=== PATIENT | male | born 1950 | race Caucasian/White ===

== ENCOUNTER 2021-03-25 09:51 | Outpatient (CLI) | payer OTHER, SELFPAY ==
[2021-03-25 12:28] LABS: Basophils # 0.1 10^3/uL (0.0-0.1); Eosinophils # 0.1 10^3/uL (0.0-0.8); Eosinophils % 2.9 %; Hematocrit 47.3 % (42.0-52.0); Hemoglobin 15.7 g/dL (11.7-16.6); Lymphocytes # 1.3 10^3/uL (0.8-4.8); Lymphocytes % 26.2 %; Mean Corpuscular HGB Conc 33.2 g/dL (30.0-36.0); Mean Corpuscular Hemoglobin 30.2 pg (28.0-34.0); Mean Platelet Volume 9.2 fL (7.4-10.4); Monocytes # 0.4 10^3/uL (0.2-0.9); Monocytes % 7.9 %; Neutrophils # 2.95 10^3/uL (1.8-7.7); Neutrophils % 61.8 %; Nucleated Red Blood Cells % 0 %; Platelet Count 196 10^3/cmm (130-400); White Blood Count 4.8 10^3/uL (4.0-10.0)
[2021-03-25 12:59] LABS: Prostate Specific Antigen 0.322 ng/mL (0-4); Testosterone Total 294.9 ng/dL (193-740)
[2021-03-25 13:11] LABS: Alanine Aminotransferase 20 U/L (0-41); Albumin Level 4.6 g/dL (3.5-5.2); Alkaline Phosphatase 81 IU/L (40-130); Anion Gap 14.8 (5-19); Aspartate Amino Transferase 22 U/L (0-40); Blood Urea Nitrogen 14 mg/dL (8-23); Calcium 8.8 mg/dL (8.5-10.5); Carbon Dioxide 27 mmol/L (22-29); Chloride 102 mmol/L (98-107); Globulin 2.5 g/dL (1.3-4.6); Glucose 101 mg/dL (65-115); Osmolality Calculated 289 mOsm/kg (285-295); Potassium 4.8 mmol/L (3.5-5.1); Sodium 139 mmol/L (136-145); Total Bilirubin 0.5 mg/dL (0.15-1.2); Total Protein 7.1 g/dL (6.6-8.7)
--- NOTE | 2021-03-25 13:50 | N.ONRAD NP_ITS ---
Radiation Oncology Consultation Patient Name: Reinier Dc Date of : 1950 Date of Service: 03/25/2021 Attending Physician: Roberto Wagner M.D. Reinier Dc was seen in consultation this afternoon at the request of the [facility] for consideration of radiotherapy for the management of a previously diagnosed prostate cancer with recent PSA elevation indicating biochemical failure. He initially was identified to have an elevated PSA level (5.5 ng/mL) in the fall 2018. A transrectal ultrasound-guided biopsy completed on July 04, 2019 diagnosed a prostatic adenocarcinoma with a Pevely's score of 4+4 = 8 involving 1 out of 2 cores than the left apex and Pevely score 4+3 equal 7 involving the right apex, right mid gland, right base, left mid gland, and left base, respectively. A robotic assisted laparoscopic prostatectomy with pelvic lymph node dissection was performed by Tonio Correia M.D. [facility] in [place], [place] on August 14, 2019. Pathology report (requested from the outside hospital and personally reviewed in [facility]) confirmed 25 g prostate with an acinar adenocarcinoma of grade group 4 (positive apical margin) and 3 harvested pelvic lymph nodes negative for malignancy (pT2N0). Routine surveillance identified a PSA of 0.18 ng/mL in December 2020. A Decipher Prostate RP identified a genomic high risk (44% prostate cancer mortality within 15 years). His most recent PSA was 0.32 ng/mL obtained prior to this evaluation. The patient was evaluated for salvage radiotherapy. I reviewed the recommendations as per National Comprehensive Cancer Network Guidelines in conjunction with androgen deprivation therapy for salvage radiotherapy. I also discussed the RTOG 9601 trial that determined 24 months of antiandrogen therapy to salvage radiotherapy resulted in an improvement in overall survival and the GETUG-AFU 16 that attested improvement in progression free survival to the patients randomized to radiotherapy in conjunction with short-term hormonal suppression. I would endorse a 6 1/2 week course of radiotherapy with concurrent gonadotropin releasing hormone agonist pharmacotherapy. Prior to beginning treatment, a CT scan will be acquired in the treatment position to delineate the clinical target volume. Toxicities of pelvic radiotherapy were also canvassed. The patient has verbalized understanding would like proceed as recommended. The patient's medical treatment plan was discussed with Ulises Ledesma M.D. Signed by: Dr. Roberto Wagner 03/25/2021 1:48:43 PM
--- NOTE | 2021-03-25 17:21 | ONC FU_ITS ---
Dr. Leedsma follow up note Patient: Reinier Dc Unit #: [id number]: 1950 Dicatated By: Aury Ledesma M.D.Date of Visit:Mar 25, 2021 Onc Med Follow-up/Prog Note History of Present Illness: Mr. Reinier Dc, is a 70-year-old gentleman with history of prostate cancer underwent RALP on August 14, 2019 for biopsy confirmed prostate cancer and final pathology report showed high risk, high-volume, Jamal score 7 and [address] scan of abdomen pelvis and bone scan was negative at the time of diagnosis his PSA was 6.8 and as per medical record, patient had a positive apical margin but after surgery his PSA become undetectable, patient tolerated procedure well with only complication being erectile dysfunction. And during follow-up his PSA started rising in the range of 0.01 and up to 0.20 in January 2021 at that time decipher prostate RP testing was done which confirmed patient's genomic risk being high As per patient he was seen by his urologist Dr. Howard in [facility] who recommended and referred him to us for salvage therapy. Patient denies any bony pains, denies any dysuria or hematuria, denies any weight loss, denies any back pain denies any abdominal pain denies any jaundice denies any fever chills denies any nausea or vomiting Medications: Cholecalciferol 1 Capsule (of 25 mcg ) Oral daily, Latanoprost Solution Ophthalmic at bedtime, Omeprazole (10 mg) Capsule Delayed Release Oral daily, Systane Balance Solution Ophthalmic b.i.d. Allergies: No Known Allergies. Review of Systems: Review of Systems is not available for this patient. Vital Signs: Performed on Mar 25, 2021 13:13 Height - 69.00 in Weight - 194.4 lbs Temperature - 96.7 F Pulse - 66 Respiration - 18 BP - 146/82 mm(hg) (HIGH) O2 Sat - 97 % Pain - 0 Fatigue - 0 Performed on Mar 25, 2021 13:13 BMI - 28.708 kg/m2 (HIGH) Performed on Mar 25, 2021 11:14 Height - 69 in Weight - 194.4 lbs (HIGH) BSA - 2.04 sq.m BMI - 28.71 Temperature - 96.7 F (LOW) Pulse - 66 /min Respiration - 18 /min BP - 146/82 mm(hg) (HIGH) O2 Sat - 97 % Pain - 0 Fatigue - 0 Performance Status: 0 - Fully active, able to carry on all predisease activities without restrictions. (ECOG) Physical Examination: ENMT - No mouth sores, no thrush, no jaundice, no cervical lymphadenopathy, Respiratory - Lungs are clear to auscultation, Cardiovascular - Regular rate and rhythm of heart, Abdomen - Soft, bowel sounds present, Extremities - No visible edema. Lab/Imaging: Most recent lab results are not available for this patient. Impression: Progressive PSA level after become undetectable following RALP on August 14, 2019, and PSA trend 0.0120.20 in January 2021 and decipher prostate RP done on January 05, 2021 confirmed genomic risk being high. History of prostate cancer diagnosed on July 05, 2019 with prostate biopsy which confirmed Brick score 7 and 8, for which he underwent RALP on August 14 2019 which confirmed high risk high-volume Brick 7 and 8 prostate cancer, apical margin was positive, his PSA was around 6.8 at the time of diagnosis but after RALP it become undetectable until recently showed progressive trend. CT scan of abdomen pelvis and bone scan done in July 2019 showed no evidence of Metastatic disease History of skin cancer, questionable sleep apnea Plan: discussed with patient regarding treatment options for recurrent prostate cancer as per progressive PSA trend and decipher prostate RP confirmed being high risk, at this point ,will consider him combined hormonal ADT with radiation therapy, consider Zoladex for 6-month. We will start first dose of Zoladex on the day of first day of radiation therapy thereafter he will receive Zoladex every 3-month for total of 3 doses. All the side effect possible benefits associated with ADT including but not limited to hot flashes, mood swings, gynecomastia, fluid retention, generalized weakness and fatigue were mentioned, further teaching was done by chemotherapy nurse, will obtain approval from his insurance prior to treatment and will call patient once we have approval for the treatment with Zoladex and also coordinate with radiation oncology. We will obtain baseline CBC, CMP and PSA and testosterone and then he will return to clinic in 1 month after Zoladex injection with PSA and testosterone. Signed By: Aury Ledesma M.D. <<Signature on File>>
== END 2021-03-25 09:52 | disposition home or self-care (01) ==
LOC: ONCMED 09:55
PROVIDERS: Absent Provider Radiology Radiation Oncology; Family Provider Family Medicine; Visit Provider Internal Medicine Hematology & Oncology
DX: C61 Malignant neoplasm of prostate (principal); Z85.828 Personal history of other malignant neoplasm of skin; Z85.46 Personal history of malignant neoplasm of prostate; R97.21 Rising PSA following treatment for malignant neoplasm of prostate
CPT/HCPCS: 36415; 80053; 84153; 84403; 85025; 99205

== ENCOUNTER 2021-04-21 05:50 | Outpatient (RCR) | payer OTHER, MEDICARE, SELFPAY ==
--- NOTE | 2021-03-30 | CT_ITS ---
Radiation Therapy Planning CT images; total exam DLP: 1035.88 mGy-cm MTDD
[2021-04-01] MEDS: lidocaine 1% INJ 20 mL INJECTION (14:35)
[2021-04-01] MEDS: goserelin acetate 10.8 mg Implant SUBCUT (15:00)
--- NOTE | 2021-04-05 11:34 | ONCRAD TMN_ITS ---
Radiation Oncology Treatment Management Note Patient Name: Reinier Dc Date of : 1950 Date of Service: 04/05/2021 Attending Physician: Roberto Wagner M.D. Reinier Dc is a 70 year old white male diagnosed with previously diagnosed a stage IIC (pT2N0) adenocarcinoma of the prostate, grade group 4 with a positive apical margin. A robotic assisted laparoscopic prostatectomy with pelvic lymph node dissection was performed by Tonio Correia M.D. [facility] in [place], [place] on August 14, 2019. Routine surveillance identified a PSA of 0.18 ng/mL in December 2020. A Decipher Prostate RP identified a genomic high risk (44% prostate cancer mortality within 15 years). His most recent PSA was 0.32 ng/mL obtained prior to this evaluation. The patient has received 6 Gy of a prescribed 66 Figueroa to the prostate fossa with an intensity modulated radiotherapy plan utilizing a step and shoot treatment technique. He was prescribed Zoladex (April 01, 2021). Upon review of systems, he denied any gastrointestinal complaints related to radiotherapy. On physical examination, the patient weighed 190 lbs. His temperature was 97.3 ???F with a blood pressure of 129/74 mmHg. The pulse was 69 bpm and his respiratory rate was 18. There was no erythema within the treatment angelo. Continue pelvic radiotherapy as prescribed. Signed by: Dr. Roberto Wagner 04/05/2021 11:32:05 AM
--- NOTE | 2021-04-12 11:06 | ONCRAD TMN_ITS ---
Radiation Oncology Treatment Management Note Patient Name: Reinier Dc Date of : 1950 Date of Service: 04/12/2021 Attending Physician: Roberto Wagnre M.D. Reinier Dc is a 70 year old white male diagnosed with previously diagnosed a stage IIC (pT2N0) adenocarcinoma of the prostate, grade group 4 with a positive apical margin. A robotic assisted laparoscopic prostatectomy with pelvic lymph node dissection was performed by Tonio Correia M.D. [facility] in [place], [place] on August 14, 2019. Routine surveillance identified a PSA of 0.18 ng/mL in December 2020. A Decipher Prostate RP identified a genomic high risk (44% prostate cancer mortality within 15 years). His most recent PSA was 0.32 ng/mL obtained prior to this evaluation. The patient has received 16 Gy of a prescribed 66 Figueroa to the prostate fossa with an intensity modulated radiotherapy plan utilizing a step and shoot treatment technique. He was prescribed Zoladex (April 01, 2021). Upon review of systems, he denied any gastrointestinal complaints related to radiotherapy. On physical examination, the patient weighed 193 lbs. His temperature was 97.4 ???F with a blood pressure of 130/78 mmHg. The pulse was 55 bpm and his respiratory rate was 20. There was no erythema within the treatment angelo. Continue pelvic radiotherapy as planned. Signed by: Dr. Roberto Wagner 04/12/2021 11:05:25 AM
--- NOTE | 2021-04-19 11:29 | ONCRAD TMN_ITS ---
Radiation Oncology Treatment Management Note Patient Name: Reinier Dc Date of : 1950 Date of Service: 04/19/2021 Attending Physician: Roberto Wagner M.D. Reinier Dc is a 70 year old white male diagnosed with previously diagnosed a stage IIC (pT2N0) adenocarcinoma of the prostate, grade group 4 with a positive apical margin. A robotic assisted laparoscopic prostatectomy with pelvic lymph node dissection was performed by Tonio Correia M.D. [facility] in [place], [place] on August 14, 2019. Routine surveillance identified a PSA of 0.18 ng/mL in December 2020. A Decipher Prostate RP identified a genomic high risk (44% prostate cancer mortality within 15 years). His most recent PSA was 0.32 ng/mL obtained prior to this evaluation. The patient has received 26 Gy of a prescribed 66 Figueroa to the prostate fossa with an intensity modulated radiotherapy plan utilizing a step and shoot treatment technique. He was prescribed Zoladex (April 01, 2021). Upon review of systems, he denied any gastrointestinal or genitourinary complaints related to radiotherapy. On physical examination, the patient weighed 188 lbs. His temperature was 97.1???F with a blood pressure of 126/84 mmHg. The pulse was 58 bpm and his respiratory rate was 18. There was no erythema within the treatment angelo. Continue pelvic radiotherapy as prescribed. Signed by: Dr. Roberto Wagner 04/19/2021 11:28:10 AM
== END 2021-04-21 23:59 | disposition home or self-care (01) ==
LOC: ONCMED 05:50
PROVIDERS: Absent Provider Radiology Radiation Oncology; Family Provider Family Medicine; Visit Provider Radiology Radiation Oncology
DX: Z51.0 Encounter for antineoplastic radiation therapy (principal); C61 Malignant neoplasm of prostate; Z79.818 Long term (current) use of other agents affecting estrogen receptors and estrogen levels; Z85.828 Personal history of other malignant neoplasm of skin; Z90.79 Acquired absence of other genital organ(s)
CPT/HCPCS: 77300; 77301; 77334; 77336; 77338; 77385; 96372; 96402; J9202

== ENCOUNTER 2021-05-19 06:22 | Outpatient (RCR) | payer OTHER, MEDICARE, SELFPAY ==
--- NOTE | 2021-04-27 12:39 | ONCRAD TMN_ITS ---
Radiation Oncology Treatment Management Note Patient Name: Reinier Dc Date of : 1950 Date of Service: 04/27/2021 Attending Physician: Roberto Wagner M.D. Reinier Dc is a 70 year old white male diagnosed with previously diagnosed a stage IIC (pT2N0) adenocarcinoma of the prostate, grade group 4 with a positive apical margin. A robotic assisted laparoscopic prostatectomy with pelvic lymph node dissection was performed by Tonio Correia M.D. [facility] in [place], [place] on August 14, 2019. Routine surveillance identified a PSA of 0.18 ng/mL in December 2020. A Decipher Prostate RP identified a genomic high risk (44% prostate cancer mortality within 15 years). His most recent PSA was 0.32 ng/mL obtained prior to this evaluation. The patient has received 36 Gy of a prescribed 66 Figueroa to the prostate fossa with an intensity modulated radiotherapy plan utilizing a step and shoot treatment technique. He was prescribed Zoladex (April 01, 2021). Upon review of systems, he denied any gastrointestinal or genitourinary complaints related to radiotherapy. On physical examination, the patient weighed 190 lbs. His temperature was 97 ???F with a blood pressure of 131/81 mmHg. The pulse was 52 bpm and his respiratory rate was 18. There was no erythema within the treatment angelo. Signed by: Dr. Roberto Wagner 04/27/2021 12:38:10 PM
--- NOTE | 2021-05-03 11:43 | ONCRAD TMN_ITS ---
Radiation Oncology Treatment Management Note Patient Name: Reinier Dc Date of : 1950 Date of Service: 05/03/2021 Attending Physician: Roberto Wagner M.D. Reinier Dc is a 70 year old white male diagnosed with previously diagnosed a stage IIC (pT2N0) adenocarcinoma of the prostate, grade group 4 with a positive apical margin. A robotic assisted laparoscopic prostatectomy with pelvic lymph node dissection was performed by Tonio Correia M.D. [facility] in [place], [place] on August 14, 2019. Routine surveillance identified a PSA of 0.18 ng/mL in December 2020. A Decipher Prostate RP identified a genomic high risk (44% prostate cancer mortality within 15 years). His most recent PSA was 0.32 ng/mL obtained prior to this evaluation. The patient has received 44 Gy of a prescribed 66 Figueroa to the prostate fossa with an intensity modulated radiotherapy plan utilizing a step and shoot treatment technique. He was prescribed Zoladex (April 01, 2021). Upon review of systems, he denied any gastrointestinal or genitourinary complaints related to radiotherapy. On physical examination, the patient weighed 189 lbs. His temperature was 96.8 ???F with a blood pressure of 137/79 mmHg. The pulse was 52 bpm and his respiratory rate was 18. There was no erythema within the treatment angelo. Continue salvage prostatic fossa radiotherapy as planned. Signed by: Dr. Roberto Wagner 05/03/2021 11:42:06 AM
--- NOTE | 2021-05-10 12:14 | ONCRAD TMN_ITS ---
Radiation Oncology Weekly Treatment Management Patient: Dao Alvarenga MR#: [id number] : 1950> Attending Physician: Dr. Dennis Baeza Date of Service: 05/10/2021 Referring Physician(s) : Dr. Lakshmi Decker Diagnosis: C61 - Malignant neoplasm of prostate, Diagnosed 03/25/2021 (Active) Radiotherapy to date: Course: Prostate 2020, Treatment Site: Prostate-Biochemical Failure, Ref. ID: [id number], Energy: 15X, Dose/Fx (cGy): 200, #Fx: / 33, Dose Correction (cGy): 0, Total Dose (cGy): 5,400, Start Date: 04/01/2021, End Date: 05/10/2021, Elapsed Days: 39 Reason for visit: The patient is being seen today as part of their regularly scheduled weekly on treatment visits to assess for acute toxicities from radiotherapy. Review of Systems: Complaints are minimal. His performance status is good. He has had a few loose bowel movements but has not required any medication. He has nocturia x2-3. He has no dysuria or pyuria. He has mild urgency but has no difficulty controlling his bladder. Vital Signs: Performed on 05/10/2021 11:35 AM BMI - 27.999 kg/m2 (high), Height - 69.00 in, Weight - 189.6 lbs, Temperature - 97.3 f, Pulse - 53, Respiration - 20, O2 Sat - 98 %, Pain - 0 and BP - 129/ 75 mm(hg). Physical Exam: Alert, oriented, and in no acute distress. Imaging: Radiation therapy imaging related to accurate target localization (i.e. KV, MV and CBCT) was reviewed. Appropriate changes, if any, were made to ensure treatment accuracy. Plan: Continue treatment according to plan. His only question was about follow-up. He will see Dr. Wagner approximately one month after finishing. He will have blood work and see his urologist in [place] about 4 weeks after completing treatment as well. Signed by: Dr. Dennis Baeza 05/10/2021 12:13:10 PM
--- NOTE | 2021-05-17 11:48 | ONCRAD TMN_ITS ---
Radiation Oncology Weekly Treatment Management Patient: Reinier Dc MR#: [id number] : 1950 Attending Physician: Dr. Dennis Baeza Date of Service: 05/17/2021 Referring Physician(s) : Dr. Lakshmi Decker Diagnosis: C61 - Malignant neoplasm of prostate, Diagnosed 03/25/2021 (Active) Radiotherapy to date: Course: Prostate 2020, Treatment Site: Prostate-Biochemical Failure, Ref. ID: [id number], Energy: 15X, Dose/Fx (cGy): 200, #Fx: 33, Dose Correction (cGy): 0, Total Dose (cGy): 6,200, Start Date: 04/01/2021, Elapsed Days: 46 Reason for visit: The patient is being seen today as part of their regularly scheduled weekly on treatment visits to assess for acute toxicities from radiotherapy. Review of Systems: Mr. Dc was seen 05/14/2021 with complaints of nocturia x5 or 6. This represented an abrupt change from the normal 2-3. He had no obstructive symptoms at all, but I thought a trial of Flomax was warranted. He has had 3 doses without any improvement thus far. When I prescribed the medication, I did discuss with him that in the absence of obstructive or irritative symptoms that the drug may be of little to no benefit. As last week, he still has no obstructive or irritative symptoms. His frequency of urination during the day is unchanged. Over the weekend he has gotten up 3-5 times per night. He feels well otherwise. His performance status is good. No bowel complaints. Vital Signs: Performed on 05/17/2021 11:18 AM BMI - 27.852 kg/m2 (high), Height - 69.00 in, Weight - 188.6 lbs, Temperature - 97.2 f, Pulse - 68, Respiration - 20, O2 Sat - 97 %, Pain - 0 and BP - 134/ 85 mm(hg). Physical Exam: Alert, oriented, no distress. He has no intergluteal fold, anterior pelvic, or inguinal skin reaction. Imaging: Radiation therapy imaging related to accurate target localization (i.e. KV, MV and CBCT) was reviewed. Appropriate changes, if any, were made to ensure treatment accuracy. Plan: Continue treatment as planned. He will finish treatment this week. I told him that he should take a few more doses of the Flomax to see if there might be any benefit. If there is not, he will stop it. I told him that most likely his nocturia will improve over the 2 weeks after completing radiation. He will be having a PSA at the [place] and seeing his urologist in [place] about a month after treatment. He will also be seeing Dr. Wagner. Signed by: Dr. Dennis Baeza 05/17/2021 11:46:43 AM
--- NOTE | 2021-05-19 15:56 | N.ONRD TS_ITS ---
Radiation Oncology Treatment Summary Patient: Reinier Dc MR#: [id number] : 1950 Age: 70 Sex: Male Dictated by: Dr. Dennis Baeza Date of Service: 05/19/2021 Referring Physician(s) : Dr. Lakshmi Decker Diagnosis: C61 - Malignant neoplasm of prostate, Diagnosed 03/25/2021 (Active) Radiotherapy to Date: Course: Prostate 2020, Treatment Site: Prostate-Biochemical Failure, Ref. ID: [id number], Energy: 15X, Dose/Fx (cGy): 200, #Fx: 33 / 33, Dose Correction (cGy): 0, Total Dose (cGy): 6,600, Start Date: 04/01/2021, End Date: 05/19/2021, Elapsed Days: 48 Clinical Summary: The patient tolerated RT well. Performance status remained stable throughout treatment. Mr. Dc maintained excellent bladder control. Late in treatment he developed mild urgency and nocturia x5-6. He had no symptoms of infection. Although he had had a prior prostatectomy, a brief trial of Flomax was tried without any benefit. Plan: End of treatment today. Follow up in one month. Signed by: Dr. Dennis Baeza>05/19/2021 3:55:03 PM <<Signature on File>>
== END 2021-05-22 23:59 | disposition home or self-care (01) ==
LOC: ONCMED 06:22
PROVIDERS: Absent Provider Radiology Radiation Oncology; PCP Family Medicine; Visit Provider Specialist
DX: Z51.0 Encounter for antineoplastic radiation therapy (principal); C61 Malignant neoplasm of prostate; Z79.899 Other long term (current) drug therapy
CPT/HCPCS: 77014; 77336; 77385

== ENCOUNTER 2021-06-18 05:56 | Outpatient (RCR) | payer OTHER, MEDICARE, SELFPAY ==
--- NOTE | 2021-06-18 10:50 | ONCRAD EPV_ITS ---
Radiation Oncology Follow-Up Note Patient Name: Reinier Dc Date of : 1950 Date of Service: 06/18/2021 Attending Physician: Roberto Wagner M.D. Reinier Dc returned to my office this morning for a routinely scheduled follow-up appointment. 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 A robotic assisted laparoscopic prostatectomy with pelvic lymph node dissection was performed by Tonio Correia M.D. [facility] in [place], [place] on August 14, 2019. Routine surveillance identified a PSA of 0.18 ng/mL in December 2020. A Decipher Prostate RP identified a genomic high risk (44% prostate cancer mortality within 15 years). His most recent PSA was 0.32 ng/mL. Radiotherapy was administered between the dates of April 01, 2021 through May 19, 2021. A prescribed dose of 66 Gy was delivered in 33 fractions encompassing 53 elapsed days. He was prescribed Zoladex concurrently with radiation therapy. On review of systems, he denied lower urinary tract symptoms. On physical examination, the patient weighed 191 pounds. The temperature is 97.3???F. His blood pressure was 139/81 mmHg. The pulse was 64 bpm and his respiratory rate was 18 breaths per minute. Genitourinary exam was deferred. In summary, Mr. Dc returned for a routine post-radiotherapy follow-up. A CBC, CMP, PSA, and total testosterone has been ordered. He will receive his second (last) dose of Zoladex in one week. He will continue follow-up with his urologist. Signed by: Dr. Roberto Wagner 06/18/2021 10:49:03 AM
== END 2021-06-22 23:59 | disposition home or self-care (01) ==
LOC: ONCMED 05:56
PROVIDERS: PCP Family Medicine; Visit Provider Radiology Radiation Oncology
DX: C61 Malignant neoplasm of prostate (principal); C77.5 Secondary and unspecified malignant neoplasm of intrapelvic lymph nodes; Z79.899 Other long term (current) drug therapy
CPT/HCPCS: 99024

== ENCOUNTER 2021-07-02 05:47 | Outpatient (RCR) | payer OTHER, MEDICARE, SELFPAY ==
[2021-07-01 11:59] LABS: Prostate Specific Antigen < 0.006 ng/mL (0-4); Testosterone Total < 2.5 ng/dL (193-740)
[2021-07-02] MEDS: lidocaine 1% INJ 20 mL INJECTION (09:54)
[2021-07-02] MEDS: goserelin acetate 10.8 mg Implant SUBCUT (10:05)
--- NOTE | 2021-07-02 12:50 | ONC FU_ITS ---
Dr. Ledesma follow up note Patient: Reinier Dc Unit #: [id number]: 1950 Dicatated By: Aury Ledesma M.D.Date of Visit:Jul 02, 2021 Onc Med Follow-up/Prog Note History of Present Illness: Mr. Reinier Dc, is a 70-year-old gentleman with history of prostate cancer underwent RALP on August 14, 2019 for biopsy confirmed prostate cancer and final pathology report showed high risk, high-volume, Jamal score 7 and [address] scan of abdomen pelvis and bone scan was negative at the time of diagnosis his PSA was 6.8 and as per medical record, patient had a positive apical margin but after surgery his PSA become undetectable, patient tolerated procedure well with only complication being erectile dysfunction. And during follow-up his PSA started rising in the range of 0.01 and up to 0.20 in January 2021 at that time decipher prostate RP testing was done which confirmed patient's genomic risk being high As per patient he was seen by his urologist Dr. Howard in [facility] who recommended and referred him to us for salvage therapy. Patient denies any bony pains, denies any dysuria or hematuria, denies any weight loss, denies any back pain denies any abdominal pain denies any jaundice denies any fever chills denies any nausea or vomiting Started on combined ADT/radiation on April 01, 2021 Plan was to give him 6-month of Zoladex and along with Casodex for 2 weeks Came for follow-up, denies any specific complaints, no fever chills, no nausea or vomiting, no diarrhea constipation, patient has tolerated combined ADT/radiation therapy with Zoladex/Casodex well patient has completed his recommended radiation therapy to the prostate and he is off Casodex after initial dosing. Tolerated dose of Zoladex well. Medications: Cholecalciferol 1 Capsule (of 25 mcg ) Oral daily, Latanoprost Solution Ophthalmic at bedtime, Omeprazole (10 mg) Capsule Delayed Release Oral daily, Systane Balance Solution Ophthalmic b.i.d. Allergies: No Known Allergies. Review of Systems: Review of Systems is not available for this patient. Vital Signs: Performed on Jul 02, 2021 11:09 Height - 69.00 in Weight - 190.4 lbs (LOW) BSA - 2.02 sq.m BMI - 28.12 Temperature - 97.3 F (LOW) Pulse - 60 /min Respiration - 18 /min BP - 144/79 mm(hg) (HIGH) O2 Sat - 98 % Pain - 3 Fatigue - 0 Performance Status: 0 - Fully active, able to carry on all predisease activities without restrictions. (ECOG) Physical Examination: ENMT - No mouth sores, no thrush, no jaundice, Respiratory - Lungs are clear to auscultation, Cardiovascular - Regular rate and rhythm of heart, Abdomen - Soft, bowel sounds present, Extremities - No visible edema. Lab/Imaging: Most recent lab results are not available for this patient. Impression: Progressive PSA level after become undetectable following RALP on August 14, 2019, and PSA trend 0.0120.20 in January 2021 and decipher prostate RP done on January 05, 2021 confirmed genomic risk being high. History of prostate cancer diagnosed on July 05, 2019 with prostate biopsy which confirmed Jamal score 7 and 8, for which he underwent RALP on August 14 2019 which confirmed high risk high-volume [place] 7 and 8 prostate cancer, apical margin was positive, his PSA was around 6.8 at the time of diagnosis but after RALP it become undetectable until recently showed progressive trend .Started on combined ADT/radiation therapy on April 01, 2021 CT scan of abdomen pelvis and bone scan done in July 2019 showed no evidence of Metastatic disease History of skin cancer, questionable sleep apnea Plan: Came for follow-up, denies any specific complaints, no fever chills, no nausea or vomiting, no diarrhea constipation, patient has tolerated combined ADT/radiation therapy with Zoladex/Casodex well patient has completed his recommended radiation therapy to the prostate and he is off Casodex after initial dosing. Tolerated dose of Zoladex today. With that he will conclude his therapy. And then we will see him back in 3 months with PSA Signed By: Aury Ledesma M.D. <<Signature on File>>
--- NOTE | 2021-07-02 12:54 | ONC FU_ITS ---
Dr. Ledesma follow up note Patient: Reinier Dc Unit #: [id number]: 1950 Dicatated By: Aury Ledesma M.D.Date of Visit:Jul 02, 2021 Onc Med Follow-up/Prog Note History of Present Illness: Mr. Reinier Dc, is a 70-year-old gentleman with history of prostate cancer underwent RALP on August 14, 2019 for biopsy confirmed prostate cancer and final pathology report showed high risk, high-volume, Jamal score 7 and [address] scan of abdomen pelvis and bone scan was negative at the time of diagnosis his PSA was 6.8 and as per medical record, patient had a positive apical margin but after surgery his PSA become undetectable, patient tolerated procedure well with only complication being erectile dysfunction. And during follow-up his PSA started rising in the range of 0.01 and up to 0.20 in January 2021 at that time decipher prostate RP testing was done which confirmed patient's genomic risk being high As per patient he was seen by his urologist Dr. Howard in [facility] who recommended and referred him to us for salvage therapy. Patient denies any bony pains, denies any dysuria or hematuria, denies any weight loss, denies any back pain denies any abdominal pain denies any jaundice denies any fever chills denies any nausea or vomiting Started on combined ADT/radiation on April 01, 2021 Plan was to give him 6-month of Zoladex and along with Casodex for 2 weeks Came for follow-up, denies any specific complaints, no fever chills, no nausea or vomiting, no diarrhea constipation, patient has tolerated combined ADT/radiation therapy with Zoladex/Casodex well patient has completed his recommended radiation therapy to the prostate and he is off Casodex after initial dosing. Tolerated dose of Zoladex well. Medications: Cholecalciferol 1 Capsule (of 25 mcg ) Oral daily, Latanoprost Solution Ophthalmic at bedtime, Omeprazole (10 mg) Capsule Delayed Release Oral daily, Systane Balance Solution Ophthalmic b.i.d. Allergies: No Known Allergies. Review of Systems: Review of Systems is not available for this patient. Vital Signs: Performed on Jul 02, 2021 11:09 Height - 69.00 in Weight - 190.4 lbs (LOW) BSA - 2.02 sq.m BMI - 28.12 Temperature - 97.3 F (LOW) Pulse - 60 /min Respiration - 18 /min BP - 144/79 mm(hg) (HIGH) O2 Sat - 98 % Pain - 3 Fatigue - 0 Performance Status: 0 - Fully active, able to carry on all predisease activities without restrictions. (ECOG) Physical Examination: ENMT - No mouth sores, no thrush, no jaundice, Respiratory - Lungs are clear to auscultation, Cardiovascular - Regular rate and rhythm of heart, Abdomen - Soft, bowel sounds present, Extremities - No visible edema. Lab/Imaging: Most recent lab results are not available for this patient. Impression: Progressive PSA level after become undetectable following RALP on August 14, 2019, and PSA trend 0.0120.20 in January 2021 and decipher prostate RP done on January 05, 2021 confirmed genomic risk being high. History of prostate cancer diagnosed on July 05, 2019 with prostate biopsy which confirmed Jamal score 7 and 8, for which he underwent RALP on August 14 2019 which confirmed high risk high-volume [place] 7 and 8 prostate cancer, apical margin was positive, his PSA was around 6.8 at the time of diagnosis but after RALP it become undetectable until recently showed progressive trend .Started on combined ADT/radiation therapy on April 01, 2021 CT scan of abdomen pelvis and bone scan done in July 2019 showed no evidence of Metastatic disease History of skin cancer, questionable sleep apnea Plan: Discussed with patient regarding his labs, testosterone less than 2.5, PSA less than 0.006 Clinically, there is no evidence of metastatic disease or disease progression, patient has tolerated combined ADT/radiation therapy well. We will proceed with his second and final dose of 3 monthly Zoladex today and then he will return to clinic in 3 months with PSA Signed By: Aury Ledesma M.D. <<Signature on File>>
== END 2021-07-22 23:59 | disposition home or self-care (01) ==
LOC: ONCMED 05:47
PROVIDERS: PCP Family Medicine; Visit Provider Internal Medicine Hematology & Oncology
DX: Z51.11 Encounter for antineoplastic chemotherapy (principal); C61 Malignant neoplasm of prostate; R97.20 Elevated prostate specific antigen [PSA]; G47.30 Sleep apnea, unspecified; Z85.828 Personal history of other malignant neoplasm of skin; Z79.899 Other long term (current) drug therapy
CPT/HCPCS: 36415; 84153; 84403; 96372; 96402; 99215; J9202

== ENCOUNTER 2021-09-15 16:34 | Inpatient (IN) | payer OTHER, MEDICARE, SELFPAY ==
[2021-09-15] VITALS (8 sets, daily range): BP systolic 131–140; BP diastolic 89–102; PULSE 67–73; RESP 12–26; TEMP 36.9; O2SAT 94–100; BMI 26.6
--- NOTE | 2021-09-15 16:38 | ECG_ITS ---
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 Measurements Intervals [place] Rate: 75 P: 74 OR: 180 QRS: -74 QRSD: 106 T: 16 QT: 401 QTc: 448 Interpretive Statements SINUS RHYTHM POSSIBLE RIGHT VENTRICULAR CONDUCTION DELAY [RSR (QR) IN V1/V2] LEFT ANTERIOR FASCICULAR BLOCK [QRS AXIS <= -45, QR IN I, RS IN II] ST ELEVATION, CONSIDER ANTERIOR INJURY [MARKED ST ELEVATION W/O NORMALLY INFLECTED T-WAVE IN V2-V5] ACUTE SC No previous ECG available for comparison Electronically Signed On 09-15-2021 17:38:05 ENERGY SPECIALIST by Keith Gill M.D. [email or web address]
--- NOTE | 2021-09-15 16:45 | XR_ITS ---
WS: [id number] PORTABLE CHEST HISTORY: chest pain COMPARISON: None available. Lungs are clear and well expanded. No pleural effusion or pneumothorax. Cardiac size: Normal. Mediastinum/Aorta: Normal mediastinum. No osseous abnormality seen. XR/XR chest 1V portable [id number] IMPRESSION: Unremarkable portable chest.
[2021-09-15] MEDS: heparin 5,000 unit/mL INJ 1 mL 4000 UNIT IVP (16:55)
[2021-09-15] MEDS: fentaNYL 50 mcg/mL INJ 2mL IVP ×2 (16:55→23:21)
[2021-09-15] MEDS: aspirin 325 mg Tablet PO (16:56)
[2021-09-15] MEDS: ondansetron 2 mg/ML SDV 2 mL 4 MG IVP (16:56)
[2021-09-15] MEDS: clopidogrel 300 mg Tablet PO (16:56)
[2021-09-15] MEDS: atorvastatin 40 mg Tablet 80 MG PO ×2 (16:57→20:17)
[2021-09-15] MEDS: sodium chloride 0.9% 1,000 ML 999 ML IV (16:58)
--- NOTE | 2021-09-15 17:00 | ED_ITS ---
HPI - Chest Pain General: Chief Complaint: Chest Pain Stated Complaint: Chest Pain Time Seen by Provider: 09/15/21 16:45 History of Present Illness: HPI narrative: Mr. Dc is a 71-year-old gentleman without significant past medical history who presents to the emergency department due to chest pain. Symptom onset was 20 to 30 minutes prior to arrival. He describes severe unrelenting pain that radiates underneath his arms. He has associated diaphoresis. He denies history of frequent episodes of chest pain however did begin having chest pain proximately 6 days ago. He presented to the [place] and had evaluation at that time without hospitalization. He had intermittent more typical chest pain episodes until the 1 today. Intensity of symptoms is severe. Course has persisted. No other significant associated, provoking, exacerbating, or relieving factors identified. Review of Systems General: Reports: 10 or more systems reviewed and unremarkable except in HPI and below Physical Exam Narrative: EXAM NARRATIVE: GENERAL/CONSTITUTIONAL -no apparent-appearing. Distress due to pain Eyes - PERRL, no conjunctival injection ENMT - Atraumatic external nose and ears. Moist mucous membranes NECK - supple. trachea midline CARDIOVASCULAR - regular rate and rhythm. Peripheral pulses 2+ and equal. No peripheral edema. RESPIRATORY -clear to auscultation bilaterally. Tachypnea present ABDOMEN/GI - Nontender/Nondistended. No tenderness to percussion or evidence of peritonitis MSK - Extremities without obvious deformity or tenderness to palpation SKIN -diaphoretic. NEURO - alert and appropriately oriented. Moves all extremities equally. Course ED course: - Patient was seen and evaluated by me at bedside immediately upon patient's placement. - Patient placed on cardiac monitors, IV access obtained - Initial evaluation notable for distress due to pain. Patient is diaphoretic and ill-appearing, blood pressure is adequate. Twelve-lead EKG interpreted at time of completion, STEMI present, STEMI activation ordered. - STEMI treatment per order set - Discussed case with cardiology, patient to be taken emergently to Test Engineering Technician - Labs pending at time of admission - Imaging notable for no pneumothorax or widened mediastinum - Upon serial reexamination after treatment the patient was improved with analgesia - Based on ED evaluation the patient is having a STEMI - Updated the patient and his at bedside including plan for emergent cardiac catheterization. - Patient taken emergently to Test Engineering Technician and left the emergency department in mildly improved condition from initial presentation Vital Signs: Vital signs: Vital Signs Temperature 98.0 F 09/18/21 12:00 Pulse Rate 80 09/18/21 12:21 Respiratory Rate 18 09/18/21 12:21 Blood Pressure 85/54 09/18/21 12:21 Pulse Oximetry 96 09/18/21 12:21 MDM - Chest Pain Medical Records: Attestation: I reviewed the patient's medical records. Lab Data: Attestation: I reviewed the patient's lab results. Labs: Lab Results 09/15/21 09/15/21 09/15/21 16:45 16:45 16:45 WBC 7.4 10^3/uL 10^3/ uL (4.0-10.0) RBC 4.89 10^6/uL 10^6 /uL (4.1-5.3) Hgb 15.1 g/dL g/dL (11.7-16.6) Hct 44.1 % % (42.0-52.0) MCV 90.2 fl fl (80-94) MCH 30.9 pg pg (28.0-34.0) MCHC 34.2 g/dL g/dL (30.0-36.0) RDW 11.9 % L % (12.1-15.1) Plt Count 194 10^3/cmm 10^3 /cmm (130-400) MPV 9.1 fL fL (7.4-10.4) Neut % (Auto) 50.7 % % Lymph % (Auto) 34.1 % % [place] % (Auto) 10.4 % % Eos % (Auto) 3.6 % % Baso % (Auto) 0.8 % % Neut # (Auto) 3.76 10^3/uL 10^3 /uL (1.8-7.7) Lymph # (Auto) 2.5 10^3/uL 10^3/ uL (0.8-4.8) [place] # (Auto) 0.8 10^3/uL 10^3/ uL (0.2-0.9) Eos # (Auto) 0.3 10^3/uL 10^3/ uL (0.0-0.8) Baso # (Auto) 0.1 10^3/uL 10^3/ uL (0.0-0.1) Nucleated RBC % (a uto) 0 % % Nucleated RBCs # 0.0 /100WBC /100W BC PT 12.90 SECONDS SEC ONDS (12.1-14.9) INR 0.94 (0.8-1.2) APTT 28.5 SECONDS SECO NDS (23.9-36.7) Sodium 139 mmol/L mmol/L (136-145) Potassium 3.3 mmol/L L mmol /L (3.5-5.1) Chloride 100 mmol/L mmol/L (98-107) Carbon Dioxide 22 mmol/L mmol/L (22-29) Anion Gap 20.3 H (5-19) BUN 21 mg/dL mg/dL (8-23) Creatinine 1.2 mg/dL mg/dL (0.7-1.2) GFR Calculation Not Reportable Glucose 97 mg/dL mg/dL (65-115) Calculated Osmolal ity 291 mOsm/kg mOsm/ kg (285-295) Calcium 9.3 mg/dL mg/dL (8.5-10.5) Total Bilirubin 0.2 mg/dL mg/dL (0.15-1.2) AST 20 U/L U/L (0-40) ALT 18 U/L U/L (0-41) Alkaline Phosphata se 83 IU/L IU/L (40-130) Troponin T Baselin e NT-Pro-B Natriuret Pep 677 pg/mL H pg/mL (0-125) Total Protein 6.8 g/dL g/dL (6.6-8.7) Albumin 4.4 g/dL g/dL (3.5-5.2) Globulin 2.4 g/dL g/dL (1.3-4.6) Lipase 51 U/L U/L (13-60) 09/15/21 16:45 WBC RBC Hgb Hct MCV MCH MCHC RDW Plt Count MPV Neut % (Auto) Lymph % (Auto) [place] % (Auto) Eos % (Auto) Baso % (Auto) Neut # (Auto) Lymph # (Auto) [place] # (Auto) Eos # (Auto) Baso # (Auto) Nucleated RBC % (a uto) Nucleated RBCs # PT INR APTT Sodium Potassium Chloride Carbon Dioxide Anion Gap BUN Creatinine GFR Calculation Glucose Calculated Osmolal ity Calcium Total Bilirubin AST ALT Alkaline Phosphata se Troponin T Baselin e 47 ng/L H ng/L (0-15) NT-Pro-B Natriuret Pep Total Protein Albumin Globulin Lipase EKG Data^: EKG 1: Attestation: I personally reviewed and interpreted this EKG as follows: EKG interpretation date: 09/15/21 EKG interpretation time: 16:43 Ischemic changes: acute STEMI Interpretation: Twelve-lead EKG shows a regular rhythm at a rate of 75. WA interval 180, QRS duration 106, QTc 448. Left axis deviation Interpretation: STEMI with suspected septal anterior involvement and T wave abnormalities concerning for reciprocal changes in the inferior leads Critical Care Time Critical Care Time: Critical Care Time: Yes Total Critical Care Time: 35 Attestation: This case had a high probability of a clinically significant, sudden, or life threatening deterioration of this patient's condition which required my full and direct attention, intervention and personal management. Discharge Plan Discharge Admit Provider: Denton Hardin Condition: Stable Discharge Orders: Discharge Order (Routine); Ordered 09/18/21 Ordered By: Denton Hardin Discharge Diet: Cardiac Discharge Activity: Increase activity as tolerated Coding Level of Care Code ED Production Estimator for Chg Olesya
--- NOTE | 2021-09-15 17:01 | XACV_ITS ---
Ht: 175 cm Wt: 86 kg BSA: 2.06 m2 Gender: Male : 1950 Any Known Allergies: No known allergies Exam Priority: Routine Procedure(s): Procedure Description: Diagnostic procedure Procedure Description: PCI procedure Procedure Description: Drug Eluting Coronary Stent Procedure Description: PTCA Procedure Description: Coronary Angiography Diagnostic Cath Status: Emergency Diagnostic Findings * Left Main has no disease. * Circumflex has no disease. * Right Coronary Artery has no disease. * Proximal Left Anterior Descending: total occlusion, FANNY: 0 flow. * Distal Left Anterior Descending: moderate 50% stenosis, FANNY: 3 flow. * Distal Left Anterior Descending: minimal 30% stenosis, FANNY: 3 flow. * 1st Diagonal: significant 80% stenosis, FANNY: 3 flow. * Coronary angiography shows right dominance. PCI Status: Emergency PCI Indication: Immediate PCI for STEMI Interventional Findings * Proximal Left Anterior Descendin% stenosis treated with a AB TREK 2.50X12 RX BALLOON, KAREEM Power YOHAN 3.5X15 LAMONTE, and MDIan MAI EUPHORA RX 3.80U40ME BALLOON. 0% residual stenosis, FANNY: 3 flow. Conclusions 1. There is total occlusion coronary artery disease with one vessel disease. 2. Proximal Left Anterior Descending was treated with a Balloon, Drug Eluting Stent, and Balloon. Recommendations * Return to inpatient for close monitoring and routine cath care. * Risk factor modification for secondary prevention. * Statin and aspirin 81mg lifelong, if tolerated. * Cardiac rehab. * Continue DAPT for at least one year. We will assess at the end of one year to determine continuation or not. Interventional RX Recommendation: PCI w/o planned CABG Diagnostic RX Recommendation: PCI w/o planned CABG Pressures Phase:Rest AO : 132 / 94 ( 113 ) @ 3:30:00 PM 133 / 95 ( 114 ) @ 3:30:00 PM 118 / 82 ( 101 ) @ 3:35:00 PM 108 / 76 ( 93 ) @ 3:56:00 PM Clinical Evaluation EBL: 5mL-10mL Procedural Details Procedure Consent Obtained. Pre-Procedure Time Out. Identified patient by full name and date of as verbalized by the patient/guarantor. Does the consent match the physician's order: N/A Emergent. Accurate & Complete Informed Consent: N/A Emergent. Inpatient/Outpatient History & Physical on Chart: N/A Emergent. If H&P is completed, is and addenduem needed: N/A Emergent; If yes, is the addendum complete: N/A Emergent. Visualize and Verify Site with Patient/Guarantor: N/A. Relevant Radiology Images available: N/A Emergent. The risks, benefits, and alternatives of sedation and/or procedure were discussed by physician. The patient agrees to continue. Procedure started. [facility] Clinical Fraility Score: 3: Managing Well. Patient Partner Indications: ACS <= 24 hours. Chest Pain Symptom Assessment: Typical Angina Symptoms. Correct patient, site and procedure confirmed by cath team. Current diagnosis: STEMI. PERRLA. Strong, equal hand packer denture bilaterally. Lungs clear x 5 lobes. IV Site on Arrival: 18 gauge in the right anticubital. IV Fluids: 0.9% NaCl at KVO. 100 mL infused prior to dental laboratory assistant. Oxygen started at 2liters/min via nasal canula. right groin was prepped with chloroprep then draped in the usual sterile fashion. right radial was prepped with chloroprep then draped in the usual sterile fashion. Physician notified. Baseline sample Acquired. HR: 73 BPM. Physician arrived. Current Diagnosis : STEMI. Physician scrubbed in. Immediate Pre-Procedure Time Out. Correct Patient: Yes; Correct Procedure: Yes; Correct Site: Yes; Correct Patient Position: Yes; Correct Supplies: Yes; Dried Flammable Prep: Yes; Blood Products Available: N/A;. Lidocaine 1% infiltrated to the right radial. PCI Indication : Immediate PCI for STEMI. Arterial access obtained. 6 belarusian XB 3.5 guide catheter was inserted over the wire. AP Pads placed on patient. Runthrough guidewire was advanced through the guide catheter to lesion in the prox LAD. Inflation number : 1 A AB TREK 2.50X12 RX BALLOON was prepped and advanced across the Prox LAD , then inflated to 15 ANDREY for 0:09 seconds. Results checked. Balloon out. Inflation Number : 2 A KAREEM Power YOHAN 3.5X15 LAMONTE -Lot Number# _[id number] EXP: 02/16/2024 was prepped and advanced across the Prox LAD. The stent was deployed at 8 ANDREY for 0:24 seconds. Stent balloon out over wire. Results checked. 3.5x8 NC Euphora balloon inserted and advanced through the guide catheter. Runthrough guidewire was advanced through the guide catheter to lesion in the prox LAD. Inflation number : 3 A MDT NC EUPHORA RX [id number] BALLOON was prepped and advanced across the Prox LAD , then inflated to 12 ANDREY for 0:16 seconds. Inflation number: 4 The MDT NC EUPHORA RX [id number] BALLOON was reinflated across the Prox LAD, to 7 ANDREY for 0:21 seconds. Balloon out. Wires out. Physician review of cine films. Catheter out. A 5 belarusian JR4 catheter in over wire. Multiple views taken of right coronary artery. Catheter removed over the exchange wire. ACT drawn. Results 221 seconds. Therapeutic limits - pre-heparin administration 90-150 seconds and monitoring heparin during a vascular procedure >250 seconds. A TR Band was successful obtaining hemostatsis at the Right Radial artery insertion site. Post Procedure: Pulses reassessed and unchanged. Contrast type used: Visipaque 320 mgI/mL, 500 mL bottle. Complications: None. Estimated blood loss: 5mL-10mL. Procedure completed. Total IV fluids: 100 mL. Medication's Wasted: Lidocaine 1% = 10 mL. Medication's Wasted: Heparin = 4000 units. Patient transferred by wheelchair to ICU. Vital chart was stopped. Access Site Site: Right Radial artery Sheath Size: 6 Fr Hemostasis Method: TR Band Hemostasis Success: Successful Procedure Medications Start: 5:20 PM Stop: 5:20 PM Medication: Versed Amount: 1 mg Route: I.V. Start: 5:20 PM Stop: 5:20 PM Medication: Fentanyl Amount: 50 mcg Route: I.V. Start: 5:23 PM Stop: 5:23 PM Medication: Versed Amount: 1 mg Route: I.V. Start: 5:23 PM Stop: 5:23 PM Medication: Fentanyl Amount: 50 mcg Route: I.V. Start: 5:25 PM Stop: 5:25 PM Medication: Versed Amount: 1 mg Route: I.V. Start: 5:28 PM Stop: 5:28 PM Medication: Aggrastat 12.5 mg/250 mL Amount: 43 ml Route: I.V. bolus Start: 5:28 PM Stop: 5:28 PM Medication: Aggrastat 12.5 mg/250 mL Amount: 15.5 ml/hr Route: I.V. bolus Start: 5:30 PM Stop: 5:30 PM Medication: Heparin Amount: 4000 units Route: I.V. Start: 5:33 PM Stop: 5:33 PM Medication: Versed Amount: 1 mg Route: I.V. Start: 6:03 PM Stop: 6:03 PM Medication: Heparin Amount: 3000 units Route: I.V. I, the attending physician, have reviewed and verified all procedure medications. Yes, all medications given per verbal order History/Risk Factors Hypertension: No Dyslipidemia: No Peripheral Arterial Disease (PAD): No Myocardial Infarction ([place]): No Obesity: No Renal Disease: No Prior Interventions PCI: No CABG: No Valve Surgery: No Report Signatures Finalized by Denton Hardin MD on 09/28/2021 07:39 PM
[2021-09-15 17:07] LABS: Basophils # 0.1 10^3/uL (0.0-0.1); Basophils % 0.8 %; Eosinophils # 0.3 10^3/uL (0.0-0.8); Eosinophils % 3.6 %; Hematocrit 44.1 % (42.0-52.0); Hemoglobin 15.1 g/dL (11.7-16.6); Lymphocytes # 2.5 10^3/uL (0.8-4.8); Lymphocytes % 34.1 %; Mean Corpuscular HGB Conc 34.2 g/dL (30.0-36.0); Mean Corpuscular Hemoglobin 30.9 pg (28.0-34.0); Mean Corpuscular Volume 90.2 fl (80-94); Mean Platelet Volume 9.1 fL (7.4-10.4); Monocytes # 0.8 10^3/uL (0.2-0.9); Monocytes % 10.4 %; Neutrophils # 3.76 10^3/uL (1.8-7.7); Neutrophils % 50.7 %; Nucleated Red Blood Cells % 0 %; Platelet Count 194 10^3/cmm (130-400); Red Blood Count 4.89 10^6/uL (4.1-5.3); Red Cell Distribution Width 11.9 % (12.1-15.1); White Blood Count 7.4 10^3/uL (4.0-10.0)
--- NOTE | 2021-09-15 17:17 | PM.HP ---
Providers/Chief Complaint Primary Care Provider: Tadeo Hadley DO Chief Complaint: Chest Pain History of Present Illness Reinier Dc is a 71 year old male past medical history significant for not any major medical problem including diabetes hypertension hyperlipidemia was complaining of chest pressure and worsening of shortness of breath for the last for 5 days, on Monday he started hurting very badly but did not come to the ER it got better, a little for the last 2 hours he started having severe chest pain radiating to left arm therefore he decided to come to the ER. Upon arrival to the ER twelve-lead EKG was suggestive of ST elevation in the anterolateral leads. I immediately assessed the patient he continues to have chest pain appear to be slightly diaphoretic therefore we will proceed with left heart cath/PCI if indicated. Medications/Allergies Home Medications Medication Instructions Recorded Confirmed Last Taken Type No Known Home Medications 09/15/21 09/15/21 Unknown History Allergies Allergy/AdvReac Type Severity Reaction Status Date / Time No Known Allergies Allergy Verified 09/15/21 16:47 Vitals/I&O/Wt Last Vital Signs Temp 98.4 F 09/15/21 16:49 Pulse 68 09/15/21 16:59 Resp 18 09/15/21 16:55 BP 140/102 09/15/21 16:59 Pulse Ox 100 09/15/21 16:59 Weight last 48 hrs Weight 180 lb Physical Exam Narrative: EXAM NARRATIVE: GENERAL: Patient is alert, awake and oriented x3. Moderate distress NECK: No jugular vein distension. HEENT: No cyanosis. No icterus. No pallor. HEART: Regular S1 and S2. No murmur, rub or gallop. LUNGS: Clear to auscultate bilaterally. ABDOMEN: Soft, nontender and nondistended. Positive bowel sounds. No guarding, rebound or tenderness. CENTRAL NERVOUS SYSTEM: Grossly nonfocal. EXTREMITIES: Lower extremities without edema bilaterally. Data : 09/16/21 02:40 09/16/21 02:40 A&P Assessment and plan (1) ST elevation (STEMI) myocardial infarction: Status: Acute Qualifiers: Involved coronary artery: LAD coronary artery Qualified Code(s): I21.02 - ST elevation (STEMI) myocardial infarction involving left anterior descending coronary artery Additional A&P Information Patient has been explained all risk benefit and already for the procedure he understand risk for stroke contrast-induced nephropathy major minor bleed urgent emergent vascular/bypass surgery pseudoaneurysm infection hematoma. We would like to proceed with emergent left heart cath/PCI if indicated. He has been already loaded with Plavix we will give additional 300 mg since it was only 300 mg at to start with. Further plan will advise as per progress of the patient. Attestations Medical Necessity Statement*: I am expecting his stay to cross more than 2 midnights. Coding Level of Care Code New Pt Acute Floor Finisher Helper for Roxie Dacosta Patient Type New History Detailed Exam Detailed Medical Decision Making Moderate Complexity Diagnoses ST elevation (STEMI) myocardial infarction I21.02 Involved coronary artery: LAD coronary artery
[2021-09-15 17:30] LABS: INR 0.94 (0.8-1.2)
[2021-09-15 17:31] LABS: Partial Thromboplastin Time 28.5 SECONDS (23.9-36.7)
[2021-09-15 17:36] LABS: Troponin(5th) Baseline 47 ng/L (0-15)
[2021-09-15 17:38] LABS: Alanine Aminotransferase 18 U/L (0-41); Albumin Level 4.4 g/dL (3.5-5.2); Alkaline Phosphatase 83 IU/L (40-130); Anion Gap 20.3 (5-19); Aspartate Amino Transferase 20 U/L (0-40); Blood Urea Nitrogen 21 mg/dL (8-23); Calcium 9.3 mg/dL (8.5-10.5); Carbon Dioxide 22 mmol/L (22-29); Chloride 100 mmol/L (98-107); Globulin 2.4 g/dL (1.3-4.6); Glucose 97 mg/dL (65-115); Lipase 51 U/L (13-60); NT Pro B Type Natriuretic Pept 677 pg/mL (0-125); Osmolality Calculated 291 mOsm/kg (285-295); Potassium 3.3 mmol/L (3.5-5.1); Sodium 139 mmol/L (136-145); Total Bilirubin 0.2 mg/dL (0.15-1.2); Total Protein 6.8 g/dL (6.6-8.7)
--- NOTE | 2021-09-15 18:35 | PC.NURSE ---
Pt received from Aircraft Log Clerk via . Transferred to bed without difficulty. Pt denies pain or SOB. Right radial site unremarkable. at bedside.
--- NOTE | 2021-09-15 18:46 | ECG_ITS ---
[facility] Test Date: 2021-09-20 Pat Name: Reinier Dc Department: Room: 103 Gender: Male Morning News Producer: : 1950 Requested By: Samy Winn Order Number: [id number] Beka MD: Bree Costa M.D. Measurements Intervals [place] Rate: 72 P: 50 [place]: 188 QRS: 27 QRSD: 116 T: 104 QT: 384 QTc: 423 Interpretive Statements SINUS RHYTHM MODERATE INTRAVENTRICULAR CONDUCTION DELAY [110+ ms QRS DURATION] ST DEVIATION AND MODERATE T-WAVE ABNORMALITY, CONSIDER LATERAL ISCHEMIA [-0.1+ mV T-WAVE IN I/aVL/V5/V6] Compared to ECG 09/16/2021 06:23:48 Intraventricular conduction delay now present T-wave abnormality still present Possible ischemia still present Electronically Signed On 09-22-2021 10:03:41 STATION CLEANING PORTER by Bree Costa M.D. [id number]
[2021-09-15] MEDS: acetaminophen 325 mg Tablet 650 MG PO (19:46)
[2021-09-15 20:12] LABS: Glucose Point of Care 132 mg/dL (70-110)
--- NOTE | 2021-09-15 20:37 | PC.NURSE ---
notified front desk assistant staff she left phone in patients room, phone handed to senior information security analyst with patient's permission
[2021-09-15] MEDS: HYDROcodone-acetaminophen 5-325 mg Tablet 1 TAB PO (21:09)
--- NOTE | 2021-09-15 21:14 | PC.NURSE ---
C/O bilateral side pain since shift change, no rhythm changes noted, not diaphoretic or sob
[2021-09-15 21:29] LABS: Troponin 5 2HR 7228 ng/L (0-15); Troponin 5 2HR Delta 7181 ABS# (0-10)
[2021-09-15] MEDS: temazepam 15 mg Capsule PO (22:46)
--- NOTE | 2021-09-15 22:46 | ECG_ITS ---
[facility] Test Date: 2021-09-15 Pat Name: Reinier Dc Department: Room: ICU02 Gender: Male Criminology Professor: : 1950 Requested By: Samy Winn Order Number: [id number] Beka MD: Keith Gill M.D. Measurements Intervals [place] Rate: 64 P: 61 [place]: 185 QRS: -83 QRSD: 102 T: 89 QT: 436 QTc: 451 Interpretive Statements SINUS RHYTHM INDETERMINATE AXIS PATTERN CONSISTENT WITH PULMONARY DISEASE SEPTAL MYOCARDIAL INFARCTION , PROBABLY RECENT [40+ ms Q WAVE IN V1/V2] ACUTE IA Compared to ECG 09/15/2021 16:43:52 Indeterminate axis now present Left anterior fascicular block no longer present ST (T wave) deviation no longer present Myocardial infarct finding still present Electronically Signed On 09-16-2021 4:25:20 MECHANIC SENIOR by Keith Gill M.D. [id number]
--- NOTE | 2021-09-15 22:58 | PC.NURSE ---
Dr. Minor notified of persistent side/chest pain and patient being asymptomatic and no rhythm changes. approved administering IVP Fentanyl that was ordered for sheath removal if
[2021-09-15 23:05] LABS: Troponin 5 6HR 9954 ng/L (0-15); Troponin 5 6HR Delta 9907 ng/L (0-12)
[2021-09-16] VITALS (39 sets, daily range): BP systolic 96–135; BP diastolic 58–93; PULSE 56–95; RESP 12–23; TEMP 36.3–36.5; O2SAT 90–99
[2021-09-16] MEDS: nitroglycerin 0.4 mg sublingual Tablet SUBLINGUAL ×2 (00:45→00:51)
[2021-09-16] MEDS: ondansetron 2 mg/ML SDV 2 mL 4 MG IVP (01:12)
[2021-09-16] MEDS: fentaNYL 50 mcg/mL INJ 2mL IVP (01:56)
--- NOTE | 2021-09-16 02:08 | XRR_ITS ---
PROCEDURE INFORMATION: Exam: XR Chest Exam date and time: 09/16/2021 2:08 AM Age: 71 years old Clinical indication: Chest pressure; Patient HX: C/O persistent chest pain. TECHNIQUE: Imaging protocol: XR of the chest. Views: 1 view. COMPARISON: CR XR chest 1V portable [id number] 09/15/2021 4:50 PM FINDINGS: Lungs: Unremarkable. No consolidation. Pleural spaces: Unremarkable. No pleural effusion. No pneumothorax. Heart/Mediastinum: Unremarkable. No cardiomegaly. Bones/joints: Unremarkable. XR/XR chest 1V portable [id number] IMPRESSION: No acute findings. Radiation Dose CTDIVOL = (mGy): DLP = (mGy-cm)
--- NOTE | 2021-09-16 02:33 | PC.NURSE ---
pain persisting after SL nitro and 2nd dose of fentanyl. pain improved breifly with nitro. Dr. Minor gave t.o. for nitro drip
[2021-09-16] MEDS: nitroglycerin drip 50 MG/250 ML PREMIX IV (02:51)
--- NOTE | 2021-09-16 03:43 | PC.NURSE ---
Dr. Minor notified of emisis and patient concern of ulcer, t.o. for protonix 40 mg and 25 mg phenergan IM x1
[2021-09-16] MEDS: promethazine 25 mg/mL SDV 1 mL IM (03:57)
[2021-09-16] MEDS: pantoprazole 40 mg SDV IVP (03:57)
[2021-09-16 04:08] LABS: Basophils % 0.4 %; Eosinophils % 0.1 %; Hematocrit 43.7 % (42.0-52.0); Lymphocytes # 0.6 10^3/uL (0.8-4.8); Lymphocytes % 7.9 %; Mean Corpuscular Hemoglobin 30.3 pg (28.0-34.0); Mean Corpuscular Volume 94.6 fl (80-94); Mean Platelet Volume 9.5 fL (7.4-10.4); Monocytes # 0.5 10^3/uL (0.2-0.9); Monocytes % 6.4 %; Neutrophils # 6.55 10^3/uL (1.8-7.7); Neutrophils % 84.9 %; Nucleated Red Blood Cells % 0 %; Platelet Count 100 10^3/cmm (130-400); Red Blood Count 4.62 10^6/uL (4.1-5.3); Red Cell Distribution Width 11.9 % (12.1-15.1); White Blood Count 7.7 10^3/uL (4.0-10.0)
[2021-09-16 04:49] LABS: Blood Urea Nitrogen 21 mg/dL (8-23); Calcium 9.1 mg/dL (8.5-10.5); Carbon Dioxide 18 mmol/L (22-29); Chloride 103 mmol/L (98-107); Glucose 120 mg/dL (65-115); Osmolality Calculated 282 mOsm/kg (285-295); Sodium 134 mmol/L (136-145)
[2021-09-16 04:54] LABS: Anion Gap 17.3 (5-19); Potassium 4.3 mmol/L (3.5-5.1)
[2021-09-16 05:00] LABS: Troponin T (5th) Once 8968 ng/L (0-15)
[2021-09-16] MEDS: HYDROcodone-acetaminophen 5-325 mg Tablet 1 TAB PO (06:09)
--- NOTE | 2021-09-16 06:41 | PC.NURSE ---
C/O pain 08/01, Dr. Mnior notifed, t.o. for EKG given, Dr. Minor notifed once completed EKG was in chart
[2021-09-16] MEDS: acetaminophen 325 mg Tablet 650 MG PO (08:34)
[2021-09-16] MEDS: clopidogrel 75 mg Tablet PO (08:34)
[2021-09-16] MEDS: aspirin 81 mg EC Tablet PO (08:34)
--- NOTE | 2021-09-16 08:42 | USCV_ITS ---
Dao Reinier Age: 71 Gender: M : 1950 Exam Date: 09/16/2021 06:45 Ordering Phys: Denton Hardin MD ([email or web address]) Technologist: Exam Location: [facility] [place] Indication: DC BP: 121 / 81 HR: 73 Rhythm: Sinus Technical Quality: Adequate MEASUREMENTS (Male / Female) Normal Values 2D ECHO LV Diastolic Diameter PLAX 4.2 cm 4.2 - 5.9 / 3.9 - 5.3 cm LV Systolic Diameter PLAX 3.2 cm IVS Diastolic Thickness 1.0 cm 0.6 - 1.0 / 0.6 - 0.9 cm IVS Systolic Thickness 1.3 cm LVPW Diastolic Thickness 1.0 cm 0.6 - 1.0 / 0.6 - 0.9 cm LVPW Systolic Thickness 1.0 cm LVOT Diameter 2.0 cm LV Ejection Fraction 2D Teich 45.8 % LV Ejection Fraction MOD 2C 41.2 % LV Ejection Fraction 2C AL 40.5 % LA Diameter 2.7 cm LA Width 4.1 cm LA Height 5.2 cm RA Width 4.0 cm RA Height 4.4 cm Aorta at Sinotubular Diameter 2.6 cm DOPPLER AV Peak Velocity 121.0 cm/s LVOT Peak Velocity 96.0 cm/s AV Area Cont Eq vti 2.5 cm squared AV Area Cont Eq pk 2.6 cm squared MV Area PHT 5.0 cm squared Mitral E to A Ratio 1.1 MV E' Velocity 35.0 cm/s Mitral E to MV E' Ratio 6.8 Mitral E to LV E' Lateral Ratio 5.6 Mitral E to LV E' Septal Ratio 8.7 TR Peak Velocity 138.0 cm/s TR Peak Gradient 7.6 mmHg Right Atrial Pressure 3.0 mmHg Pulmonary Artery Systolic Pressu 10.6 mmHg FINDINGS Left Ventricle Normal left ventricular cavity size. Moderately decreased left ventricular systolic function. Left ventricular ejection fraction is estimated at 40 %. Proximal to mid anterior and septal wall hypokinesis, mid to distal anterior septal and apical wall akinesis.Grade II/IV diastolic dysfunction, moderately elevated filling pressures. Right Ventricle The right ventricle is normal in size and function. Right Atrium The right atrium is normal in size. Left Atrium The left atrium is normal in size. Mitral Valve Mildly thickened mitral valve. No mitral valve stenosis. Trace mitral valve regurgitation. Aortic Valve Mild aortic valve calcification. No aortic valve stenosis. Trace aortic valve regurgitation. Tricuspid Valve Structurally normal tricuspid valve without significant stenosis or regurgitation. Pulmonary artery systolic pressure is normal. Pulmonic Valve Structurally normal pulmonic valve without significant stenosis. There is no pulmonic regurgitation. Pericardium Normal pericardium without effusion. Aorta Normal ascending aorta dimension. CONCLUSIONS 1-Normal left ventricular cavity size. Moderately decreased left ventricular systolic function. Left ventricular ejection fraction is estimated at 40 %. Proximal to mid anterior and septal wall hypokinesis, mid to distal anterior septal and apical wall akinesis.Grade II/IV diastolic dysfunction, moderately elevated filling pressures. 2-Mildly thickened mitral valve. No mitral valve stenosis. Trace mitral valve regurgitation. 3-Mild aortic valve calcification. No aortic valve stenosis. Trace aortic valve regurgitation. 4-There is no pericardial effusion. 5-Pulmonary artery systolic pressure is within normal limits. 6-There are no prior echocardiogram studies to compare. Denton Hardin MD (Electronically Signed) Final Date: 16 September 2021 16:18 S
[2021-09-16 09:25] LABS: Chol HDL Ratio 2.81 mg/dL (1.0-5.00); Cholesterol 149 mg/dL (0-200); HDL Cholesterol 53 mg/dL (60-100); LDL Cholesterol Calculated 81 mg/dL (50-129); Triglycerides 73 mg/dL (0-150); VLDL Cholestrol Calculation 15 mg/dL (0-30)
--- NOTE | 2021-09-16 09:51 | ECG_ITS ---
[facility] Test Date: 2021-09-16 Pat Name: Reinier Dc Department: Room: ICU02 Gender: Male Drawbridge Operator: : 1950 Requested By: Denton Hardin Order Number: [id number] Reading MD: DENTON HARDIN Measurements Intervals [place] Rate: 73 P: 43 [place]: 173 QRS: -30 QRSD: 97 T: 102 QT: 468 QTc: 517 Interpretive Statements SINUS RHYTHM BORDERLINE LEFT AXIS DEVIATION [QRS AXIS < -20] ST DEVIATION AND MODERATE T-WAVE ABNORMALITY, CONSIDER ANTEROLATERAL ISCHEMIA [-0.1+ mV T-WAVE IN V3-V6] Compared to ECG 09/15/2021 23:21:15 T-wave abnormality now present Possible ischemia now present Indeterminate axis no longer present Myocardial infarct finding no longer present Electronically Signed On 09-17-2021 14:31:03 BILLIARD TABLE MECHANIC by DENTON HARDIN [id number]
--- NOTE | 2021-09-16 11:14 | PC.NURSE ---
Dr. Hardin notified of chest pain 08/01 this AM. EKG done.
[2021-09-16] MEDS: ketorolac 30 mg/mL INJ 15 MG IVP ×2 (12:09→20:04)
[2021-09-16 13:24] LABS: Troponin T (5th) Once 7898 ng/L (0-15)
--- NOTE | 2021-09-16 15:30 | PM.PN ---
Subjective Subjective: Interval history: Patient complained of chest soreness/pain which she rates 10 out of 10 but he remains comfortable no grimace on the face. Multiple EKGs post PCI were consistent with resolution of ST elevation, troponin peaked at 9000 and dropped down to 7000. Vitals/I&O/Wt Last Vital Signs Temp 98.4 F 09/15/21 16:49 Pulse 58 L 09/16/21 14:00 Resp 18 09/16/21 01:56 BP 131/89 09/15/21 19:45 Pulse Ox 99 09/16/21 01:56 09/16/21 09/16/21 09/16/21 06:59 14:59 22:59 Intake Total 3.6 / 3.6 496.25 / 496.25 Balance 3.6 / -621.4 496.25 / 496.25 Weight last 48 hrs Weight 180 lb Physical Exam Narrative: EXAM NARRATIVE: GENERAL: Patient is alert, awake and oriented x3. Patient lying in the bed comfortably NECK: No jugular vein distension. HEENT: No cyanosis. No icterus. No pallor. HEART: Regular S1 and S2. No murmur, rub or gallop. LUNGS: Clear to auscultate bilaterally. ABDOMEN: Soft, nontender and nondistended. Positive bowel sounds. No guarding, rebound or tenderness. CENTRAL NERVOUS SYSTEM: Grossly nonfocal. EXTREMITIES: Lower extremities without edema bilaterally. Data : 09/16/21 02:40 09/16/21 02:40 A&P Assessment and plan (1) ST elevation (STEMI) myocardial infarction: Status post ST elevation RI he was noted to have proximal complete occlusion of the LAD treated with balloon angioplasty followed by drug-eluting stent postdilated with noncompliant balloon. Excellent angiographic result was achieved. Continue aspirin Plavix statin, add beta-maikel and OWEN inhibitor. Will ask for echocardiogram to assess LV function. No arrhythmia noted overnight. ST elevation has resolved. Most likely chest pain could be pericarditis may will use Toradol. Further plan will advise as per progress of the patient. Please note that I was not informed regarding the chest pain overnight, he was started on IV nitro drip after discussing with the hospitalist on-call. I came to know about chest pain this morning after when morning I see need nurse text me. I came to the ICU and during rounds I saw the patient my assessment and plan is as aforementioned Status: Acute Qualifiers: Involved coronary artery: LAD coronary artery Qualified Code(s): I21.02 - ST elevation (STEMI) myocardial infarction involving left anterior descending coronary artery Attestations Medical Necessity Statement*: Patient require continuation hospitalization for above defined care. Coding Level of Care Code Established Pt Acute Database Marketing Analyst for Roxie Dacosta Patient Type Established History Detailed Exam Detailed Medical Decision Making Moderate Complexity Diagnoses ST elevation (STEMI) myocardial infarction I21.02 Involved coronary artery: LAD coronary artery
--- NOTE | 2021-09-16 18:30 | PC.NURSE ---
PRN medications given . Patient was resting with eyes closed most of shift. After dinner patient ambulated around unit. No chest pain present.
[2021-09-16] MEDS: atorvastatin 40 mg Tablet 80 MG PO (20:05)
[2021-09-17] VITALS (17 sets, daily range): BP systolic 97–118; BP diastolic 59–76; PULSE 64–92; RESP 12–22; TEMP 37.2; O2SAT 89–99
[2021-09-17] MEDS: HYDROcodone-acetaminophen 5-325 mg Tablet 1 TAB PO (01:46)
--- NOTE | 2021-09-17 03:05 | PC.NURSE ---
Contacts: Pts daughter Jelani Dc called for update. She was not on the list for contacts. Patient notified and has okay'd for the daughter to receive information.
--- NOTE | 2021-09-17 06:07 | PC.NURSE ---
Shift Note Frequent safety and comfort rounds continue. Pt slept throughout the night. Orders and nursing care completed as indicated. Patient monitored for response to intervention and treatment. Pt reported pain in upper abdomen. Medication given, see MAR. Education provided includes pain management. Patient verbalized understanding.
[2021-09-17] MEDS: aspirin 81 mg EC Tablet PO (07:48)
[2021-09-17] MEDS: pantoprazole DR 40 mg Tablet PO (07:48)
[2021-09-17] MEDS: clopidogrel 75 mg Tablet PO (07:48)
[2021-09-17] MEDS: metoprolol tartrate 25 mg Tablet 12.5 MG PO ×2 (12:37→20:09)
--- NOTE | 2021-09-17 13:12 | P.PN_ITS ---
Subjective Subjective: Interval history: Denies any chest pain anymore has some epigastric fullness Medications: Reviewed: Yes Vitals/I&O/Wt Last Vital Signs Temp 99.0 F 09/17/21 06:00 Pulse 76 09/17/21 09:27 Resp 13 09/17/21 06:00 BP 101/59 09/17/21 06:00 Pulse Ox 99 09/17/21 09:27 09/16/21 09/17/21 09/17/21 22:59 06:59 14:59 Intake Total 505 / 1001.25 50 / 1051.25 240 / 240 Output Total 600 / 600 Balance 505 / 1001.25 50 / 1051.25 -360 / -360 Weight last 48 hrs Weight 180 lb Physical Exam Narrative: EXAM NARRATIVE: GENERAL: Patient is alert, awake and oriented x3. Patient denies any complaint. NECK: No jugular vein distension. HEENT: No cyanosis. No icterus. No pallor. HEART: Regular S1 and S2. No murmur, rub or gallop. LUNGS: Clear to auscultate bilaterally. ABDOMEN: Soft, nontender and nondistended. Positive bowel sounds. No guarding, rebound or tenderness. CENTRAL NERVOUS SYSTEM: Grossly nonfocal. EXTREMITIES: Lower extremities without edema bilaterally. Data : 09/16/21 02:40 09/16/21 02:40 A&P Assessment and plan (1) ST elevation (STEMI) myocardial infarction: Status post PCI to proximal LAD no overnight event chest pain with most likely was due to pericarditis has improved. I will add beta-maikel and OWEN inhibitor. We will continue aspirin statin and Plavix. We will shift patient to CSU. Status: Acute Qualifiers: Involved coronary artery: LAD coronary artery Qualified Code(s): I21.02 - ST elevation (STEMI) myocardial infarction involving left anterior descending coronary artery (2) Systolic heart failure: New onset of heart failure appear to be well compensated and diuretics as an outpatient will add OWEN inhibitor today. Echocardiogram showed ejection fraction around 40% with anterior wall motion abnormality which is expected. Will recommend cardiac rehab as an outpatient Status: Acute Additional A&P Information Patient has been explained all risk benefit and already for the procedure he understand risk for stroke contrast-induced nephropathy major minor bleed urgent emergent vascular/bypass surgery pseudoaneurysm infection hematoma. We would like to proceed with emergent left heart cath/PCI if indicated. He has been already loaded with Plavix we will give additional 300 mg since it was only 300 mg at to start with. Further plan will advise as per progress of the patient. 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
--- NOTE | 2021-09-17 17:59 | PC.NURSE ---
Shift Note Frequent safety and comfort rounds continue. Orders and nursing care completed as indicated. Dr. Hardin rounded this afternoon and spoke of possibly discharging patient later this evening. Verbal orders to place order of Lopressor and lisinopril today, see mar. at bedside most of day noted to be very active in care for her . Patient walked around nurses station with the assistance of this nurse and tolerated very well. Patient monitored for response to intervention and treatments. Education provided includes new medications, chest pain stoplight, heart healthy diet, and cardiac rehab. Patient and verbalized understanding. Will continue to monitor.
[2021-09-17] MEDS: atorvastatin 40 mg Tablet 80 MG PO (20:08)
[2021-09-17] MEDS: lisinopril 2.5 mg Tablet PO (20:09)
--- NOTE | 2021-09-17 20:43 | PC.NURSE ---
Pt transferred from ICU to CSU at 2004 via Wheelchair. Report given to Zuleika VIEIRA at bedside. Pt tolerated well. Family notified.
[2021-09-18] VITALS (8 sets, daily range): BP systolic 85–92; BP diastolic 50–62; PULSE 62–83; RESP 13–20; TEMP 36.7; O2SAT 90–96
--- NOTE | 2021-09-18 00:25 | PC.NURSE ---
Received patient tonight from ICU. Patient denies pain. Requests new urinal and water. Patient possibly home tomorrow. Bed low, vss. Call murray in reach. Will continue to monitor.
--- NOTE | 2021-09-18 06:10 | PC.NURSE ---
Frequent safety and comfort rounds continue. Orders and/or nursing care completed as indicated. Patient monitored for response to intervention and treatment(s). Education provided includes importance of notifying us of any pain. Patient and/or specialty sales representative verbalizes understanding. Will continue to monitor.
--- NOTE | 2021-09-18 06:31 | PC.NURSE ---
Patient denies having any pain during the night. Vital signs stable. Will continue to monitor.
--- NOTE | 2021-09-18 06:36 | PC.NURSE ---
Patient BP 87/55 as he was laying on the blood pressure cuff. Fixed and repeat was 92/62. Patient baseline bp runs slightly under 100 systolic. No complaints at this time. Patient states he slept well and denies any pain.
[2021-09-18] MEDS: aspirin 81 mg EC Tablet PO (08:07)
[2021-09-18] MEDS: clopidogrel 75 mg Tablet PO (08:07)
[2021-09-18] MEDS: pantoprazole DR 40 mg Tablet PO (08:07)
--- NOTE | 2021-09-18 10:12 | PC.NURSE ---
spoke with Dr stevenson about concerns of patient having low blood pressure instructions to hold metoprolol and lisinopril this am
--- NOTE | 2021-09-18 11:29 | PM.DCS ---
Discharge Providers Date of Admission: 09/15/21 18:47 Date of Discharge: September 18, 2021 Attending Provider at Admission: Denton Hardin MD Attending Provider at Discharge: Denton Hardin MD Primary Care Provider: Tadeo Hadley DO Diagnoses at Discharge Discharge Diagnosis (1) ST elevation (STEMI) myocardial infarction: Status: Acute Qualifiers: Involved coronary artery: LAD coronary artery Qualified Code(s): I21.02 - ST elevation (STEMI) myocardial infarction involving left anterior descending coronary artery (2) Systolic heart failure: Status: Acute Reason for Visit Reason for Visit: Chest Pain Hospital Course Hospital Course 71-year-old male past medical history not significant for any major medical problem presented with ST elevation RI on the anterior wall. He was immediately taken to the Tour Production Supervisor he was noted to have proximal 100% occluded LAD, he was treated with drug-eluting stent. Over next 24-hours patient continues to complain of atypical chest pain possible due to pericarditis he was given Toradol after that pain got better in the last 48 hours he denies any more chest pain he is walking around. Left ventricular ejection fraction as per echocardiogram was noted to be moderately depressed 45% for which we tried low-dose OWEN inhibitor which dropped his blood pressure therefore at this point we have kept it on hold. She has been started on beta-maikel. We will continue statin aspirin and Plavix. Patient has been given full instruction for post PCI post myocardial infarction care. His blood pressure is on the lower side advised to keep log of blood pressure pulse and bring it back to cardiology clinic in 7 days. Advised in case of any problem he should call us. Physical Exam Narrative: EXAM NARRATIVE: GENERAL: Patient is alert, awake and oriented x3. Patient denies any complaint. NECK: No jugular vein distension. HEENT: No cyanosis. No icterus. No pallor. HEART: Regular S1 and S2. No murmur, rub or gallop. LUNGS: Clear to auscultate bilaterally. ABDOMEN: Soft, nontender and nondistended. Positive bowel sounds. No guarding, rebound or tenderness. CENTRAL NERVOUS SYSTEM: Grossly nonfocal. EXTREMITIES: Lower extremities without edema bilaterally. Discharge Data Data Completed and Pending: Completed Studies During Hospitalization Category Date Time Status XR chest 1V aishwarya ble 11262 Stat Exams 09/15/21 16:45 Completed XR chest 1V aishwarya ble 13913 Stat Exams 09/16/21 02:08 Completed CV. echo complete * 55062 Routine Ultrasound 09/16/21 08:42 Completed Pending at discharge Category Date Time Status PIPE STRAIGHTENER request for service Stat Exams 09/15/21 17:01 Taken Vitals: Last Vital Signs Temp 98.0 F 09/18/21 01:27 Pulse 83 09/18/21 08:00 Resp 14 09/18/21 08:00 BP 86/56 09/18/21 08:00 Pulse Ox 94 09/18/21 08:00 Discharge Plan Discharge Patient Disposition: Home Condition: Stable Prescriptions: New atorvastatin 40 mg Tablet 80 mg PO BEDTIME Qty: 60 RF: 3 clopidogrel 75 mg Tablet 75 mg PO DAILY Qty: 90 RF: 4 aspirin 81 mg Tablet,Delayed Release (Dr/Ec) 81 mg PO DAILY Qty: 90 RF: 4 metoprolol succinate 25 mg tablet extended release 24 hr 12.5 mg PO DAILY Qty: 30 RF: 6 pantoprazole 40 mg tablet,delayed release (DR/EC) 40 mg PO DAILY 90 Days RF: 0 Discharge Orders: Discharge Order (Routine); Ordered 09/18/21 Ordered By: Denton Hardin Referrals: Denton Hardin MD [Physician] - 1 month ([facility] will contact you to schedule an follow-up appointment in 1 month. If you haven't heard from them by Monday. Please call ) Jeana Perez FNP [Nurse Practitioner] - 1 week ([facility] will contact you to schedule an follow-up appointment in 1 week. If you haven't heard from them by Monday afternoon. Please call ) Discharge Diet: Cardiac Discharge Activity: Increase activity as tolerated Patient Instructions: Metoprolol (By mouth), Atorvastatin (By mouth), Clopidogrel (By mouth) (Plavix), Coronary Angioplasty (DC), Opioid Safety, Post Angiogram Home Care Instructions Activity Restrictions/Additional Instructions: Please continue clopidogrel and aspirin for at least 1 year after that we will decide to continue it or not. Take metoprolol in the night once a day. Keep log of blood pressure pulse daily weight and bring it to Ms. Jeana Perez in 7 days cardiology nurse practitioner. Follow-up with Dr. Hardin in 6 weeks. If you have any problem call Dr. Hardin's office. Discharge Attestations Time Spent in Discharge Care*: less than 30 min Specific Discharge Activities: educating patient and educating and/or supporting family/caregiver Quality Metrics Clinical Quality Measures During this hospital stay, did patient experience: AMI Clinical Trial Participant: No Contraindication to aspirin (AMI): Aspirin given Contraindication to statin: Statin prescribed Contraindication to PCI: PCI performed Coding Level of Care Code Acute g [facility] note Diagnoses ST elevation (STEMI) myocardial infarction I21.02 Involved coronary artery: LAD coronary artery Systolic heart failure I50.20
--- NOTE | 2021-09-18 12:30 | PC.NURSE ---
Discharge Note Patient discharged to Home via [private vehicle accompanied by Spouse. Discharge instructions reviewed with patient and/or petroleum products sales representative. Mobile pharmacy medications and/or prescriptions provided. Belongings/home medications returned.
== END 2021-09-18 13:05 | disposition home or self-care (01) | DRG 246 ==
LOC: ER 17:00 → CCL 17:03 → ICU 18:47 → CSU 09-17 21:34
PROVIDERS: Admitting Provider Internal Medicine Cardiovascular Disease; Emergency Provider Emergency Medicine; PCP Family Medicine; Visit Provider Internal Medicine Cardiovascular Disease
PROC: 027034Z Dilation of Coronary Artery, One Artery with Drug-eluting Intraluminal Device, Percutaneous Approach (ICD-10-PCS; principal; 2021-09-15 17:00)
PROC: 027034Z Dilation of Coronary Artery, One Artery with Drug-eluting Intraluminal Device, Percutaneous Approach (ICD-10-PCS; 2021-09-15 17:00)
DX: I21.02 ST elevation (STEMI) myocardial infarction involving left anterior descending coronary artery (principal); I50.21 Acute systolic (congestive) heart failure
CPT/HCPCS: 36415; 36416; 71045; 80048; 80053; 80061; 82962; 83690; 83880; 84484; 85025; 85347; 85610; 85730; 93005; 93306; 93452; 93454; 96372; 96374; 96375; 99285; C1725; C1769; C1874; C1887; C1894; C9113; C9600; J0171; J0461; J1644; J1885; J2250; J2405; J2550; J3010; J3246; J3490; J7030; Q9967

== ENCOUNTER → 2021-09-24 10:30 | Outpatient (BNVA) | payer OTHER, SELFPAY | PROVIDERS: PCP Family Medicine; Visit Provider Nurse Practitioner Family | DX: I25.10 Atherosclerotic heart disease of native coronary artery without angina pectoris (principal) | CPT/HCPCS: 80048 ==

== ENCOUNTER 2021-10-07 13:58 | Outpatient (CLI) | payer OTHER, SELFPAY ==
[2021-10-07 15:04] LABS: Prostate Specific Antigen < 0.014 ng/mL (0-4)
== END 2021-10-07 13:59 | disposition home or self-care (01) ==
LOC: ONCMED 14:01
PROVIDERS: Internal Medicine Hematology & Oncology; PCP Family Medicine; Visit Provider Family Medicine
DX: R97.20 Elevated prostate specific antigen [PSA] (principal)
CPT/HCPCS: 36415; 84153

== ENCOUNTER 2021-10-08 06:34 | Outpatient (CLI) | payer OTHER, SELFPAY ==
--- NOTE | 2021-10-08 09:39 | ONC FU_ITS ---
Dr. Ledesma follow up note Patient: Reinier Dc Unit #: [id number]: 1950 Dicatated By: Aury Ledesma M.D.Date of Visit:Oct 08, 2021 Onc Med Follow-up/Prog Note History of Present Illness: Mr. Reinier Dc, is a 71-year-old gentleman with history of prostate cancer underwent RALP on August 14, 2019 for biopsy confirmed prostate cancer and final pathology report showed high risk, high-volume, Jamal score 7 and [address] CT scan of abdomen pelvis and bone scan was negative at the time of diagnosis his PSA was 6.8 and as per medical record, patient had a positive apical margin but after surgery his PSA become undetectable, patient tolerated procedure well with only complication being erectile dysfunction. And during follow-up his PSA started rising in the range of 0.01 and up to 0.20 in January 2021 at that time decipher prostate RP testing was done which confirmed patient's genomic risk being high As per patient he was seen by his urologist Dr. Howard in [facility] who recommended and referred him to us for salvage therapy. Patient denies any bony pains, denies any dysuria or hematuria, denies any weight loss, denies any back pain denies any abdominal pain denies any jaundice denies any fever chills denies any nausea or vomiting Started on combined ADT/radiation on April 01, 2021 Plan was to give him 6-month of Zoladex and along with Casodex for 2 weeks Came for follow-up, denies any specific complaints, as per patient since his last visit he was diagnosed with coronary artery disease underwent stent placement by Dr. Hardin. Otherwise no dysuria no hematuria no new bony pains, no hot flashes, patient has completed combined ADT/radiation therapy, x2 Zoladex on July 02, 2021. Now being observed Medications: Cholecalciferol 1 Capsule (of 25 mcg ) Oral daily, Latanoprost Solution Ophthalmic at bedtime, Omeprazole (10 mg) Capsule Delayed Release Oral daily, Systane Balance Solution Ophthalmic b.i.d. Allergies: No Known Allergies. Review of Systems: Review of Systems is not available for this patient. Vital Signs: Vitals are not available for this patient. Performance Status: 0 - Fully active, able to carry on all predisease activities without restrictions. (ECOG) Physical Examination: ENMT - No mouth sores, no thrush, no jaundice, Respiratory - Lungs are clear to auscultation, Cardiovascular - Regular rate and rhythm of heart, Abdomen - Soft, bowel sounds present, Extremities - No visible edema. Lab/Imaging: Most recent lab results are not available for this patient. Impression: Progressive PSA level after become undetectable following RALP on August 14, 2019, and PSA trend 0.0120.20 in January 2021 and decipher prostate RP done on January 05, 2021 confirmed genomic risk being high. History of prostate cancer diagnosed on July 05, 2019 with prostate biopsy which confirmed Cisne score 7 and 8, for which he underwent RALP on August 14 2019 which confirmed high risk high-volume Jamal 7 and 8 prostate cancer, apical margin was positive, his PSA was around 6.8 at the time of diagnosis but after RALP it become undetectable until recently showed progressive trend .Started on combined ADT/radiation therapy on April 01, 2021, Completed ADT with 2 weeks of Casodex and 6 months of Zoladex concurrent with radiation therapy on July 02, 2021 CT scan of abdomen pelvis and bone scan done in July 2019 showed no evidence of Metastatic disease History of skin cancer, questionable sleep apnea Coronary artery disease status post stent placement in August 2021 Plan: Discussed with patient regarding his labs his PSA is less than 0.014 Clinically, patient doing well with no new signs symptom suggestive of recurrence of disease his follow-up PSA subzero eg less than 0.014 and no physical symptoms suggestive of recurrence of disease, at this point, we will continue to monitor and he will return to clinic in 6 months with PSA. Signed By: Aury Ledesma M.D. <<Signature on File>>
== END 2021-10-08 06:35 | disposition home or self-care (01) ==
LOC: ONCMED 06:35
PROVIDERS: PCP Family Medicine; Visit Provider Internal Medicine Hematology & Oncology
DX: Z08 Encounter for follow-up examination after completed treatment for malignant neoplasm (principal); Z85.46 Personal history of malignant neoplasm of prostate; Z85.828 Personal history of other malignant neoplasm of skin; G47.30 Sleep apnea, unspecified; I25.10 Atherosclerotic heart disease of native coronary artery without angina pectoris; Z95.5 Presence of coronary angioplasty implant and graft
CPT/HCPCS: 99214

== ENCOUNTER → 2022-01-27 13:39 | Outpatient (BNVA) | payer OTHER, SELFPAY | PROVIDERS: PCP Family Medicine; Visit Provider Internal Medicine | DX: Z09 Encounter for follow-up examination after completed treatment for conditions other than malignant neoplasm (principal); I25.10 Atherosclerotic heart disease of native coronary artery without angina pectoris; I50.22 Chronic systolic (congestive) heart failure; Z79.01 Long term (current) use of anticoagulants; Z79.82 Long term (current) use of aspirin | CPT/HCPCS: 99214 ==

== ENCOUNTER 2022-02-15 11:41 | Observation (INO) | payer OTHER, SELFPAY ==
[2022-02-15] VITALS (13 sets, daily range): BP systolic 103–145; BP diastolic 56–78; PULSE 45–66; RESP 14–18; TEMP 36.4–36.8; O2SAT 94–99; BMI 28.3; BMI 29.0
--- NOTE | 2022-02-15 11:58 | XR_ITS ---
WS: [id number] Portable AP upright chest, 02/15/2022 Clinical Data: chest pain Comparison: Portable chest, 09/16/2021. Findings: No nodules, masses or effusions are seen. The heart is normal. The pulmonary vascularity is not increased. No pneumonia or pneumothorax is seen. Monitor leads are on the chest wall. XR/XR chest 1V portable [id number] Impression: Negative chest.
--- NOTE | 2022-02-15 11:59 | ECG_ITS ---
[facility] Test Date: 2022-02-15 Pat Name: Reinier Dc Department: Room: Gender: Male Security Nurse: : 1950 Requested By: Samy Winn Order Number: [id number] Beka MD: Bree Costa M.D. Measurements Intervals [place] Rate: 54 P: 61 [place]: 205 QRS: -61 QRSD: 101 T: 84 QT: 456 QTc: 433 Interpretive Statements SINUS BRADYCARDIA LEFT ANTERIOR FASCICULAR BLOCK SEPTAL MYOCARDIAL INFARCTION , OF INDETERMINATE AGE Compared to ECG 09/20/2021 22:39:28 Left anterior fascicular block now present Myocardial infarct finding now present Sinus rhythm no longer present Intraventricular conduction delay no longer present T-wave abnormality no longer present Possible ischemia no longer present Electronically Signed On 02-15-2022 18:11:27 CDT by Bree Costa M.D. [id number]
--- NOTE | 2022-02-15 12:00 | W.ED.CHESTPA ---
HPI - Chest Pain General: Chief Complaint: Chest Pain Stated Complaint: thinks he may of had a heart attack Time Seen by Provider: 02/15/22 12:00 History of Present Illness: Mr. Dc is a 71-year-old gentleman with significant past medical history of [place] with systolic heart failure who presents to the emergency department due to generalized symptoms and concern regarding chest pain. He had a STEMI in August which was treated with PCI with stent deployment. Since that time he has not had frequent episodes of chest discomfort. Yesterday he felt normal and earlier today, while at rest, he developed discomfort in his chest associated with diaphoresis and ashen appearance. Since that time he has had mild radiation to the low sides of his chest which has been somewhat variable. Discomfort has largely resolved. He additionally noted mild associated nausea. He has not had recent infectious symptoms. Intensity of symptoms when present was moderate to severe. Feels similar to STEMI. No other specific changes in health, exacerbating, or alleviating factors identified. Pertinent past history: coronary artery disease, prior [place] and other Onset (ago): hour(s) Timing of current episode: constant Onset: during rest Severity: moderate Relieving factors: nothing Exacerbating factors: nothing Review of Systems General: Reports: 10 or more systems reviewed and unremarkable except in HPI and below PFSH ED PFSH: Medical History Atherosclerosis of coronary artery Bradycardia Chest pain Heart failure with reduced ejection fraction Family History Mother CAD (coronary artery disease) Cancer Brother CAD (coronary artery disease) Father Cancer Sister Cancer Social History Smoking and tobacco status: never smoked Physical Exam Const: COMMON NORMALS: alert GENERAL APPEARANCE: cooperative and well developed HENMT: COMMON NORMALS: normocephalic and atraumatic HEAD & SCALP: normocephalic and atraumatic Eye: COMMON NORMALS: conjunctivae normal CONJUNCTIVA: Yes conjunctivae normal SCLERA: sclerae normal Neck/C-Spine: COMMON NORMALS: supple GENERAL: Yes trachea midline Resp: COMMON NORMALS: clear to auscultation bilaterally EFFORT & INSPECTION: Yes able to speak in complete sentences AUSCULTATION: clear to auscultation bilaterally Cardio: COMMON NORMALS: regular rhythm RATE: bradycardic RHYTHM: regular rhythm GI: COMMON NORMALS: Soft to palpation PALPATION: Yes Soft to palpation and No Tenderness to palpation present (GI) PERCUSSION: normal to percussion Extremity: GENERAL: Yes normal exam except as noted and No edema Neuro: COMMON NORMALS: moves all extremities SENSORIUM/ORIENTATION: Yes alert and No Orientation impaired Psych: COMMON NORMALS: mental status grossly normal and Normal thought process present THOUGHT PROCESS: Normal thought process present Course ED course: - Patient was seen and evaluated by me at bedside - Patient placed on cardiac monitors, IV access obtained - Initial evaluation notable for exam as above, bradycardia - Labs and xrays personally interpreted by me. EKG with no STEMI, sinus rhythm with first-degree AV block and nonspecific ST segment abnormalities. -Aspirin and small fluid bolus was given - Labs notable for no significant hematologic abnormality or metabolic abnormality to explain symptoms. BNP mildly elevated. Delta troponin negative. - Imaging notable for no lobar consolidation or pneumothorax. - Upon serial reexamination after treatment the patient was similar. He remained bradycardic with unclear etiology as the patient does not have significant beta-blockade. Given cardiac history I did discuss the case with cardiology recommended observation overnight given persistence of pain - Based on patient history, evaluation, and testing as interpreted the most likely cause of the patient's condition is chest pain and bradycardia of uncertain etiology - The results of ED evaluation were discussed with the patient including plan for admission due to requirement for level of care not available if discharged to prevent significant worsening/deterioration. - Admitting service was contacted and Dr Manning With the hospitalist service agreed to admit the patient to observation - Patient was admitted without further deterioration or significant events. Note: Click bubbles or prepopulated angelo in note writing are used for assistance with data collection and billing and are inherently more limited than narrative and other text portions of this note. Please use narrative for additional clinical history and defer to narrative/free test for any case of contradictory information. If information appears in only free text or click bubble it should be considered present or absent as reported. Please contact note field underwriter for clarifications of clinical information or contradictory information. MDM is a brief summary, contradictory or erroneous seeming information should be clarified and full note should be reviewed. Vital Signs: Vital signs: Vital Signs Temperature 97.4 F L 02/16/22 10:59 Pulse Rate 71 02/16/22 10:59 Respiratory Rate 13 02/16/22 10:59 Blood Pressure 115/71 02/16/22 10:59 Pulse Oximetry 97 02/16/22 10:59 MDM - Chest Pain Medical Decision Making 71-year-old gentleman with cardiac history presenting with chest pain similar to prior STEMI and found to have bradycardia of unclear etiology. No evidence of acute [place] on ED evaluation. Admitted to observation for further evaluation after discussion with cardiology. Medical Records I reviewed the patient's medical records. Lab Data I reviewed the patient's lab results. : 02/16/22 03:59 02/16/22 03:59 Radiology Impressions Chest X-Ray 02/15/22 11:58 Impression: Negative chest. Laboratory Results WBC 4.8 10^3/uL (4.0-10.0) 02/15/22 12:15 RBC 4.62 10^6/uL (4.1-5.3) 02/15/22 12:15 Hgb 14.1 g/dL (11.7-16.6) 02/15/22 12:15 Hct 42.1 % (42.0-52.0) 02/15/22 12:15 MCV 91.1 fl (80-94) 02/15/22 12:15 MCH 30.5 pg (28.0-34.0) 02/15/22 12:15 MCHC 33.5 g/dL (30.0-36.0) 02/15/22 12:15 RDW 12.2 % (12.1-15.1) 02/15/22 12:15 Plt Count 142 10^3/cmm (130-400) 02/15/22 12:15 MPV 9.0 fL (7.4-10.4) 02/15/22 12:15 Neut % (Auto) 66.1 % 02/15/22 12:15 Lymph % (Auto) 20.3 % 02/15/22 12:15 [place] % (Auto) 9.6 % 02/15/22 12:15 Eos % (Auto) 3.4 % 02/15/22 12:15 Baso % (Auto) 0.4 % 02/15/22 12:15 Neut # (Auto) 3.15 10^3/uL (1.8-7.7) 02/15/22 12:15 Lymph # (Auto) 1.0 10^3/uL (0.8-4.8) 02/15/22 12:15 [place] # (Auto) 0.5 10^3/uL (0.2-0.9) 02/15/22 12:15 Eos # (Auto) 0.2 10^3/uL (0.0-0.8) 02/15/22 12:15 Baso # (Auto) 0.0 10^3/uL (0.0-0.1) 02/15/22 12:15 Nucleated RBC % (auto) 0 % 02/15/22 12:15 Nucleated RBCs # 0.0 /100WBC 02/15/22 12:15 Sodium 138 mmol/L (136-145) 02/15/22 12:15 Potassium 4.5 mmol/L (3.5-5.1) 02/15/22 12:15 Chloride 103 mmol/L (98-107) 02/15/22 12:15 Carbon Dioxide 26 mmol/L (22-29) 02/15/22 12:15 Anion Gap 13.5 (5-19) 02/15/22 12:15 BUN 22 mg/dL (8-23) 02/15/22 12:15 Creatinine 1.0 mg/dL (0.7-1.2) 02/15/22 12:15 GFR Calculation Not Reportable 02/15/22 12:15 Glucose 94 mg/dL (65-115) 02/15/22 12:15 Calculated Osmolality 289 mOsm/kg (285-295) 02/15/22 12:15 Calcium 8.5 mg/dL (8.5-10.5) 02/15/22 12:15 Total Bilirubin 0.4 mg/dL (0.15-1.2) 02/15/22 12:15 AST 30 U/L (0-40) 02/15/22 12:15 ALT 38 U/L (0-41) 02/15/22 12:15 Alkaline Phosphatase 74 IU/L (40-130) 02/15/22 12:15 Troponin T Baseline 18 ng/L (0-15) H 02/15/22 12:15 Troponin T 120 Minute 15.17 ng/L (0-15) H 02/15/22 14:15 Delta Troponin T -2.83 ABS# (0-10) L 02/15/22 14:15 NT-Pro-B Natriuret Pep 1010 pg/mL (0-125) H 02/15/22 12:15 Total Protein 6.2 g/dL (6.6-8.7) L 02/15/22 12:15 Albumin 4.2 g/dL (3.5-5.2) 02/15/22 12:15 Globulin 2.0 g/dL (1.3-4.6) 02/15/22 12:15 Lipase 53 U/L (13-60) 02/15/22 12:15 Discharge Plan Discharge Patient Disposition: Placed in Observation Admit Provider: Domo Manning Clinical Impression: Chest pain, Bradycardia Discharge Diet: Cardiac Discharge Activity: Resume usual activity Coding Level of Care Code ED Emt/Dispatcher for Roxie Fwd Exam Comprehensive
[2022-02-15] MEDS: aspirin 81 mg Chew Tablet 324 MG PO (12:14)
[2022-02-15 12:35] LABS: Basophils % 0.4 %; Eosinophils # 0.2 10^3/uL (0.0-0.8); Eosinophils % 3.4 %; Hematocrit 42.1 % (42.0-52.0); Hemoglobin 14.1 g/dL (11.7-16.6); Lymphocytes % 20.3 %; Mean Corpuscular HGB Conc 33.5 g/dL (30.0-36.0); Mean Corpuscular Hemoglobin 30.5 pg (28.0-34.0); Mean Corpuscular Volume 91.1 fl (80-94); Monocytes # 0.5 10^3/uL (0.2-0.9); Monocytes % 9.6 %; Neutrophils # 3.15 10^3/uL (1.8-7.7); Neutrophils % 66.1 %; Nucleated Red Blood Cells % 0 %; Platelet Count 142 10^3/cmm (130-400); Red Blood Count 4.62 10^6/uL (4.1-5.3); Red Cell Distribution Width 12.2 % (12.1-15.1); White Blood Count 4.8 10^3/uL (4.0-10.0)
[2022-02-15 13:17] LABS: Troponin(5th) Baseline 18 ng/L (0-15)
[2022-02-15 13:26] LABS: Alanine Aminotransferase 38 U/L (0-41); Albumin Level 4.2 g/dL (3.5-5.2); Alkaline Phosphatase 74 IU/L (40-130); Anion Gap 13.5 (5-19); Aspartate Amino Transferase 30 U/L (0-40); Blood Urea Nitrogen 22 mg/dL (8-23); Calcium 8.5 mg/dL (8.5-10.5); Carbon Dioxide 26 mmol/L (22-29); Chloride 103 mmol/L (98-107); Glucose 94 mg/dL (65-115); Lipase 53 U/L (13-60); NT Pro B Type Natriuretic Pept 1010 pg/mL (0-125); Osmolality Calculated 289 mOsm/kg (285-295); Potassium 4.5 mmol/L (3.5-5.1); Sodium 138 mmol/L (136-145); Total Bilirubin 0.4 mg/dL (0.15-1.2); Total Protein 6.2 g/dL (6.6-8.7)
--- NOTE | 2022-02-15 13:59 | ECG_ITS ---
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 Measurements Intervals [place] Rate: 54 P: 91 DC: 180 QRS: -52 QRSD: 101 T: 74 QT: 446 QTc: 426 Interpretive Statements SINUS BRADYCARDIA WITH MARKED SINUS ARRHYTHMIA LEFT ANTERIOR FASCICULAR BLOCK [QRS AXIS <= -45, QR IN I, RS IN II] SEPTAL MYOCARDIAL INFARCTION , OF INDETERMINATE AGE [40+ ms Q WAVE IN V1/V2] Compared to ECG 02/15/2022 12:06:11 No significant changes Electronically Signed On 02-15-2022 23:22:24 CDT by Bree Costa M.D. [id number]
[2022-02-15] MEDS: sodium chloride 0.9% 500 ML 999 ML IV (14:36)
[2022-02-15 14:51] LABS: Troponin 5 2HR 15.17 ng/L (0-15)
[2022-02-15 14:54] LABS: Troponin 5 2HR Delta -2.83 ABS# (0-10)
--- NOTE | 2022-02-15 16:19 | ECG_ITS ---
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 Measurements Intervals [place] Rate: 59 P: 16 IN: 180 QRS: -57 QRSD: 109 T: 76 QT: 442 QTc: 439 Interpretive Statements SINUS BRADYCARDIA PATTERN CONSISTENT WITH PULMONARY DISEASE LEFT ANTERIOR FASCICULAR BLOCK [QRS AXIS <= -45, QR IN I, RS IN II] SEPTAL MYOCARDIAL INFARCTION , OF INDETERMINATE AGE [40+ ms Q WAVE IN V1/V2] Compared to ECG 02/15/2022 15:16:25 Sinus arrhythmia no longer present Myocardial infarct finding still present Electronically Signed On 02-16-2022 17:02:51 CDT by Jewel Myers M.D. [id number]
--- NOTE | 2022-02-15 16:26 | P.HP_ITS ---
Providers/Chief Complaint Primary Care Provider: Tadeo Hadley DO Chief Complaint: thinks he may of had a heart attack History of Present Illness Reinier Dc is a 71 year old male with past medical history of coronary artery disease status post PCI to LAD (09/12) HFrEF, (EF around 45% ) was brought in with chief complaint of acute onset of profuse sweating, as well as right and left sided mild rib cage pain started this morning, lasted transiently. On arrival in the ER he was worked up for above-mentioned complaint: Pertinent imaging studies: X-ray chest: No acute findings EKG: Sinus bradycardia, LAFB Pertinent labs: Troponin trend:18,15, proBNP:1010 Review of Systems General: Reports: 10 or more systems reviewed and unremarkable except in HPI and below Const: Denies: fever(s), chills, body aches or change in appetite Card: Denies: palpitations, edema, swelling of feet/ankles, dyspnea on exertion, orthopnea or leg pain with exertion Resp: Denies: dyspnea, productive cough, wheezing or pain on inspiration GI: Denies: abdominal pain, nausea, vomiting, diarrhea or constipation : Denies: flank pain or difficulty urinating Musc: Denies: back pain, extremity pain or extremity swelling Neuro: Denies: headache(s), difficulty walking or confusion Medications/Allergies Home Medications Medication Instructions Recorded Confirmed Last Taken Type aspirin 81 mg tablet,delayed 81 mg PO DAILY #90 tab 09/18/21 02/15/22 02/15/22 Rx release clopidogrel 75 mg tablet 75 mg PO DAILY #90 tab 09/18/21 02/15/22 02/15/22 Rx atorvastatin 40 mg tablet 80 mg PO BEDTIME #180 tab 10/25/21 02/15/22 02/15/22 Rx latanoprost 0.005 % eye drops 1 drp OPHTHALMIC (EYE) DAILY 10/25/21 02/15/22 02/15/22 History metoprolol succinate 25 mg 12.5 mg PO DAILY #45 tab 10/25/21 02/15/22 02/15/22 Rx tablet,extended release 24 hr pantoprazole 40 mg tablet,delayed 40 mg PO DAILY #90 tab 12/14/21 02/15/22 02/15/22 Rx release nitroglycerin 0.4 mg sublingual 0.4 mg SUBLINGUAL Q5M PRN #25 tab 04/07/22 04/26/22 Unknown Rx tablet acetaminophen 325 mg tablet 325 mg PO QID PRN 02/15/22 02/15/22 Unknown History bicalutamide 50 mg tablet 50 mg PO DAILY 02/15/22 02/15/22 Unknown History multivitamin with iron-mineral 1 tab PO DAILY 02/15/22 02/15/22 02/15/22 History Allergies Allergy/AdvReac Type Severity Reaction Status Date / Time No Known Allergies Allergy Verified 02/15/22 13:42 PFSH Acute PFSH: Medical History Atherosclerosis of coronary artery Family History Mother CAD (coronary artery disease) Cancer Brother CAD (coronary artery disease) Father Cancer Sister Cancer Social History Smoking and tobacco status: never smoked Vitals/I&O/Wt Last Vital Signs Temp 98.2 F 02/15/22 12:22 Pulse 55 L 02/15/22 15:54 Resp 16 02/15/22 15:11 BP 116/63 02/15/22 15:54 Pulse Ox 99 02/15/22 15:11 Weight last 48 hrs Weight 87.09 kg Physical Exam Const: COMMON NORMALS: patient oriented x3 HENMT: COMMON NORMALS: normocephalic and atraumatic HEAD & SCALP: normocephalic and atraumatic Chest: CHEST: Yes Symmetrical chest wall rise Resp: COMMON NORMALS: clear to auscultation bilaterally EFFORT & INSPECTION: Yes symmetric chest movement AUSCULTATION: clear to auscultation bilaterally Cardio: COMMON NORMALS: regular rate, regular rhythm, S1 normal heart sound present, S2 normal heart sound present, No gallops present (Cardio), No murmurs present (Cardio), No rub (Cardio) and Peripheral pulses 2+ throughout RATE: regular rate RHYTHM: regular rhythm HEART SOUNDS: S1 normal heart sound present and S2 normal heart sound present PERIPHERAL PULSES: Peripheral pulses 2+ throughout GI: COMMON NORMALS: Normal to inspection, nondistended, normoactive bowel sounds present, Soft to palpation, non-tender, No hepatosplenomegaly present and no masses AUSCULTATION: Yes normoactive bowel sounds PALPATION: Yes Soft to palpation and Yes No hepatosplenomegaly present RECTAL EXAM: Yes deferred Extremity: COMMON NORMALS: no clubbing, cyanosis or edema and no pedal edema Neuro: COMMON NORMALS: patient oriented x3 Data : 02/15/22 12:15 02/15/22 12:15 A&P Assessment and plan (1) Chest pain: Status: Acute (2) Bradycardia: Status: Acute (3) Atherosclerosis of coronary artery: Status: Acute Qualifiers: Associated angina: without angina Coronary Disease-Associated Artery/Lesion type: [place] artery [place] vs. transplanted heart: citizen [place] heart Qualified Code(s): I25.10 - Atherosclerotic heart disease of [place] coronary a rtery without angina pectoris (4) Heart failure with reduced ejection fraction: Status: Acute Plan 71 year old male with past medical history of coronary artery disease status post PCI to LAD (09/12) HFrEF, (EF around 45% ) was brought in with chief complaint of acute onset of profuse sweating, as well as right and left sided mild rib cage pain started this morning, lasted transiently. Assessment: #Chest pain: Given his prior history of coronary artery disease s/p PCI. We will admit the patient for further work-up. Continue telemetry monitoring, follow 2D echo. Follow repeat EKG in the a.m. Continue aspirin , Plavix ,statin, sublingual nitro as needed. #Sinus bradycardia: EKG showing sinus bradycardia with left anterior fascicular block. Continue telemetry monitoring Hold metoprolol #HFrEF : Currently compensated Follow repeat 2D echo Patient has not tolerated OWEN inhibitor in the past due to hypotension. #DVT prophylaxis: On Lovenox #CODE STATUS: Full code Attestations Medical Necessity Statement*: Patient needs to be in hospital for management and work-up of chest pain and bradycardia Time Spent in Patient Care: Greater than 35 minutes (>than 50% of time spent in counselling and/or direct pt care on unit) . 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 transplanted heart: citizen [place] heart Heart failure with reduced ejection fraction I50.20
--- NOTE | 2022-02-15 18:04 | USCV_ITS ---
Dao Reinier Age: 71 Gender: M : 1950 Exam Date: 02/15/2022 18:55 Ordering Phys: Domo Manning MD Technologist: CKRoc Exam Location: [facility] – [place] Indication: chest pain BP: 108 / 59 HR: 53 Rhythm: Sinus Technical Quality: Adequate MEASUREMENTS (Male / Female) Normal Values 2D ECHO LV Diastolic Diameter PLAX 5.1 cm 4.2 - 5.9 / 3.9 - 5.3 cm LV Systolic Diameter PLAX 3.2 cm IVS Diastolic Thickness 1.0 cm 0.6 - 1.0 / 0.6 - 0.9 cm IVS Systolic Thickness 1.5 cm LVPW Diastolic Thickness 1.4 cm 0.6 - 1.0 / 0.6 - 0.9 cm LVPW Systolic Thickness 2.9 cm LVOT Diameter 2.3 cm LV Ejection Fraction 2D Teich 65.7 % LV Ejection Fraction MOD 2C 39.2 % LV Ejection Fraction 2C AL 39.1 % LA Diameter 3.6 cm LA Width 3.9 cm LA Height 4.7 cm RA Width 1.7 cm RA Height 2.4 cm Aorta at Sinotubular Diameter 1.8 cm M-MODE Aortic Annulus Diameter 1.9 cm LA Ao Ratio MM 2.4 MV E Point Septal Separation 0.5 cm DOPPLER AV Peak Velocity 114.3 cm/s LVOT Peak Velocity 75.0 cm/s AV Area Cont Eq vti 2.7 cm squared AV Area Cont Eq pk 2.6 cm squared MV Peak Velocity 62.0 cm/s MV Area PHT 2.0 cm squared Mitral E to A Ratio 0.9 MV E' Velocity 30.5 cm/s Mitral E to MV E' Ratio 5.2 Mitral E to LV E' Lateral Ratio 3.7 Mitral E to LV E' Septal Ratio 8.6 TR Peak Velocity 89.5 cm/s TR Peak Gradient 3.2 mmHg TR Mean Velocity 64.6 cm/s TR Mean Gradient 1.8 mmHg TR Velocity Time Integral 19.8 cm Right Atrial Pressure 10.0 mmHg Pulmonary Artery Systolic Pressu 13.2 mmHg RV Acceleration Time 0.2 s RV Ejection Time 0.3 s RV AcT/ET 0.5 FINDINGS Left Ventricle The ventricle is normal in size. There is thinning of the apex, mid anterior wall. Akinesis of the. There is dyskinesis of the apex. This suggests coronary disease with prior LAD distribution myocardial infarction. Ejection fraction is approximately 35%. Grade 1 diastolic dysfunction. Right Ventricle Normal right ventricular size and systolic function. Right Atrium The right atrium is normal in size. Left Atrium Mildly increased left atrial size. Mitral Valve Structurally normal mitral valve without significant stenosis or prolapse. There is no mitral regurgitation. Aortic Valve Structurally normal aortic valve without significant sclerosis or stenosis. There is no aortic regurgitation. Tricuspid Valve Structurally normal tricuspid valve. Trace tricuspid valve regurgitation. Pulmonic Valve Pulmonic valve not well visualized. Pericardium Normal pericardium without effusion. Aorta Normal ascending aorta dimension. CONCLUSIONS The ventricle is normal in size. There is thinning of the apex, mid anterior wall. Akinesis of the. There is dyskinesis of the apex. This suggests coronary disease with prior LAD distribution myocardial infarction. Ejection fraction is approximately 35%. Grade 1 diastolic dysfunction. Mildly increased left atrial size. Dr. Jewel Myers MD (Electronically Signed) Final Date: 16 February 2022 07:21 S
[2022-02-15] MEDS: enoxaparin 40 mg/0.4 mL Syringe SUBCUT (18:13)
[2022-02-15 18:23] LABS: Troponin 5 6HR 15.82 ng/L (0-15)
[2022-02-15 18:28] LABS: Troponin 5 6HR Delta -2.18 ng/L (0-12)
--- NOTE | 2022-02-15 20:33 | PC.NURSE ---
i reported low pulse 59 to nurse
[2022-02-15] MEDS: atorvastatin 40 mg Tablet 80 MG PO (20:58)
[2022-02-16 04:00] VITALS: BP 112/67; PULSE 64; RESP 17; TEMP 36.9; O2SAT 93
[2022-02-16 04:32] LABS: Eosinophils # 0.2 10^3/uL (0.0-0.8); Eosinophils % 4.7 %; Hematocrit 38.8 % (42.0-52.0); Hemoglobin 13.1 g/dL (11.7-16.6); Lymphocytes # 1.1 10^3/uL (0.8-4.8); Lymphocytes % 27.3 %; Mean Corpuscular HGB Conc 33.8 g/dL (30.0-36.0); Mean Corpuscular Hemoglobin 30.4 pg (28.0-34.0); Mean Platelet Volume 9.1 fL (7.4-10.4); Monocytes # 0.4 10^3/uL (0.2-0.9); Monocytes % 11.2 %; Neutrophils # 2.14 10^3/uL (1.8-7.7); Neutrophils % 55.5 %; Nucleated Red Blood Cells % 0 %; Platelet Count 142 10^3/cmm (130-400); Red Blood Count 4.31 10^6/uL (4.1-5.3); Red Cell Distribution Width 12.1 % (12.1-15.1); White Blood Count 3.9 10^3/uL (4.0-10.0)
[2022-02-16 04:52] LABS: Anion Gap 12.3 (5-19); Blood Urea Nitrogen 19 mg/dL (8-23); Calcium 8.4 mg/dL (8.5-10.5); Carbon Dioxide 25 mmol/L (22-29); Chloride 108 mmol/L (98-107); Glucose 109 mg/dL (65-115); Osmolality Calculated 295 mOsm/kg (285-295); Potassium 4.3 mmol/L (3.5-5.1); Sodium 141 mmol/L (136-145)
[2022-02-16 06:00] VITALS: PULSE 59
--- NOTE | 2022-02-16 07:00 | ECG_ITS ---
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 Measurements Intervals [place] Rate: P: HI: QRS: QRSD: T: QT: QTc: Interpretive Statements Sinus rhythm Poor R wave progression, possible septal myocardial infarction Left anterior fascicular block ATYPICAL ECG WARNING: DATA QUALITY MAY AFFECT INTERPRETATION Compared to ECG 02/16/2022 01:19:00 Sinus bradycardia no longer present Electronically Signed On 02-16-2022 17:03:51 CDT by Jewel Myers M.D. [id number]
[2022-02-16 07:36] VITALS: BP 115/71; PULSE 71; RESP 13; TEMP 36.3; O2SAT 97
[2022-02-16] MEDS: pantoprazole DR 40 mg Tablet PO (08:36)
[2022-02-16] MEDS: aspirin 81 mg EC Tablet PO (08:36)
--- NOTE | 2022-02-16 09:46 | PM.DCS ---
Discharge Providers Date of Admission: 02/15/22 16:24 Date of Discharge: February 16, 2022 Attending Provider at Admission: Domo Manning MD Attending Provider at Discharge: Domo Manning MD Primary Care Provider: Tadeo Hadley DO Diagnoses at Discharge Discharge Diagnosis (1) Chest pain: Status: Acute (2) Bradycardia: Status: Acute (3) Atherosclerosis of coronary artery: Status: Acute Qualifiers: Associated angina: without angina Coronary Disease-Associated Artery/Lesion type: [place] artery [place] vs. transplanted heart: [place] heart Qualified Code(s): I25.10 - Atherosclerotic heart disease of [place] coronary artery without angina pectoris (4) Heart failure with reduced ejection fraction: Status: Acute Reason for Visit Reason for Visit: thinks he may of had a heart attack Hospital Course Hospital Course Reinier Dc is a 71 year old male with past medical history of coronary artery disease status post PCI to LAD (09/12) HFrEF, (EF around 45% ) was brought in with chief complaint of acute onset of profuse sweating, as well as right and left sided mild rib cage pain started this morning, lasted transiently. He was admitted for the management and evaluation of chest pain as well as sinus bradycardia. Troponin trends were 18,15,15, EKG failed to show any acute ST-T wave changes, 2D echo done during the hospital stay: The ventricle is normal in size.? There is thinning of the apex, mid anterior wall.? Akinesis of the.? There is dyskinesis of the ?apex.? This suggests coronary disease with prior LAD distribution myocardial infarction.? Ejection fraction is approximately 35%.? Grade 1 diastolic dysfunction. Mildly increased left atrial size.Echo done in 09/12: Had shown an EF of 40%, patient currently is euvolemic, saturating well on room air, has no bilateral lower extremity edema,Patient had no similar episode during the hospital stay, he has been continued on aspirin Plavix statin, sublingual nitro as needed. Telemetry monitoring, during the hospital stay showed his heart rate being mostly in mid 60s to 80s, for now we will Hold the home low-dose metoprolol for a week patient has been asked to monitor his blood pressure and heart rate At home, he has been advised to follow-up with Jeana Perez in 1 week, with the heart rate and blood pressure log. Depending upon the trend metoprolol can be resumed, they may even consider him as outpatient for event monitor. 'Overall patient has responded well to above medical management and is being discharged in stable condition to home. Physical Exam Const: COMMON NORMALS: patient oriented x3 HENMT: COMMON NORMALS: normocephalic and atraumatic HEAD & SCALP: normocephalic and atraumatic Chest: CHEST: Yes Symmetrical chest wall rise Resp: COMMON NORMALS: clear to auscultation bilaterally EFFORT & INSPECTION: Yes symmetric chest movement AUSCULTATION: clear to auscultation bilaterally Cardio: COMMON NORMALS: regular rate, regular rhythm, S1 normal heart sound present, S2 normal heart sound present, No gallops present (Cardio), No murmurs present (Cardio), No rub (Cardio) and Peripheral pulses 2+ throughout RATE: regular rate RHYTHM: regular rhythm HEART SOUNDS: S1 normal heart sound present and S2 normal heart sound present PERIPHERAL PULSES: Peripheral pulses 2+ throughout GI: COMMON NORMALS: Normal to inspection, nondistended, normoactive bowel sounds present, Soft to palpation, non-tender, No hepatosplenomegaly present and no masses AUSCULTATION: Yes normoactive bowel sounds PALPATION: Yes Soft to palpation and Yes No hepatosplenomegaly present RECTAL EXAM: Yes deferred Extremity: COMMON NORMALS: no clubbing, cyanosis or edema and no pedal edema Neuro: COMMON NORMALS: patient oriented x3 Discharge Data Studies Completed and Pending Completed Studies During Hospitalization Category Date Time Status XR chest 1V portable [id number] Stat Exams 02/15/22 11:58 Completed CV. echo complete* [id number] Routine Ultrasound 02/15/22 18:04 Completed Pending at discharge Category Date Time Status Basic Metabolic Panel AM LABS Lab 02/17/22 04:00 Ordered Basic Metabolic Panel AM LABS Lab 02/18/22 04:00 Ordered Complete Blood Count w/Auto AM LABS Lab 02/17/22 04:00 Ordered Complete Blood Count w/Auto AM LABS Lab 02/18/22 04:00 Ordered Radiology Impressions Chest X-Ray 02/15/22 11:58 Impression: Negative chest. Laboratory Results WBC 3.9 10^3/uL (4.0-10.0) L 02/16/22 03:59 RBC 4.31 10^6/uL (4.1-5.3) 02/16/22 03:59 Hgb 13.1 g/dL (11.7-16.6) 02/16/22 03:59 Hct 38.8 % (42.0-52.0) L 02/16/22 03:59 MCV 90.0 fl (80-94) 02/16/22 03:59 MCH 30.4 pg (28.0-34.0) 02/16/22 03:59 MCHC 33.8 g/dL (30.0-36.0) 02/16/22 03:59 RDW 12.1 % (12.1-15.1) 02/16/22 03:59 Plt Count 142 10^3/cmm (130-400) 02/16/22 03:59 MPV 9.1 fL (7.4-10.4) 02/16/22 03:59 Neut % (Auto) 55.5 % 02/16/22 03:59 Lymph % (Auto) 27.3 % 02/16/22 03:59 Hickman % (Auto) 11.2 % 02/16/22 03:59 Eos % (Auto) 4.7 % 02/16/22 03:59 Baso % (Auto) 1.0 % 02/16/22 03:59 Neut # (Auto) 2.14 10^3/uL (1.8-7.7) 02/16/22 03:59 Lymph # (Auto) 1.1 10^3/uL (0.8-4.8) 02/16/22 03:59 Hickman # (Auto) 0.4 10^3/uL (0.2-0.9) 02/16/22 03:59 Eos # (Auto) 0.2 10^3/uL (0.0-0.8) 02/16/22 03:59 Baso # (Auto) 0.0 10^3/uL (0.0-0.1) 02/16/22 03:59 Nucleated RBC % (auto) 0 % 02/16/22 03:59 Nucleated RBCs # 0.0 /100WBC 02/16/22 03:59 Sodium 141 mmol/L (136-145) 02/16/22 03:59 Potassium 4.3 mmol/L (3.5-5.1) 02/16/22 03:59 Chloride 108 mmol/L (98-107) H 02/16/22 03:59 Carbon Dioxide 25 mmol/L (22-29) 02/16/22 03:59 Anion Gap 12.3 (5-19) 02/16/22 03:59 BUN 19 mg/dL (8-23) 02/16/22 03:59 Creatinine 1.0 mg/dL (0.7-1.2) 02/16/22 03:59 GFR Calculation Not Reportable 02/16/22 03:59 Glucose 109 mg/dL (65-115) 02/16/22 03:59 Calculated Osmolality 295 mOsm/kg (285-295) 02/16/22 03:59 Calcium 8.4 mg/dL (8.5-10.5) L 02/16/22 03:59 Total Bilirubin 0.4 mg/dL (0.15-1.2) 02/15/22 12:15 AST 30 U/L (0-40) 02/15/22 12:15 ALT 38 U/L (0-41) 02/15/22 12:15 Alkaline Phosphatase 74 IU/L (40-130) 02/15/22 12:15 Troponin T Baseline 18 ng/L (0-15) H 02/15/22 12:15 Troponin T 120 Minute 15.17 ng/L (0-15) H 02/15/22 14:15 Delta Troponin T -2.83 ABS# (0-10) L 02/15/22 14:15 Troponin T Hi Sens 6Hr 15.82 ng/L (0-15) H 02/15/22 18:02 Troponin T Hi Sens 6Hr Delta -2.18 ng/L (0-12) L 02/15/22 18:02 NT-Pro-B Natriuret Pep 1010 pg/mL (0-125) H 02/15/22 12:15 Total Protein 6.2 g/dL (6.6-8.7) L 02/15/22 12:15 Albumin 4.2 g/dL (3.5-5.2) 02/15/22 12:15 Globulin 2.0 g/dL (1.3-4.6) 02/15/22 12:15 Lipase 53 U/L (13-60) 02/15/22 12:15 Vitals Last Vital Signs Temp 97.4 F L 02/16/22 07:36 Pulse 71 02/16/22 07:36 Resp 13 02/16/22 07:36 BP 115/71 02/16/22 07:36 Pulse Ox 97 02/16/22 07:36 Discharge Plan Discharge Patient Disposition: Home Condition: Stable Prescriptions: Continued latanoprost 0.005 % drops 1 drp ophthalmic (eye) DAILY 0RF atorvastatin 40 mg tablet 80 mg PO BEDTIME Qty: 180 3RF nitroglycerin 0.4 mg tablet, sublingual 0.4 mg sublingual Q5M PRN (Reason: chest pain) Qty: 25 1RF Rx Instructions: do not exceed 3 doses per episode pantoprazole 40 mg tablet,delayed release (DR/EC) 40 mg PO DAILY Qty: 90 3RF clopidogrel 75 mg Tablet 75 mg PO DAILY Qty: 90 4RF aspirin 81 mg Tablet,Delayed Release (Dr/Ec) 81 mg PO DAILY Qty: 90 4RF bicalutamide 50 mg Tablet 50 mg PO DAILY 0RF acetaminophen 325 mg Tablet 325 mg PO QID PRN (Reason: Pain) 0RF multivitamin with iron-mineral Tablet 1 tab PO DAILY 0RF Held metoprolol succinate 25 mg tablet extended release 24 hr 12.5 mg PO DAILY Qty: 45 3RF Hold Instructions: Resume on 02/16/22. Discharge Orders: Discharge Order (Routine); Ordered 02/16/22 Ordered By: Domo Manning Referrals: Keith Gill M.D [Physician] - 04/07/22 3:30 pm Jeana Perez FNP [Nurse Practitioner] - 02/23/22 1:15 pm Tadeo Hadley DO [Primary Care Provider] - 03/04/22 10:30 am Discharge Diet: Cardiac Discharge Activity: Resume usual activity Patient Instructions: Chest Pain (GEN), Bradycardia (GEN), Opioid Safety Discharge Attestations Time Spent in Discharge Care*: less than 30 min Quality Metrics Clinical Quality Measures [ No reported AMI, CVA or VTE this stay] Coding Level of Care Code Acute Chg FW DC note Exam Detailed Diagnoses Chest pain R07.9 Bradycardia R00.1 Atherosclerosis of coronary artery I25.10 Associated angina: without angina Coronary Disease-Associated Artery/Lesion type: [place] artery [place] vs. transplanted heart: [place] heart Heart failure with reduced ejection fraction I50.20
[2022-02-16] MEDS: latanoprost 0.005% Op Soln 2.5 mL Btl 1 DROP EYE-BOTH (10:31)
--- NOTE | 2022-02-16 10:31 | PC.CHAP ---
Pastoral Care Encounter/Spiritual Assessment Type of Contact [] Declined director operations visit [] Patient/Family/Request visit [] Outpatient visit [] Follow-up visit [] Physician referral [] Code/Alert [x] Routine visit [] Staff referral [] Actively dying [] Patient sleeping [] Family support [] [] Out of room [] Palliative care [] [] Receiving care in room [] Pre-surgical visit [] Trauma [] Long length of stay [] ICU visit [] Other: Relational/Emotional Strength [x] Patient feels connected with others/family/visitors/staff [] Distress [] Loneliness/isolation [] Abandonment Spirituality of Patient [x] Person of Lizzie [x [] There are Spiritual issues to be addressed Inspector Watch Train Interventions [x] Prayer [x] Active listening [x] Non-anxious presence [x] Spiritual/emotional support [] Crisis/trauma care [x] Spiritual counseling [] Bereavement support [] Provided bereavement packet [] Provided Bible/devotional materials [] Provided toy/stuffed animal, coloring book to patient or family member [] Provided Communion [] Anointing/Poulan [] Salvation [x] Completed spiritual assessment [] Other: Impact on Illness or Injury [] Angry [] Fearful [] Anxious [] Often cries [] Exhaustion [] Unable to work [] Unable to attend scientology [] Unable to walk/stand [] Unable to read [] Unable to drive [] Unable to eat/drink [] Unable to sleep [] Unable to be with family [] Patient intubated [] Other: Summary Time spent with patient 10 min
[2022-02-16] MEDS: acetaminophen 325 mg Tablet 650 MG PO (10:42)
[2022-02-16 10:59] VITALS: BP 115/71; PULSE 71; RESP 13; TEMP 36.3; O2SAT 97
== END 2022-02-16 11:00 | disposition home or self-care (01) ==
LOC: ER 17:24 → MEDSURG 18:41
PROVIDERS: Admitting Provider Internal Medicine; Emergency Provider Emergency Medicine; PCP Family Medicine; Visit Provider Internal Medicine
DX: R07.9 Chest pain, unspecified (principal); R00.1 Bradycardia, unspecified; I25.10 Atherosclerotic heart disease of native coronary artery without angina pectoris; I50.20 Unspecified systolic (congestive) heart failure; Z79.82 Long term (current) use of aspirin; I25.2 Old myocardial infarction; Z82.49 Family history of ischemic heart disease and other diseases of the circulatory system
CPT/HCPCS: 36415; 71045; 80048; 80053; 83690; 83880; 84484; 85025; 93005; 93306; 96372; G0378; J1650; J7040

== ENCOUNTER → 2022-02-23 13:32 | Outpatient (BNVA) | payer OTHER, SELFPAY | PROVIDERS: PCP Family Medicine; Visit Provider Nurse Practitioner Family | DX: I50.22 Chronic systolic (congestive) heart failure (principal) | CPT/HCPCS: 99213 ==

== ENCOUNTER 2022-04-28 06:00 | Outpatient (CLI) | payer OTHER, SELFPAY ==
[2022-04-27 14:43] LABS: Prostate Specific Antigen < 0.014 ng/mL (0-4)
== END 2022-04-28 06:01 | disposition home or self-care (01) ==
LOC: LAB 05-11 16:30
PROVIDERS: PCP Family Medicine; Visit Provider Internal Medicine Hematology & Oncology
DX: C61 Malignant neoplasm of prostate (principal)
CPT/HCPCS: 36415; 84153

== ENCOUNTER 2022-04-28 14:05 | Oncology outpatient (recurring) (ONCR) | payer OTHER, SELFPAY | END 2022-05-22 23:59 | disposition home or self-care (01) | PROVIDERS: PCP Family Medicine; Visit Provider Internal Medicine Hematology & Oncology | DX: C61 Malignant neoplasm of prostate (principal) | CPT/HCPCS: G0463 ==

== ENCOUNTER 2022-05-10 20:00 | Outpatient (CLI) | payer OTHER, SELFPAY | END 2022-05-10 20:01 | disposition home or self-care (01) | LOC: SLEEP 05-11 06:22 | PROVIDERS: PCP Family Medicine; Visit Provider Family Medicine | DX: G47.30 Sleep apnea, unspecified (principal) | CPT/HCPCS: 95810 ==

== ENCOUNTER → 2022-06-07 15:40 | Outpatient (BNVA) | payer OTHER, SELFPAY | PROVIDERS: PCP Family Medicine; Visit Provider Internal Medicine | DX: I25.10 Atherosclerotic heart disease of native coronary artery without angina pectoris (principal); I50.22 Chronic systolic (congestive) heart failure | CPT/HCPCS: 99214 ==

== ENCOUNTER 2022-11-09 09:10 | Oncology outpatient (recurring) (ONCR) | payer OTHER, SELFPAY ==
[2022-11-09 10:03] LABS: Prostate Specific Antigen < 0.014 ng/mL (0-4)
== END 2022-11-22 23:59 | disposition home or self-care (01) ==
LOC: ONCMED 09:11
PROVIDERS: PCP Family Medicine; Visit Provider Internal Medicine Hematology & Oncology
DX: Z08 Encounter for follow-up examination after completed treatment for malignant neoplasm (principal); Z85.46 Personal history of malignant neoplasm of prostate; Z90.89 Acquired absence of other organs; Z92.21 Personal history of antineoplastic chemotherapy
CPT/HCPCS: 84153; 99213; 99214

== ENCOUNTER → 2022-12-13 15:45 | Outpatient (BNVA) | payer OTHER, SELFPAY | PROVIDERS: PCP Family Medicine; Visit Provider Internal Medicine | DX: I25.10 Atherosclerotic heart disease of native coronary artery without angina pectoris (principal); I50.22 Chronic systolic (congestive) heart failure | CPT/HCPCS: 99213 ==

== ENCOUNTER 2023-06-08 12:37 | Outpatient (CLI) | payer OTHER, SELFPAY ==
--- NOTE | 2023-06-08 13:10 | MM_ITS ---
WS: [id number] BILATERAL 3D TOMOSYNTHESIS DIGITAL DIAGNOSTIC MAMMOGRAPHY WITH CAD CLINICAL INFORMATION: RT BR MASS HISTORY: Palpable lump right breast COMPARISON: None. TECHNIQUE: Bilateral CC, MLO, and ML views. FINDINGS: Scattered fibroglandular densities bilaterally. Slightly asymmetric parenchymal tissue deep to the ri ght nipple in the area of concern. Similar-appearing subareolar parenchymal tissue left breast less p rominent. Ultrasound described below. ULTRASOUND BREAST RIGHT TECHNIQUE: Ultrasound right breast focused area of concern. CLINICAL INFORMATION: RT BR MASS COMPARISON: None. FINDINGS: Ultrasound right breast in the area of concern subareolar. Dense shadowing hypoechoic tissue compatib le with gynecomastia. No suspicious cystic or solid lesions. No lesions were targeted for biopsy. Fin dings are benign. IMPRESSION: MM/[place] [id number] BI-RADS: 2-Benign FOLLOW UP: See Report
== END 2023-06-08 12:38 | disposition home or self-care (01) ==
PROVIDERS: PCP Family Medicine; Visit Provider Family Medicine
DX: N63.10 Unspecified lump in the right breast, unspecified quadrant (principal)
CPT/HCPCS: 76642; 77062; G0279

== ENCOUNTER → 2023-06-14 12:40 | Outpatient (BNVA) | payer OTHER, SELFPAY | PROVIDERS: PCP Family Medicine; Visit Provider Internal Medicine | DX: I25.10 Atherosclerotic heart disease of native coronary artery without angina pectoris (principal); I50.22 Chronic systolic (congestive) heart failure | CPT/HCPCS: 99214 ==

== ENCOUNTER 2023-11-04 12:31 | Emergency (ER) | payer OTHER, SELFPAY ==
[2023-11-04] VITALS (9 sets, daily range): BP systolic 108–147; BP diastolic 71–79; PULSE 57–63; RESP 13–23; O2SAT 92–95
--- NOTE | 2023-11-04 12:35 | ECG_ITS ---
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 Measurements Intervals [place] Rate: 61 P: 67 [place]: 197 QRS: -49 QRSD: 95 T: 113 QT: 400 QTc: 404 Interpretive Statements SINUS RHYTHM WITH SINUS ARRHYTHMIA PATTERN CONSISTENT WITH PULMONARY DISEASE LEFT ANTERIOR FASCICULAR BLOCK [QRS AXIS <= -45, QR IN I, RS IN II] SEPTAL MYOCARDIAL INFARCTION , OF INDETERMINATE AGE [40+ ms Q WAVE IN V1/V2] MODERATE T-WAVE ABNORMALITY, CONSIDER ANTEROLATERAL ISCHEMIA [-0.1+ mV T-WAVE IN V3-V6] Compared to ECG 02/16/2022 05:16:34 T-wave abnormality now present Possible ischemia now present Myocardial infarct finding still present Electronically Signed On 11-06-2023 7:57:05 JUNIOR STAFF ACCOUNTANT by Keith Gill M.D. [id number]
--- NOTE | 2023-11-04 12:38 | XRR_ITS ---
PROCEDURE INFORMATION: Exam: XR Chest Exam date and time: 11/04/2023 1:02 PM Age: 73 years old Clinical indication: Pain; Chest pressure; Additional info: Cp TECHNIQUE: Imaging protocol: Radiologic exam of the chest. Views: 1 view. COMPARISON: CR XR chest 1V portable [id number] 02/15/2022 12:23 PM FINDINGS: Lungs: No consolidation. Pleural spaces: No pleural effusion. No pneumothorax. Heart/Mediastinum: No cardiomegaly. Bones/joints: No acute findings. XR/XR chest 1V portable [id number] IMPRESSION: No acute findings.
[2023-11-04 12:48] LABS: Basophils # 0.1 10^3/uL (0.0-0.1); Eosinophils # 0.3 10^3/uL (0.0-0.8); Eosinophils % 4.8 %; Hematocrit 42.7 % (37-53); Lymphocytes # 1.3 10^3/uL (0.8-4.8); Lymphocytes % 25.8 %; Mean Corpuscular HGB Conc 33.7 g/dL (30-55); Mean Corpuscular Hemoglobin 30.3 pg (27-33); Mean Corpuscular Volume 89.7 fl (82-101); Mean Platelet Volume 8.6 fL (7.4-10.4); Monocytes # 0.5 10^3/uL (0.2-0.9); Neutrophils # 3.02 10^3/uL (1.8-7.7); Neutrophils % 58.2 %; Nucleated Red Blood Cells % 0 %; Platelet Count 168 10^3/cmm (157-399); Red Blood Count 4.76 10^6/uL (3.85-5.65); Red Cell Distribution Width 12.2 % (12.1-15.1); White Blood Count 5.19 10^3/uL (3.29-11.43)
--- NOTE | 2023-11-04 12:52 | ED_ITS ---
HPI - Chest Pain 2 General: Chief Complaint: Chest Pain Stated Complaint: SOB Time Seen by Provider: 11/04/23 12:38 History of Present Illness: 73-year-old male presents emergency depa rtment via EMS personnel after being seen at the urgent care clinic and advised to come to the emergency department. Patient states he has epigastric/lower midsternal chest pain that he describes as a burning pain that radiates under both arms and is a 3 out of 10 at present. He states nothing seems to make the pain worse he states he did receive a single sublingual nitroglycerin and the pain did improve. Patient states that this pain started at approximately 8 PM last night. He denies shortness of breath dizziness lightheaded feeling nausea or diaphoresis. He states he did have a coronary artery stent placed previously and currently takes anticoagulation-Plavix. Review of Systems 2 General: Reports: 10 or more systems reviewed and unremarkable except in HPI and below Card: Reports: chest pain; Denies: irregular heart rhythm PFSH ED 2 PFSH: Medical History History of ST elevation myocardial infarction (STEMI) s/p PTCA w/ stent of LAD Coronary artery disease Left anterior fascicular block (LAFB) History of prostate cancer s/p RALP + ADT/radiation; Zoladex x 6 mon; Casodex x 2 week History of skin cancer basal cell carcinoma Heart failure with reduced ejection fraction EF 35% on last echo Surgical History History of cataract extraction with lens replacement History of percutaneous transluminal coronary angioplasty LAD History of robot-assisted laparoscopic radical prostatectomy History of cholecystectomy History of appendectomy Family History Mother CAD (coronary artery disease) Cancer groin Stroke Brother CAD (coronary artery disease) Stroke Sister Cancer skin Social History Smoking and tobacco/nicotine status: never used tobacco/nicotine Alcohol intake: former Year of sobriety/quit date alcohol: 1999 Household members: spouse Marital status: Number of children: 2 service: Yes branch: [employer] Assignments: Inside [facility] (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 Vital signs as documented. No acute distress at present. Alert and oriented-to person, place, time and situation. Head, eyes, ears, nose, mouth, throat: Normocephalic, atraumatic. Pupils-equal, round, reactive to light. No scleral icterus. Normal-appearing external ears. Normal appearing nasal turbinates, no drainage. No obvious oral lesions, posterior oropharynx without erythema or exudates. Neck: Supple, trachea is midline, no lymphadenopathy, no jugular venous distension, thyromegaly, or carotid bruits. Carotid upstrokes are brisk bilaterally. Lungs: clear to auscultation to all lung angelo. Symmetrical rise and fall of chest, no obvious signs of increased work of breathing at present. Cardiac: Regular rate and rhythm, positive S1, S2. No murmurs, rubs or gallops that I can appreciate Abdomen: Soft, non-tender to palpation, normal active bowel sounds to all quadrants. No palpable masses, no organomegaly and abdominal bruits. Extremities: 2+ pulses in the upper extremities that are equal bilaterally, 2+ pulses in the lower extremities that are equal bilaterally. Non-edematous. Moves all extremities well, sensation to all extremities are noted. Skin: Warm, dry, intact. Course 2 Vital Signs: Vital signs: Vital Signs Pulse Rate 63 11/04/23 16:38 Respiratory Rate 18 11/04/23 16:38 Blood Pressure 109/71 11/04/23 16:38 Pulse Oximetry 92 11/04/23 16:38 Oxygen Delivery Me thod Room Air 11/04/23 15:30 MDM - Chest Pain Medical Decision Making 73-year-old male presents to the emergency department complaints of epigastric/chest pain does have coronary artery disease history and stent placement he is currently taking his Plavix he does have a history of GERD we will obtain serial cardiac enzymes as well as serial EKGs, CBC, CMP, PT/INR, chest x-ray, we will provide a GI cocktail and reevaluate. Medical Records I reviewed the patient's medical records. Lab Data I reviewed the patient's lab results. 11/04/23 12:40 11/04/23 12:40 Radiology Impressions Chest X-Ray 11/04/23 12:38 IMPRESSION: No acute findings. Laboratory Results WBC 5.19 10^3/uL (3.29-11.43) 11/04/23 12:40 RBC 4.76 10^6/uL (3.85-5.65) 11/04/23 12:40 Hgb 14.40 g/dL (11.27-16.99) 11/04/23 12:40 Hct 42.7 % (37-53) 11/04/23 12:40 MCV 89.7 fl (82-101) 11/04/23 12:40 MCH 30.3 pg (27-33) 11/04/23 12:40 MCHC 33.7 g/dL (30-55) 11/04/23 12:40 RDW 12.2 % (12.1-15.1) 11/04/23 12:40 Plt Count 168 10^3/cmm (157-399) 11/04/23 12:40 MPV 8.6 fL (7.4-10.4) 11/04/23 12:40 Neut % (Auto) 58.2 % 11/04/23 12:40 Lymph % (Auto) 25.8 % 11/04/23 12:40 [place] % (Auto) 10.0 % 11/04/23 12:40 Eos % (Auto) 4.8 % 11/04/23 12:40 Baso % (Auto) 1.0 % 11/04/23 12:40 Neut # (Auto) 3.02 10^3/uL (1.8-7.7) 11/04/23 12:40 Lymph # (Auto) 1.3 10^3/uL (0.8-4.8) 11/04/23 12:40 [place] # (Auto) 0.5 10^3/uL (0.2-0.9) 11/04/23 12:40 Eos # (Auto) 0.3 10^3/uL (0.0-0.8) 11/04/23 12:40 Baso # (Auto) 0.1 10^3/uL (0.0-0.1) 11/04/23 12:40 Nucleated RBC % (auto) 0 % 11/04/23 12:40 Nucleated RBCs # 0.0 /100WBC 11/04/23 12:40 PT 13.40 SECONDS (12.1-14.9) 11/04/23 12:40 INR 0.99 (0.8-1.2) 11/04/23 12:40 APTT 29.9 SECONDS (23.9-36.7) 11/04/23 12:40 Sodium 139 mmol/L (136-145) 11/04/23 12:40 Potassium 4.5 mmol/L (3.5-5.1) 11/04/23 12:40 Chloride 105 mmol/L (98-107) 11/04/23 12:40 Carbon Dioxide 25 mmol/L (22-29) 11/04/23 12:40 Anion Gap 13.5 (5-19) 11/04/23 12:40 BUN 17 mg/dL (8-23) 11/04/23 12:40 Creatinine 1.1 mg/dL (0.7-1.2) 11/04/23 12:40 GFR Calculation Not Reportable 11/04/23 12:40 Glucose 98 mg/dL (65-115) 11/04/23 12:40 Calculated Osmolality 290 mOsm/kg (285-295) 11/04/23 12:40 Calcium 8.8 mg/dL (8.5-10.5) 11/04/23 12:40 Total Bilirubin 0.4 mg/dL (0.15-1.2) 11/04/23 12:40 AST 23 U/L (0-40) 11/04/23 12:40 ALT 23 U/L (0-41) 11/04/23 12:40 Alkaline Phosphatase 79 U/L (40-130) 11/04/23 12:40 Troponin T Baseline 12 ng/L (0-15) 11/04/23 12:40 Troponin T 120 Minute 10.65 ng/L (0-15) 11/04/23 14:35 Delta Troponin T -1.35 ABS# (0-10) L 11/04/23 14:35 NT-Pro-B Natriuret Pep 612 pg/mL (0-125) H 11/04/23 12:40 Total Protein 6.0 g/dL (6.6-8.7) L 11/04/23 12:40 Albumin 3.8 g/dL (3.5-5.2) 11/04/23 12:40 Globulin 2.2 g/dL (1.3-4.6) 11/04/23 12:40 Urine Color Yellow (Yellow) 11/04/23 13:20 Urine Appearance Clear (CLEAR) 11/04/23 13:20 Urine pH 5 (5-7) 11/04/23 13:20 Ur Specific [place] 1.025 (1.005-1.030) 11/04/23 13:20 Urine Protein Neg (Negative) 11/04/23 13:20 Urine Glucose (UA) Norm (Normal) 11/04/23 13:20 Urine Ketones Negative (Negative) 11/04/23 13:20 Urine Blood 2+ (Negative) H 11/04/23 13:20 Urine Nitrate Negative (Negative) 11/04/23 13:20 Urine Bilirubin Neg (Negative) 11/04/23 13:20 Urine Urobilinogen 4 mg/dL (Negative) H 11/04/23 13:20 Ur Leukocyte Esterase Negative (Negative) 11/04/23 13:20 Urine RBC 0-4 /hpf (0-2) H 11/04/23 13:20 Urine WBC None /hpf (0-5) 11/04/23 13:20 Ur Squamous Epith Cells None /hpf (0-5) 11/04/23 13:20 Amorphous Sediment Not Reportable 11/04/23 13:20 Urine Bacteria Trace /hpf (NONE) 11/04/23 13:20 Urine Mucus 1+ /hpf 11/04/23 13:20 All radiology interpretation(s) finalized by discharge EKG Data EKG 1: Interpretation: Twelve-lead EKG obtained at 1235 and reviewed at 1235 demonstrates sinus rhythm with sinus arrhythmia. Patient does have a left anterior fascicular block, ventricular rate of 61 bpm, CO interval 197, QRS duration 95, QT 400, QTc [address] elevation at present. Patient does have inverted T waves in V3, V2, V4, V5, and there is [address] depression in leads V4, V5, and V6. I reviewed a previous twelve-lead EKG from 02/16/2022 and the EKG has a similar appearance with inverted T waves in V2, V3, V4, with the same slight ST depression in leads V4, V5, V6. Discharge Plan Discharge Patient Disposition: Home Clinical Impression: Atypical chest pain, Chest pain due to GERD Condition: Stable Prescriptions: New Carafate 1 gram tablet 1 g PO TID 28 Days Qty: 84 0RF No Action nitroglycerin 0.4 mg tablet, sublingual 0.4 mg sublingual Q5M PRN (Reason: chest pain) Qty: 25 1RF Rx Instructions: do not exceed 3 doses per episode latanoprost 0.005 % drops 1 drp ophthalmic (eye) DAILY clopidogrel 75 mg tablet 75 mg PO DAILY Qty: 90 2RF lisinopril 2.5 mg tablet 2.5 mg PO DAILY Qty: 90 3RF atorvastatin 40 mg tablet 80 mg PO BEDTIME Qty: 180 3RF pantoprazole 40 mg tablet,delayed release (DR/EC) 40 mg PO BID Qty: 180 2RF aspirin 81 mg Tablet,Delayed Release (Dr/Ec) 81 mg PO DAILY Qty: 90 4RF acetaminophen 325 mg Tablet 325 mg PO QID PRN (Reason: Pain) Discharge Orders: Discharge ED (Routine); Ordered 11/04/23 Ordered By: Edison Serna Referrals: Lakshmi Decker MD [Primary Care Provider] - Discharge Diet: Advance as tolerated Discharge Activity: Resume usual activity Patient Instructions: Opioid Safety, Pain Management Activity Restrictions/Additional Instructions: Activity Restrictions/Additional Instructions: Thank you for choosing [facility] for your healthcare needs today. Please realize that you were seen in the Emergency Department and that we are providing you with an emergency medical screening exam and this may not be a complete and all inclusive of all the testing and or medical work-up that you may need to determine your ailment or severity of your illness. It is very important that you follow-up as instructed with your Primary care provider or Specialist for additional evaluation and to discuss your medical treatment plan. You may return to the Emergency Department should you have concerns or if your condition changes or worsens in any way. Coding Level of Care Code ED Renal Dialysis Technician for Roxie Dacosta
[2023-11-04 12:57] LABS: INR 0.99 (0.8-1.2)
[2023-11-04 12:59] LABS: Partial Thromboplastin Time 29.9 SECONDS (23.9-36.7)
[2023-11-04 13:22] LABS: Alanine Aminotransferase 23 U/L (0-41); Albumin Level 3.8 g/dL (3.5-5.2); Alkaline Phosphatase 79 U/L (40-130); Anion Gap 13.5 (5-19); Aspartate Amino Transferase 23 U/L (0-40); Blood Urea Nitrogen 17 mg/dL (8-23); Calcium 8.8 mg/dL (8.5-10.5); Carbon Dioxide 25 mmol/L (22-29); Chloride 105 mmol/L (98-107); Creatinine Clr Calc Pharmacy 67.1013; Globulin 2.2 g/dL (1.3-4.6); Glucose 98 mg/dL (65-115); NT Pro B Type Natriuretic Pept 612 pg/mL (0-125); Osmolality Calculated 290 mOsm/kg (285-295); Potassium 4.5 mmol/L (3.5-5.1); Sodium 139 mmol/L (136-145); Total Bilirubin 0.4 mg/dL (0.15-1.2)
[2023-11-04] MEDS: lidocaine 2% viscous 15 ML, aluminum-mag hydrox-simethicon 30 ML, sucralfate oral liq 1 GM PO (13:29)
[2023-11-04] MEDS: nitroglycerin 1 gm/inch oint Pkt 1 INCH TOPICAL (13:30)
[2023-11-04 13:38] LABS: Troponin(5th) Baseline 12 ng/L (0-15)
[2023-11-04 13:46] LABS: Add Urine Microscopic? YES; Bilirubin Urine Neg (Negative); Blood Urine 2+ (Negative); Glucose Urine UA Norm (Normal); Ketones Urine Negative (Negative); Leukocyte Esterase Urine Negative (Negative); Nitrate Urine Negative (Negative); Protein Urine Neg (Negative); Specific Gravity, Urine 1.025 (1.005-1.030); Urine Appearance Clear (CLEAR); Urine Color Yellow (Yellow); Urobilinogen Urine 4 mg/dL (Negative); pH Urine 5 (5-7)
[2023-11-04 13:59] LABS: Bacteria Urine TRACE /hpf; Mucus Urine 1+ /hpf; RBC Urine 0-4 /hpf (0-2)
--- NOTE | 2023-11-04 14:34 | ECG_ITS ---
[facility] Test Date: 2023-11-04 Pat Name: Reinier Dc Department: Room: Gender: Male Escalation Engineer: : 1950 Requested By: Edison Serna Order Number: [id number] Beka MD: Keith Gill M.D. Measurements Intervals [place] Rate: 62 P: 0 GA: 0 QRS: -55 QRSD: 102 T: 110 QT: 434 QTc: 442 Interpretive Statements SINUS RHYTHM PATTERN CONSISTENT WITH PULMONARY DISEASE LEFT ANTERIOR FASCICULAR BLOCK [QRS AXIS <= -45, QR IN I, RS IN II] SEPTAL MYOCARDIAL INFARCTION , OF INDETERMINATE AGE [40+ ms Q WAVE IN V1/V2] Compared to ECG 11/04/2023 12:35:38 T-wave abnormality no longer present Possible ischemia no longer present Myocardial infarct finding still present Electronically Signed On 11-06-2023 8:05:13 CONTACT CENTER PROFESSIONAL by Keith Gill M.D. [id number]
[2023-11-04] MEDS: ketorolac 30 mg/mL INJ IVP (15:25)
[2023-11-04 15:28] LABS: Troponin 5 2HR 10.65 ng/L (0-15)
[2023-11-04 15:29] LABS: Troponin 5 2HR Delta -1.35 ABS# (0-10)
== END 2023-11-04 16:39 | disposition home or self-care (01) ==
PROVIDERS: Emergency Provider Internal Medicine; PCP Family Medicine
DX: R07.89 Other chest pain (principal); K21.9 Gastro-esophageal reflux disease without esophagitis; Z79.02 Long term (current) use of antithrombotics/antiplatelets; Z79.82 Long term (current) use of aspirin; I25.10 Atherosclerotic heart disease of native coronary artery without angina pectoris; Z85.46 Personal history of malignant neoplasm of prostate; I25.2 Old myocardial infarction; I50.9 Heart failure, unspecified
CPT/HCPCS: 36415; 71045; 80053; 81001; 83880; 84484; 85025; 85610; 85730; 93005; 96374; 99285; J1885

== ENCOUNTER → 2023-12-13 15:01 | Outpatient (BNVA) | payer OTHER, SELFPAY | PROVIDERS: PCP Family Medicine; Visit Provider Internal Medicine | DX: I25.10 Atherosclerotic heart disease of native coronary artery without angina pectoris (principal); I50.22 Chronic systolic (congestive) heart failure | CPT/HCPCS: 99214 ==

== ENCOUNTER 2024-02-04 13:42 | Emergency (ER) | payer OTHER, SELFPAY ==
[2024-02-04] VITALS (15 sets, daily range): BP systolic 109–132; BP diastolic 66–78; PULSE 58–66; RESP 16–20; TEMP 36.6; O2SAT 96–99; BMI 31.0
--- NOTE | 2024-02-04 14:16 | ECG_ITS ---
[facility] Test Date: 2024-02-04 Pat Name: Reinier Dc Department: Room: Gender: Male Power Originator: : 1950 Requested By: Koki Jesus Order Number: [id number] Beka MD: Zohreh Rob M.D. Measurements Intervals [place] Rate: 66 P: 80 NM: 214 QRS: -58 QRSD: 106 T: 71 QT: 434 QTc: 456 Interpretive Statements SINUS RHYTHM WITH FIRST DEGREE AV BLOCK LEFT ANTERIOR FASCICULAR BLOCK [QRS AXIS <= -45, QR IN I, RS IN II] SEPTAL MYOCARDIAL INFARCTION , PROBABLY OLD [40+ ms Q WAVE IN V1/V2] Compared to ECG 11/04/2023 14:34:05 First degree AV block now present Myocardial infarct finding still present Electronically Signed On 02-04-2024 20:51:51 CDT by Zohreh Rob M.D. [id number]
--- NOTE | 2024-02-04 14:17 | ED_ITS ---
HPI - Chest Pain 2 General: Chief Complaint: Chest Pain Stated Complaint: right side chest pain Time Seen by Provider: 02/04/24 14:12 History of Present Illness: 73-year-old man with history of coronary artery disease status post stenting on Plavix, GERD, hypertension who presents the emergency room with chest pain. He says he has been having intermittent episodes that last about 2 minutes of sharp right chest pain near his right shoulder. He says this was how his heart attack presented previously. He says he had right-sided chest pain that then radiated across his epigastric area and was very similar and sharp. No cough. No shortness of breath. No lower extremity swelling. No altered mental status. No focal motor deficits. No fever. Review of Systems 2 Narrative: Constitutional symptoms: Negative except as documented in HPI. Skin symptoms: Negative except as documented in HPI. Eye symptoms: Negative except as documented in HPI. ENMT symptoms: Negative except as documented in HPI. Respiratory symptoms: Negative except as documented in HPI. Cardiovascular symptoms: Negative except as documented in HPI. Gastrointestinal symptoms: Negative except as documented in HPI. Genitourinary symptoms: Negative except as documented in HPI. Musculoskeletal symptoms: Negative except as documented in HPI. Neurologic symptoms: Negative except as documented in HPI. Psychiatric symptoms: Negative except as documented in HPI. Endocrine symptoms: Negative except as documented in HPI. PFSH ED 2 PFSH: Medical History History of ST elevation myocardial infarction (STEMI) s/p PTCA w/ stent of LAD Coronary artery disease Left anterior fascicular block (LAFB) History of prostate cancer s/p RALP + ADT/radiation; Zoladex x 6 mon; Casodex x 2 week History of skin cancer basal cell carcinoma Heart failure with reduced ejection fraction EF 35% on last echo Surgical History History of cataract extraction with lens replacement History of percutaneous transluminal coronary angioplasty LAD History of robot-assisted laparoscopic radical prostatectomy History of cholecystectomy History of appendectomy Family History Mother CAD (coronary artery disease) Cancer groin Stroke Brother CAD (coronary artery disease) Stroke Sister Cancer skin Social History Smoking and tobacco/nicotine status: never used tobacco/nicotine Alcohol intake: former Year of sobriety/quit date alcohol: 1999 Household members: spouse Marital status: Number of children: 2 service: Yes branch: [employer] Assignments: Inside [facility] ([facility]) Known or Potential Exposure: Other exposure details: asbestos Current occupational status: retired 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 Skin: Warm, dry. Head: Normocephalic, atraumatic. Neck: Supple, trachea midline. Eye: Extraocular movements are intact. Ears, nose, mouth and throat: mucosa moist. Cardiovascular: Regular, Normal peripheral perfusion. Respiratory: Lungs are clear to auscultation, respirations are non-labored, breath sounds are equal, Symmetrical chest wall expansion. Gastrointestinal: Soft, Nontender, Non distended, Normal bowel sounds. Musculoskeletal: Normal ROM, no deformity. Neurological: Alert and oriented, No focal neurological deficit observed. Psychiatric: Cooperative, appropriate mood & affect. Course 2 Vital Signs: Vital signs: Vital Signs Temperature 97.8 F 02/04/24 13:47 Pulse Rate 60 02/04/24 16:45 Respiratory Rate 17 02/04/24 16:45 Blood Pressure 113/73 02/04/24 16:45 Pulse Oximetry 98 02/04/24 16:45 Oxygen Delivery Me thod Room Air 02/04/24 16:45 MDM - Chest Pain Medical Decision Making Differential diagnosis for patient with chest pain includes but is not limited to and based on the above HPI, review of systems and physical exam: Pneumonia. unstable angina. angina. Acute coronary syndrome / HI. Pulmonary embolism. Costochondritis / musculoskeletal. Pleurisy. Pericarditis. Esophageal spasm. Pancreatis. Cholecystitis. Workup: Lab work, chest X-ray and EKG ordered to evaluate, rule in and rule out above pathologies. Lab Review: Laboratory results were reviewed and interpreted by myself the emergency room physician. Cardiac markers are negative serially. No leukocytosis. No anemia. No renal failure. EKG: Time 1347 rate 66 normal sinus rhythm, No ST-T changes, no ectopy, first degree AV Block, EP Interpretation. This was reviewed and interpreted by myself the ER physician at 1355. Repeat EK oh rate 61 normal sinus rhythm, No ST-T changes, no ectopy, first degree AV Block, EP Interpretation. This was reviewed and interpreted by myself the ER physician at 1630. No significant changes. No ischemic changes. Chest x-ray: No acute process. No infiltrate. No pneumothorax. No cardiomegaly. This was reviewed and interpreted by myself the ER physician. I reviewed the patient's medical record. Reexamination: Patient remained stable. No increased work of breathing. No altered mental status. Lab Data 02/04/24 14:51 02/04/24 14:51 Laboratory Results WBC 4.14 10^3/uL (3.29-11.43) 02/04/24 14:51 RBC 4.77 10^6/uL (3.85-5.65) 02/04/24 14:51 Hgb 14.40 g/dL (11.27-16.99) 02/04/24 14:51 Hct 43.5 % (37-53) 02/04/24 14:51 MCV 91.2 fl (82-101) 02/04/24 14:51 MCH 30.2 pg (27-33) 02/04/24 14:51 MCHC 33.1 g/dL (30-55) 02/04/24 14:51 RDW 12.4 % (12.1-15.1) 02/04/24 14:51 Plt Count 161 10^3/cmm (157-399) 02/04/24 14:51 MPV 8.7 fL (7.4-10.4) 02/04/24 14:51 Neut % (Auto) 56.6 % 02/04/24 14:51 Lymph % (Auto) 24.6 % 02/04/24 14:51 [place] % (Auto) 13.0 % 02/04/24 14:51 Eos % (Auto) 4.8 % 02/04/24 14:51 Baso % (Auto) 1.0 % 02/04/24 14:51 Neut # (Auto) 2.34 10^3/uL (1.8-7.7) 02/04/24 14:51 Lymph # (Auto) 1.0 10^3/uL (0.8-4.8) 02/04/24 14:51 [place] # (Auto) 0.5 10^3/uL (0.2-0.9) 02/04/24 14:51 Eos # (Auto) 0.2 10^3/uL (0.0-0.8) 02/04/24 14:51 Baso # (Auto) 0.0 10^3/uL (0.0-0.1) 02/04/24 14:51 Nucleated RBC % (auto) 0 % 02/04/24 14:51 Nucleated RBCs # 0.0 /100WBC 02/04/24 14:51 Sodium 141 mmol/L (136-145) 02/04/24 14:51 Potassium 5.0 mmol/L (3.5-5.1) 02/04/24 14:51 Chloride 106 mmol/L (98-107) 02/04/24 14:51 Carbon Dioxide 27 mmol/L (22-29) 02/04/24 14:51 Anion Gap 13.0 (5-19) 02/04/24 14:51 BUN 18 mg/dL (8-23) 02/04/24 14:51 Creatinine 1.1 mg/dL (0.7-1.2) 02/04/24 14:51 GFR Calculation Not Reportable 02/04/24 14:51 Glucose 88 mg/dL (65-115) 02/04/24 14:51 Calculated Osmolality 293 mOsm/kg (285-295) 02/04/24 14:51 Calcium 8.8 mg/dL (8.5-10.5) 02/04/24 14:51 Troponin T Baseline 12 ng/L (0-15) 02/04/24 14:51 Troponin T 120 Minute 11.62 ng/L (0-15) 02/04/24 16:31 Delta Troponin T -0.38 ABS# (0-10) L 02/04/24 16:31 All radiology interpretation(s) finalized by discharge Discharge Plan Discharge Patient Disposition: Home Clinical Impression: Chest pain Condition: Stable Prescriptions: No Action nitroglycerin 0.4 mg tablet, sublingual 0.4 mg sublingual Q5M PRN (Reason: chest pain) Qty: 25 1RF Rx Instructions: do not exceed 3 doses per episode latanoprost 0.005 % drops 1 drp ophthalmic (eye) DAILY famotidine 20 mg tablet 20 mg PO BID pantoprazole 40 mg tablet,delayed release (DR/EC) 40 mg PO BID Qty: 180 2RF clopidogrel 75 mg tablet 75 mg PO DAILY Qty: 90 3RF lisinopril 2.5 mg tablet 2.5 mg PO DAILY Qty: 14 0RF atorvastatin 40 mg tablet 80 mg PO BEDTIME Qty: 180 3RF aspirin 81 mg Tablet,Delayed Release (Dr/Ec) 81 mg PO DAILY Qty: 90 4RF acetaminophen 325 mg Tablet 325 mg PO QID PRN (Reason: Pain) Discharge Orders: Discharge ED (Routine); Ordered 02/04/24 Ordered By: Koki Villanueva Referrals: Lakshmi Decker MD [Primary Care Provider] - (You have been screened and evaluated and felt safe for discharge. Health conditions do change or evolve sometimes and as such it is important that you follow up with your Primary Doctor to be re checked, 3-5 days is a general good time frame for follow up. You are always welcome to return to the ED for re assessment if your symptoms are worsening or you have new concerns) Discharge Diet: Usual diet Discharge Activity: Resume usual activity Patient Instructions: Noncardiac Chest Pain (ED) Coding Level of Care Code ED Histology Assistant for Roxie Dacosta
[2024-02-04 15:00] LABS: Eosinophils # 0.2 10^3/uL (0.0-0.8); Eosinophils % 4.8 %; Hematocrit 43.5 % (37-53); Lymphocytes % 24.6 %; Mean Corpuscular HGB Conc 33.1 g/dL (30-55); Mean Corpuscular Hemoglobin 30.2 pg (27-33); Mean Corpuscular Volume 91.2 fl (82-101); Mean Platelet Volume 8.7 fL (7.4-10.4); Monocytes # 0.5 10^3/uL (0.2-0.9); Neutrophils # 2.34 10^3/uL (1.8-7.7); Neutrophils % 56.6 %; Nucleated Red Blood Cells % 0 %; Platelet Count 161 10^3/cmm (157-399); Red Blood Count 4.77 10^6/uL (3.85-5.65); Red Cell Distribution Width 12.4 % (12.1-15.1); White Blood Count 4.14 10^3/uL (3.29-11.43)
[2024-02-04 15:19] LABS: Troponin(5th) Baseline 12 ng/L (0-15)
[2024-02-04 15:21] LABS: Blood Urea Nitrogen 18 mg/dL (8-23); Calcium 8.8 mg/dL (8.5-10.5); Carbon Dioxide 27 mmol/L (22-29); Chloride 106 mmol/L (98-107); Creatinine Clr Calc Pharmacy 67.1013; Glucose 88 mg/dL (65-115); Osmolality Calculated 293 mOsm/kg (285-295); Sodium 141 mmol/L (136-145)
--- NOTE | 2024-02-04 16:18 | ECG_ITS ---
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 Measurements Intervals [place] Rate: 61 P: 71 MT: 204 QRS: -56 QRSD: 105 T: 75 QT: 440 QTc: 445 Interpretive Statements SINUS RHYTHM WITH SINUS ARRHYTHMIA LEFT ANTERIOR FASCICULAR BLOCK [QRS AXIS <= -45, QR IN I, RS IN II] SEPTAL MYOCARDIAL INFARCTION , PROBABLY OLD [40+ ms Q WAVE IN V1/V2] Compared to ECG 02/04/2024 13:47:49 First degree AV block no longer present Myocardial infarct finding still present Electronically Signed On 02-04-2024 21:01:14 CDT by Zohreh Rob M.D. [id number]
[2024-02-04 16:55] LABS: Troponin 5 2HR 11.62 ng/L (0-15)
[2024-02-04 16:57] LABS: Troponin 5 2HR Delta -0.38 ABS# (0-10)
--- NOTE | 2024-02-04 17:18 | XRR_ITS ---
PROCEDURE INFORMATION: Exam: XR Chest Exam date and time: 02/04/2024 5:35 PM Age: 73 years old Clinical indication: Pain; Chest pressure; Additional info: Chest pain TECHNIQUE: Imaging protocol: Radiologic exam of the chest. Views: 1 view. COMPARISON: CR XR chest 1V portable [id number] 11/04/2023 1:02 PM FINDINGS: Lungs: No focal consolidation. Pleural spaces: No evidence of pneumothorax. No evidence of pleural effusion. Heart/Mediastinum: Cardiomediastinal silhouette is within normal limits. Bones/joints: No evidence of acute osseous abnormality. XR/XR chest 1V [id number] IMPRESSION: 1. No acute cardiopulmonary abnormality.
== END 2024-02-04 18:00 | disposition home or self-care (01) ==
PROVIDERS: Emergency Provider Emergency Medicine; PCP Family Medicine
DX: R07.9 Chest pain, unspecified (principal); Z79.02 Long term (current) use of antithrombotics/antiplatelets; Z79.82 Long term (current) use of aspirin; I25.10 Atherosclerotic heart disease of native coronary artery without angina pectoris; Z85.46 Personal history of malignant neoplasm of prostate; Z85.828 Personal history of other malignant neoplasm of skin; I25.2 Old myocardial infarction; I50.20 Unspecified systolic (congestive) heart failure
CPT/HCPCS: 36415; 71045; 80048; 84484; 85025; 93005; 99285

== ENCOUNTER → 2024-06-19 15:05 | Outpatient (BNVA) | payer OTHER, MEDICARE, SELFPAY | PROVIDERS: PCP Family Medicine; Visit Provider Internal Medicine | DX: I25.10 Atherosclerotic heart disease of native coronary artery without angina pectoris (principal); I50.22 Chronic systolic (congestive) heart failure | CPT/HCPCS: 99214 ==

== ENCOUNTER 2024-06-24 14:57 | Emergency (ER) | payer OTHER, MEDICARE, SELFPAY ==
[2024-06-24 15:14] VITALS: BP 93/53; PULSE 84; RESP 16; TEMP 36.7; O2SAT 96
--- NOTE | 2024-06-24 15:20 | W.ED.MALEGU ---
HPI - Male Genitourinary General: Chief complaint: Urogenital-Male Stated complaint: Pelvic pain/blood in urine Time Seen by Provider: 06/24/24 15:08 Source: patient Mode of arrival: ambulatory Limitations: no limitations History of Present Illness: Patient is a nice 73-year-old male with a history of prostate cancer now undergoing annual surveillance by his urologist in [place] here for complaints of hematuria and right lower abdominal/pelvic pain. Patient states he began noticing hematuria a few days ago. He reached out to his urologist (Dr. [facility]) who scheduled him appointment to be seen tomorrow. Still able to urinate/no clots. He states earlier today after pulling weeds outside, he was in the house when he began developing pain to his right lower abdomen. He was not sure if this could be related to the hematuria thus prompting his medical evaluation. He denies history of kidney or ureter stones. Thinks maybe it is possibly a hernia. MD Complaint: other (Hematuria, right lower abdominal/pelvic pain) Severity: moderate Relieving factors: none Exacerbating factors: none Associated symptoms: Reports hematuria; Deny nausea or vomiting Related Data Home Medications Medication Instructions Recorded Confirmed acetaminophen 325 mg tablet 325 mg PO QID PRN Pain 02/15/22 06/19/24 latanoprost 0.005 % eye drops 1 drp ophthalmic (eye) DAILY 02/20/23 06/19/24 Previous Rx's Medication Instructions Recorded aspirin 81 mg tablet,delayed 81 mg PO DAILY #90 tabs 09/18/21 release nitroglycerin 0.4 mg sublingual 0.4 mg sublingual Q5M PRN chest 01/27/22 tablet pain #25 tabs pantoprazole 40 mg tablet,delayed 40 mg PO BID #180 tabs 04/03/23 release clopidogrel 75 mg tablet 75 mg PO DAILY #90 tabs 12/05/23 lisinopril 2.5 mg tablet 2.5 mg PO DAILY #14 tabs 12/11/23 atorvastatin 40 mg tablet 80 mg (2 x 40 mg) PO BEDTIME #180 01/02/24 tabs fluticasone propionate 50 2 spray intranasal DAILY #16 grams 06/16/24 mcg/actuation nasal spray,suspension (Flonase Allergy Relief) Allergies Allergy/AdvReac Type Severity Reaction Status Date / Time No Known Allergies Allergy Verified 06/24/24 15:18 Review of Systems Const: Denies: fever(s), chills, body aches, fatigue or malaise Card: Denies: chest pain Resp: Denies: dyspnea GI: Reports: abdominal pain; Denies: nausea, vomiting or diarrhea : Reports: hematuria; Denies: flank pain, urinary frequency, urinary urgency, urinary hesitancy or urinary dribbling Musc: Denies: neck pain, back pain, extremity pain, extremity swelling, joint pain or joint swelling Skin/Breast: Denies: rash Neuro: Denies: headache(s), numbness in extremities, weakness in extremities, sensory changes or dizziness PFSH ED PFSH: Medical History History of ST elevation myocardial infarction (STEMI) s/p PTCA w/ stent of LAD Coronary artery disease Left anterior fascicular block (LAFB) History of prostate cancer s/p RALP + ADT/radiation; Zoladex x 6 mon; Casodex x 2 week History of skin cancer basal cell carcinoma Heart failure with reduced ejection fraction EF 35% on last echo Surgical History History of cataract extraction with lens replacement History of percutaneous transluminal coronary angioplasty LAD History of robot-assisted laparoscopic radical prostatectomy History of cholecystectomy History of appendectomy Family History Mother CAD (coronary artery disease) Cancer groin Stroke Brother CAD (coronary artery disease) Stroke Sister Cancer skin Social History Smoking and tobacco/nicotine status: unknown if used tobacco/nicotine Alcohol intake: former Year of sobriety/quit date alcohol: 1999 Household members: spouse Marital status: Number of children: 2 service: Yes branch: [employer] Assignments: Inside [facility] (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 Lizzie/Rastafari: Zoroastrian Physical Exam Const: COMMON NORMALS: no acute distress, average body habitus, patient oriented x3, no limitations, healthy appearing, alert and well nourished GENERAL APPEARANCE: cooperative ORIENTATION/CONSCIOUSNESS: Yes awake, Yes oriented to person, Yes oriented to place and Yes oriented to time Resp: COMMON NORMALS: normal respiratory effort and clear to auscultation bilaterally AUSCULTATION: clear to auscultation bilaterally Cardio: COMMON NORMALS: regular rate and regular rhythm RATE: regular rate RHYTHM: regular rhythm GI: COMMON NORMALS: Normal to inspection, nondistended, normoactive bowel sounds present, Soft to palpation, No hepatosplenomegaly present and no masses INSPECTION: Yes normal to inspection AUSCULTATION: Yes normoactive bowel sounds PALPATION: Yes Soft to palpation, Yes Tenderness to palpation present (GI) (RLQ), No Guarding due to palpation present (GI), No Rigid due to palpation and Yes No hepatosplenomegaly present : COMMON NORMALS: Yes no CVA tenderness BLADDER/KIDNEY EXAM: Yes no CVA tenderness PENIS: normal penis MEATUS: meatus normal SCROTUM: Yes testes descended bilaterally, No Scrotal tenderness present and No scrotal swelling TESTES: Yes testicular lie normal Back/Pelvis: COMMON NORMALS: no CVA tenderness and thoracic and lumbar spine normal to inspection Extremity: GENERAL: Yes normal exam except as noted Neuro: COMMON NORMALS: patient oriented x3, moves all extremities, no focal motor deficits and no sensory deficits noted SENSORIUM/ORIENTATION: Yes alert, Yes oriented to person, Yes oriented to place and Yes oriented to time Skin: COMMON NORMALS: no rashes or lesions noted GENERAL SKIN EXAM: no rashes or lesions noted Course Vital Signs: Vital signs: Vital Signs Temperature 98.0 F 06/24/24 15:14 Pulse Rate 65 06/24/24 16:30 Respiratory Rate 16 06/24/24 16:30 Blood Pressure 106/66 06/24/24 16:30 Pulse Oximetry 98 06/24/24 16:30 Oxygen Delivery Me thod Room Air 06/24/24 16:30 [facility] - Male Medical Decision Making Patient is a nice 73-year-old male here for complaints of hematuria and right-sided abdominal pain. Hematuria started a few days ago and has actually cleared since onset. He is still able to urinate. No clot passage. He has a follow-up appointment with his urologist scheduled for tomorrow. Vital signs are stable. His blood pressure often runs a little soft. Blood work overall is unremarkable. He does have some elevations to his BUN/Cr when compared to baseline. He was given IV fluids. CT scan showing no postobstructive uropathy. Concern for possible cystitis. UA not obviously suspicious for infection. He is cleared for DC from an emergency standpoint to follow up with urology tomorrow. Lab Data 06/24/24 15:30 06/24/24 15:30 Radiology Impressions Abdomen/Pelvis CT 06/24/24 15:24 IMPRESSION: 1. Bladder is underdistended and not well evaluated. There is isoattenuating material within the bladder concerning for blood products. Mild pericystic fat stranding concerning for cystitis in the appropriate clinical setting. Clinical correlation with urinalysis is recommended. 2. Diverticulosis without evidence of diverticulitis. COMMENTS: Consistent with the [employer]'s Incidental Findings Committee white paper (J Am Celeste Radiol 2018): Any incidental renal lesion less than 1 cm or classified as too small to characterize, or any incidental cystic renal lesion characterized as simple-appearing, is likely benign. No follow-up imaging is recommended for these lesions per consensus recommendations based on imaging criteria. Laboratory Results WBC 7.57 10^3/uL (3.29-11.43) 06/24/24 15:30 RBC 4.84 10^6/uL (3.85-5.65) 06/24/24 15:30 Hgb 15.00 g/dL (11.27-16.99) 06/24/24 15:30 Hct 44.2 % (37-53) 06/24/24 15:30 MCV 91.3 fl (82-101) 06/24/24 15:30 MCH 31.0 pg (27-33) 06/24/24 15:30 MCHC 33.9 g/dL (30-55) 06/24/24 15:30 RDW 12.0 % (12.1-15.1) L 06/24/24 15:30 Plt Count 216 10^3/cmm (157-399) 06/24/24 15:30 MPV 8.8 fL (7.4-10.4) 06/24/24 15:30 Neut % (Auto) 76.4 % 06/24/24 15:30 Lymph % (Auto) 12.8 % 06/24/24 15:30 [place] % (Auto) 7.3 % 06/24/24 15:30 Eos % (Auto) 2.6 % 06/24/24 15:30 Baso % (Auto) 0.5 % 06/24/24 15:30 Neut # (Auto) 5.78 10^3/uL (1.8-7.7) 06/24/24 15:30 Lymph # (Auto) 1.0 10^3/uL (0.8-4.8) 06/24/24 15:30 [place] # (Auto) 0.6 10^3/uL (0.2-0.9) 06/24/24 15:30 Eos # (Auto) 0.2 10^3/uL (0.0-0.8) 06/24/24 15:30 Baso # (Auto) 0.0 10^3/uL (0.0-0.1) 06/24/24 15:30 Nucleated RBC % (auto) 0 % 06/24/24 15:30 Nucleated RBCs # 0.0 /100WBC 06/24/24 15:30 Sodium 139 mmol/L (136-145) 06/24/24 15:30 Potassium 4.0 mmol/L (3.5-5.1) 06/24/24 15:30 Chloride 104 mmol/L (98-107) 06/24/24 15:30 Carbon Dioxide 23 mmol/L (22-29) 06/24/24 15:30 Anion Gap 16.0 (5-19) 06/24/24 15:30 BUN 24 mg/dL (8-23) H 06/24/24 15:30 Creatinine 1.7 mg/dL (0.7-1.2) H 06/24/24 15:30 GFR Calculation Not Reportable 06/24/24 15:30 Glucose 90 mg/dL (65-115) 06/24/24 15:30 Calculated Osmolality 292 mOsm/kg (285-295) 06/24/24 15:30 Calcium 8.6 mg/dL (8.5-10.5) 06/24/24 15:30 Total Bilirubin 0.6 mg/dL (0.15-1.2) 06/24/24 15:30 AST 40 U/L (0-40) 06/24/24 15:30 ALT 49 U/L (0-41) H 06/24/24 15:30 Alkaline Phosphatase 78 U/L (40-130) 06/24/24 15:30 Total Protein 6.7 g/dL (6.6-8.7) 06/24/24 15:30 Albumin 4.0 g/dL (3.5-5.2) 06/24/24 15:30 Globulin 2.7 g/dL (1.3-4.6) 06/24/24 15:30 Urine Color Dark yellow (Yellow) A 06/24/24 16:32 Urine Appearance Cloudy (CLEAR) A 06/24/24 16:32 Urine pH 5.0 (5-7) 06/24/24 16:32 Ur Specific [place] 1.033 (1.005-1.030) H 06/24/24 16:32 Urine Protein 2+ (Negative) A 06/24/24 16:32 Urine Glucose (UA) Negative (Normal) 06/24/24 16:32 Urine Ketones 1+ (Negative) H 06/24/24 16:32 Urine Blood 2+ (Negative) A 06/24/24 16:32 Urine Nitrate Negative (Negative) 06/24/24 16:32 Urine Bilirubin 1+ (Negative) H 06/24/24 16:32 Urine Urobilinogen 1.0 mg/dL (Negative) 06/24/24 16:32 Ur Leukocyte Esterase Trace (Negative) A 06/24/24 16:32 Urine RBC 0-4 /hpf (0-2) H 06/24/24 16:32 Urine WBC 0-4 /hpf (0-5) H 06/24/24 16:32 Ur Squamous Epith Cells None /hpf (0-5) 06/24/24 16:32 Calcium Oxalate Crystal 10-15 /hpf H 06/24/24 16:32 Amorphous Sediment Not Reportable 06/24/24 16:32 Urine Bacteria Trace /hpf (NONE) 06/24/24 16:32 Hyaline Casts 25-40 /lpf H 06/24/24 16:32 Coarse Granular Casts Rare /lpf 06/24/24 16:32 Urine Mucus 3+ /hpf 06/24/24 16:32 All radiology interpretation(s) finalized by discharge Discharge Plan Discharge Patient Disposition: Home Clinical Impression: Abdominal pain, acute, right lower quadrant Hematuria Qualifiers: Hematuria type: unspecified type Qualified Code(s): R31.9 - Hematuria, unspecified Condition: Stable Prescriptions: No Action nitroglycerin 0.4 mg tablet, sublingual 0.4 mg sublingual Q5M PRN (Reason: chest pain) Qty: 25 1RF Rx Instructions: do not exceed 3 doses per episode latanoprost 0.005 % drops 1 drp ophthalmic (eye) DAILY fluticasone propionate [Flonase Allergy Relief] 50 mcg/actuation spray,suspension 2 spray intranasal DAILY Qty: 16 0RF Rx Instructions: administer into each nostril pantoprazole 40 mg tablet,delayed release (DR/EC) 40 mg PO BID Qty: 180 2RF clopidogrel 75 mg tablet 75 mg PO DAILY Qty: 90 3RF lisinopril 2.5 mg tablet 2.5 mg PO DAILY Qty: 14 0RF atorvastatin 40 mg tablet 80 mg PO BEDTIME Qty: 180 3RF aspirin 81 mg Tablet,Delayed Release (Dr/Ec) 81 mg PO DAILY Qty: 90 4RF acetaminophen 325 mg Tablet 325 mg PO QID PRN (Reason: Pain) Discharge Orders: Discharge ED (Routine); Ordered 06/24/24 Ordered By: Cyn Bah Referrals: Lakshmi Decker MD [Primary Care Provider] - Patient Instructions: Abdominal Pain (ED) Activity Restrictions/Additional Instructions: As we discussed, please follow-up with your urologist tomorrow as scheduled for further evaluation of your hematuria. You have been given a copy of your CT disc and CT report as well as your lab/urine analysis results. As we discussed your BUN/Cr (kidney functions) are elevated when compared to your baseline. You were given IV fluids for this. I would like primary care to recheck these within a week or so. Coding Level of Care Code ED Senior Mobile Web Developer for Roxie Dacosta
--- NOTE | 2024-06-24 15:24 | CTR_ITS ---
PROCEDURE INFORMATION: Exam: CT Abdomen And Pelvis Without Contrast Exam date and time: 06/24/2024 3:40 PM Age: 73 years old Clinical indication: Abdominal pain; Localized; Right; Prior surgery; Surgery date: 6+ months; Surgery type: Appy, gb; Additional info: R lower abdominal/pelvic pain; Hematuria, HX prostate cancer TECHNIQUE: Imaging protocol: Computed tomography of the abdomen and pelvis without contrast. Radiation optimization: All CT scans at this facility use at least one of these dose optimization techniques: automated exposure control; mA and/or kV adjustment per patient size (includes targeted exams where dose is matched to clinical indication); or iterative reconstruction. COMPARISON: CR XR chest 1V [id number] 02/04/2024 5:35 PM RADIATION DOSE METRICS: Total DLP (mGy-cm): 1077.26 FINDINGS: Liver: Normal. No mass. Gallbladder and biliary ducts: Status post cholecystectomy. Pancreas: Normal. No ductal dilation. Spleen: Calcified granulomas in the spleen. Adrenal glands: Normal. No mass. Kidneys and ureters: Mild bilateral perinephric fat stranding. Small bilateral simple renal cysts, no follow-up needed. No hydronephrosis. Stomach and bowel: Diverticulosis without evidence of diverticulitis. Appendix: Status post appendectomy. Intraperitoneal space: Unremarkable. No free air. No significant fluid collection. Vasculature: Moderate diffuse atherosclerotic calcifications. Lymph nodes: Unremarkable. No enlarged lymph nodes. Urinary bladder: Bladder is underdistended and not well evaluated. Isoattenuating material within the bladder. Mild pericystic fat stranding concerning for cystitis in the appropriate clinical setting. Reproductive: Unremarkable as visualized. Bones/joints: Moderate multilevel spondylosis. Soft tissues: Small fat containing left inguinal hernia. CT/CT kidney stone [id number] IMPRESSION: 1. Bladder is underdistended and not well evaluated. There is isoattenuating material within the bladder concerning for blood products. Mild pericystic fat stranding concerning for cystitis in the appropriate clinical setting. Clinical correlation with urinalysis is recommended. 2. Diverticulosis without evidence of diverticulitis. COMMENTS: Consistent with the [place] [employer]'s Incidental Findings Committee white paper (J Am Celeste Radiol 2018): Any incidental renal lesion less than 1 cm or classified as too small to characterize, or any incidental cystic renal lesion characterized as simple-appearing, is likely benign. No follow-up imaging is recommended for these lesions per consensus recommendations based on imaging criteria.
[2024-06-24 15:39] LABS: Basophils % 0.5 %; Eosinophils # 0.2 10^3/uL (0.0-0.8); Eosinophils % 2.6 %; Hematocrit 44.2 % (37-53); Lymphocytes % 12.8 %; Mean Corpuscular HGB Conc 33.9 g/dL (30-55); Mean Corpuscular Volume 91.3 fl (82-101); Mean Platelet Volume 8.8 fL (7.4-10.4); Monocytes # 0.6 10^3/uL (0.2-0.9); Monocytes % 7.3 %; Neutrophils # 5.78 10^3/uL (1.8-7.7); Neutrophils % 76.4 %; Nucleated Red Blood Cells % 0 %; Platelet Count 216 10^3/cmm (157-399); Red Blood Count 4.84 10^6/uL (3.85-5.65); White Blood Count 7.57 10^3/uL (3.29-11.43)
[2024-06-24 16:00] LABS: Alanine Aminotransferase 49 U/L (0-41); Alkaline Phosphatase 78 U/L (40-130); Aspartate Amino Transferase 40 U/L (0-40); Blood Urea Nitrogen 24 mg/dL (8-23); Calcium 8.6 mg/dL (8.5-10.5); Carbon Dioxide 23 mmol/L (22-29); Chloride 104 mmol/L (98-107); Creatinine Clr Calc Pharmacy 43.3208; Globulin 2.7 g/dL (1.3-4.6); Glucose 90 mg/dL (65-115); Osmolality Calculated 292 mOsm/kg (285-295); Sodium 139 mmol/L (136-145); Total Bilirubin 0.6 mg/dL (0.15-1.2); Total Protein 6.7 g/dL (6.6-8.7)
[2024-06-24 16:05] VITALS: BP 93/58; PULSE 72; RESP 18; O2SAT 94
--- NOTE | 2024-06-24 16:09 | PC.NURSE ---
pt states he needs water to drink because he can't pee, provider okay pt to drink water.
[2024-06-24 16:30] VITALS: BP 106/66; PULSE 65; RESP 16; O2SAT 98
[2024-06-24 16:42] LABS: Charge for UA Resulting for Rev
[2024-06-24] MEDS: sodium chloride 0.9% 1,000 ML 999 ML IV (16:43)
[2024-06-24 16:48] LABS: Bilirubin Urine 1+ (Negative); Blood Urine 2+ (Negative); Glucose Urine UA Negative (Normal); Ketones Urine 1+ (Negative); Leukocyte Esterase Urine Trace (Negative); Nitrate Urine Negative (Negative); Protein Urine 2+ (Negative); Urine Appearance Cloudy (CLEAR); Urine Color Dark Yellow (Yellow)
[2024-06-24 17:00] VITALS: BP 112/68; PULSE 64; RESP 16; O2SAT 98
[2024-06-24 17:05] LABS: Specific Gravity, Urine 1.033 (1.005-1.030)
[2024-06-24 17:10] LABS: Bacteria Urine TRACE /hpf; Hyaline Casts Urine 25-40 /lpf; RBC Urine 0-4 /hpf (0-2); WBC Urine 0-4 /hpf (0-5)
[2024-06-24 17:11] LABS: Mucus Urine 3+ /hpf
[2024-06-24 17:12] LABS: Coarse Granular Casts Urine RARE /lpf
[2024-06-24 17:45] VITALS: BP 120/75; PULSE 62; RESP 18; O2SAT 97
== END 2024-06-24 17:47 | disposition home or self-care (01) ==
PROVIDERS: Emergency Medicine; Emergency Provider Physician Assistant; PCP Family Medicine
DX: R31.9 Hematuria, unspecified (principal); R10.31 Right lower quadrant pain; Z79.02 Long term (current) use of antithrombotics/antiplatelets; Z79.82 Long term (current) use of aspirin; I25.10 Atherosclerotic heart disease of native coronary artery without angina pectoris; I25.2 Old myocardial infarction; Z85.46 Personal history of malignant neoplasm of prostate; I50.20 Unspecified systolic (congestive) heart failure
CPT/HCPCS: 36415; 74176; 80053; 81003; 81015; 85025; 96360; 99284; J7030

== ENCOUNTER 2024-07-22 09:25 | Outpatient (CLI) | payer OTHER, SELFPAY ==
--- NOTE | 2024-07-22 09:29 | FL_ITS ---
WS: [id number] Exam: FL barium swallow modifd [id number] Date/Time of Exam: 07/22/2024 10:00 AM Reason For Exam: Other dysphagia Fluoroscopy time: 4min [id number] minutes # of spot films: 2 Modified barium swallow was performed in conjunction with the speech therapy service. Oral pharyngeal phase of swallowing was normal. There was no sign of aspiration or penetration into t he laryngeal inlet. A Zenker's diverticulum is seen along the posterior margin of the cervical esopha анна at about the level of C6 and 7. The diverticulum measures 1.6 x 1.5 x 0.6 cm. Both liquid and elijah id food debris were retained in the diverticulum. The barium tablet administered was also retained in the diverticulum but was cleared with swallowing clear liquid. FL/FL barium swallow modifd [id number] IMPRESSION: 1. No penetration or aspiration observed. Oral pharyngeal phase of swallowing w as normal. 2. Zenker's diverticulum at approximately the C6-C7 level. Both liquid and lizbeth d food are retained in the diverticulum as well as the barium tablet that was a dministered to the patient. The tablet was cleared with swallowing clear liquid . A separate report of findings and recommendations will follow from the speech t herapy service.
== END 2024-07-22 09:26 | disposition home or self-care (01) ==
LOC: RAD 09:26
PROVIDERS: PCP Family Medicine; Visit Provider Family Medicine
DX: K22.5 Diverticulum of esophagus, acquired (principal)
CPT/HCPCS: 74230; 92611

== ENCOUNTER 2024-09-24 11:47 | Emergency (ER) | payer OTHER, MEDICARE, SELFPAY ==
--- NOTE | 2024-09-24 11:48 | XR_ITS ---
WS: [id number] XR chest 1V portable [id number] REASON FOR EXAM: cp FINDINGS: The chest is unchanged compared to 02/04/2024. Moderate tortuosity and ectasia of the thoracic aorta. Normal heart size. Calcified granulomas disease bilaterally. No acute pulmonary parenchymal or pleural abnormality is identified. Mild degenerative spondylosis in the mid and lower thoracic spine. XR/XR chest 1V portable [id number] IMPRESSION: Stable chest without acute abnormality.
[2024-09-24 11:50] VITALS: BP 111/63; PULSE 72; RESP 16; TEMP 36.4; O2SAT 97; BMI 30.8
--- NOTE | 2024-09-24 11:50 | ECG_ITS ---
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 Measurements Intervals [place] Rate: 69 P: -37 AR: 160 QRS: -60 QRSD: 104 T: 87 QT: 388 QTc: 418 Interpretive Statements SINUS RHYTHM LEFT ANTERIOR FASCICULAR BLOCK [QRS AXIS <= -45, QR IN I, RS IN II] SEPTAL MYOCARDIAL INFARCTION , OF INDETERMINATE AGE [40+ ms Q WAVE IN V1/V2] Compared to ECG 02/04/2024 16:18:55 Sinus arrhythmia no longer present Myocardial infarct finding still present Electronically Signed On 09-24-2024 21:28:07 PRACTICAL NURSE CLINICAL COORDINATOR by Keith Gill M.D. [email or web address]
--- NOTE | 2024-09-24 11:55 | ED_ITS ---
HPI - Chest Pain 2 General: Chief Complaint: Chest Pain Stated Complaint: chest pain Time Seen by Provider: 09/24/24 11:49 Source: patient Mode of arrival: ambulatory Limitations: no limitations History of Present Illness: 74-year-old male states he was having ch est pain started roughly 30 minutes ago he states been a sharp pain in the right side of his chest he states it is improved currently 3 out of 10 has had a history of coronary disease in the past he denies any nausea denies any shortness of breath he denies any worse improving factors he has not taken any meds. Associated symptoms: Deny abdominal pain, dyspnea, fever(s), nausea or vomiting Related Data Home Medications Medication Instructions Recorded Confirmed acetaminophen 325 mg tablet 325 mg PO QID PRN Pain 02/15/22 09/24/24 atorvastatin 40 mg tablet 80 mg PO BEDTIME 09/24/24 09/24/24 famotidine 20 mg tablet 20 mg PO BID 09/24/24 09/24/24 Previous Rx's Medication Instructions Recorded aspirin 81 mg tablet,delayed 81 mg PO DAILY #90 tabs 09/18/21 release nitroglycerin 0.4 mg sublingual 0.4 mg sublingual Q5M PRN chest 01/27/22 tablet pain #25 tabs pantoprazole 40 mg tablet,delayed 40 mg PO BID #180 tabs 04/03/23 release clopidogrel 75 mg tablet 75 mg PO DAILY #90 tabs 12/05/23 lisinopril 2.5 mg tablet 2.5 mg PO DAILY #14 tabs 12/11/23 Allergies Allergy/AdvReac Type Severity Reaction Status Date / Time No Known Allergies Allergy Verified 06/24/24 15:18 Review of Systems 2 Const: Denies: fever(s), chills, body aches or change in appetite ENMT: Denies: throat pain or dental pain Card: Reports: chest pain Resp: Denies: dyspnea GI: Denies: abdominal pain, nausea, vomiting or diarrhea Musc: Denies: neck pain or back pain Skin/Breast: Denies: rash Neuro: Denies: headache(s) PFSH ED 2 PFSH: Medical History History of ST elevation myocardial infarction (STEMI) s/p PTCA w/ stent of LAD Coronary artery disease Left anterior fascicular block (LAFB) History of prostate cancer s/p RALP + ADT/radiation; Zoladex x 6 mon; Casodex x 2 week History of skin cancer basal cell carcinoma Heart failure with reduced ejection fraction EF 35% on last echo Surgical History History of cataract extraction with lens replacement History of percutaneous transluminal coronary angioplasty LAD History of robot-assisted laparoscopic radical prostatectomy History of cholecystectomy History of appendectomy Family History Mother CAD (coronary artery disease) Cancer groin Stroke Brother CAD (coronary artery disease) Stroke Sister Cancer skin Social History Smoking and tobacco/nicotine status: unknown if used tobacco/nicotine Alcohol intake: former Year of sobriety/quit date alcohol: 1999 Household members: spouse Marital status: Number of children: 2 service: Yes branch: [employer] Assignments: Inside [facility] ([facility]) Known or Potential Exposure: Other exposure details: asbestos Current occupational status: retired 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 [employer]: [employer] Physical Exam 2 Const: COMMON NORMALS: no acute distress, patient oriented x3 and healthy appearing HENMT: COMMON NORMALS: normocephalic and atraumatic HEAD & SCALP: n ormocephalic and atraumatic Eye: COMMON NORMALS: conjunctivae normal CONJUNCTIVA: Yes conjunctivae normal Neck/C-Spine: COMMON NORMALS: full ROM and supple Chest: COMMONS NORMALS: normal inspection of the chest OTHER: tenderness over right chest Resp: COMMON NORMALS: normal respiratory effort, No retractions, No use of accessory muscles and clear to auscultation bilaterally AUSCULTATION: clear to auscultation bilaterally Cardio: COMMON NORMALS: regular rate, regular rhythm and No murmurs present (Cardio) RATE: regular rate RHYTHM: regular rhythm GI: COMMON NORMALS: Normal to inspection, nondistended, normoactive bowel sounds present, Soft to palpation, non-tender and no masses PALPATION: Yes Soft to palpation Extremity: COMMON NORMALS: normal to inspection and full ROM Neuro: COMMON NORMALS: patient oriented x3, moves all extremities and no focal motor deficits Psych: COMMON NORMALS: mental status grossly normal, Normal thought process present and cooperative THOUGHT PROCESS: Normal thought process present Skin: COMMON NORMALS: no rashes or lesions noted and no wounds GENERAL SKIN EXAM: no rashes or lesions noted Course 2 Vital Signs: Vital signs: Vital Signs Temperature 97.6 F 09/24/24 11:50 Pulse Rate 64 09/24/24 13:21 Respiratory Rate 16 09/24/24 11:50 Blood Pressure 102/56 09/24/24 13:21 Pulse Oximetry 94 09/24/24 13:21 Oxygen Delivery Me thod Room Air 09/24/24 13:21 MDM - Chest Pain Medical Decision Making Patient presents here with chest pains atypical in nature he does have tenderness over his right chest reproduces his pain EKG troponin here negative no signs of ACS no signs of pulm embolism patient is stable for discharge he is to follow-up with his client executive return if worsening he understands agrees to plan Medical Records I reviewed the patient's medical records. Lab Data I reviewed the patient's lab results. 09/24/24 12:04 09/24/24 12:04 Radiology Impressions Chest X-Ray 09/24/24 11:48 IMPRESSION: Stable chest without acute abnormality. Laboratory Results WBC 5.74 10^3/uL (3.29-11.43) 09/24/24 12:04 RBC 5.01 10^6/uL (3.85-5.65) 09/24/24 12:04 Hgb 14.90 g/dL (11.27-16.99) 09/24/24 12:04 Hct 45.9 % (37-53) 09/24/24 12:04 MCV 91.6 fl (82-101) 09/24/24 12:04 MCH 29.7 pg (27-33) 09/24/24 12:04 MCHC 32.5 g/dL (30-55) 09/24/24 12:04 RDW 12.4 % (12.1-15.1) 09/24/24 12:04 Plt Count 176 10^3/cmm (157-399) 09/24/24 12:04 MPV 9.1 fL (7.4-10.4) 09/24/24 12:04 Neut % (Auto) 63.8 % 09/24/24 12:04 Lymph % (Auto) 21.1 % 09/24/24 12:04 Jewell % (Auto) 10.1 % 09/24/24 12:04 Eos % (Auto) 4.0 % 09/24/24 12:04 Baso % (Auto) 1.0 % 09/24/24 12:04 Neut # (Auto) 3.66 10^3/uL (1.8-7.7) 09/24/24 12:04 Lymph # (Auto) 1.2 10^3/uL (0.8-4.8) 09/24/24 12:04 Jewell # (Auto) 0.6 10^3/uL (0.2-0.9) 09/24/24 12:04 Eos # (Auto) 0.2 10^3/uL (0.0-0.8) 09/24/24 12:04 Baso # (Auto) 0.1 10^3/uL (0.0-0.1) 09/24/24 12:04 Nucleated RBC % (auto) 0 % 09/24/24 12:04 Nucleated RBCs # 0.0 /100WBC 09/24/24 12:04 PT 12.90 SECONDS (12.1-14.9) 09/24/24 12:04 INR 0.95 (0.8-1.2) 09/24/24 12:04 Sodium 139 mmol/L (136-145) 09/24/24 12:04 Potassium 5.0 mmol/L (3.5-5.1) 09/24/24 12:04 Chloride 104 mmol/L (98-107) 09/24/24 12:04 Carbon Dioxide 25 mmol/L (22-29) 09/24/24 12:04 Anion Gap 15.0 (5-19) 09/24/24 12:04 BUN 19 mg/dL (8-23) 09/24/24 12:04 Creatinine 1.2 mg/dL (0.7-1.2) 09/24/24 12:04 GFR Calculation Not Reportable 09/24/24 12:04 Glucose 103 mg/dL (65-115) 09/24/24 12:04 Calculated Osmolality 291 mOsm/kg (285-295) 09/24/24 12:04 Calcium 8.9 mg/dL (8.5-10.5) 09/24/24 12:04 Total Bilirubin 0.5 mg/dL (0.15-1.2) 09/24/24 12:04 AST 22 U/L (0-40) 09/24/24 12:04 ALT 24 U/L (0-41) 09/24/24 12:04 Alkaline Phosphatase 79 U/L (40-130) 09/24/24 12:04 Troponin T Baseline 12 ng/L (0-15) 09/24/24 12:04 Troponin T 120 Minute 13.13 ng/L (0-15) 09/24/24 14:08 Delta Troponin T 1.13 ABS# (0-10) 09/24/24 14:08 Total Protein 6.0 g/dL (6.6-8.7) L 09/24/24 12:04 Albumin 4.1 g/dL (3.5-5.2) 09/24/24 12:04 Globulin 1.9 g/dL (1.3-4.6) 09/24/24 12:04 Lipase 46 U/L (13-60) 09/24/24 12:04 All radiology interpretation(s) finalized by discharge EKG Data EKG 1: I personally reviewed and interpreted this EKG as follows: EKG interpretation date: 09/24/24 EKG interpretation time: 11:50 Interpretation: nsr hr [address] elevation qrs 104 qtc 408 no change from previous ekg Clincial Decision Support The following clinical decision support tools were used to aid in care of the patient HEART Score -> History: Slightly Suspicous, EKG: Normal, Age: 65 or more yrs, Risk Factors: 1 or 2 Risk Factors, Troponin: Baseline Trop <16 ng/L. Resulting HEART Score: 3. Discharge Plan Discharge Patient Disposition: Home Clinical Impression: Chest pain Condition: Stable Prescriptions: No Action nitroglycerin 0.4 mg tablet, sublingual 0.4 mg sublingual Q5M PRN (Reason: chest pain) Qty: 25 1RF Rx Instructions: do not exceed 3 doses per episode pantoprazole 40 mg tablet,delayed release (DR/EC) 40 mg PO BID Qty: 180 2RF clopidogrel 75 mg tablet 75 mg PO DAILY Qty: 90 3RF lisinopril 2.5 mg tablet 2.5 mg PO DAILY Qty: 14 0RF aspirin 81 mg Tablet,Delayed Release (Dr/Ec) 81 mg PO DAILY Qty: 90 4RF acetaminophen 325 mg Tablet 325 mg PO QID PRN (Reason: Pain) famotidine 20 mg Tablet 20 mg PO BID atorvastatin 40 mg tablet 80 mg PO BEDTIME Discharge Orders: Discharge ED (Routine); Ordered 09/24/24 Ordered By: Abhishek Castro Referrals: Lakshmi Decker MD [Primary Care Provider] - Discharge Diet: Advance as tolerated Discharge Activity: Resume usual activity Patient Instructions: Chest Pain (ED) Coding Level of Care Code ED Pigment Weigher for Roxie Dacosta
[2024-09-24 12:06] VITALS: BP 106/69; PULSE 72; O2SAT 97
[2024-09-24] MEDS: aspirin 81 mg Chew Tablet 324 MG PO (12:09)
--- NOTE | 2024-09-24 12:09 | PC.NURSE ---
REPORTED PATIENT'S BP 106/69 TO PROVIDER, VERBALLY INSTRUCTED TO HOLD OFF ON NITRO FOR NOW.
[2024-09-24 12:21] LABS: Basophils # 0.1 10^3/uL (0.0-0.1); Eosinophils # 0.2 10^3/uL (0.0-0.8); Hematocrit 45.9 % (37-53); Lymphocytes # 1.2 10^3/uL (0.8-4.8); Lymphocytes % 21.1 %; Mean Corpuscular HGB Conc 32.5 g/dL (30-55); Mean Corpuscular Hemoglobin 29.7 pg (27-33); Mean Corpuscular Volume 91.6 fl (82-101); Mean Platelet Volume 9.1 fL (7.4-10.4); Monocytes # 0.6 10^3/uL (0.2-0.9); Monocytes % 10.1 %; Neutrophils # 3.66 10^3/uL (1.8-7.7); Neutrophils % 63.8 %; Nucleated Red Blood Cells % 0 %; Platelet Count 176 10^3/cmm (157-399); Red Blood Count 5.01 10^6/uL (3.85-5.65); Red Cell Distribution Width 12.4 % (12.1-15.1); White Blood Count 5.74 10^3/uL (3.29-11.43)
[2024-09-24 12:34] LABS: INR 0.95 (0.8-1.2)
[2024-09-24 12:41] LABS: Troponin(5th) Baseline 12 ng/L (0-15)
[2024-09-24 12:46] LABS: Alanine Aminotransferase 24 U/L (0-41); Albumin Level 4.1 g/dL (3.5-5.2); Alkaline Phosphatase 79 U/L (40-130); Aspartate Amino Transferase 22 U/L (0-40); Blood Urea Nitrogen 19 mg/dL (8-23); Calcium 8.9 mg/dL (8.5-10.5); Carbon Dioxide 25 mmol/L (22-29); Chloride 104 mmol/L (98-107); Creatinine Clr Calc Pharmacy 60.4413; Globulin 1.9 g/dL (1.3-4.6); Glucose 103 mg/dL (65-115); Lipase 46 U/L (13-60); Osmolality Calculated 291 mOsm/kg (285-295); Sodium 139 mmol/L (136-145); Total Bilirubin 0.5 mg/dL (0.15-1.2)
[2024-09-24 13:21] VITALS: BP 102/56; PULSE 64; O2SAT 94
--- NOTE | 2024-09-24 13:42 | ECG_ITS ---
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 Measurements Intervals Lawson Rate: 62 P: 0 SC: 0 QRS: -60 QRSD: 108 T: 100 QT: 405 QTc: 414 Interpretive Statements SINUS RHYTHM PATTERN CONSISTENT WITH PULMONARY DISEASE LEFT ANTERIOR FASCICULAR BLOCK [QRS AXIS <= -45, QR IN I, RS IN II] SEPTAL MYOCARDIAL INFARCTION , OF INDETERMINATE AGE [40+ ms Q WAVE IN V1/V2] Compared to ECG 09/24/2024 11:50:36 Myocardial infarct finding still present Electronically Signed On 09-24-2024 21:51:58 DIALYSIS RN by Keith Gill M.D. [email or web address]
[2024-09-24 14:33] LABS: Troponin 5 2HR 13.13 ng/L (0-15); Troponin 5 2HR Delta 1.13 ABS# (0-10)
[2024-09-24 15:06] VITALS: BP 104/65; PULSE 61; O2SAT 98
--- NOTE | 2024-09-27 01:16 | DCPLANNER ---
Message sent to Cardiology for follow up- Chest pain
== END 2024-09-24 15:07 | disposition home or self-care (01) ==
PROVIDERS: Emergency Provider Emergency Medicine; PCP Family Medicine
DX: R07.9 Chest pain, unspecified (principal); Z79.02 Long term (current) use of antithrombotics/antiplatelets; I25.2 Old myocardial infarction; Z85.828 Personal history of other malignant neoplasm of skin; Z85.46 Personal history of malignant neoplasm of prostate; I50.20 Unspecified systolic (congestive) heart failure; I25.10 Atherosclerotic heart disease of native coronary artery without angina pectoris
CPT/HCPCS: 36415; 71045; 80053; 83690; 84484; 85025; 85610; 93005

== ENCOUNTER → 2024-10-03 13:30 | Outpatient (BNVA) | payer OTHER, SELFPAY | PROVIDERS: PCP Family Medicine; Visit Provider Nurse Practitioner Family | DX: I25.2 Old myocardial infarction (principal); R07.89 Other chest pain | CPT/HCPCS: 99214 ==

== ENCOUNTER 2024-11-07 10:23 | Outpatient (CLI) | payer OTHER, SELFPAY ==
[2024-11-07 11:12] LABS: Testosterone Total 335.4 ng/dL (193-740)
[2024-11-07 11:17] LABS: Prostate Specific Antigen < 0.014 ng/mL (0-4)
== END 2024-11-07 10:24 | disposition home or self-care (01) ==
PROVIDERS: PCP Family Medicine; Visit Provider Urology
DX: C61 Malignant neoplasm of prostate (principal)
CPT/HCPCS: 36415; 84153; 84403

== ENCOUNTER → 2024-12-17 15:01 | Outpatient (BNVA) | payer OTHER, SELFPAY | PROVIDERS: PCP Family Medicine; Visit Provider Internal Medicine Cardiovascular Disease | DX: I25.10 Atherosclerotic heart disease of native coronary artery without angina pectoris (principal); I50.20 Unspecified systolic (congestive) heart failure; I25.2 Old myocardial infarction; R07.89 Other chest pain | CPT/HCPCS: 99214 ==

== ENCOUNTER → 2025-04-24 10:49 | Outpatient (BNVA) | payer OTHER, SELFPAY | PROVIDERS: PCP Family Medicine; Visit Provider Registered Nurse Neonatal Intensive Care | DX: J02.9 Acute pharyngitis, unspecified (principal) | CPT/HCPCS: 87071; 87880 ==

== ENCOUNTER 2025-04-26 11:55 | Emergency (ER) | payer OTHER, MEDICARE, SELFPAY ==
--- OUTSIDE RECORDS SUMMARY | 2013-01-08 06:55 | XMS_ITS | Continuity of Care Document ---
Author Organization [facility] Address [address] [id number] [address] Phone Care Team Providers Care Dry Cell Tester Name Role Phone Unavailable Unavailable Unavailable Allergies, Adverse Reactions, Alerts Substance Reaction Status Criticality No Known Allergies Active No Inform ation Medications Medication Instructions Dosage Effective Dates (start - stop) Status Comments Multi-Raine 50 & Over tablet - Active Procedures Procedure Date DESTRUCT PREMALG LESION DESTRUCT PREMALG LES, 2-14 OFFICE/OUTPATIENT VISIT, [facility] Advance Directives Directive Yes / No [...] Diagnoses Date Provider Providers Copied on Encounter [facility], [id number] [place], [place], [id number], [place] tel:[phone] Family Medicine F1 No Information 3 No Information OFFICE/OUTPAT IENT VISIT, [facility], [id number] [facility], [place], [place], [id number], [place] tel:[phone] Family Medicine F1 spot on nose (chief complaint) Neoplasm of uncertain behavior of skinActinic keratosis 3 No Information Family History Family Member Type Diagnosis Age At Onset No Information Payers Payer name Insurance type Covered alliance party ID Authoriza tion(s) No Information Social History [...]
--- OUTSIDE RECORDS SUMMARY | 2025-04-24 05:26 | XMS_ITS | Continuity of Care Document ---
Author Name [facility] Organization [facility] Care Team Providers Care Farm Worker Name Role Phone [facility] Unavailable Unavailable Problems Combined list of problems from Department of Defense and Veterans Affairs facilities. It does not include entries that were removed or entered in error. Problem Status Onset Date Problem Type Date of Resolution Comments Source Basal cell carcinoma of skin Active Condition [place] [facility] CAD - Coronary Artery Disease ([facility] [id number]) Active Condition Sep 21, 2021 Entered By: DYAN JOAQUIN Comment: stent placement 08/2021 Dr. Johnathan MELGAR [facility] CHF - Congestive Heart Failure ([facility] [id number]) Active Condition March 14, 2022 Entered By: DYAN JOAQUIN Comment: systolic; EF 40% echo 2021 Entered By: DYAN JOAQUIN Comment: echo 02/14/22 EF 35% [place] [facility] Diverticulosis of sigmoid colon Active Condition May 11, 2023 Entered By: DYAN JOAQUIN Comment: minimal on colonoscopy 03/2023 [place] [facility] GERD - Gastro-Esophageal Reflux Disease ([facility] [id number]) Active Condition May 11, 2023 Entered By: DYAN JOAQUIN Comment: med HH on EGD 03/2023 [place] [facility] Glaucoma Active Condition [place] [facility] Hematuria Active Condition March 20 Entered By: DYAN JOAQUIN Comment: Per cardiology note 12/13/23 on Plavix [place] [facility] HLD - Hyperlipidemia Active Condition [place] [facility] Hypertension Active Condition [place] [facility] Obstructive Sleep Apnea of Adult ([facility] [id number]) Active Condition Jun 17, 2022 Entered By: DYAN JOAQUIN Comment: mild, no CPAP; just supportive care with elevated HOB [place] [facility] Prostate cancer Active Condition [place] [facility] Renal insufficiency Active Condition [place] [facility] 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 Nov 01, 2024 Entered By: DYAN JOAQUIN Comment: [facility] Urinary incontinence Active Condition Dec 02, 2020 Entered By: DYAN JOAQUIN Comment: secondary from prostate surgery [place] [facility] Vitamin D deficiency Active Condition [place] [facility] Diagnosis: ICD-10-CM I25.10 Athscl heart disease of [place] coronary artery w/o ang pctrs Active Diagnosis [facility] Diagnosis: ICD-10-CM Z23 Encounter for immunization Active Diagnosis [facility] Diagnosis: ICD-10-CM Z71.89 Other specified counseling Active Diagnosis [facility] Diagnosis: ICD-10-CM Z46.1 Encounter for fitting and adjustment of hearing aid Active [facility] Diagnosis: ICD-10-CM K21.9 Gastro-esophageal reflux disease without esophagitis Active Diagnosis [facility] Diagnosis: ICD-10-CM H90.3 Sensorineural hearing loss, bilateral [facility] Diagnosis: ICD-10-CM H61.23 Impacted cerumen, bilateral Active Diagnosis [facility] Medications Combined list of outpatient medications from Department of Defense and Veterans Affairs facilities.Medications provided include 1) outpatient medications from the last 15 months, and 2) patient-reported medications. Medication Details Route Status Patient Instructions Prescription Expires Prescription Number Last Dispense Date Ordering Provider Order Date Order Qty Source ACETAMINOPH EN 325MG TAB TAKE TWO TABLETS BY MOUTH EVERY 6 HOURS NEEDED ORAL ACTIVE ASAF FONTAINE 2018 [facility] ASPIRIN 81MG TAB,EC TAKE ONE TABLET BY MOUTH ONCE A DAY ORAL ACTIVE [facility]AN JO[facility]QUIN [facility] AT[facility] N [facility] 40MG TAB TAKE TWO TABLETS BY MOUTH AT BEDTIME ORAL 01/02/2025 [id number] Thaddeus CHANCE 2023 180 [place] [facility] ATORVASTATI N CA 80MG TAB TAKE ONE TABLET BY MOUTH ONCE A DAY AT BEDTIME ORAL ACTIVE 03/19/2026 [id number] VINCENT RODGERSD F 2024 90 [place] [facility] CLOPIDOGREL BISULFATE 75MG TAB TAKE ONE TABLET BY MOUTH ONCE A DAY ORAL 12/05/2024 [id number] Thaddeus CHANCE USSAIN 2023 90 [place] [facility] FAMOTIDINE 20MG TAB TAKE ONE TABLET BY MOUTH TWICE A DAY FOR GASTROES OPHAGEAL REFLUX DISEASE ORAL DISCONT INUED BY PROVIDE R 11/28/2025 [id number] DYAN JOAQUIN 2024 180 [facility] LATANOPROST 0.005% SOLN,OPH INSTILL 1 DROP IN BOTH EYES EVERY EVENING FOR GLAUCOMA . KEEP REFRIGER ATED UNTIL READY TO USE, THEN STORE AT ROOM TEMPERAT URE FOR MAXIMUM OF 42 DAYS. OPHTHA LMIC ACTIVE 01/03/2026 [id number] 5 JEMALDILIPMY 2024 7.5 [facility] LATANOPROST 0.005% SOLN,OPH INSTILL 1 DROP IN BOTH EYES EVERY EVENING FOR GLAUCOMA . KEEP REFRIGER ATED UNTIL READY TO USE, THEN STORE AT ROOM TEMPERAT URE FOR MAXIMUM OF 42 DAYS. OPHTHA LMIC DISCONT INUED 09/11/2024 [id number] 4 JEMALDILIPMY 2022 7.5 [facility] LISINOPRIL 2.5MG TAB TAKE ONE TABLET BY MOUTH ONCE A DAY ORAL ACTIVE 11/28/2025 [id number] 5 CHANCEThaddeus USSAIN 2024 90 [place] [facility] LISINOPRIL 2.5MG TAB TAKE ONE TABLET BY MOUTH ONCE A DAY ORAL DISCONT INUED 12/05/2024 [id number] CHANCEThaddeus USSAIN 2023 90 [place] [facility] MULTIVITAMI N/MINERALS ANTIOXIDANT CAP/TAB TAKE 1 CAP/TAB BY MOUTH ONCE A DAY ORAL ACTIVE ASAF FONTAINE R 2018 [facility] PANTOPRAZOL E NA 40MG TAB,EC TAKE ONE TABLET BY MOUTH EVERY MORNING BEFORE A MEAL FOR GASTROES OPHAGEAL REFLUX DISEASE TAKE 30 MINUTES BEFORE MEAL(S) ORAL ACTIVE 03/05/2026 [id number] 5 JEMALDYAN OLMEDO 2024 90 [facility] PANTOPRAZOL E NA 40MG TAB,EC TAKE ONE TABLET BY MOUTH EVERY MORNING BEFORE A MEAL FOR GASTROES OPHAGEAL REFLUX DISEASE TAKE 30 MINUTES BEFORE MEAL(S) ORAL DISCONT INUED 02/12/2025 [id number] 5 JEMALDYAN 2023 90 [facility] Immunizations Combined list of available immunizations from the Department of Defense and Veterans Affairs facilities. Immunization Series Date Given Administered By Site Reaction Lot Number CVX Code Drug Accounts Payable Clerk Status Comments Source INFLUENZA, HIGH-DOSE, TRIVALENT, PF 2023 JASON CHEN RIGHT DELTO ID [id number] A 135 complet ed [facility] ZOSTER RECOMBINANT 2 2022 JABARI HOLLIS LEFT DELTO ID [id number] 187 complet ed [facility] COVID-19 (MODERNA), MRNA, LNP-S, PF, 50 MCG/0.5 ML (AGES 12+ YEARS) 1 2022 ENEIDA PRIDE D LEFT DELTO ID [id number] 312 complet ed [facility] INFLUENZA, HIGH-DOSE, QUADRIVALENT 2022 ADARSH NEELY RIGHT DELTO ID [id number] 197 complet ed [facility] ZOSTER RECOMBINANT 1 2022 JASON CHEN LEFT DELTO ID [id number] 187 complet ed [facility] PNEUMOCOCCAL CONJUGATE PCV20, POLYSACCHARID E [id number] CONJUGATE, ADJUVANT, PF 2021 TA ARAGON RIGHT DELTO ID [id number] 216 complet ed [facility] COVID-19 (MODERNA), MRNA, LNP-S, BIVALENT BOOSTER, PF, 50 MCG/0.5 ML OR 25MCG/0.25 ML DOSE 1 2021 229 complet ed MOD; [id number]; 3 [facility] INFLUENZA VACCINE, QUADRIVALENT, ADJUVANTED 2021 205 complet ed [facility] COVID-19 (MODERNA), MRNA, LNP-S, PF, 100 MCG/0.5ML DOSE OR 50 MCG/0.25ML DOSE 3 2021 207 complet ed HISTORICA L INFORMATI ON - FROM OTHER PROVIDER[facility] INFLUENZA, INJECTABLE, QUADRIVALENT, PRESERVATIVE FREE 2020 150 complet ed [facility] PNEUMOCOCCAL POLYSACCHARID E [id number] 2020 33 complet [facility] COVID-19 (MODERNA), MRNA, LNP-S, PF, 100 MCG/0.5ML DOSE OR 50 MCG/0.25ML DOSE 2 2020 207 complet ed HISTORICA L INFORMATI ON - FROM OTHER PROVIDER, [facility] COVID-19 (MODERNA), MRNA, LNP-S, PF, 100 MCG/0.5ML DOSE OR 50 MCG/0.25ML DOSE 2 2020 207 complet ed HISTORICA L INFORMATI ON - FROM OTHER REGISTRY, [facility] COVID-19 (MODERNA), MRNA, LNP-S, PF, 100 MCG/0.5ML DOSE OR 50 MCG/0.25ML DOSE 1 2020 207 complet [facility] N INFLUENZA, INJECTABLE, QUADRIVALENT, PRESERVATIVE FREE 2019 150 complet [facility] Results Combined list of recent chemistry, hematology and other laboratory results from Department of Defense and Veterans Affairs, ranging from 15 months to all on record, depending upon the facility. Order Name Results Value Reference Range Date Interpretation Specimen Comments Source HGA1C HEMOGLOBIN A1C/HEMOGLOBI N.TOTAL IN BLOOD 6.0 4.0 - 6.0 04/07 Specimen Type: BLOOD No comment entered. Ordering Provider: DYAN JOAQUIN Report Released Date/Time : Apr 17, 2024 10:37 AM Reporting Lab: [place] [facility] [address] [place] [address] Performin g Lab: [place] [facility] [address] [place] [address] [facility] CHOLESTEROL PANEL (PB) CHOLESTEROL [MASS/VOLUME] IN SERUM OR PLASMA 106 mg/dL 0 - 200 04/07 Specimen Type: PLASMA No comment entered. Ordering Provider: DYAN JOAQUIN Report Released Date/Time : Apr 17, 2024 10:37 AM Reporting Lab: [place] [facility] [address] [place] [address] Performin g Lab: [place] [facility] [address] [place] [address] [facility] CHOLESTEROL PANEL (PB) TRIGLYCERIDE [MASS/VOLUME] IN SERUM OR PLASMA 59 mg/dL 0 - 150 04/07 Specimen Type: PLASMA No comment entered. Ordering Provider: DYAN JOAQUIN Report Released Date/Time : Apr 17, 2024 10:37 AM Reporting Lab: [place] [facility] [address] [place] [address] Performin g Lab: [place] [facility] [address] [place] [address] [facility] CHOLESTEROL PANEL (PB) CHOLESTEROL IN LDL [MASS/VOLUME] IN SERUM OR PLASMA BY CALCULATION 52.7 mg/dL 04/07 Specimen Type: PLASMA No comment entered. Ordering Provider: DYAN JOAQUIN Report Released Date/Time : Apr 17, 2024 10:37 AM Reporting Lab: [place] [facility] [address] [place] [address] Performin g Lab: [place] [facility] [address] [place] [address] [facility] CHOLESTEROL PANEL (PB) CHOLESTEROL IN HDL [MASS/VOLUME] IN SERUM OR PLASMA 41.5 mg/dL 40 04/07 H Specimen Type: PLASMA No comment entered. Ordering Provider: DYAN JOAQUIN Report Released Date/Time : Apr 17, 2024 10:37 AM Reporting Lab: [place] [facility] [address] [place] [address] Performin g Lab: [place] [facility] [address] [place] [address] [facility] CHOLESTEROL PANEL (PB) CHOLESTEROL IN HDL/CHOLESTER OL.TOTAL [MASS RATIO] IN SERUM OR PLASMA 39.2 25 04/07 Specimen Type: PLASMA No comment entered. Ordering Provider: DYAN JOAQUIN Report Released Date/Time : Apr 17, 2024 10:37 AM Reporting Lab: [place] [facility] [address] [place] [address] Performin g Lab: [place] [facility] [address] [place] [address] [facility] TSH (MA-PB) THYROTROPIN [UNITS/VOLUME ] IN SERUM OR PLASMA 4.431 u[IU]/ mL 0.47 - 5 04/07 Specimen Type: SERUM No comment entered. Ordering Provider: DYAN JOAQUIN Report Released Date/Time : Apr 17, 2024 10:37 AM Reporting Lab: [place] [facility] [address] [place] [address] Performin g Lab: [place] [facility] [address] [place] [address] [facility] COMPREHENSI VE METABOLIC PANEL CREATININE [MASS/VOLUME] IN SERUM OR PLASMA 1.26 mg/dL 0.7 - 1.3 04/07 Specimen Type: PLASMA No comment entered. Ordering Provider: DYAN JOAQUIN Report Released Date/Time : Apr 17, 2024 10:37 AM Reporting Lab: [place] [facility] [address] [place] [address] Performin g Lab: [place] [facility] [address] [place] [address] [facility] COMPREHENSI VE METABOLIC PANEL UREA NITROGEN [MASS/VOLUME] IN SERUM OR PLASMA 17 mg/dL 9 - 25 04/07 Specimen Type: PLASMA No comment entered. Ordering Provider: DYAN JOAQUIN Report Released Date/Time : Apr 17, 2024 10:37 AM Reporting Lab: [place] [facility] [address] [place] [address] Performin g Lab: [place] [facility] [address] [place] [address] [place] COMPREHENSI VE METABOLIC PANEL GLUCOSE [MASS/VOLUME] IN SERUM OR PLASMA 111 mg/dL 72 - 99 04/07 H Specimen Type: PLASMA No comment entered. Ordering Provider: DYAN JOAQUIN Report Released Date/Time : Apr 17, 2024 10:37 AM Reporting Lab: [place] [facility] [address] [place] [address] Performin g Lab: [place] [facility] [address] [place] [address] [facility] COMPREHENSI VE METABOLIC PANEL SODIUM [MOLES/VOLUME ] IN SERUM OR PLASMA 143 meq/L 136 - 145 04/07 Specimen Type: PLASMA No comment entered. Ordering Provider: DYAN JOAQUIN Report Released Date/Time : Apr 17, 2024 10:37 AM Reporting Lab: [place] [facility] [address] [place] [address] Performin g Lab: [place] [facility] [address] [place] [address] [facility] COMPREHENSI VE METABOLIC PANEL POTASSIUM [MOLES/VOLUME ] IN SERUM OR PLASMA 4.4 meq/L 3.5 - 5 04/07 Specimen Type: PLASMA No comment entered. Ordering Provider: DYAN JOAQUIN Report Released Date/Time : Apr 17, 2024 10:37 AM Reporting Lab: [place] [facility] [address] [place] [address] Performin g Lab: [place] [facility] [address] [place] [address] [facility] COMPREHENSI VE METABOLIC PANEL CHLORIDE [MOLES/VOLUME ] IN SERUM OR PLASMA 108 meq/L 98 - 107 04/07 H Specimen Type: PLASMA No comment entered. Ordering Provider: DYAN JOAQUIN Report Released Date/Time : Apr 17, 2024 10:37 AM Reporting Lab: [place] [facility] [address] [place] [address] Performin g Lab: [place] [facility] [address] [place] [address] [place] [facility] COMPREHENSI VE METABOLIC PANEL CARBON DIOXIDE, TOTAL [MOLES/VOLUME ] IN SERUM OR PLASMA 29 meq/L 22 - 31 04/07 Specimen Type: PLASMA No comment entered. Ordering Provider: DYAN JOAQUIN Report Released Date/Time : Apr 17, 2024 10:37 AM Reporting Lab: [place] [facility] [address] [place] [address] Performin g Lab: [place] [facility] [address] [place] [address] [facility] COMPREHENSI VE METABOLIC PANEL CALCIUM [MASS/VOLUME] IN SERUM OR PLASMA 8.9 mg/dL 8.4 - 10.4 04/07 Specimen Type: PLASMA No comment entered. Ordering Provider: DYAN JOAQUIN Report Released Date/Time : Apr 17, 2024 10:37 AM Reporting Lab: [place] [facility] [address] [place] [address] Performin g Lab: [place] [facility] [address] [place] [address] [facility] COMPREHENSI VE METABOLIC PANEL PROTEIN [MASS/VOLUME] IN SERUM OR PLASMA 6.5 g/dL 6 - 8.6 04/07 Specimen Type: PLASMA No comment entered. Ordering Provider: DYAN JOAQUIN Report Released Date/Time : Apr 17, 2024 10:37 AM Reporting Lab: [place] [facility] [address] [place] [address] Performin g Lab: [place] [facility] [address] [place] [address] [facility] COMPREHENSI VE METABOLIC PANEL ALBUMIN [MASS/VOLUME] IN SERUM OR PLASMA 3.9 g/dL 3.4 - 5 04/07 Specimen Type: PLASMA No comment entered. Ordering Provider: DYAN JOAQUIN Report Released Date/Time : Apr 17, 2024 10:37 AM Reporting Lab: [place] [facility] [address] [place] [address] Performin g Lab: [place] [facility] [address] [place] [address] [facility] COMPREHENSI VE METABOLIC PANEL BILIRUBIN.TOT AL [MASS/VOLUME] IN SERUM OR PLASMA 0.8 mg/dL 0.2 - 1.2 04/07 Specimen Type: PLASMA No comment entered. Ordering Provider: DYAN JOAQUIN Report Released Date/Time : Apr 17, 2024 10:37 AM Reporting Lab: [place] [facility] [address] [place] [address] Performin g Lab: [place] [facility] [address] [place] [address] [facility] COMPREHENSI VE METABOLIC PANEL ALKALINE PHOSPHATASE [ENZYMATIC ACTIVITY/VOLU ME] IN SERUM OR PLASMA 80 U/L 40 - 150 04/07 Specimen Type: PLASMA No comment entered. Ordering Provider: DYAN JOAQUIN Report Released Date/Time : Apr 17, 2024 10:37 AM Reporting Lab: [place] [facility] [address] [place] [address] Performin g Lab: [place] [facility] [address] [place] [address] [facility] COMPREHENSI VE METABOLIC PANEL ASPARTATE AMINOTRANSFER ASE [ENZYMATIC ACTIVITY/VOLU ME] IN SERUM OR PLASMA 30 U/L 5 - 34 04/07 Specimen Type: PLASMA No comment entered. Ordering Provider: DYAN JOAQUIN Report Released Date/Time : Apr 17, 2024 10:37 AM Reporting Lab: [place] [facility] [address] [place] [address] Performin g Lab: [place] [facility] [address] [place] [address] [facility] COMPREHENSI VE METABOLIC PANEL ALANINE AMINOTRANSFER ASE [ENZYMATIC ACTIVITY/VOLU ME] IN SERUM OR PLASMA 30 U/L 8 - 40 04/07 Specimen Type: PLASMA No comment entered. Ordering Provider: DYAN JOAQUIN Report Released Date/Time : Apr 17, 2024 10:37 AM Reporting Lab: [place] [facility] [address] [place] [address] Performin g Lab: [place] [facility] [address] [place] [address] [facility] COMPREHENSI VE METABOLIC PANEL GLOMERULAR FILTRATION RATE/1.73 SQ M.PREDICTED [VOLUME RATE/AREA] IN SERUM, PLASMA OR BLOOD BY CREATININE-BA SED FORMULA (CKD-EPI 2020) 59 04/07 Specimen Type: PLASMA No comment entered. Ordering Provider: DYAN JOAQUIN Report Released Date/Time : Apr 17, 2024 10:37 AM Reporting Lab: [place] [facility] [address] [place] [address] Performin g Lab: [place] [facility] [address] [place] [address] [facility] PROST. SPECIFIC AG.(PB-STL) PROSTATE SPECIFIC AG [MASS/VOLUME] IN SERUM OR PLASMA <0.10n g/mL 0 - 4 04/07 L Specimen Type: SERUM No comment entered. Ordering Provider: DYAN JOAQUIN Report Released Date/Time : Apr 17, 2024 10:37 AM Reporting Lab: [place] [facility] [address] [place] [address] Performin g Lab: [place] [facility] [address] [place] [address] [facility] CBC LEUKOCYTES [#/VOLUME] IN BLOOD BY AUTOMATED COUNT 5.3 10*3/u L 3.6 - 11.2 04/07 Specimen Type: BLOOD No comment entered. Ordering Provider: DYAN JOAQUIN Report Released Date/Time : Apr 17, 2024 10:37 AM Reporting Lab: [place] [facility] [address] [place] [address] Performin g Lab: [place] [facility] [address] [place] [address] [facility] CBC ERYTHROCYTES [#/VOLUME] IN BLOOD BY AUTOMATED COUNT 5.15 10*6/u L 4.10 - 5.70 04/07 Specimen Type: BLOOD No comment entered. Ordering Provider: DYAN JOAQUIN Report Released Date/Time : Apr 17, 2024 10:37 AM Reporting Lab: [place] [facility] [address] [place] [address] Performin g Lab: [place] [facility] [address] [place] [address] [facility] CBC HEMOGLOBIN [MASS/VOLUME] IN BLOOD 15.5 g/dL 13.1 - 16.8 04/07 Specimen Type: BLOOD No comment entered. Ordering Provider: DYAN JOAQUIN Report Released Date/Time : Apr 17, 2024 10:37 AM Reporting Lab: [place] [facility] [address] [place] [address] Performin g Lab: [place] [facility] [address] [place] [address] [facility] CBC HEMATOCRIT [VOLUME FRACTION] OF BLOOD 46.5 38.2 - 48.4 04/07 Specimen Type: BLOOD No comment entered. Ordering Provider: DYAN JOAQUIN Report Released Date/Time : Apr 17, 2024 10:37 AM Reporting Lab: [place] [facility] [address] [place] [address] Performin g Lab: [place] [facility] [address] [place] [address] [facility] CBC MCV [ENTITIC VOLUME] BY AUTOMATED COUNT 90.3 fL 80.0 - 100.0 04/07 Specimen Type: BLOOD No comment entered. Ordering Provider: DYAN JOAQUIN Report Released Date/Time : Apr 17, 2024 10:37 AM Reporting Lab: [place] [facility] [address] [place] [address] Performin g Lab: [place] [facility] [address] [place] [address] [facility] CBC MCH [ENTITIC MASS] BY AUTOMATED COUNT 30.1 pg 27.0 - 34.0 04/07 Specimen Type: BLOOD No comment entered. Ordering Provider: DYAN JOAQUIN Report Released Date/Time : Apr 17, 2024 10:37 AM Reporting Lab: [place] [facility] [address] [place] [address] Performin g Lab: [place] [facility] [address] [place] [address] [facility] CBC MCHC [MASS/VOLUME] BY AUTOMATED COUNT 33.3 g/dL 33.0 - 36.0 04/07 Specimen Type: BLOOD No comment entered. Ordering Provider: DYAN JOAQUIN Report Released Date/Time : Apr 17, 2024 10:37 AM Reporting Lab: [place] [facility] [address] [place] [address] Performin g Lab: [place] [facility] [address] [place] [address] [facility] CBC PLATELETS [#/VOLUME] IN BLOOD BY AUTOMATED COUNT 172 10*3/u L 150 - 400 04/07 Specimen Type: BLOOD No comment entered. Ordering Provider: DYAN JOAQUIN Report Released Date/Time : Apr 17, 2024 10:37 AM Reporting Lab: [place] [facility] [address] [place] [address] Performin g Lab: [place] [facility] [address] [place] [address] [facility] CBC PLATELET MEAN VOLUME [ENTITIC VOLUME] IN BLOOD BY AUTOMATED COUNT 9.1 fL 7.5 - 11.2 04/07 Specimen Type: BLOOD No comment entered. Ordering Provider: DYAN JOAQUIN Report Released Date/Time : Apr 17, 2024 10:37 AM Reporting Lab: [place] [facility] [address] [place] [address] Performin g Lab: [place] [facility] [address] [place] [address] [facility] CBC ERYTHROCYTE DISTRIBUTION WIDTH [RATIO] BY AUTOMATED COUNT 12.2 11.8 - 15.1 04/07 Specimen Type: BLOOD No comment entered. Ordering Provider: DYAN JOAQUIN Report Released Date/Time : Apr 17, 2024 10:37 AM Reporting Lab: [place] [facility] [address] [place] [address] Performin g Lab: [place] [facility] [address] [place] [address] [facility] CBC LYMPHOCYTES/1 00 LEUKOCYTES IN BLOOD BY AUTOMATED COUNT 27.0 04/07 Specimen Type: BLOOD No comment entered. Ordering Provider: DYAN JOAQUIN Report Released Date/Time : Apr 17, 2024 10:37 AM Reporting Lab: [place] [facility] [address] [place] [address] Performin g Lab: [place] [facility] [address] [place] [address] [facility] CBC MONOCYTES/100 LEUKOCYTES IN BLOOD BY AUTOMATED COUNT 9.4 04/07 Specimen Type: BLOOD No comment entered. Ordering Provider: DYAN JOAQUIN Report Released Date/Time : Apr 17, 2024 10:37 AM Reporting Lab: [place] [facility] [address] [place] [address] Performin g Lab: [place] [facility] [address] [place] [address] [facility] CBC NEUTROPHILS/1 00 LEUKOCYTES IN BLOOD BY AUTOMATED COUNT 55.8 04/07 Specimen Type: BLOOD No comment entered. Ordering Provider: DYAN JOAQUIN Report Released Date/Time : Apr 17, 2024 10:37 AM Reporting Lab: [place] [facility] [address] [place] [address] [facility]: [place] [facility] [address] [place] [address] 8 [facility] CBC EOSINOPHILS/1 00 LEUKOCYTES IN BLOOD BY AUTOMATED COUNT 6.8 04/07 Specimen Type: BLOOD No comment entered. Ordering Provider: DYAN JOAQUIN Report Released Date/Time : Apr 17, 2024 10:37 AM Reporting Lab: [place] [facility] [address] [place] [address] [facility]: [place] [facility] [address] [place] [address] [facility] CBC BASOPHILS/100 LEUKOCYTES IN BLOOD BY AUTOMATED COUNT 0.8 04/07 Specimen Type: BLOOD No comment entered. Ordering Provider: DYAN JOAQUIN Report Released Date/Time : Apr 17, 2024 10:37 AM Reporting Lab: [place] [facility] [address] [place] [address] [facility]: [place] [facility] [address] [place] [address] 8 [facility] CBC LYMPHOCYTES [#/VOLUME] IN BLOOD BY AUTOMATED COUNT 1.43 10*3/u L 0.77 - 4.50 04/07 Specimen Type: BLOOD No comment entered. Ordering Provider: DYAN JOAQUIN Report Released Date/Time : Apr 17, 2024 10:37 AM Reporting Lab: [place] [facility] [address] [place] [address] [facility]: [place] [facility] [address] [place] [address] 8 [facility] CBC MONOCYTES [#/VOLUME] IN BLOOD BY AUTOMATED COUNT 0.50 10*3/u L 0.19 - 0.8 04/07 Specimen Type: BLOOD No comment entered. Ordering Provider: DYAN JOAQUIN Report Released Date/Time : Apr 17, 2024 10:37 AM Reporting Lab: [place] [facility] [address] [place] [address] [facility]: [place] [facility] [address] [place] [address] [facility] CBC NEUTROPHILS [#/VOLUME] IN BLOOD BY AUTOMATED COUNT 2.96 10*3/u L 2.10 - 8.00 04/07 Specimen Type: BLOOD No comment entered. Ordering Provider: DYAN JOAQUIN Report Released Date/Time : Apr 17, 2024 10:37 AM Reporting Lab: [place] [facility] [address] [place] [address] [facility]: [place] [facility] [address] [place] [address] 8 [facility] CBC EOSINOPHILS [#/VOLUME] IN BLOOD BY AUTOMATED COUNT 0.36 10*3/u L 0.00 - 0.60 04/07 Specimen Type: BLOOD No comment entered. Ordering Provider: DYAN JOAQUIN Report Released Date/Time : Apr 17, 2024 10:37 AM Reporting Lab: [place] [facility] [address] [place] [address] [facility]: [place] [facility] [address] [place] [address] 8 [facility] CBC BASOPHILS [#/VOLUME] IN BLOOD BY AUTOMATED COUNT 0.04 10*3/u L 0.00 - 0.20 04/07 Specimen Type: BLOOD No comment entered. Ordering Provider: DYAN JOAQUIN Report Released Date/Time : Apr 17, 2024 10:37 AM Reporting Lab: [place] [facility] [address] [place] [address] [facility]: [place] [facility] [address] [place] [address] [facility] CBC IMMATURE GRANULOCYTES/ 100 LEUKOCYTES IN BLOOD BY AUTOMATED COUNT 0.2 04/07 Specimen Type: BLOOD No comment entered. Ordering Provider: DYAN JOAQUIN Report Released Date/Time : Apr 17, 2024 10:37 AM Reporting Lab: [place] [facility] [address] [place] [address] [facility]: [place] [facility] [address] [place] [address] 8 [facility] CBC IMMATURE GRANULOCYTES [#/VOLUME] IN BLOOD BY AUTOMATED COUNT 0.01 10*3/u L 0.00 - 0.05 04/07 Specimen Type: BLOOD No comment entered. Ordering Provider: DYAN JOAQUIN Report Released Date/Time : Apr 17, 2024 10:37 AM Reporting Lab: [place] [facility] [address] [place] [address] [facility]: [place] [facility] [address] [place] [address] [facility] HGA1C HEMOGLOBIN A1C/HEMOGLOBI N.TOTAL IN BLOOD 5.7 4.0 - 6.0 04/11 Specimen Type: BLOOD No comment entered. Ordering Provider: DYAN JOAQUIN Report Released Date/Time : Dec 12, 2023 10:00 AM Reporting Lab: [place] [facility] [address] [place] [address] [facility]: [place] [facility] [address] [place] [address] [facility] TSH (MA-PB) THYROTROPIN [UNITS/VOLUME ] IN SERUM OR PLASMA 3.602 u[IU]/ mL 0.47 - 5 04/11 Specimen Type: SERUM No comment entered. Ordering Provider: DYAN JOAQUIN Report Released Date/Time : Dec 12, 2023 10:00 AM Reporting Lab: [place] [facility] [address] [place] [address] [facility]: [place] [facility] [address] [place] [address] [facility] CHOLESTEROL PANEL (PB) CHOLESTEROL [MASS/VOLUME] IN SERUM OR PLASMA 105 mg/dL 0 - 200 04/11 Specimen Type: PLASMA No comment entered. Ordering Provider: DYAN JOAQUIN Report Released Date/Time : Dec 12, 2023 10:00 AM Reporting Lab: [place] [facility] [address] [place] [address] [facility]: [place] [facility] [address] [place] [address] 8 [facility] CHOLESTEROL PANEL (PB) TRIGLYCERIDE [MASS/VOLUME] IN SERUM OR PLASMA 34 mg/dL 0 - 150 04/11 Specimen Type: PLASMA No comment entered. Ordering Provider: DYAN JOAQUIN Report Released Date/Time : Dec 12, 2023 10:00 AM Reporting Lab: [place] [facility] [address] [place] [address] [facility]: [place] [facility] [address] [place] [address] 8 [facility] CHOLESTEROL PANEL (PB) CHOLESTEROL IN LDL [MASS/VOLUME] IN SERUM OR PLASMA BY CALCULATION 56.2 mg/dL 04/11 Specimen Type: PLASMA No comment entered. Ordering Provider: DYAN JOAQUIN Report Released Date/Time : Dec 12, 2023 10:00 AM Reporting Lab: [place] [facility] [address] [place] [address] [facility]: [place] [facility] [address] [place] [address] 8 [facility] CHOLESTEROL PANEL (PB) CHOLESTEROL IN HDL [MASS/VOLUME] IN SERUM OR PLASMA 42.0 mg/dL 40 04/11 H Specimen Type: PLASMA No comment entered. Ordering Provider: DYAN JOAQUIN Report Released Date/Time : Dec 12, 2023 10:00 AM Reporting Lab: [place] [facility] [address] [place] [address] [facility]: [place] [facility] [address] [place] [address] [facility] CHOLESTEROL PANEL (PB) CHOLESTEROL IN HDL/CHOLESTER OL.TOTAL [MASS RATIO] IN SERUM OR PLASMA 40.0 25 04/11 Specimen Type: PLASMA No comment entered. Ordering Provider: DYAN JOAQUIN Report Released Date/Time : Dec 12, 2023 10:00 AM Reporting Lab: [place] [facility] [address] [place] [address] [facility]: [place] [facility] [address] [place] [address] [facility] COMPREHENSI VE METABOLIC PANEL CREATININE [MASS/VOLUME] IN SERUM OR PLASMA 1.14 mg/dL 0.7 - 1.3 04/11 Specimen Type: PLASMA No comment entered. Ordering Provider: DYAN JOAQUIN Report Released Date/Time : Dec 12, 2023 10:00 AM Reporting Lab: [place] [facility] [address] [place] [address] [facility]: [place] [facility] [address] [place] [address] [facility] COMPREHENSI VE METABOLIC PANEL UREA NITROGEN [MASS/VOLUME] IN SERUM OR PLASMA 22 mg/dL 9 - 25 04/11 Specimen Type: PLASMA No comment entered. Ordering Provider: DYAN JOAQUIN Report Released Date/Time : Dec 12, 2023 10:00 AM Reporting Lab: [place] [facility] [address] [place] [address] [facility]: [place] [facility] [address] [place] [address] [facility] [facility] COMPREHENSI VE METABOLIC PANEL GLUCOSE [MASS/VOLUME] IN SERUM OR PLASMA 108 mg/dL 72 - 99 04/11 H Specimen Type: PLASMA No comment entered. Ordering Provider: DYAN JOAQUIN Report Released Date/Time : Dec 12, 2023 10:00 AM Reporting Lab: [place] [facility] [address] [place] [address] 8 [facility]: [place] [facility] [address] [place] [address] [facility] COMPREHENSI VE METABOLIC PANEL SODIUM [MOLES/VOLUME ] IN SERUM OR PLASMA 138 meq/L 136 - 145 04/11 Specimen Type: PLASMA No comment entered. Ordering Provider: DYAN JOAQUIN Report Released Date/Time : Dec 12, 2023 10:00 AM Reporting Lab: [place] [facility] [address] [place] [address] [facility]: [place] [facility] [address] [place] [address] [facility] COMPREHENSI VE METABOLIC PANEL POTASSIUM [MOLES/VOLUME ] IN SERUM OR PLASMA 4.6 meq/L 3.5 - 5 04/11 Specimen Type: PLASMA No comment entered. Ordering Provider: DYAN JOAQUIN Report Released Date/Time : Dec 12, 2023 10:00 AM Reporting Lab: [place] [facility] [address] [place] [address] [facility]: [place] [facility] [address] [place] [address] [facility] COMPREHENSI VE METABOLIC PANEL CHLORIDE [MOLES/VOLUME ] IN SERUM OR PLASMA 108 meq/L 98 - 107 04/11 H Specimen Type: PLASMA No comment entered. Ordering Provider: DYAN JOAQUIN Report Released Date/Time : Dec 12, 2023 10:00 AM Reporting Lab: [place] [facility] [address] [place] [address] [facility]formin g [facility]: [place] [facility] [address] [place] [address] [place] [facility] COMPREHENSI VE METABOLIC PANEL CARBON DIOXIDE, TOTAL [MOLES/VOLUME ] IN SERUM OR PLASMA 23 meq/L 22 - 31 04/11 Specimen Type: PLASMA No comment entered. Ordering Provider: DYAN JOAQUIN Report Released Date/Time : Dec 12, 2023 10:00 AM Reporting Lab: [place] [facility] [address] [place] [address] [facility]: [place] [facility] [address] [place] [address] [facility] COMPREHENSI VE METABOLIC PANEL CALCIUM [MASS/VOLUME] IN SERUM OR PLASMA 8.7 mg/dL 8.4 - 10.4 04/11 Specimen Type: PLASMA No comment entered. Ordering Provider: DYAN JOAQUIN Report Released Date/Time : Dec 12, 2023 10:00 AM Reporting Lab: [place] [facility] [address] [place] [address] [facility]: [place] [facility] [address] [place] [address] [facility] COMPREHENSI VE METABOLIC PANEL PROTEIN [MASS/VOLUME] IN SERUM OR PLASMA 6.5 g/dL 6 - 8.6 04/11 Specimen Type: PLASMA No comment entered. Ordering Provider: DYAN JOAQUIN Report Released Date/Time : Dec 12, 2023 10:00 AM Reporting Lab: [place] [facility] [address] [place] [address] [facility]: [place] [facility] [address] [place] [address] [facility] COMPREHENSI VE METABOLIC PANEL ALBUMIN [MASS/VOLUME] IN SERUM OR PLASMA 3.9 g/dL 3.4 - 5 04/11 Specimen Type: PLASMA No comment entered. Ordering Provider: DYAN JOAQUIN Report Released Date/Time : Dec 12, 2023 10:00 AM Reporting Lab: [place] [facility] [address] [place] [address] [facility]: [place] [facility] [address] [place] [address] [facility] COMPREHENSI VE METABOLIC PANEL BILIRUBIN.TOT AL [MASS/VOLUME] IN SERUM OR PLASMA 0.8 mg/dL 0.2 - 1.2 04/11 Specimen Type: PLASMA No comment entered. Ordering Provider: DYAN JOAQUIN Report Released Date/Time : Dec 12, 2023 10:00 AM Reporting Lab: [place] [facility] [address] [place] [address] [facility]: [place] [facility] [address] [place] [address] [facility] COMPREHENSI VE METABOLIC PANEL ALKALINE PHOSPHATASE [ENZYMATIC ACTIVITY/VOLU ME] IN SERUM OR PLASMA 69 U/L 40 - 150 04/11 Specimen Type: PLASMA No comment entered. Ordering Provider: DYAN JOAQUIN Report Released Date/Time : Dec 12, 2023 10:00 AM Reporting Lab: [place] [facility] [address] [place] [address] [facility]: [place] [facility] [address] [place] [address] [facility] COMPREHENSI VE METABOLIC PANEL ASPARTATE AMINOTRANSFER ASE [ENZYMATIC ACTIVITY/VOLU ME] IN SERUM OR PLASMA 30 U/L 5 - 34 04/11 Specimen Type: PLASMA No comment entered. Ordering Provider: DYAN JOAQUIN Report Released Date/Time : Dec 12, 2023 10:00 AM Reporting Lab: [place] [facility] [address] [place] [address] [facility]: [place] [facility] [address] [place] [address] [facility] COMPREHENSI VE METABOLIC PANEL ALANINE AMINOTRANSFER ASE [ENZYMATIC ACTIVITY/VOLU ME] IN SERUM OR PLASMA 28 U/L 8 - 40 04/11 Specimen Type: PLASMA No comment entered. Ordering Provider: DYAN JOAQUIN Report Released Date/Time : Dec 12, 2023 10:00 AM Reporting Lab: [place] [facility] [address] [place] [address] [facility]: [place] [facility] [address] [place] [address] [place] [facility] COMPREHENSI VE METABOLIC PANEL GLOMERULAR FILTRATION RATE/1.73 SQ M.PREDICTED [VOLUME RATE/AREA] IN SERUM, PLASMA OR BLOOD BY CREATININE-BA SED FORMULA (CKD-EPI 2020) 67 04/11 Specimen Type: PLASMA No comment entered. Ordering Provider: DYAN JOAQUIN Report Released Date/Time : Dec 12, 2023 10:00 AM Reporting Lab: [place] [facility] [address] [place] [address] [facility]: [place] [facility] [address] [place] [address] [facility] Vital Signs Combined list of inpatient and outpatient Vital Signs from Department of Defense and Veterans Affairs, ranging from 12 months to all on record, depending upon the facility. Vital Sign Value Date Comments Source SYSTOLIC BLOOD PRESSURE 122 04/22/2025 09:10:00 [facility] DIASTOLIC BLOOD PRESSURE 77 04/22/2025 09:10:00 [facility] PULSE OXIMETRY 95 % 04/22/2025 09:10:00 [facility] WEIGHT 218.8 04/22/2025 09:10:00 [facility] BMI 32 kg/m2 04/22/2025 09:10:00 [facility] PAIN 0 04/22/2025 09:10:00 [facility] TEMPERATURE 98.0 04/22/2025 09:10:00 [facility] PULSE 71 04/22/2025 09:10:00 [facility] RESPIRATION 18 04/22/2025 09:10:00 [facility] SYSTOLIC BLOOD PRESSURE 119 09/30/2024 10:05:54 [facility] DIASTOLIC BLOOD PRESSURE 77 09/30/2024 10:05:54 [facility] PULSE OXIMETRY 95 09/30/2024 10:05:54 [facility] WEIGHT 219 09/30/2024 10:05:54 [facility] BMI 32 kg/m2 09/30/2024 10:05:54 [facility] PAIN 0 09/30/2024 10:05:54 [facility] HEIGHT 69 09/30/2024 10:05:54 [facility] PULSE 73 09/30/2024 10:05:54 [facility] RESPIRATION 18 09/30/2024 10:05:54 [facility] PULSE OXIMETRY 96 06/19/2024 14:50:00 [facility] PULSE 86 06/19/2024 14:50:00 [facility] RESPIRATION 19 06/19/2024 14:50:00 [facility] Encounters Combined list of: 1) Encounters from Department of Veterans Affairs facilities going backup to the last 18 months, not all VA inpatient encounters are included; 2) Encounters from the Department of Defense facilities going backup to 280 months. Location Location Details Encounter Type Encounter Number Reason For Visit Attending Provider ADM Date DC Date Status Disposition Source [facility] OFF/OP EST FEBRUARY X REQ PHY/QHP [id number] Diagnos is: ICD-10- CM H61.23 Impacte d marlin mcelroy AN DREA D 11/01 [facility] Outpatient Encounter [id number] BOBBI ARTHUR 11[facility]06 [facility] OFF/OP EST FEBRUARY X REQ PHY/QHP [id number] Diagnos is: ICD-10- CM H61.23 Impacte d marlin mcelroy JO HANNA R 11/07 [facility] Outpatient Encounter [id number] 11/08 [facility] FEE [id number] Diagnos is: ICD-10- CM H90.3 Sensori neural hearing loss, bilater al HARTMANNLUISE RT P 11/08 [facility] [place] [facility] EAR IMPRESSION [id number] Diagnos is: ICD-10- CM H90.3 Sensori neural hearing loss, bilater al LUIS HARTMANNE RT P 11/08 [place] [facility] [place] [facility] Outpatient Encounter [id number] 11/15 [place] [facility] OFFICE O/P EST LOW 20 MIN [id number] Diagnos is: ICD-10- CM K21.9 Gastro- esophag eal reflux disease without esophag itis Ian JOAQUIN 11/16 [facility] Outpatient Encounter [id number] 11/17 [facility] [place] [facility] Outpatient Encounter [id number] MOJGAN YOUNG EE L 11/30 [place] [facility] Outpatient Encounter [id number] 12/12 [facility] En[facility] [id number] 12/13 [facility] Outpatient Encounter [id number] 12/13 [facility] [place] [facility] Outpatient Encounter [id number] RA RADHA MARLOW 01/01 [place] [facility] Outpatient Encounter [id number] 01/08 [facility] [place] [facility] Outpatient Encounter [id number] 01/08 [place] [facility] TELEHEALTH FACILITY FEE [id number] Diagnos is: ICD-10- CM Z46.1 Encount er for fitting and adjustm ent of hearing aid HARTMANNODILON ONEAL RT P 01[facility] CONFORMITY EVALUATION [id number] Diagnos is: ICD-10- CM Z46.1 Encount er for fitting and adjustm ent of hearing aid HARTMANNODILON ONEAL RT P 01/16 [place] [facility] Outpatient Encounter [id number] LESLY SPRAGUE 02/04 [facility] [place] [facility] Outpatient Encounter [id number] BETHEL DELA CRUZ 02/11 [place] [facility] OFFICE O/P EST MOD 30 MIN [id number] Diagnos is: ICD-10- CM I25.10 Athscl heart disease of [place] coronar y artery w/o ang pctrs Ian JOAQUIN 04/17 [facility] En[facility] [id number] 06/[address] [facility] Outpatient Encounter [id number] 06/[address] [facility] Outpatient Encounter [id number] 06/19 [facility] OFF/OP EST MAY X REQ PHY/QHP [id number] Diagnos is: ICD-10- CM Z71.89 Other specifi ed peer counselor yoselyn ODOMTEJARIAS Power 06/19 [facility] [place] [facility] En[facility] [id number] 06/20 [place] [facility] Outpatient Encounter [id number] ANDREW AUGUST 06/21 [facility] Outpatient Encounter [id number] 06/21 [facility] Outpatient Encounter [id number] LESLY SPRAGUE 06/24 [facility] Outpatient Encounter [id number] 06/25 [facility] Outpatient Encounter [id number] 07/08 [facility] Outpatient Encounter [id number] 07/22 [facility] Outpatient Encounter [id number] 08/07 [facility] OFF/OP EST FEBRUARY X REQ PHY/QHP [id number] Diagnos is: ICD-10- CM Z23 Encount er for immuniz atARIAS Juan CHRISTOPHER Power 08/12 [facility] [place] [facility] En[facility] [id number] 08/28 [place] [facility] Outpatient Encounter [id number] 09/03 [facility] Outpatient Encounter [id number] 09/04 [facility] Outpatient Encounter [id number] 09/[address] [facility] Outpatient Encounter [id number] LESLY SPRAGUE L 09/25 [facility] Outpatient Encounter [id number] 09/26 [facility] Outpatient Encounter [id number] 09/27 [facility] FEE [id number] Diagnos is: ICD-10- CM I25.10 [place] heart disease of [place] coronar y artery w/o Nikki Kline 09/[address] 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 Kline M 09/30 [facility] Outpatient Encounter [id number] 11/06 [facility] [id number] 11/27 [facility] Outpatient Encounter [id number] 12/17 [facility] Outpatient Encounter [id number] 01/02 [facility] Outpatient Encounter [id number] 01/16 [facility] Outpatient Encounter [id number] 01/21 [facility] Outpatient Encounter [id number] 01/24 [facility] Outpatient Encounter [id number] 01/27 [facility] Outpatient Encounter [id number] 02/07 [facility] Outpatient Encounter [id number] 03/04 [facility] Outpatient Encounter [id number] 03/12 [facility] Out[facility] Encounter [id number] 04/04 [facility] Outpatient Encounter [id number] 04/04 [facility] Outpatient Encounter [id number] ZAHRA LUNA 04/07 [facility] Outpatient Encounter [id number] 04/07 [facility] Outpatient Encounter [id number] APRIL,ARIAS Power 04/22 [facility] Social History Combined list of available smoking, tobacco, and other social history from Department of Defense and Veterans Affairs facilities. Social History Type Response Date Comment Sourc e Tobacco smoking status NHIS VA-TOBACCO NEVER USED 04/17/2024 [facility] History of tobacco use [place]-TOBACCO NEVER USED 04/[facility]20[facility] History of tobacco use [place]-TOBACCO NEVER USED 02/25/2022 [facility] [facility] History of tobacco use [place]-TOBACCO NEVER USED 07/17/2020 [facility] History of tobacco use LIFETIME NON-USER OF TOBACCO 02/03/2017 [facility] Plan of Care List of future care activities from [facility] facilities. Additional future care activities may be listed in the Assessment and Plan section. Date/Time Care Activity Care Activity Detail Facili ty 04/04/2025 Consult Order [facility] ER[facility] [id number] Cons Operations Developer's Choice [facility]D [facility] Advance Directives List of completed, amended, or rescinded Advance Directives on record at [facility] facilities. An actual copy of the Directive is not included. Date Advance Directive Provider Source 02/08/2017 ADVANCE DIRECTIVE MORRO TAR[facility] [address] [facility] [facility]
--- OUTSIDE RECORDS SUMMARY | 2025-04-26 11:59 | XMS_ITS | Clinical Summary ---
Author Organization [facility] Address [address] [place] [address] Care Team Providers Care Command And Control Officer Name Role Phone Unavailable Primary Care Provider Unavailabl e Allergies No known active allergies Medications MULTIVITAMIN ORAL Take by mouth. Active aspirin (EUGENE) 81 mg Oral Tab Take by mouth. Active mupirocin (BACTROBAN) 2 % OintmentIndicat ions:Cellulitis Apply to affected area daily. 30 Gram 1 04/04/2014 Active Active Problems Problem Noted Date Diagnosed Date Venous stasis of lower extremity 04/05/2014 Basal cell carcinoma of left nasal sidewall 11/2012 Non-healing skin lesion of nose 02/05/2013 Family History Medical History Relation Name Comments Healthy Brother Healthy Daughter Diabetes Maternal Grandmother Heart Disease Paternal Grandfather Healthy Sister Healthy Son Relation Name Status Comments Brother Daughter Father Maternal Grandmother Mother Paternal Grandfather Sister Son Social History Tobacco Use Types Packs/Day Years Used Date Smoking Tobacco: Never Smokeless Tobacco: Never Alcohol Use Standard Drinks/Week Comments No 0 (1 standard drink = 0.6 oz pur e alcohol) Sex and Gender Information Value Date Recorded Sex Assigned at Not on file 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 Gender Identity Not on file Sexual Orientation Not on file Occupation Industry Job Start Date Job End Date Not on file Not on file Not on file Not on file Last Filed Vital Signs Vital Sign Reading Time Taken Comments Blood Pressure 103/74 04/04/2014 2:03 PM CDT Pulse 76 04/04/2014 2:03 PM CDT Temperature 36.6 C (97.9 F) 04/04/2014 2:03 PM CDT Respiratory Rate 20 04/04/2014 2:03 PM CDT Oxygen Saturation 97% 04/04/2014 2:03 PM CDT Inhaled Oxygen Concentration - - Weight 89.8 kg (198 lb) 04/04/2014 2:03 PM CDT Height 175.3 cm (5' 9 ) 04/04/2014 2:03 PM CDT Body Mass Index 29.24 04/04/2014 2:03 PM CDT Plan of Treatment Health Maintenance Due Date Last Done Comments DTAP/TDAP/TD VACCINES (1 - Tdap) 1968 COLORECTAL SCREENING 1994 Colorectal Cancer Screening 1994 FIT-DNA Q 3 years 1994 FIT/FOBT Q 1 year 1994 Flex Sig/CT Colonography Q 5 years 1994 PNEUMOCOCCAL VACCINE 50+ YEARS (1 of 1 - PCV) 07/11/19 99 ZOSTER VACCINE (1 of 2) 1999 RSV VACCINE (60+ or ) (1 - 1-dose 75+ series) 2024 INFLUENZA VACCINE (#1) 2025 Insurance [facility] Member Subscriber Plan / Payer (Ef fective 2017-Present) Name:Reinier Dc Relation to Subscriber:Self Name:Reinier Dc Payer ID:Not on file Group ID:[id number] Type:Medicare Managed Care Address: [facility] [address] [place] [id number]
--- OUTSIDE RECORDS SUMMARY | 2025-04-26 11:59 | XMS_ITS | Clinical Summary ---
Author Organization [facility] Address [address] 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
[2025-04-26 12:00] VITALS: BP 100/64; PULSE 85; RESP 18; TEMP 37; O2SAT 95; BMI 32.0
--- OUTSIDE RECORDS SUMMARY | 2025-04-26 12:00 | XMS_ITS | Patient Health Record ---
Author Organization [facility] Address [address] [place] [address] Care Team Providers Care Residential Case Manager Name Role Phone Lakshmi Donovan MD Primary Care Provider Unav Gavin Velazquez Unavailable [phone] MEFrancisco JBushland Unavailable Unavailable Allergies Allergen (clinical drug ingredient) Drug/Non Drug Allergy documented on EMR Reaction Allergy Type Onset Date Status No Known Drug Allergy Unknown Drug Allergy Active Reason For Referral No Information Medications Medication SIG (Take, Route, Frequency, Duration) Notes Start Date End Date Status Clopidogrel Bisulfate 75 MG 1 tablet Ora lly Once a day Active Multi For Him - as directed Orally liquid Active Atorvastatin Calcium 80 MG 1 tablet Oral ly Once a day Active Aspirin 81 MG 1 tablet Orally Once a day Active Latanoprost 0.005 % 1 drop into affected eye in the evening Ophthalmic Once a day Active Sucralfate 1 GM 1 tablet on an empty stomach Orally four times daily Active Pantoprazole Sodium 40 MG 1 tablet Orall y twice a day Active Famotidine 20 MG 1 tablet at bedtime as needed Orally Twice a day Active Lisinopril 2.5 MG 1 tablet Orally Once a day Active Immunizations Vaccine Route Administration Date Status Comme nts Influenza (split), seasonal, intradermal, preservative free Unknown 12/20/2019 Refused Influenza (whole), CPT 12455 Inactive Unknown 01/25/2019 Administered Influenza (whole), CPT 40446 Inactive Unknown 07/29/2019 Administered Pneumococcal conjugate PCV 13 Unknown 12/20/2019 Refuse d Social History Tobacco Use: Social History Observation Description Date Details (start date - stop date) Never Smoker NA - NA xTobacco Use/Smoking Question Answer Notes Are you a nonsmoker Alcohol Screen (Audit-C) Question Answer Notes Did you have a drink containing alcohol in the p ast year? No Points 0 Interpretation Negative PHQ-9 Question Answer Notes Little interest or pleasure in doing things Not at all Feeling down, depressed, or hopeless Several day s Trouble falling or staying asleep, or sleeping t oo much Not at all Feeling tired or having little energy Several da ys Poor appetite or overeating Several days Feeling bad about yourself, or that you are a failure, or have let yourself or your family down Not at all Trouble concentrating on thi ngs, such as reading the newspaper or watching television Not at all Moving or speaking so slowly that other people could have noticed. Or the opposite ? being so fidgety or restless that you have been moving around a lot more than usual Not at all Thoughts that you would be b lalito off , or of hurting yourself in some way Not at all Total Score 3 Interpretation Minimal Depression Problems Problem Type SNOMED Code ICD Code Onset Dates Problem Status W/U Status Risk Notes Problem 391614318 Rising PSA following treatment for malignant neoplasm of prostate (R97.21) Active confirmed Problem Microscopic hematuria (537199026) Microscopic hematuria (R31.29) Active confirmed Problem History of prostatectomy (Z90.79) Active confirmed Problem SI - Stress incontinence (67986839) Stress incontinence (N39.3) Active confirmed Problem History of malignant neoplasm of prostate (886029048) History of prostate cancer (Z85.46) Active confirmed Problem History of radiation therapy (829781313) History of radiation therapy (Z92.3) Active confirmed Problem 748810255 Gastroesophageal reflux disease, unspecified whether esophagitis present (K21.9) Active confirmed Plan Of Treatment Pending Test Test Name Order Date PSA Diagnostic--[id number] 01/04/2021 Testosterone Total [id number] 01/04/2021 Insurance Providers Payer Name Payer Address Payer Phone Subscriber Number Group Number Insured Name Patient Relationship to Insured Coverage Start Date Coverage End Date [employer] [address] [place] [phone] [id number] Reinier Dc Self - patient is the insured Medical (General) History Medical History History ICD Code Malignant melanoma elevated prostate specific antigen Prostate Cancer GERD Myocardial Infarction (09/14/2021) hypertention glaucoma Surgical History Surgery Date(Month/Year) Cardiac stent placement 09/14/2021 prostatectomy skin grafting on nose eye surgery cholecystectomy appendectomy Hospitalization History Reason Date(Month/Year) see surgery list Myocardial infarction
--- OUTSIDE RECORDS SUMMARY | 2025-04-26 12:00 | XMS_ITS | Encounter Summary ---
Author Organization [facility] [facility] Address [address] [place] [address] Care Team Providers Care Weighing Station Operator Name Role Phone Unavailable Primary Care Provider Unavailabl e Encounter Details Date Type Department Care Team (Latest Contact Info) Description 04/03/2000 Outpatient Historical [place] [address] [place] [address] Other general medical examination for administrative purposes (Primary Dx) Social History Tobacco Use Types Packs/Day Years Used Date Smoking Tobacco: Never Assessed Sex and Gender Information Value Date Recorded Sex Assigned at Not on file 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
--- OUTSIDE RECORDS SUMMARY | 2025-04-26 12:00 | XMS_ITS | Patient Health Record ---
Author Organization [employer], [employer] Address [address] [place] [address] Care Team Providers Care Rip Machine Operator Name Role Phone Lakshmi Smith MD Primary Care Provider SAMY Kaur Unavailable [phone] Donald Jiménez Unavailable Unavailable Samy Frausto Unavailable [phone] Allergies Allergen (clinical drug ingredient) Drug/Non Drug Allergy documented on EMR Reaction Allergy Type Onset Date Status No Known Drug Allergy Unknown Drug Allergy Active Results Component Value Reference Range Notes Urinalysis, Routine Reviewed date:07/10/2024 02:53:18 PM Interpretation: Performing Lab: Notes/Report: Urine-Color yellow Appearance clear Glucose - Bilirubin - Ketones - Specific [place] 1.025 Occult Blood 1+ pH 6.0 Urine Protein - Urobilinogen,Semi-Qn - Nitrite, Urine - WBC Esterase - Urinalysis, Routine Reviewed date:11/19/2024 02:37:32 PM Interpretation: Performing Lab: Notes/Report: Urine-Color yellow Appearance clear Glucose - Bilirubin - Ketones - Specific [place] 1.015 Occult Blood 1+ pH 6.0 Urine Protein - Urobilinogen,Semi-Qn - Nitrite, Urine - WBC Esterase - Urinalysis, Routine Reviewed date:06/25/2024 01:36:25 PM Interpretation: Performing Lab: Notes/Report: Urine-Color yellow Appearance clear Glucose - Bilirubin - Ketones - Specific [place] 1.025 Occult Blood trace pH 6.0 Urine Protein - Urobilinogen,Semi-Qn - Nitrite, Urine - WBC Esterase - PSA-Diagnostic Reviewed date:11/07/2024 12:56:12 PM Interpretation: Performing Lab: Notes/Report: Reason For Referral No Information Medications Medication SIG (Take, Route, Frequency, Duration) Notes Start Date End Date Status Multi For Him - as directed Orally liquid Active Atorvastatin Calcium 80 MG 1 tablet Orally Once a day Active Aspirin 81 MG 1 tablet Orally Once a day Active Sucralfate 1 GM 1 tablet on an empty stomach Orally four times daily Not-Taking Famotidine 20 MG 1 tablet at bedtime as needed Orally Twice a day Active Latanoprost 0.005 % 1 drop into affected eye in the evening Ophthalmic Once a day Active Clopidogrel Bisulfate 75 MG 1 tablet Orally Once a day Not-Taking Pantoprazole Sodium 40 MG 1 tablet Orall y twice a day Active Lisinopril 2.5 MG 1 tablet Orally Once a day Active Immunizations Vaccine Route Administration Date Status Comme nts Influenza (split), seasonal, intradermal, preservative free Unknown 12/20/2019 Refused Immunization G iven by from source eCW:: Influenza (whole), CPT 65201 Inactive Unknown 01/25/2019 Administered Influenza (whole), CPT 68412 Inactive Unknown 07/29/2019 Administered Pneumococcal conjugate PCV 13 Unknown 12/20/2019 Refused Immunization Giv en by from source eCW:: Problems Problem Type SNOMED Code ICD Code Onset Dates Problem Status W/U Status Risk Notes Problem 732695811 Rising PSA follo wing treatment for malignant neoplasm of prostate (R97.21) Active confirmed Problem 247099998 Gastroesophageal reflux disease, unspecified whether esophagitis present (K21.9) Active confirmed Problem 659694528 History of prost ate cancer (Z85.46) Active confirmed Problem History of prostatectomy (Z90.79) Active confirmed Problem 511240890 History of radia tion therapy (Z92.3) Active confirmed Problem Radiation cystitis (26965460) 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 Problem 67628060 Stress incontine nce (N39.3) Active confirmed Problem 178643410 Microscopic hematuria (R31.29) Active confirmed Problem Malignant tumor of prostate (293140603) Prostate cancer (C61) Active confirmed Vital Signs Heart Rate 76 /min 11/19/2024 Height-cm 175.26 cm 11/19/2024 Blood pressure diastolic 82 mm Hg 11/19/2024 Weight-kg 93.89 kg 11/19/2024 Height 69 in 11/19/2024 Blood pressure systolic 134 mm Hg 11/19/2024 Weight 207 lbs 11/19/2024 BMI 30.57 kg/m2 11/19/2024 Encounters Encounter Location Date Provider Diagnosis [facility], [facility] [address] [place] [address] 06/25/2024 Samy Frausto Microscopic hematuri a R31.29 ; Prostate cancer C61 and Gross hematuria R31.0 [facility], [facility] [address] [place] [address] 07/10/2024 SAMY HILL Gross hematuria R31. 0 ; Prostate cancer C61 ; Microscopic hematuria R31.29 and Radiation cystitis N30.40 [facility], [facility] [address] [place] [address] 11/19/2024 Samy Diannastew Gross hematuria R31. 0 ; Prostate cancer C61 ; Microscopic hematuria R31.29 and Radiation cystitis N30.40 [facility], [facility] [address] [place] [address] 06/27/2024 Samy Bustamantestew [facility], [facility] [address] [place] [address] 2024 SAMY HILL [facility], [facility] [address] [place] [address], [place] [address] 09/04/2024 SAMY HILL Prostate cancer C61 Assessments Encounter Date Diagnosis (ICD Code) Assessment Notes Treatment Notes Treatment Clinical Notes Section Notes 07/10/2024 Prostate cancer (ICD-10 - C61) Negative hematuria workup with CT scan and cystoscopy. He does not have a clot in the bladder anymore and the majority of his bladder is clear except for around the bladder neck where he has radiation cystitis changes and this is certainly the cause of his hematuria. We spent some time discussing the natural history of radiation cystitis and risk of recurrent hematuria. We reviewed conservative measures for prevention and also hyperbaric oxygen. Return for previously scheduled prostate cancer surveillance appointment. Following cystoscopy, we have spent over 10 minutes in further consultation and treatment planning with greater than 50% of that time in direct yvua-[id number] discussion. 07/10/2024 Gross hematuria (ICD-10 - R31.0) Negative hematuria workup with CT scan and cystoscopy. He does not have a clot in the bladder anymore and the majority of his bladder is clear except for around the bladder neck where he has radiation cystitis changes and this is certainly the cause of his hematuria. We spent some time discussing the natural history of radiation cystitis and risk of recurrent hematuria. We reviewed conservative measures for prevention and also hyperbaric oxygen. Return for previously scheduled prostate cancer surveillance appointment. Following cystoscopy, we have spent over 10 minutes in further consultation and treatment planning with greater than 50% of that time in direct [id number]-pv-[id number] discussion. 11/19/2024 Gross hematuria (ICD-10 - R31.0) Previous negativ e hematuria workup with CT scan and cystoscopy. PSA remains undetectable and TT of 335. The patient is doing well from a urological standpoint. I will continue yearly PSA and TT surveillance at this time. RTC in 1 year with lab. RTC or call sooner with any concerns. The patient voices understanding and agrees with the plan. All of his questions were answered to his satisfaction. 09/04/2024 Prostate cancer (ICD-10 - C61) 06/25/2024 Microscopic hematuria (ICD-10 - R31.29) Previous PSA 0 and TT 263 on 11/09/22. For now, will keep as scheduled for annual followup with PSA and TT surveillance at this time. However, Given UA today, symptoms, and concerns, we discussed in consultation the indications and rationale for a hematuria workup including the possibility of the hematuria resulting from a malignancy or other acute process. In terms of the workup specifically, we discussed the need for evaluation of the upper urinary tracts with imaging and the lower urinary tract with cystoscopy. Patient had a CT scan completed without contrast with Cr of 1.[address] images independently, as well as radiology report. In the exam room I discussed with the patient and shown imaging to the patient that there is a large blood clot in the bladder. Patient is without difficulty urinating. I recommended scheduling for cysto for further evaluation and investigation and he understands strict return precautions if difficulty urinating versus retention. At next return we will do a scheduled cystoscopy and go over results at that point. For now, no further recommendations, and will await results of cystoscopy. Will send todays UA for PCR for further evaluation. Treat at that time if indicated. Patient satisfied with plan. All questions that were asked, were answered. 06/25/2024 Prostate cancer (ICD-10 - C61) Previous PSA 0 and TT 263 on 11/09/22. For now, will keep as scheduled for annual followup with PSA and TT surveillance at this time. However, Given UA today, symptoms, and concerns, we discussed in consultation the indications and rationale for a hematuria workup including the possibility of the hematuria resulting from a malignancy or other acute process. In terms of the workup specifically, we discussed the need for evaluation of the upper urinary tracts with imaging and the lower urinary tract with cystoscopy. Patient had a CT scan completed without contrast with Cr of 1.[address] images independently, as well as radiology report. In the exam room I discussed with the patient and shown imaging to the patient that there is a large blood clot in the bladder. Patient is without difficulty urinating. I recommended scheduling for cysto for further evaluation and investigation and he understands strict return precautions if difficulty urinating versus retention. At next return we will do a scheduled cystoscopy and go over results at that point. For now, no further recommendations, and will await results of cystoscopy. Will send todays UA for PCR for further evaluation. Treat at that time if indicated. Patient satisfied with plan. All questions that were asked, were answered. 06/25/2024 Gross hematuria (ICD-10 - R31.0) Previous PSA 0 and TT 263 on 11/09/22. For now, will keep as scheduled for annual followup with PSA and TT surveillance at this time. However, Given UA today, symptoms, and concerns, we discussed in consultation the indications and rationale for a hematuria workup including the possibility of the hematuria resulting from a malignancy or other acute process. In terms of the workup specifically, we discussed the need for evaluation of the upper urinary tracts with imaging and the lower urinary tract with cystoscopy. Patient had a CT scan completed without contrast with Cr of 1.[address] images independently, as well as radiology report. In the exam room I discussed with the patient and shown imaging to the patient that there is a large blood clot in the bladder. Patient is without difficulty urinating. I recommended scheduling for cysto for further evaluation and investigation and he understands strict return precautions if difficulty urinating versus retention. At next return we will do a scheduled cystoscopy and go over results at that point. For now, no further recommendations, and will await results of cystoscopy. Will send todays UA for PCR for further evaluation. Treat at that time if indicated. Patient satisfied with plan. All questions that were asked, were answered. 11/19/2024 Prostate cancer (ICD-10 - C61) Previous negativ e hematuria workup with CT scan and cystoscopy. PSA remains undetectable and TT of 335. The patient is doing well from a urological standpoint. I will continue yearly PSA and TT surveillance at this time. RTC in 1 year with lab. RTC or call sooner with any concerns. The patient voices understanding and agrees with the plan. All of his questions were answered to his satisfaction. 07/10/2024 Microscopic hematuria (ICD-10 - R31.29) Negative hematuria workup with CT scan and cystoscopy. He does not have a clot in the bladder anymore and the majority of his bladder is clear except for around the bladder neck where he has radiation cystitis changes and this is certainly the cause of his hematuria. We spent some time discussing the natural history of radiation cystitis and risk of recurrent hematuria. We reviewed conservative measures for prevention and also hyperbaric oxygen. Return for previously scheduled prostate cancer surveillance appointment. Following cystoscopy, we have spent over 10 minutes in further consultation and treatment planning with greater than 50% of that time in direct xowa-oa-gswa discussion. 07/10/2024 Radiation cystitis (ICD-10 - N30.40) Negative hematuria workup with CT scan and cystoscopy. He does not have a clot in the bladder anymore and the majority of his bladder is clear except for around the bladder neck where he has radiation cystitis changes and this is certainly the cause of his hematuria. We spent some time discussing the natural history of radiation cystitis and risk of recurrent hematuria. We reviewed conservative measures for prevention and also hyperbaric oxygen. Return for previously scheduled prostate cancer surveillance appointment. Following cystoscopy, we have spent over 10 minutes in further consultation and treatment planning with greater than 50% of that time in direct mjge-wx-[id number] discussion. 11/19/2024 Microscopic hematuria (ICD-10 - R31.29) Previous negativ e hematuria workup with CT scan and cystoscopy. PSA remains undetectable and TT of 335. The patient is doing well from a urological standpoint. I will continue yearly PSA and TT surveillance at this time. RTC in 1 year with lab. RTC or call sooner with any concerns. The patient voices understanding and agrees with the plan. All of his questions were answered to his satisfaction. 11/19/2024 Radiation cystitis (ICD-10 - N30.40) Previous negativ e hematuria workup with CT scan and cystoscopy. PSA remains undetectable and TT of 335. The patient is doing well from a urological standpoint. I will continue yearly PSA and TT surveillance at this time. RTC in 1 year with lab. RTC or call sooner with any concerns. The patient voices understanding and agrees with the plan. All of his questions were answered to his satisfaction. Plan Of Treatment Pending Test Test Name Order Date PSA, total (cpt 76241) 10/10/2023 PSA Diagnostic--57843 01/04/2021 Testosterone Total 79413 01/04/2021 TESTOSTERONE, TOTAL, MALES (ADULT), IA ( 873) 10/10/2023 Testosterone Total 11/19/2024 Testosterone Total 09/04/2024 PSA-Diagnostic 11/19/2024 Future Test Test Name Order Date PSA Diagnostic--58169 04/22/2020 PSA Diagnostic--86506 12/21/2020 PSA Diagnostic--59256 05/11/2021 PSA Diagnostic--69751 04/13/2022 Testosterone Total 13208 04/13/2022 PSA Diagnostic--04281 04/03/2023 Testosterone Total 71262 04/03/2023 Next Appt Details Provider Name:Samy Frausto, 11/19/2025 01:00:00 PM, [address] [place], [address], Insurance Providers Payer Name Payer Address Payer Phone Subscriber Number Group Number Insured Name Patient Relationship to Insured Coverage Start Date Coverage End Date [employer] [address] [place], [place] [id number] [phone] [id number] Reinier Dc Self - patient is the insured Medical (General) History Medical History History ICD Code Malignant melanoma elevated prostate specific antigen Prostate Cancer GERD Myocardial Infarction (09/14/2021) hypertention glaucoma Surgical History Surgery Date(Month/Year) appendectomy cholecystectomy eye surgery skin grafting on nose prostatectomy Cardiac stent placement 09/14/2021 Hospitalization History Reason Date(Month/Year) see surgery list Myocardial infarction
--- OUTSIDE RECORDS SUMMARY | 2025-04-26 12:00 | XMS_ITS | Encounter Summary ---
Author Organization [facility] Address [address] [place] [address] Care Team Providers Care Air Support Operations Operator Name Role Phone Unavailable Primary Care Provider Unavailabl e Encounter Details Date Type Department Care Team (Latest Contact Info) Description 06/05/1998 Outpatient Historical [facility] Op[facility]mology 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
--- OUTSIDE RECORDS SUMMARY | 2025-04-26 12:00 | XMS_ITS | Encounter Summary ---
Author Organization [facility] Address [address] [place] [address] Care Team Providers Care Commercial Drone Pilot Name Role Phone Unavailable Primary Care Provider Unavailabl e Encounter Details Date Type Department Care Team (Late st Contact Info) Description 05/11/1998 Outpatient Historical [facility] Ophthalmology 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
--- OUTSIDE RECORDS SUMMARY | 2025-04-26 12:00 | XMS_ITS | Encounter Summary ---
Author Organization [facility] Address [address] [place] [address] Care Team Providers Care Massage Operator Name Role Phone Unavailable Primary Care Provider Unavailabl e Encounter Details Date Type Department Care Team (Latest Contact Info) Description 03/09/1998 Outpatient Historical [facility] Ophthalmology 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
--- NOTE | 2025-04-26 12:07 | XRR_ITS ---
PROCEDURE INFORMATION: Exam: XR Chest Exam date and time: 04/26/2025 12:41 PM Age: 74 years old Clinical indication: Cough and dyspnea; Prior surgery; Surgery date: 6+ months; Surgery type: Stent; Additional info: Dyspnea/cough TECHNIQUE: Imaging protocol: Radiologic exam of the chest. Views: 1 view. COMPARISON: CR XR chest 1V portable [id number] 09/24/2024 11:56 AM FINDINGS: Lungs: Unremarkable. No consolidation. Pleural spaces: Unremarkable. No pleural effusion. No pneumothorax. Heart/Mediastinum: Unremarkable. No cardiomegaly. Bones/joints: Unremarkable. XR/XR chest 1V portable [id number] IMPRESSION: No acute cardiopulmonary process.
--- NOTE | 2025-04-26 12:07 | ECG_ITS ---
[employer] Test Date: 2025-04-26 Pat Name: Reinier Dc Department: Room: Gender: Male Supervisor Frame Sample And Pattern: : 1950 Requested By: Jhonathan Jesus Order Number: [id number] Reading MD: Measurements Intervals [place] Rate: 81 P: 91 VT: 206 QRS: -70 QRSD: 101 T: 81 QT: 380 QTc: 442 Interpretive Statements SINUS RHYTHM PATTERN CONSISTENT WITH PULMONARY DISEASE LEFT ANTERIOR FASCICULAR BLOCK [QRS AXIS <= -45, QR IN I, RS IN II] SEPTAL MYOCARDIAL INFARCTION , OF INDETERMINATE AGE [40+ ms Q WAVE IN V1/V2] Compared to ECG 09/24/2024 13:42:54 No significant changes [email or web address]
--- NOTE | 2025-04-26 12:25 | W.ED.URI ---
HPI - URI/Sore Throat General: Chief Complaint: Upper Respiratory Infection Stated Complaint: sore throat, cough Time Seen by Provider: 04/26/25 12:25 History of Present Illness: 74-year-old male presents emergency room complaining of nasal drainage and sore throat is worse when he lays down. He has not noticed any swelling in his legs. He is not had any chest pain or discomfort he has no history of coronary disease in January 2022 patient echocardiogram showed ejection fraction of 35%. No exertional dyspnea or anginal symptoms. Denies fever sweats chills recently started antibiotics has not had any improvement Associated symptoms: Deny abdominal pain, chills, chest pain or fever(s) Related Data Home Medications ?Medication ?Instructions ?Recorded ?Confirmed acetaminophen 325 mg tablet 325 mg PO QID PRN 04/24/25 04/24/25 (Tylenol) Previous Rx's ?Medication ?Instructions ?Recorded aspirin 81 mg tablet,delayed 81 mg PO DAILY #90 tabs 09/18/21 release nitroglycerin 0.4 mg sublingual 0.4 mg sublingual Q5M PRN chest 01/27/22 tablet pain #25 tabs pantoprazole 40 mg tablet,delayed 40 mg PO BID #180 tabs 04/03/23 release lisinopril 2.5 mg tablet 2.5 mg PO DAILY #90 tabs 11/27/24 atorvastatin 40 mg tablet 80 mg (2 x 40 mg) PO BEDTIME #90 03/18/25 tabs amoxicillin 875 mg-potassium 1 tab PO BID 7 days #14 tabs 04/24/25 clavulanate 125 mg tablet fluticasone propionate 50 1 spray intranasal BID PRN nasal 04/24/25 mcg/actuation nasal congestion #16 grams spray,suspension (Flonase Allergy Relief) methylprednisolone 4 mg tablets in See Rx Instructions PO .COMPLEX 04/26/25 a dose pack (Medrol (Parth)) #21 ea Allergies Allergy/AdvReac Type Severity Reaction Status Date / Time No Known Allergies Allergy Verified 04/24/25 10:34 Review of Systems Const: Denies: fever(s) or chills Card: Denies: chest pain Resp: Denies: dyspnea GI: Denies: abdominal pain : Denies: dysuria, urinary frequency or urinary urgency Musc: Denies: neck pain or back pain Skin/Breast: Denies: rash [facility] ED PFSH: Medical History History of ST elevation myocardial infarction (STEMI) s/p PTCA w/ stent of LAD Coronary artery disease Left anterior fascicular block (LAFB) History of prostate cancer s/p RALP + ADT/radiation; Zoladex x 6 mon; Casodex x 2 week History of skin cancer basal cell carcinoma Heart failure with reduced ejection fraction EF 35% on last echo Surgical History History of cataract extraction with lens replacement History of percutaneous transluminal coronary angioplasty LAD History of robot-assisted laparoscopic radical prostatectomy History of cholecystectomy History of appendectomy Family History Mother CAD (coronary artery disease) Cancer groin Stroke Brother CAD (coronary artery disease) Stroke Sister Cancer skin Social History Smoking and tobacco/nicotine status: never used tobacco/nicotine Alcohol intake: former Year of sobriety/quit date alcohol: 1999 Household members: spouse Marital status: Number of children: 2 service: Yes branch: [employer] Assignments: Inside [facility] ([facility]) Known or Potential Exposure: Other exposure details: asbestos Current occupational status: retired 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 Lizzie/Sikh: [employer] Physical Exam Const: GENERAL APPEARANCE: cooperative ORIENTATION/CONSCIOUSNESS: Yes awake, Yes oriented to person, Yes oriented to place and Yes oriented to time HENMT: COMMON NORMALS: normocephalic, atraumatic and hearing grossly normal bilaterally HEAD & SCALP: normocephalic and atraumatic Resp: COMMON NORMALS: normal respiratory effort, No retractions, No use of accessory muscles and clear to auscultation bilaterally AUSCULTATION: clear to auscultation bilaterally Cardio: COMMON NORMALS: regular rate, regular rhythm and No murmurs present (Cardio) RATE: regular rate RHYTHM: regular rhythm GI: COMMON NORMALS: Soft to palpation and No hepatosplenomegaly present AUSCULTATION: Yes normoactive bowel sounds PALPATION: Yes Soft to palpation, No Tenderness to palpation present (GI), No Guarding due to palpation present (GI) and Yes No hepatosplenomegaly present Extremity: COMMON NORMALS: normal to inspection, capillary refill normal, no clubbing, cyanosis or edema, no calf tenderness and no pedal edema Neuro: SENSORIUM/ORIENTATION: Yes oriented to person, Yes oriented to place and Yes oriented to time Skin: COMMON NORMALS: no rashes or lesions noted GENERAL SKIN EXAM: no rashes or lesions noted Course Vital Signs: Vital signs: Vital Signs Temperature 98.6 F 04/26/25 12:00 Pulse Rate 85 04/26/25 12:00 Respiratory Rate 18 04/26/25 12:00 Blood Pressure 100/64 04/26/25 12:00 Pulse Oximetry 95 04/26/25 12:00 Oxygen Delivery Me thod Room Air 04/26/25 12:00 MDM - URI/Sore Throat Medical Decision Making No signs of pneumonia or decompensated heart failure his flu COVID and RSV are negative. Blood pressure does run on the low side which is suspect is probably manage at that level intentionally because of ejection fraction. He is not having any chest pain at this time I think his symptoms are largely driven by nasal drainage. He is chest x-ray does not show any decompensated heart failure his BNP is normal there is no sign of pleural effusions. Will have him complete a prednisone taper pack. Medical Records Medical records narrative: 02/15/2022 FINDINGS Left Ventricle The ventricle is normal in size. There is thinning of the apex, mid anterior wall. Akinesis of the. There is dyskinesis of the apex. This suggests coronary disease with prior LAD distribution myocardial infarction. Ejection fraction is approximately 35%. Grade 1 diastolic dysfunction. Right Ventricle Normal right ventricular size and systolic function. Right Atrium The right atrium is normal in size. Left Atrium Mildly increased left atrial size. Mitral Valve Structurally normal mitral valve without significant stenosis or prolapse. There is no mitral regurgitation. Aortic Valve Structurally normal aortic valve without significant sclerosis or stenosis. There is no aortic regurgitation. Tricuspid Valve Structurally normal tricuspid valve. Trace tricuspid valve regurgitation. Pulmonic Valve Pulmonic valve not well visualized. Pericardium Normal pericardium without effusion. Aorta Normal ascending aorta dimension. CONCLUSIONS The ventricle is normal in size. There is thinning of the apex, mid anterior wall. Akinesis of the. There is dyskinesis of the apex. This suggests coronary disease with prior LAD distribution myocardial infarction. Ejection fraction is approximately 35%. Grade 1 diastolic dysfunction. Mildly increased left atrial size. Lab Data 04/26/25 12:34 04/26/25 12:34 Laboratory Results WBC 5.42 10^3/uL (3.29-11.43) 04/26/25 12:34 RBC 4.88 10^6/uL (3.85-5.65) 04/26/25 12:34 Hgb 14.80 g/dL (11.27-16.99) 04/26/25 12:34 Hct 44.6 % (37-53) 04/26/25 12:34 MCV 91.4 fl (82-101) 04/26/25 12:34 MCH 30.3 pg (27-33) 04/26/25 12:34 MCHC 33.2 g/dL (30-55) 04/26/25 12:34 RDW 12.4 % (12.1-15.1) 04/26/25 12:34 Plt Count 148 10^3/cmm (157-399) L 04/26/25 12:34 MPV 8.8 fL (7.4-10.4) 04/26/25 12:34 Neut % (Auto) 69.3 % 04/26/25 12:34 Lymph % (Auto) 13.7 % 04/26/25 12:34 Wharton % (Auto) 11.3 % 04/26/25 12:34 Eos % (Auto) 4.6 % 04/26/25 12:34 Baso % (Auto) 0.7 % 04/26/25 12:34 Neut # (Auto) 3.76 10^3/uL (1.8-7.7) 04/26/25 12:34 Lymph # (Auto) 0.7 10^3/uL (0.8-4.8) L 04/26/25 12:34 Wharton # (Auto) 0.6 10^3/uL (0.2-0.9) 04/26/25 12:34 Eos # (Auto) 0.3 10^3/uL (0.0-0.8) 04/26/25 12:34 Baso # (Auto) 0.0 10^3/uL (0.0-0.1) 04/26/25 12:34 Nucleated RBC % (auto) 0 % 04/26/25 12:34 Nucleated RBCs # 0.0 /100WBC 04/26/25 12:34 Sodium 138 mmol/L (136-145) 04/26/25 12:34 Potassium 4.1 mmol/L (3.5-5.1) 04/26/25 12:34 Chloride 103 mmol/L (98-107) 04/26/25 12:34 Carbon Dioxide 23 mmol/L (22-29) 04/26/25 12:34 Anion Gap 16.1 (5-19) 04/26/25 12:34 BUN 22 mg/dL (8-23) 04/26/25 12:34 Creatinine 1.2 mg/dL (0.7-1.2) 04/26/25 12:34 GFR Calculation Not Reportable 04/26/25 12:34 Glucose 130 mg/dL (65-115) H 04/26/25 12:34 Calculated Osmolality 291 mOsm/kg (285-295) 04/26/25 12:34 Calcium 8.7 mg/dL (8.5-10.5) 04/26/25 12:34 Total Bilirubin 0.6 mg/dL (0.15-1.2) 04/26/25 12:34 AST 25 U/L (0-40) 04/26/25 12:34 ALT 25 U/L (0-41) 04/26/25 12:34 Alkaline Phosphatase 87 U/L (40-130) 04/26/25 12:34 C-Reactive Protein 4.5 mg/L (0.0-4.9) 04/26/25 12:34 NT-Pro-B Natriuret Pep 315 pg/mL (0-450) 04/26/25 12:34 Total Protein 6.7 g/dL (6.6-8.7) 04/26/25 12:34 Albumin 3.8 g/dL (3.5-5.2) 04/26/25 12:34 Globulin 2.9 g/dL (1.3-4.6) 04/26/25 12:34 Influenza A (PCR) Negative (Negative) 04/26/25 12:01 Influenza Type B (PCR) Negative (Negative) 04/26/25 12:01 RSV (PCR) Negative (Negative) 04/26/25 12:01 SARS-CoV-2 (PCR) Negative (Negative) 04/26/25 12:01 All radiology interpretation(s) finalized by discharge Discharge Plan Discharge Patient Disposition: Home Clinical Impression: Post-nasal drainage, Coronary artery disease, Pharyngitis Condition: Stable Prescriptions: New methylprednisolone [Medrol (Parth)] 4 mg tablets,dose pack See Rx Instructions .ROUTE .COMPLEX Qty: 21 0RF Rx Instructions: orally per package directions No Action nitroglycerin 0.4 mg tablet, sublingual 0.4 mg sublingual Q5M PRN (Reason: chest pain) Qty: 25 1RF Rx Instructions: do not exceed 3 doses per episode atorvastatin 40 mg tablet 80 mg PO BEDTIME Qty: 90 3RF acetaminophen [Tylenol] 325 mg tablet 325 mg PO QID PRN fluticasone propionate [Flonase Allergy Relief] 50 mcg/actuation spray,suspension 1 spray intranasal BID PRN (Reason: nasal congestion) Qty: 16 0RF Rx Instructions: administer into each nostril amoxicillin-pot clavulanate 875-125 mg tablet 1 tab PO BID 7 Days Qty: 14 0RF pantoprazole 40 mg tablet,delayed release (DR/EC) 40 mg PO BID Qty: 180 2RF lisinopril 2.5 mg tablet 2.5 mg PO DAILY Qty: 90 3RF aspirin 81 mg Tablet,Delayed Release (Dr/Ec) 81 mg PO DAILY Qty: 90 4RF Discharge Orders: Discharge ED (Routine); Ordered 04/26/25 Ordered By: Jhonathan Stoddard Referrals: Lakshmi Decker MD [Primary Care Provider, Family Practice] Discharge Diet: Usual diet Discharge Activity: Resume usual activity Patient Instructions: Opioid Safety, Pain Management, Patient Portal & Jennifer Instructions Activity Restrictions/Additional Instructions: Thank you for choosing [facility] for your healthcare needs today. It is very important that you follow up as instructed or that you return to the Emergency Department should you have concerns or if your condition changes or worsens in any way. You are seen in the emergency room with complaint of difficulty breathing when you lay down. There is no sign of heart failure there is no sign of pneumonia. Your flu COVID and RSV were negative your labs are otherwise unremarkable. I suspect a lot of your sensation is from postnasal drainage continue nasal spray add to steroids and follow-up with primary care doctor as needed Print Language: Yi Coding Level of Care Code ED Line Construction Supervisor for Roxie Dacosta
[2025-04-26 12:48] LABS: Hematocrit 44.6 % (37-53); Hemoglobin 14.80 g/dL (11.27-16.99); Mean Corpuscular HGB Conc 33.2 g/dL (30-55); Mean Corpuscular Hemoglobin 30.3 pg (27-33); Mean Corpuscular Volume 91.4 fl (82-101); Nucleated Red Blood Cells % 0 %; Platelet Count 148 10^3/cmm (157-399); Red Blood Count 4.88 10^6/uL (3.85-5.65); White Blood Count 5.42 10^3/uL (3.29-11.43)
[2025-04-26 12:59] LABS: Respiratory Syncytial Virus Ce NEGATIVE (Negative); SARS-CoV-2 PCR NEGATIVE (Negative)
[2025-04-26 13:17] LABS: Alanine Aminotransferase 25 U/L (0-41); Albumin Level 3.8 g/dL (3.5-5.2); Alkaline Phosphatase 87 U/L (40-130); Anion Gap 16.1 (5-19); Aspartate Amino Transferase 25 U/L (0-40); Blood Urea Nitrogen 22 mg/dL (8-23); Calcium 8.7 mg/dL (8.5-10.5); Carbon Dioxide 23 mmol/L (22-29); Chloride 103 mmol/L (98-107); Creatinine Clr Calc Pharmacy 61.5333; Globulin 2.9 g/dL (1.3-4.6); Glucose 130 mg/dL (65-115); NT Pro B Type Natriuretic Pept 315 pg/mL (0-450); Osmolality Calculated 291 mOsm/kg (285-295); Potassium 4.1 mmol/L (3.5-5.1); Sodium 138 mmol/L (136-145); Total Protein 6.7 g/dL (6.6-8.7)
[2025-04-26 14:40] VITALS: BP 105/56; PULSE 73; RESP 13; O2SAT 95
== END 2025-04-26 14:40 | disposition home or self-care (01) ==
PROVIDERS: Emergency Provider Family Medicine; PCP Family Medicine
DX: R09.82 Postnasal drip (principal); J02.9 Acute pharyngitis, unspecified; I25.10 Atherosclerotic heart disease of native coronary artery without angina pectoris; Z79.82 Long term (current) use of aspirin; Z11.52 Encounter for screening for COVID-19; I50.20 Unspecified systolic (congestive) heart failure; Z85.46 Personal history of malignant neoplasm of prostate; Z85.828 Personal history of other malignant neoplasm of skin
CPT/HCPCS: 71045; 80053; 83880; 85025; 86140; 87637; 93005; 93010; 99285

== ENCOUNTER 2025-05-14 11:12 | Emergency (ER) | payer OTHER, MEDICARE, SELFPAY ==
--- OUTSIDE RECORDS SUMMARY | 2013-01-08 06:55 | XMS_ITS | Continuity of Care Document ---
Author Organization [facility] Address [address] [id number] [address] Phone Care Team Providers Care Hourly Team Members Name Role Phone Unavailable Unavailable Unavailable Allergies, Adverse Reactions, Alerts Substance Reaction Status Criticality No Known Allergies Active No Inform ation Medications Medication Instructions Dosage Effective Dates (start - stop) Status Comments Multi-Raine 50 & Over tablet - Active Procedures Procedure Date DESTRUCT PREMALG LESION DESTRUCT PREMALG LES, 2-14 OFFICE/OUTPATIENT VISIT, [facility] Advance Directives Directive Yes / No Effective Date File Name Resuscitation Not Answered N/A N/A Life Support Not Answered N/A N/A Intubation Not Answered N/A N/A Antibiotics Not Answered N/A N/A IV Fluid Support Not Answered N/A N/A Tube Feed Not Answered N/A N/A Other Directive N/A N/A WARNING:The information contained in this section is historical and is provided for information only and does not constitute a legal document or any assurance that the information is still accurate. Please verify the information with the ruiz of the legal document before using it for clinical purposes. Encounters Encounter Description Practice Location Reason(s) For Visit Diagnoses Date Provider Providers Copied on Encounter [facility], [id number] [place], [place], [id number], [place] tel:[phone] Family Medicine F1 No Information 3 No Information OFFICE/OUTPAT IENT VISIT, [facility], [id number] [facility], [place], [place], [id number], [place] tel:[phone] Family Medicine F1 spot on nose (chief complaint) Neoplasm of uncertain behavior of skinActinic keratosis 3 No Information Family History Family Member Type Diagnosis Age At Onset No Information Payers Payer name Insurance type Covered democrat ID Authoriza tion(s) No Information Social History Type Description Quantity Date Captured Comments Alcohol Use Details Unknown Caffeine Use Details Tobacco Use Status No Information Smoking Status Never smoker Sex Male Chief Complaint And Reason For Visit No Information Reason For Referral Reason For Referral No Information Plan Of Treatment Date Type Action Status Referral Ordered: Referral: Dermatology. Evaluate and treat. Appointment date/timeframe: 01/23/2013 ordered History Of Present Illness Encounter Date Complaint History Of Prese nt Illness No Information Functional Status Date Functional Assessmen t No Information Instructions Date Instruction Additional Infor mation No Information Assessments Type Assessment Date No Information Patient Care Teams Name Effective Dates (start - stop) Status Members No Information
--- OUTSIDE RECORDS SUMMARY | 2025-04-22 04:00 | XMS_ITS | Encounter Summary ---
Author Name [facility] Organization [facility] [place] Address [address] [place] [address] Care Team Providers Care Budget Analyst Name Role Phone LAKSHMI DECKER Primary Care Provider Unavailabl e Insurance Providers: All historical and current Section Date Range: From patient's date of to the date document was created. This section includes the names of all active insurance providers for the patient. Insurance Provider Type of Coverage Plan Name Start of Policy Coverage End of Policy Coverage Group Number Member ID Insurance Provider's Telephone Number Policy Olsen's Name Patient's Relationship to Policy Olsen MEDICARE (WNR) MEDICARE (M) PART B Jun 23, 2014 PART B [id number] [phone] Nikki FISCHERY PATIENT MEDICARE (WNR) MEDICARE (M) PART A Jun 23, 2014 PART A [id number] Nikki FISCHER ERRY PATIENT MEDICARE (WNR) MEDICARE (M) PART A Jun 23, 2014 PART A [id number] Nikki FISCHER ERRY PATIENT MEDICARE (WNR) MEDICARE (M) PART B Jun 23, 2014 PART B [id number] [phone] Nikki FISCHERY PATIENT Selected Encounter This section includes the information on record at [place] for the Encounter. Date/Time Encounter Type Encounter Description Reason Provider Source Apr 22, 2025 09:00 AM Outpatient Encounter PRIMARY CARE/MEDICINE LAKSHMI DECKER IHE Encounter Template Text not used by CO Plan of Treatment: Future Appointments (+ 6 months) and Future Tests (+/- 45 days) The Plan of Treatment section includes future care activities for the patient from all [place] treatmentfacilities. This section includes future appointments and future orders which are active, pending or scheduled. Active, Pending, and Scheduled Orders This section includes a listing of several types of active, pending, and scheduled orders, including clinic medications orders, diagnostic test orders, procedure orders and consult orders; where the start date of the order is 45 days before the date of the Encounter or 45 days after the date of theEncounter. The data comes from all [place] treatment facilities. Test Date/Time Test Type Test Details Facility Name Apr 04, 2025 02:53 PM Consult [id number] Cons Mower Operator's Choice [facility] Lab Results: +/- 30 days of the encounter This section includes the Chemistry and Hematology Lab Results on record with CO for the patient. Radiology Reports and Pathology Reports are provided separately, in subsequent sections. Lab Results This section contains the Chemistry/Hematology Results that were resulted 30 days before or 30 daysafter the date of the Encounter. Date/Time Source Result Type Result - Unit Interpretation Reference Range Specimen Type Comment Apr 07, 2025 08:56 AM [facility] HGA1C BLOOD Specimen Type: BLOOD No comment entered. Ordering Provider: LAKSHMI DECKER Report Released Date/Time: Apr 17, 2024 10:37 AM Reporting Lab: [place] [facility] [address] [place] [address] Performing Lab: [place] [facility] [address] [place] [address] HGA1C 6.0 4.0-6.0 Apr 07, 2025 08:56 AM [facility] CHOLESTEROL PANEL (PB) PLASMA Specimen Type: P LASMA No comment entered. Ordering Provider: LAKSHMI DECKER Report Released Date/Time: Apr 17, 2024 10:37 AM Reporting Lab: [place] [facility] [address] [place] [address] Performing Lab: [place] [facility] [address] [place] [address] CHOLESTEROL 106 mg/dL 0-200 TRIGLYCERIDE 59 mg/dL 0-150 CALCULATED LDL 52.7 mg/dL HDL(New) 41.5 mg/dL H >40 HDL % OF TOTAL CHOLESTEROL (PB) 39.2 >25 Apr 07, 2025 08:56 AM [facility] TSH (MA-PB) SERUM Specimen Typ e: SERUM No comment entered. Ordering Provider: LAKSHMI DECKER Report Released Date/Time: Apr 17, 2024 10:37 AM Reporting Lab: [place] [facility] [address] [place] [address] Performing Lab: [place] [facility] [address] [place] [address] TSH 4.431 u[IU]/mL 0.47-5 Apr 07, 2025 08:56 AM [facility] PROST. SPECIFIC AG.(PB-STL) SERUM Specimen Ty pe: SERUM No comment entered. Ordering Provider: LAKSHMI DECKER Report Released Date/Time: Apr 17, 2024 10:37 AM Reporting Lab: [place] [facility] [address] [place] [address] Performing Lab: [place] [facility] [address] [place] [facility] PROST. SPECIFIC AG.(PB-STL) <0.10 ng/mL L 0-4 Apr 07, 2025 08:56 AM [facility] COMPREHENSIVE METABOLIC PANEL PLASMA Specimen Type: PLASMA No comment entered. Ordering Provider: LAKSHMI DECKER Report Released Date/Time: Apr 17, 2024 10:37 AM Reporting Lab: [place] [facility] [address] [place] [address] Performing Lab: [place] [facility] [address] [place] [facility] CREATININE 1.26 mg/dL 0.7-1.3 UREA NITROGEN 17 mg/dL 9-25 GLUCOSE 111 mg/dL H 72-99 SODIUM 143 meq/L 136-145 POTASSIUM 4.4 meq/L 3.5-5 CHLORIDE 108 meq/L H 98-107 CARBON DIOXIDE 29 meq/L 22-31 CALCIUM 8.9 mg/dL 8.4-10.4 PROTEIN 6.5 g/dL 6-8.6 ALBUMIN 3.9 g/dL 3.4-5 TOTAL BILIRUBIN 0.8 mg/dL 0.2-1.2 ALKALINE PHOSPHATASE 80 U/L 40-150 AST/SGOT 30 U/L 5-34 ALT/SGPT 30 U/L 8-40 EGFR (CKD-EPI 2020) 59 Apr 07, 2025 08:56 AM [facility] CBC BLOOD Specimen Type: BLOOD No comment entered. Ordering Provider: LAKSHMI DECKER Report Released Date/Time: Apr 17, 2024 10:37 AM Reporting Lab: [place] [facility] [address] [facility] [facility] [address] Performing Lab: [place] [facility] [address] [place] [facility] [address] WBC 5.3 10*3/uL 3.6-11.2 RBC 5.15 10*6/uL 4.10-5.70 HGB 15.5 g/dL 13.1-16.8 HCT 46.5 38.2-48.4 MCV 90.3 fL 80.0-100.0 MCH 30.1 pg 27.0-34.0 MCHC 33.3 g/dL 33.0-36.0 PLT 172 10*3/uL 150-400 MPV 9.1 fL 7.5-11.2 RDW 12.2 11.8-15.1 LYMPHOCYTES, AUTO % 27.0 MONOCYTES, AUTO % 9.4 NEUTROPHILS, AUTO % 55.8 EOSINOPHILS, AUTO % 6.8 BASOPHILS, AUTO % 0.8 LYMPHOCYTES, ABSOLUTE 1.43 10*3/uL 0.77- 4.50 MONOCYTES, ABSOLUTE 0.50 10*3/uL 0.19-0. 8 NEUTROPHILS, ABSOLUTE 2.96 10*3/uL 2.10- 8.00 EOSINOPHILS, ABSOLUTE 0.36 10*3/uL 0.00- 0.60 BASOPHILS, ABSOLUTE 0.04 10*3/uL 0.00-0. 20 IMMATURE GRANS, AUTO % 0.2 IMMATURE GRANS, AUTO ABS 0.01 10*3/uL 0. 00-0.05 Vital Signs: All taken on the encounter date This section contains inpatient and outpatient Vital Signs collected on the date of the Encounter. Date/Time Temperature Pulse Blood Pressure Respiratory Rate SP02 Pain Height Weight Body Mass Index Source Apr 22, 2025 09:10 AM 98.0 F 71 /min 122/77 mm[Hg] 18 /min 95 % 0 218.8 lb 32 [facility] Social History: Smoking Status (Most current) and Tobacco Use (All prior to encounter date) This section includes the most current, and the historical, smoking and tobacco- related health factors from the CO facility where the Encounter took place. Current Smoking Status This section includes the most current smoking, or tobacco-related health factor, from the CO facility where the Encounter took place. Date/Time Current Smoking Status Comment Facil ity Apr 17, 2024 10:00 AM VA-TOBACCO NEVER USED [facility] Tobacco Use History This section includes a history of the smoking, or tobacco-related health factors, that were collected on or before the date of the Encounter. The data comes from the [place] facility where the Encounter took place. Date/Time Smoking Status/Tobacco Use Comment F acility Apr 26, 2023 10:00 AM VA-TOBACCO NEVER USED [facility] February 25, 2022 11:00 AM VA-TOBACCO NEVER USED [facility] Jul 17, 2020 09:00 AM VA-TOBACCO NEVER USED [facility] Feb 03, 2017 08:53 AM LIFETIME NON-USER OF TOBACCO [facility] Advance Directives: All historical and current Section Date Range: From patient's date of to the date document was created. This section includes ALL of a patient's completed or amended VA Advance and Rescinded Directives. The entries below indicate that a directive exists for the patient, but an actual copy is not included with this document. The data comes from all [place] facilities. Date Advance Directives Provider Source Feb 08, 2017 ADVANCE DIRECTIVE [facility] Encounter Notes: All associated encounter notes This section contains the clinical notes associated to the Encounter. Date/Time Encounter Note(s) Provider Source Apr 22, 2025 09:21 AM PRIMARY CARE PROGR ESS NOTE: LOCAL TITLE: PRIMARY CARE CLINIC PROGRESS NOTE PB STANDARD TITLE: PRIMARY CARE PROGRESS NOTE DATE OF NOTE: APR 22, 2025@09:21 ENTRY DATE: APR 22, 2025@09:21:28 AUTHOR: LAKSHMI DECKER EXP COSIGNER: URGENCY: STATUS: COMPLETED SUBJECTIVE: AMADOTONO PARKER is a 74 years old MALE. HPI: Presents to the clinic today for a periodic health maintenance visit. Last seen September 30, 2024 He reports well no acute complaints. He did recently have some squamous cell cancer removed off of his nose and forehead and is still followed by dermatology. He does report at dyspnea on exertion which she has had for the last 3 years since his ND no recent change with that and is followed by cardiology. Non VA PCP: None Specialist: Dr. Howard, urologist Dr. Wagner, ophthalmology Dr. Gill, cardiology Dr. [facility], [place] FAMILY HX: Mother is , CVA, ?cancer? 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 JOB/DUTIES: [place] mate OVERSEAS STATIONS/DEPLOYMENTS: MAJOR ACCIDENTS OR INJURIES WHILE ON ACTIVE DUTY: SURGICAL HX: Prostatectomy cholecystectomy Appendectomy Bilateral cataracts Coronary stent LAD EGD/colonoscopy 03/2023 Problem List 1) HLD - Hyperlipidemia 2) Renal insufficiency 3) Vitamin D deficiency 4) Glaucoma 5) Prostate cancer 6) Urinary incontinence 7) GERD - Gastro-Esophageal Reflux Disease ([facility] [id number]) 8) CAD - Coronary Artery Disease ([facility] [id number]) 9) Hypertension 10) CHF - Congestive Heart Failure ([facility] [id number]) 11) Obstructive Sleep Apnea of Adult ([facility] [id number]) 12) Diverticulosis of sigmoid colon 13) Hematuria 14) Basal cell carcinoma of skin 15) Squamous cell carcinoma in situ of skin Active Outpatient Medications (including Supplies): Active Outpatient Medications Status 1) ATORVASTATIN CALCIUM 80MG TAB TAKE ONE TABLET BY MOUTH ONCE ACTIVE A DAY AT BEDTIME 3) LATANOPROST 0.005% OPH SOLN INSTILL 1 DROP IN BOTH EYES ACTIVE EVERY EVENING FOR GLAUCOMA. KEEP REFRIGERATED UNTIL READY TO USE, THEN STORE AT ROOM TEMPERATURE FOR MAXIMUM OF 42 DAYS. 4) LISINOPRIL 2.5MG TAB TAKE ONE TABLET BY MOUTH ONCE A DAY ACTIVE 5) PANTOPRAZOLE NA 40MG EC TAB TAKE ONE TABLET BY MOUTH EVERY ACTIVE MORNING BEFORE A MEAL TAKE 30 MINUTES BEFORE MEAL(S) Indication: FOR GASTROESOPHAGEAL REFLUX DISEASE Active Non-VA Medications Status 1) Non-VA ACETAMINOPHEN 325MG TAB 650MG BY MOUTH EVERY 6 HOURS ACTIVE NEEDED 2) Non-VA ASPIRIN 81MG EC TAB 81MG BY MOUTH ONCE A DAY ACTIVE 3) Non-VA MULTIVITAMIN/MINERAL ANTIOXIDANT CAP/TAB 1 CAP/TAB BY ACTIVE MOUTH ONCE A DAY 8 Total Medications Allergies: Patient has answered NKA Review of Systems: as per HPI and Systemic: Denies fatigue, fever, chills, or weight loss CV: Denies chest pain, palpitations Pulmonary: Denies hemoptysis, Shortness of breath, dyspnea on exertion GI: Denies constipation, bloody stools, diarrhea, indigestion, or n/v Ext: Denies any swelling Neuro: Denies slurred speech or dizziness Skin: Denies abnormal lesions; denies any new rashes PSYCH: Denies SI/HI; denies nightmares OBJECTIVE: Vital Signs Temperature: 98.0 F [36.7 C] (04/22/2025 09:10) Respiratory Rate: 18 (04/22/2025 09:10) Pulse Rate: 71 (04/22/2025 09:10) Blood Pressure: 122/77 (04/22/2025 09:10) HT: 69 in [175.3 cm] (09/30/2024 10:05) WT: 218.8 lb [99.25 kg] (04/22/2025 09:10) BMI: 32.4 95% (04/22/2025 09:10) Physical Exam General: NAD noted, A&Ox3, pleasant, appears stated age HEENT: NCAT, TM's clear, nares and oropharynx clear Neck: Supple with normal active ROM, without any lymphadenopathy Heart: RRR, no murmur, clicks, or rub Resp: Lungs CTA bilaterally, respirations even and unlabored Ext: No clubbing, cyanosis, edema or obvious deformity Skin: Warm, pink, and dry, no rashes Neuro: Grossly intact Psych: Affect normal, answers questions appropriately throughout visit A/P: ASSESSMENT and PLAN Health Maintenance: Labs reviewed with patient and printout given to patient. Discussed preventative health to include diet and exercise as well as immunizations. CAD/CHF-stable; followed by cardiology HTN- controlled with lisinopril Hyperlipidemia- controlled on atorvastatin Renal insufficiency- stable lab pending Vitamin D deficiency-no supplements currently Glaucoma- followed by ophthalmology Prostate cancer- s/p prostatectomy followed by urology Urinary incontinence/BPH- followed by urology Hiatal hernia with GERD- stable on pantoprazole Basal cell/Sqaumous cell cancer of skin- followed by dermatology Cervicalgia with occipital cephalgia- lloyd hudson wikrzysztof new pillow and matress. BRUCE mild with hypoxemia- HOB elevated avoiding any sedation Hematuria- followed by urology Gynecomastia- stable A1C slightly elevated at 6.0 discussed diet and increase activity as tolerates especially after eating to prevent further progression to diabetes Stable. Discussed medications with patient; med rec completed. Continue current regimen as prescribed by PCP and specialists. RTC as needed if developing any new or worsening symptoms. Please notify PACT with medication changes or for orders coordination as needed if seen by a specialist in the future. Will f/u with patient once updated labs / imaging / testing received; otherwise f/u as listed below. Follow-up: 12 months with fasting labs prior to appointment and/or as needed. Discussed with patient that in the event of community imaging / testing being ordered in the future, once the imaging / testing has been completed, please notify PACT of completion at outside facility if not called with results within 1 week by a VA PACT member; this is due to intermittent lapses in notification of imaging completion within [facility]. All questions answered; agrees to plan of care. Follow up as listed above, annually, and as needed. Keep all appointments. Medications Reconciled. See AVS given to . Time spent 30 minutes. /es/ Lakshmi Decker MD [facility] Primary Care Signed: 04/22/2025 09:36 LAKSHMI DECKER [facility] Apr 22, 2025 08:57 AM PRIMARY CARE ROMULO DAVIS NOTE: LOCAL TITLE: PRIMARY CARE NURSING PROGRESS NOTE (TEXT) NURSING P STANDARD TITLE: PRIMARY CARE NURSING NOTE DATE OF NOTE: APR 22, 2025@08:57 ENTRY DATE: APR 22, 2025@08:57:34 AUTHOR: QUIN ORTIZ COSIGNER: URGENCY: STATUS: COMPLETED PRIMARY CARE NURSING PROGRESS NOTE (TEXT) NURSING PB Has ADDENDA Established Patient TONO FISCHER IS A 74 YEAR OLD MALE BEING SEEN IN CLINIC APR 22, 2025. = = REASON FOR VISIT: The is in the clinic for his annual appointment. has no concerns today. Would like to lose weight is his only thing. Are you receiving care anywhere other than the VA? No HEALTH AND SURGICAL HISTORY: Does patient report using home oxygen? No CURRENT ACTIVE MEDICATIONS FOR REVIEW: If the list for review does not include a component, then it was not applicable to this patient. Allergies/ADRs (Tool #5) FACILITY ALLERGY/ADR -------- No Remote Allergy/ADR Data available for this patient [facility] No Known Allergies Med. Reconciliation (Tool #1) INCLUDED IN THIS LIST: Alphabetical list of active outpatient prescriptions dispensed from this VA (local) and dispensed from another CO or DoD facility (remote) as well as inpatient orders (local pending and active), local clinic medications, locally documented non-VA medications, and local prescriptions that have or been discontinued in the past 90 days. Non-VA Meds Last Documented On: Sep 13, 2022 NOTE The display of VA prescriptions dispensed from another CO or [facility] facility (remote) is limited to active outpatient prescription entries matched to National Drug File at the originating site and may not include some items such as investigational drugs, compounds, etc. NOT INCLUDED IN THIS LIST: Medications self-entered by the patient into personal health records (i.e. [employer]) are NOT included in this list. Non-VA medications documented outside this CO, remote inpatient orders (regardless of status) and remote clinic medications are NOT included in this list. The patient and provider must always discuss medications the patient is taking, regardless of where the medication was dispensed or obtained. Non-VA ACETAMINOPHEN 325MG TAB TAKE TWO TABLETS BY MOUTH EVERY 6 HOURS NEEDED Patient wants to buy from Non-VA pharmacy. Non-VA ASPIRIN 81MG EC TAB TAKE ONE TABLET BY MOUTH ONCE A DAY Patient wants to buy from Non-VA pharmacy. Medication prescribed by Non-VA provider. OUTPT ATORVASTATIN CALCIUM 80MG TAB (Status = Active) TAKE ONE TABLET BY MOUTH ONCE A DAY AT BEDTIME Rx# [id number] Last Released: 03/21/25 Qty/Days Supply: 90 Rx Expiration Date: 03/19/26 Refills Remainin OUTPT FAMOTIDINE 20MG TAB (Status = Active) TAKE ONE TABLET BY MOUTH TWICE A DAY FOR GASTROESOPHAGEAL REFLUX DISEASE Rx# [id number] Last Released: 12/05/24 Qty/Days Supply: 180/90 Rx Expiration Date: 11/28/25 Refills Remainin Indication: FOR GASTROESOPHAGEAL REFLUX DISEASE OUTPT LATANOPROST 0.005% OPH SOLN (Status = Active) INSTILL 1 DROP IN BOTH EYES EVERY EVENING FOR GLAUCOMA. KEEP REFRIGERATED UNTIL READY TO USE, THEN STORE AT ROOM TEMPERATURE FOR MAXIMUM OF 42 DAYS. Rx# [id number] Last Released: 01/08/25 Qty/Days Supply: 7.5/90 Rx Expiration Date: 01/03/26 Refills Remainin OUTPT LISINOPRIL 2.5MG TAB (Status = Active) TAKE ONE TABLET BY MOUTH ONCE A DAY Rx# [id number] Last Released: 03/06/25 Qty/Days Supply: Rx Expiration Date: 11/28/25 Refills Remainin Non-CO MULTIVITAMIN/MINERAL ANTIOXIDANT CAP/TAB TAKE 1 CAP/TAB BY MOUTH ONCE A DAY Patient wants to buy from Non-CO pharmacy. OUTPT PANTOPRAZOLE NA 40MG EC TAB (Status = Discontinued) TAKE ONE TABLET BY MOUTH EVERY MORNING BEFORE A MEAL FOR GASTROESOPHAGEAL REFLUX DISEASE TAKE 30 MINUTES BEFORE MEAL(S) Rx# [id number] Last Released: 11/28/24 Qty/Days Supply: Rx Expiration Date: 02/12/25 Refills Remainin Indication: FOR GASTROESOPHAGEAL REFLUX DISEASE OUTPT PANTOPRAZOLE NA 40MG EC TAB (Status = Active) TAKE ONE TABLET BY MOUTH EVERY MORNING BEFORE A MEAL FOR GASTROESOPHAGEAL REFLUX DISEASE TAKE 30 MINUTES BEFORE MEAL(S) Rx# [id number] Last Released: 03/05/25 Qty/Days Supply: Rx Expiration Date: 03/05/26 Refills Remainin Indication: FOR GASTROESOPHAGEAL REFLUX DISEASE SUPPLIES PHARMACY TERMS AND POSSIBLE PATIENT ACTIONS INPT = CO inpatient order IV = CO intravenous medication OUTPT = CO outpatient prescription PHARMACY POSSIBLE PATIENT TERMS EXPLANATION ACTIONS -------- ---- ACTIVE A prescription that can be If you have refills, filled at the local VA pharmacy. you may request a refill of this prescription from your VA pharmacy. CLINIC A medication you received during If you have questions a visit to a VA clinic or about this medication emergency department. contact your VA healthcare team. DISCONTINUED A prescription your provider has Contact your VA stopped. It is no longer healthcare team if you available to be sent to you or need more of this picked up at the VA pharmacy medication. window. A prescription which is too old Contact your VA to fill. This does not refer to healthcare team if you the expiration date of the need more of this medication in the container. medication. NON-VA A medication that came from If this medication someplace other than a VA information is pharmacy. This may be a incorrect or out of prescription from either the VA date, please tell your or non VA providers that was VA healthcare team. filled outside the VA. Or, it may be an dcly-gah-aimljdv (OTC), herbal, dietary supplements or sample medication. ON HOLD An active prescription that will Contact your VA not be filled until pharmacy pharmacy when you need resolves the issue. more of this medication. PARKED An active prescription that will Contact your VA not be filled until the patient pharmacy when you need requests it. this medication. PENDING This prescription order has been If you have been sent to the pharmacy for review instructed to start and is not ready yet. this medication now, contact your VA pharmacy. SUSPENDED An active prescription that is Contact your CO not scheduled to be filled yet. pharmacy if you need You should receive it before this medication now. you run out. Medication list reviewed with Patient Patient/Caregiver reports taking meds other than as directed/ordered: Pt reports he is no longer taking Famotidine IS PATIENT TAKING ANY OVER THE COUNTER MEDICATIONS, SUCH VITAMINS OR HERBAL SUPPLEMENTS, INCLUDING ANY MEDICATIONS PRESCRIBED BY ANOTHER PHYSICIAN? No Does patient have any new allergies to report since last visit? NO VITALS: TEMPERATURE: 97.9 F [36.6 C] (04/17/2024 10:23) BP: 119/77 (09/30/2024 10:05) RESP: 18 (09/30/2024 10:05) PULSE: 73 (09/30/2024 10:05) HT: 69 in [175.3 cm] (09/30/2024 10:05) WT: 219 lb [99.34 kg] (09/30/2024 10:05) BMI: 32.4 PAIN ASSESSMENT: (Most Recent Pain Score in Vitals Package: 0 (09/30/2024 10:05) ) The patient indicated that they and their close contacts have not traveled outside of the [place] in the past 21 days. The patient reports the following symptoms: No symptoms present The patient is not immunocompromised. The patient does not report having a history of Multi Drug Resistant Organism (MDRO) within the last five years. The patient does not report having been exposed to measles, chickenpox, or zoster in last 30 days. Patient reports no pain at this visit. Pain Score = 0. STRESS: Thank you for your service. Now let us serve you. At the [facility], we strive to provide you with exceptional health care that improves your health and well-being. Are you feeling sad, empty, or depressed? No Do you need to talk about things in your life that worry you or cause you stress? No Do you need to talk about personal problems, family problems, alcohol use, drug use, or mental or emotional illness? No SUICIDE SCREENING: The patient was asked, Over the past two weeks, how often have you been bothered by thoughts that you would be better off or of hurting yourself in some way? Not At All SPIRITUAL ASSESSMENT: Are there episcopal practices or spiritual concerns you want the workday consultant, your physician, and other health care team members to immediately know about? No Patient advised to call the clinic for any concerns, questions, or symptoms. Patient and/or caregiver verbalized understanding of plan of care. Suicide Screen - V: C-SSRS Screening [place] Suicide Severity Rating Scale (C-SSRS) screener 1. Over the past month, have you wished you were or wished you could go to sleep and not wake up? No 2. Over the past month, have you had any actual thoughts of killing yourself? No 3. Over the past month, have you been thinking about how you might do this? Response not required due to responses to other questions. 4. Over the past month, have you had these thoughts and had some intention of acting on them? Response not required due to responses to other questions. 5. Over the past month, have you started to work out or worked out the details of how to kill yourself? Response not required due to responses to other questions. 6. If yes, at any time in the past month did you intend to carry out this plan? Response not required due to responses to other questions. 7. In your lifetime, have you ever done anything, started to do anything, or prepared to do anything to end your life (for example, collected pills, obtained a gun, gave away valuables, went to the roof but didn't jump)? No 8. If YES, was this within the past 3 months? Response not required due to responses to other questions. Depression Screening - V: Perform PHQ-2 A PHQ-2 screen was performed. The score was 0 which is a negative screen for depression. Over the past two weeks, how often have you been bothered by the following problems? 1. Little interest or pleasure in doing things Not at all 2. Feeling down, depressed, or hopeless Not at all COVID-19 Immunization-L,N,P,PH,U: Refused Moderna Monovalent COVID-19 vaccine Immunization: COVID-19 (MODERNA), MRNA, LNP-S, PF, 50 MCG/0.5 ML (AGES 12+ YEARS) Refusal Reason: PATIENT DECISION Patient refuses all immunization(s) in the COVID-19 group Date Documented: 04/22/25 09:11 Alcohol Use Screen (AUDIT-C) - V: Alcohol Screen: SCREEN FOR ALCOHOL (AUDIT-C) An alcohol screening test (AUDIT-C) was negative (score=0). 1. How often did you have a drink containing alcohol in the past year? Consider a drink to be a 12 ounce can or bottle of regular beer, 8 ounces of malt liquor, a 5 ounce glass of table wine, or a 1.5 ounce shot of liquor (like scotch, gin, or vodka). Never 2. How many drinks containing alcohol did you have on a typical day when you were drinking in the past year? Response not required due to responses to other questions. 3. How often did you have six or more drinks on one occasion in the past year? Response not required due to responses to other questions. Tdap Immunization - L,N,P,PH,U: The patient declines to receive the recommended dose of Tdap vaccine. Immunization: TDAP Refusal Reason: PATIENT DECISION Patient refuses all immunization(s) in the TDAP group Comment: Educated the that if he were to get a deep cut or be in an accident he should make sure and get a tetanus shot at that time. The voiced understanding. Date Documented: 04/22/25 09:13 Pain Assessment: - PAIN ASSESSMENT: .. Patient reports no pain at this visit. Pain Score = 0. Patient's self identified pain goal: 0 Weight Control/Nutrition Counseling: * The patient received the following counseling at this encounter: Patient was encouraged to restrict fat, especially saturated fats, in a normal diet. Benefit of a diet high in fiber was discussed. Patient was advised to include 5 or more servings of fruit and vegetables and six or more servings of grains as a well balanced diet. Patient/Nurse Interview: * * Patient stated that adequate information was received regarding the condition and/or treatment. Comment: If you have any questions please call the clinic /dutch/ Quin Ortiz RN,LISET Jiménez Signed: 04/22/2025 09:17 04/22/2025 ADDENDUM STATUS: COMPLETED Per A Directive 1605.06, wristband documentation: Patient wristband was removed and destroyed by (staff name) Ronni Ortiz RN and placed in the designated [employer] bin. /dutch/ Quin Ortiz RN,LISET Jimnéez Signed: 04/22/2025 09:17 QUIN ORTIZ
--- OUTSIDE RECORDS SUMMARY | 2025-05-14 06:15 | XMS_ITS | Continuity of Care Document ---
Author Name [facility] Organization [facility] Care Team Providers Care Cap Blocker Name Role Phone [facility] Unavailable Unavailable Problems Combined list of problems from Department of Defense and Veterans Affairs facilities. It does not include entries that were removed or entered in error. Problem Status Onset Date Problem Type Date of Resolution Comments Source Basal cell carcinoma of skin Active Condition [place] [facility] CAD - Coronary Artery Disease ([facility] [id number]) Active Condition Sep 21, 2021 Entered By: DYAN JOAQUIN Comment: stent placement 08/2021 Dr. Johnathan [facility] CHF - Congestive Heart Failure ([facility] [id number]) Active Condition March 14, 2022 Entered By: DYAN JOAQUIN Comment: systolic; EF 40% echo 2021 Entered By: DYAN JOAQUIN Comment: echo 02/14/22 EF 35% [place] [facility] Diverticulosis of sigmoid colon Active Condition May 11, 2023 Entered By: DYAN JOAQUIN Comment: minimal on colonoscopy 03/2023 [place] [facility] GERD - Gastro-Esophageal Reflux Disease ([facility] [id number]) Active Condition May 11, 2023 Entered By: DYAN JOAQUIN Comment: med HH on EGD 03/2023 [place] [facility] Glaucoma Active Condition [place] [facility] Hematuria Active Condition March 20 Entered By: DYAN JOAQUIN Comment: Per cardiology note 12/13/23 on Plavix [place] [facility] HLD - Hyperlipidemia Active Condition [place] [facility] Hypertension Active Condition [place] [facility] Obstructive Sleep Apnea of Adult ([facility] [id number]) Active Condition Jun 17, 2022 Entered By: DYAN JOAQUIN Comment: mild, no CPAP; just supportive care with elevated HOB [place] [facility] Prostate cancer Active Condition [place] [facility] Renal insufficiency Active Condition [place] [facility] 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 Nov 01, 2024 Entered By: DYAN JOAQUIN Comment: several sites [place] [facility] Urinary incontinence Active Condition Dec 02, 2020 Entered By: DYAN JOAQUIN Comment: secondary from prostate surgery [place] [facility] Vitamin D deficiency Active Condition [place] [facility] Diagnosis: ICD-10-CM I25.10 Athscl heart disease of [place] coronary artery w/o ang pctrs Active Diagnosis [facility] Diagnosis: ICD-10-CM Z23 Encounter for immunization Active Diagnosis [facility] Diagnosis: ICD-10-CM Z71.89 Other specified counseling Active Diagnosis [facility] Diagnosis: ICD-10-CM Z46.1 Encounter for fitting and adjustment of hearing aid Active Diagnosis [place] [facility] Diagnosis: ICD-10-CM K21.9 Gastro-esophageal reflux disease without esophagitis Active Diagnosis [facility] Medications Combined list of outpatient medications [...] HOURS NEEDED ORAL ACTIVE ASAF FONTAINE 2018 [facility] ASPIRIN 81MG TAB,EC TAKE ONE TABLET BY MOUTH ONCE A DAY ORAL ACTIVE [facility]AN JO[facility]QUIN [facility] AT[facility] 40MG TAB TAKE TWO TABLETS BY MOUTH AT BEDTIME ORAL 01/02/2025 [id number] Thaddeus CHANCE USSAIN 2023 180 [place] [facility] ATORVASTATI N CA 80MG TAB TAKE ONE TABLET BY MOUTH ONCE A DAY AT BEDTIME ORAL ACTIVE 03/19/2026 [id number] VINCENT RODGERS MMAD F 2024 90 [place] [facility] CLOPIDOGREL BISULFATE 75MG TAB TAKE ONE TABLET BY MOUTH ONCE A DAY ORAL 12/05/2024 [id number] 4 Thaddeus CHANCE USSAIN 2023 90 [place] [facility] FAMOTIDINE 20MG TAB TAKE ONE TABLET BY MOUTH TWICE A DAY FOR GASTROES OPHAGEAL REFLUX DISEASE ORAL DISCONT INUED BY PROVIDE R 11/28/2025 [id number] [address] [facility] LATANOPROST 0.005% SOLN,OPH INSTILL 1 DROP IN BOTH EYES EVERY EVENING FOR GLAUCOMA . KEEP REFRIGER ATED UNTIL READY TO USE, THEN STORE AT ROOM TEMPERAT URE FOR MAXIMUM OF 42 DAYS. OPHTHA LMIC ACTIVE 01/03/2026 [id number] [facility] DYAN [address] [facility] LATANOPROST 0.005% SOLN,OPH INSTILL 1 DROP IN BOTH EYES EVERY EVENING FOR GLAUCOMA . KEEP REFRIGER ATED UNTIL READY TO USE, THEN STORE AT ROOM TEMPERAT URE FOR MAXIMUM OF 42 DAYS. OPHA [facility] DISCONT INUED 09/11/2024 [id number] JEMAL DYAN 2022 7.5 [facility] LISINOPRIL 2.5MG TAB TAKE ONE TABLET BY MOUTH ONCE A DAY ORAL ACTIVE 11/28/2025 [id number] Thaddeus CHANCE USSAIN 2024 90 [place] [facility] LISINOPRIL 2.5MG TAB TAKE ONE TABLET BY MOUTH ONCE A DAY ORAL DISCONT INUED 12/05/2024 [id number] Thaddeus CHANCE USSAIN 2023 90 [place] [facility] MULTIVITAMI N/MINERALS ANTIOXIDANT CAP/TAB TAKE 1 CAP/TAB BY MOUTH ONCE A DAY ORAL ACTIVE ASAF FONTAINE R 2018 [facility] PANTOPRAZOL E NA 40MG TAB,EC TAKE ONE TABLET BY MOUTH EVERY MORNING BEFORE A MEAL FOR GASTROES OPHAGEAL REFLUX DISEASE TAKE 30 MINUTES BEFORE MEAL(S) ORAL ACTIVE 03/05/2026 [id number] 5 JEMALDYAN OLMEDO [address] [facility] PANTOPRAZOL E NA 40MG TAB,EC TAKE ONE TABLET BY MOUTH EVERY MORNING BEFORE A MEAL FOR GASTROES OPHAGEAL REFLUX DISEASE TAKE 30 MINUTES BEFORE MEAL(S) ORAL DISCONT INROBERTO 02/12/2025 [id number] 5 DYAN JOAQUIN 2023 90 [facility] Immunizations Combined list of available immunizations from the Department of Defense and Veterans Affairs facilities. Immunization Series Date Given Administered By Site Reaction Lot Number CVX Code Drug Payroll Human Resources Assistant Status Comments Source INFLUENZA, HIGH-DOSE, TRIVALENT, PF 2023 JASON CHEN R RIGHT DELTO ID [id number] 135 complet ed [facility] ZOSTER RECOMBINANT 2 2022 JABARI HOLLIS LEFT DELTO ID [id number] 187 complet ed [facility] COVID-19 (MODERNA), MRNA, LNP-S, PF, 50 MCG/0.5 ML (AGES 12+ YEARS) 1 2022 ENEIDA PRIDE D LEFT DELTO ID [id number] 312 complet ed [facility] INFLUENZA, HIGH-DOSE, QUADRIVALENT 2022 ADARSH NEELY RIGHT DELTO ID [id number] 197 complet ed [facility] ZOSTER RECOMBINANT 1 2022 JASON CHEN R LEFT DELTO ID [id number] 187 complet ed [facility] PNEUMOCOCCAL CONJUGATE PCV20, POLYSACCHARID E [id number] CONJUGATE, ADJUVANT, PF 2021 TA ARAGON RIGHT DELTO ID [id number] 216 complet ed [facility] COVID-19 (MODERNA), MRNA, LNP-S, BIVALENT BOOSTER, PF, 50 MCG/0.5 ML OR 25MCG/0.25 ML DOSE 1 2021 229 complet ed MOD; [id number]; 3 [facility] INFLUENZA VACCINE, QUADRIVALENT, ADJUVANTED 2021 205 complet ed [facility] COVID-19 (MODERNA), MRNA, LNP-S, PF, 100 MCG/0.5ML DOSE OR 50 MCG/0.25ML DOSE 3 2021 207 complet ed HISTORICA L INFORMATI ON - FROM OTHER PROVIDER, [facility] INFLUENZA, INJECTABLE, QUADRIVALENT, PRESERVATIVE FREE 2020 150 complet ed [facility] PNEUMOCOCCAL POLYSACCHARID E [id number] 2020 33 complet ed [facility] COVID-19 (MODERNA), MRNA, LNP-S, PF, 100 MCG/0.5ML DOSE OR 50 MCG/0.25ML DOSE 2 2020 207 complet ed HISTORICA L INFORMATI ON - FROM OTHER PROVIDER, [facility] COVID-19 (MODERNA), MRNA, LNP-S, PF, 100 MCG/0.5ML DOSE OR 50 MCG/0.25ML DOSE 2 2020 207 complet ed HISTORICA L INFORMATI ON - FROM OTHER REGISTRY, [facility] COVID-19 (MODERNA), MRNA, LNP-S, PF, 100 MCG/0.5ML DOSE OR 50 MCG/0.25ML DOSE 1 2020 207 complet ed [facility] INFLUENZA, INJECTABLE, QUADRIVALENT, PRESERVATIVE FREE 2019 150 complet ed [facility] Results Combined list of recent chemistry, hematology and other laboratory results from Department of Defense and Veterans Affairs, ranging from 15 months to all on record, depending upon the facility. Order Name Results Value Reference Range Date Interpretation Specimen Comments Source COMPREHENSI VE METABOLIC PANEL CREATININE [MASS/VOLUME] IN SERUM OR PLASMA 1.26 mg/dL 0.7 - 1.3 04/07 Specimen Type: PLASMA No comment entered. Ordering Provider: DYAN JOAQUIN Report Released Date/Time : Apr 17, 2024 10:37 AM Reporting Lab: [place] [facility] [address] [place] [address] Performin g Lab: [place] [facility] [address] [place] [address] [facility] COMPREHENSI VE METABOLIC PANEL UREA NITROGEN [MASS/VOLUME] IN SERUM OR PLASMA 17 mg/dL 9 - 25 04/07 Specimen Type: PLASMA No comment entered. Ordering Provider: DYAN JOAQUIN Report Released Date/Time : Apr 17, 2024 10:37 AM Reporting Lab: [place] [facility] [address] [place] [address] Performin g Lab: [place] [facility] [address] [place] [address] 8 [facility] COMPREHENSI VE METABOLIC PANEL GLUCOSE [MASS/VOLUME] IN SERUM OR PLASMA 111 mg/dL 72 - 99 04/07 H Specimen Type: PLASMA No comment entered. Ordering Provider: DYAN JOAQUIN Report Released Date/Time : Apr 17, 2024 10:37 AM Reporting Lab: [place] [facility] [address] [place] [address] Performin g Lab: [place] [facility] [address] [place] [address] [facility] COMPREHENSI VE METABOLIC PANEL SODIUM [MOLES/VOLUME ] IN SERUM OR PLASMA 143 meq/L 136 - 145 04/07 Specimen Type: PLASMA No comment entered. Ordering Provider: DYAN JOAQUIN Report Released Date/Time : Apr 17, 2024 10:37 AM Reporting Lab: [place] [facility] [address] [place] [address] Performin g Lab: [place] [facility] [address] [place] [address] [facility] COMPREHENSI VE METABOLIC PANEL POTASSIUM [MOLES/VOLUME ] IN SERUM OR PLASMA 4.4 meq/L 3.5 - 5 04/07 Specimen Type: PLASMA No comment entered. Ordering Provider: DYAN JOAQUIN Report Released Date/Time : Apr 17, 2024 10:37 AM Reporting Lab: [place] [facility] [address] [place] [address] Performin g Lab: [place] [facility] [address] [place] [address] [facility] COMPREHENSI VE METABOLIC PANEL CHLORIDE [MOLES/VOLUME ] IN SERUM OR PLASMA 108 meq/L 98 - 107 04/07 H Specimen Type: PLASMA No comment entered. Ordering Provider: DYAN JOAQUIN Report Released Date/Time : Apr 17, 2024 10:37 AM Reporting Lab: [place] [facility] [address] [place] [address] Performin g Lab: [place] [facility] [address] [place] [address] [facility] COMPREHENSI VE METABOLIC PANEL CARBON DIOXIDE, TOTAL [MOLES/VOLUME ] IN SERUM OR PLASMA 29 meq/L 22 - 31 04/07 Specimen Type: PLASMA No comment entered. Ordering Provider: DYAN JOAQUIN Report Released Date/Time : Apr 17, 2024 10:37 AM Reporting Lab: [place] [facility] [address] [place] [address] Performin g Lab: [place] [facility] [address] [place] [address] [facility] COMPREHENSI VE METABOLIC PANEL CALCIUM [MASS/VOLUME] IN SERUM OR PLASMA 8.9 mg/dL 8.4 - 10.4 04/07 Specimen Type: PLASMA No comment entered. Ordering Provider: DYAN JOAQUIN Report Released Date/Time : Apr 17, 2024 10:37 AM Reporting Lab: [place] [facility] [address] [place] [address] Performin g Lab: [place] [facility] [address] [place] [address] [facility] COMPREHENSI VE METABOLIC PANEL PROTEIN [MASS/VOLUME] IN SERUM OR PLASMA 6.5 g/dL 6 - 8.6 04/07 Specimen Type: PLASMA No comment entered. Ordering Provider: DYAN JOAQUIN Report Released Date/Time : Apr 17, 2024 10:37 AM Reporting Lab: [place] [facility] [address] [place] [address] Performin g Lab: [place] [facility] [address] [place] [address] [facility] COMPREHENSI VE METABOLIC PANEL ALBUMIN [MASS/VOLUME] IN SERUM OR PLASMA 3.9 g/dL 3.4 - 5 04/07 Specimen Type: PLASMA No comment entered. Ordering Provider: DYAN JOAQUIN Report Released Date/Time : Apr 17, 2024 10:37 AM Reporting Lab: [place] [facility] [address] [place] [address] Performin g Lab: [place] [facility] [address] [place] [address] [facility] COMPREHENSI VE METABOLIC PANEL BILIRUBIN.TOT AL [MASS/VOLUME] IN SERUM OR PLASMA 0.8 mg/dL 0.2 - 1.2 04/07 Specimen Type: PLASMA No comment entered. Ordering Provider: DYAN JOAQUIN Report Released Date/Time : Apr 17, 2024 10:37 AM Reporting Lab: [place] [facility] [address] [place] [address] Performin g Lab: [place] [facility] [address] [place] [address] [facility] COMPREHENSI VE METABOLIC PANEL ALKALINE PHOSPHATASE [ENZYMATIC ACTIVITY/VOLU ME] IN SERUM OR PLASMA 80 U/L 40 - 150 04/07 Specimen Type: PLASMA No comment entered. Ordering Provider: DYAN JOAQUIN Report Released Date/Time : Apr 17, 2024 10:37 AM Reporting Lab: [place] [facility] [address] [place] [address] Performin g Lab: [place] [facility] [address] [place] [address] [facility] COMPREHENSI VE METABOLIC PANEL ASPARTATE AMINOTRANSFER ASE [ENZYMATIC ACTIVITY/VOLU ME] IN SERUM OR PLASMA 30 U/L 5 - 34 04/07 Specimen Type: PLASMA No comment entered. Ordering Provider: DYAN JOAQUIN Report Released Date/Time : Apr 17, 2024 10:37 AM Reporting Lab: [place] [facility] [address] [place] [address] Performin g Lab: [place] [facility] [address] [place] [address] [facility] COMPREHENSI VE METABOLIC PANEL ALANINE AMINOTRANSFER ASE [ENZYMATIC ACTIVITY/VOLU ME] IN SERUM OR PLASMA 30 U/L 8 - 40 04/07 Specimen Type: PLASMA No comment entered. Ordering Provider: DYAN JOAQUIN Report Released Date/Time : Apr 17, 2024 10:37 AM Reporting Lab: [place] [facility] [address] [place] [address] Performin g Lab: [place] [facility] [address] [place] [address] [facility] COMPREHENSI VE METABOLIC PANEL GLOMERULAR FILTRATION RATE/1.73 SQ M.PREDICTED [VOLUME RATE/AREA] IN SERUM, PLASMA OR BLOOD BY CREATININE-BA SED FORMULA (CKD-EPI 2020) 59 04/07 Specimen Type: PLASMA No comment entered. Ordering Provider: DYAN JOAQUIN Report Released Date/Time : Apr 17, 2024 10:37 AM Reporting Lab: [place] [facility] [address] [place] [address] Performin g Lab: [place] [facility] [address] [place] [address] [facility] CBC LEUKOCYTES [#/VOLUME] IN BLOOD BY AUTOMATED COUNT 5.3 10*3/u L 3.6 - 11.2 04/07 Specimen Type: BLOOD No comment entered. Ordering Provider: DYAN JOAQUIN Report Released Date/Time : Apr 17, 2024 10:37 AM Reporting Lab: [place] [facility] [address] [place] [address] Performin g Lab: [place] [facility] [address] [place] [address] [facility] CBC ERYTHROCYTES [#/VOLUME] IN BLOOD BY AUTOMATED COUNT 5.15 10*6/u L 4.10 - 5.70 04/07 Specimen Type: BLOOD No comment entered. Ordering Provider: DYAN JOAQUIN Report Released Date/Time : Apr 17, 2024 10:37 AM Reporting Lab: [place] [facility] [address] [place] [address] Performin g Lab: [place] [facility] [address] [place] [address] [facility] CBC HEMOGLOBIN [MASS/VOLUME] IN BLOOD 15.5 g/dL 13.1 - 16.8 04/07 Specimen Type: BLOOD No comment entered. Ordering Provider: DYAN JOAQUIN Report Released Date/Time : Apr 17, 2024 10:37 AM Reporting Lab: [place] [facility] [address] [place] [address] Performin g Lab: [place] [facility] [address] [place] [address] [facility] CBC HEMATOCRIT [VOLUME FRACTION] OF BLOOD 46.5 38.2 - 48.4 04/07 Specimen Type: BLOOD No comment entered. Ordering Provider: DYAN JOAQUIN Report Released Date/Time : Apr 17, 2024 10:37 AM Reporting Lab: [place] [facility] [address] [place] [address] Performin g Lab: [place] [facility] [address] [place] [address] [facility] CBC MCV [ENTITIC VOLUME] BY AUTOMATED COUNT 90.3 fL 80.0 - 100.0 04/07 Specimen Type: BLOOD No comment entered. Ordering Provider: DYAN JOAQUIN Report Released Date/Time : Apr 17, 2024 10:37 AM Reporting Lab: [place] [facility] [address] [place] [address] Performin g Lab: [place] [facility] [address] [place] [address] [facility] CBC MCH [ENTITIC MASS] BY AUTOMATED COUNT 30.1 pg 27.0 - 34.0 04/07 Specimen Type: BLOOD No comment entered. Ordering Provider: DYAN JOAQUIN Report Released Date/Time : Apr 17, 2024 10:37 AM Reporting Lab: [place] [facility] [address] [place] [address] Performin g Lab: [place] [facility] [address] [place] [address] [facility] CBC MCHC [MASS/VOLUME] BY AUTOMATED COUNT 33.3 g/dL 33.0 - 36.0 04/07 Specimen Type: BLOOD No comment entered. Ordering Provider: DYAN JOAQUIN Report Released Date/Time : Apr 17, 2024 10:37 AM Reporting Lab: [place] [facility] [address] [place] [address] Performin g Lab: [place] [facility] [address] [place] [address] [facility] CBC PLATELETS [#/VOLUME] IN BLOOD BY AUTOMATED COUNT 172 10*3/u L 150 - 400 04/07 Specimen Type: BLOOD No comment entered. Ordering Provider: DYAN JOAQUIN Report Released Date/Time : Apr 17, 2024 10:37 AM Reporting Lab: [place] [facility] [address] [place] [address] Performin g Lab: [place] [facility] [address] [place] [address] [facility] CBC PLATELET MEAN VOLUME [ENTITIC VOLUME] IN BLOOD BY AUTOMATED COUNT 9.1 fL 7.5 - 11.2 04/07 Specimen Type: BLOOD No comment entered. Ordering Provider: DYAN JOAQUIN Report Released Date/Time : Apr 17, 2024 10:37 AM Reporting Lab: [place] [facility] [address] [place] [address] Performin g Lab: [place] [facility] [address] [place] [address] [facility] CBC ERYTHROCYTE DISTRIBUTION WIDTH [RATIO] BY AUTOMATED COUNT 12.2 11.8 - 15.1 04/07 Specimen Type: BLOOD No comment entered. Ordering Provider: DYAN JOAQUIN Report Released Date/Time : Apr 17, 2024 10:37 AM Reporting Lab: [place] [facility] [address] [place] [address] Performin g Lab: [place] [facility] [address] [place] [address] [facility] CBC LYMPHOCYTES/1 00 LEUKOCYTES IN BLOOD BY AUTOMATED COUNT 27.0 04/07 Specimen Type: BLOOD No comment entered. Ordering Provider: DYAN JOAQUIN Report Released Date/Time : Apr 17, 2024 10:37 AM Reporting Lab: [place] [facility] [address] [place] [address] Performin g Lab: [place] [facility] [address] [place] [address] [facility] CBC MONOCYTES/100 LEUKOCYTES IN BLOOD BY AUTOMATED COUNT 9.4 04/07 Specimen Type: BLOOD No comment entered. Ordering Provider: DYAN JOAQUIN Report Released Date/Time : Apr 17, 2024 10:37 AM Reporting Lab: [place] [facility] [address] [place] [address] Performin g Lab: [place] [facility] [address] [place] [address] [facility] CBC NEUTROPHILS/1 00 LEUKOCYTES IN BLOOD BY AUTOMATED COUNT 55.8 04/07 Specimen Type: BLOOD No comment entered. Ordering Provider: DYAN JOAQUIN Report Released Date/Time : Apr 17, 2024 10:37 AM Reporting Lab: [place] [facility] [address] [place] [address] Performin g Lab: [place] [facility] [address] [place] [address] [facility] CBC EOSINOPHILS/1 00 LEUKOCYTES IN BLOOD BY AUTOMATED COUNT 6.8 04/07 Specimen Type: BLOOD No comment entered. Ordering Provider: DYAN JOAQUIN Report Released Date/Time : Apr 17, 2024 10:37 AM Reporting Lab: [place] [facility] [address] [place] [address] Performin g Lab: [place] [facility] [address] [place] [address] [facility] CBC BASOPHILS/100 LEUKOCYTES IN BLOOD BY AUTOMATED COUNT 0.8 04/07 Specimen Type: BLOOD No comment entered. Ordering Provider: DYAN JOAQUIN Report Released Date/Time : Apr 17, 2024 10:37 AM Reporting Lab: [place] [facility] [address] [place] [address] Performin g Lab: [place] [facility] [address] [place] [address] [facility] CBC LYMPHOCYTES [#/VOLUME] IN BLOOD BY AUTOMATED COUNT 1.43 10*3/u L 0.77 - 4.50 04/07 Specimen Type: BLOOD No comment entered. Ordering Provider: DYAN JOAQIUN Report Released Date/Time : Apr 17, 2024 10:37 AM Reporting Lab: [place] [facility] [address] [place] [address] Performin g Lab: [place] [facility] [address] [place] [address] [facility] CBC MONOCYTES [#/VOLUME] IN BLOOD BY AUTOMATED COUNT 0.50 10*3/u L 0.19 - 0.8 04/07 Specimen Type: BLOOD No comment entered. Ordering Provider: DYAN JOAQUIN Report Released Date/Time : Apr 17, 2024 10:37 AM Reporting Lab: [place] [facility] [address] [place] [address] Performin g Lab: [place] [facility] [address] [place] [address] [facility] CBC NEUTROPHILS [#/VOLUME] IN BLOOD BY AUTOMATED COUNT 2.96 10*3/u L 2.10 - 8.00 04/07 Specimen Type: BLOOD No comment entered. Ordering Provider: DYAN JOAQUIN Report Released Date/Time : Apr 17, 2024 10:37 AM Reporting Lab: [place] [facility] [address] [place] [address] Performin g Lab: [place] [facility] [address] [place] [address] [facility] CBC EOSINOPHILS [#/VOLUME] IN BLOOD BY AUTOMATED COUNT 0.36 10*3/u L 0.00 - 0.60 04/07 Specimen Type: BLOOD No comment entered. Ordering Provider: DYAN JOAQUIN Report Released Date/Time : Apr 17, 2024 10:37 AM Reporting Lab: [place] [facility] [facility] [address] [place] [address] 8 Performin g Lab: [place] [facility] [address] [place] [address] 8 [facility] CBC BASOPHILS [#/VOLUME] IN BLOOD BY AUTOMATED COUNT 0.04 10*3/u L 0.00 - 0.20 04/07 Specimen Type: BLOOD No comment entered. Ordering Provider: DYAN JOAQUIN Report Released Date/Time : Apr 17, 2024 10:37 AM Reporting Lab: [place] [facility] [address] [place] [address] 8 Performin g Lab: [place] [facility] [address] [place] [address] 8 [facility] CBC IMMATURE GRANULOCYTES/ 100 LEUKOCYTES IN BLOOD BY AUTOMATED COUNT 0.2 04/07 Specimen Type: BLOOD No comment entered. Ordering Provider: DYAN JOAQUIN Report Released Date/Time : Apr 17, 2024 10:37 AM Reporting Lab: [place] [facility] [address] [place] [address] 8 Performin g Lab: [place] [facility] [address] [place] [address] 8 [facility] CBC IMMATURE GRANULOCYTES [#/VOLUME] IN BLOOD BY AUTOMATED COUNT 0.01 10*3/u L 0.00 - 0.05 04/07 Specimen Type: BLOOD No comment entered. Ordering Provider: DYAN JOAQUIN Report Released Date/Time : Apr 17, 2024 10:37 AM Reporting Lab: [place] [facility] [address] [place] [address] 8 Performin g Lab: [place] [facility] [address] [place] [address] 8 [facility] HGA1C HEMOGLOBIN A1C/HEMOGLOBI N.TOTAL IN BLOOD 6.0 4.0 - 6.0 04/07 Specimen Type: BLOOD No comment entered. Ordering Provider: DYAN JOAQUIN Report Released Date/Time : Apr 17, 2024 10:37 AM Reporting Lab: [place] [facility] [address] [place] [address] 8 Performin g Lab: [place] [facility] [address] [place] [address] 8 [facility] TSH (MA-PB) THYROTROPIN [UNITS/VOLUME ] IN SERUM OR PLASMA 4.431 u[IU]/ mL 0.47 - 5 04/07 Specimen Type: SERUM No comment entered. Ordering Provider: DYAN JOAQUIN Report Released Date/Time : Apr 17, 2024 10:37 AM Reporting Lab: [place] [facility] [address] [place] [address] 8 Performin g Lab: [place] [facility] [address] [place] [address] 8 [facility] CHOLESTEROL PANEL (PB) CHOLESTEROL [MASS/VOLUME] IN SERUM OR PLASMA 106 mg/dL 0 - 200 04/07 Specimen Type: PLASMA No comment entered. Ordering Provider: DYAN JOAQUIN Report Released Date/Time : Apr 17, 2024 10:37 AM Reporting Lab: [place] [facility] [address] [place] [address] 8 Performin g Lab: [place] [facility] [address] [place] [address] 8 [facility] CHOLESTEROL PANEL (PB) TRIGLYCERIDE [MASS/VOLUME] IN SERUM OR PLASMA 59 mg/dL 0 - 150 04/07 Specimen Type: PLASMA No comment entered. Ordering Provider: DYAN JOAQUIN Report Released Date/Time : Apr 17, 2024 10:37 AM Reporting Lab: [place] [facility] [address] [place] [address] 8 Performin g Lab: [place] [facility] [address] [place] [address] 8 [facility] CHOLESTEROL PANEL (PB) CHOLESTEROL IN LDL [MASS/VOLUME] IN SERUM OR PLASMA BY CALCULATION 52.7 mg/dL 04/07 Specimen Type: PLASMA No comment entered. Ordering Provider: DYAN JOAQUIN Report Released Date/Time : Apr 17, 2024 10:37 AM Reporting Lab: [place] [facility] [address] [place] [address] 8 Performin g Lab: [place] [facility] [address] [place] [address] 8 [facility] CHOLESTEROL PANEL (PB) CHOLESTEROL IN HDL [MASS/VOLUME] IN SERUM OR PLASMA 41.5 mg/dL 40 04/07 H Specimen Type: PLASMA No comment entered. Ordering Provider: DYAN JOAQUIN Report Released Date/Time : Apr 17, 2024 10:37 AM Reporting Lab: [place] [facility] [address] [place] [address] 8 Performin g Lab: [place] [facility] [address] [place] [address] 8 [facility] CHOLESTEROL PANEL (PB) CHOLESTEROL IN HDL/CHOLESTER OL.TOTAL [MASS RATIO] IN SERUM OR PLASMA 39.2 25 04/07 Specimen Type: PLASMA No comment entered. Ordering Provider: DYAN JOAQUIN Report Released Date/Time : Apr 17, 2024 10:37 AM Reporting Lab: [place] [facility] [address] [place] [address] 8 Performin g Lab: [place] [facility] [address] [place] [address] 8 [facility] PROST. SPECIFIC AG.(PB-STL) PROSTATE SPECIFIC AG [MASS/VOLUME] IN SERUM OR PLASMA <0.10n g/mL 0 - 4 04/07 L Specimen Type: SERUM No comment entered. Ordering Provider: DYAN JOAQUIN Report Released Date/Time : Apr 17, 2024 10:37 AM Reporting Lab: [place] [facility] [address] [place] [address] 8 Performin g Lab: [place] [facility] [address] [place] [address] 8 [facility] HGA1C HEMOGLOBIN A1C/HEMOGLOBI N.TOTAL IN BLOOD 5.7 4.0 - 6.0 04/11 Specimen Type: BLOOD No comment entered. Ordering Provider: DYAN JOAQUIN Report Released Date/Time : Dec 12, 2023 10:00 AM Reporting Lab: [place] [facility] [address] [place] [address] 8 Performin g Lab: [place] [facility] [address] [place] [address] 8 [facility] CBC LEUKOCYTES [#/VOLUME] IN BLOOD BY AUTOMATED COUNT 4.3 10*3/u L 3.6 - 11.2 04/11 Specimen Type: BLOOD No comment entered. Ordering Provider: DYAN JOAQUIN Report Released Date/Time : Dec 12, 2023 10:00 AM Reporting Lab: [place] [facility] [address] [place] [address] 8 Performin g Lab: [place] [facility] [address] [place] [address] 8 [facility] CBC ERYTHROCYTES [#/VOLUME] IN BLOOD BY AUTOMATED COUNT 4.70 10*6/u L 4.10 - 5.70 04/11 Specimen Type: BLOOD No comment entered. Ordering Provider: DYAN JOAQUIN Report Released Date/Time : Dec 12, 2023 10:00 AM Reporting Lab: [place] [facility] [address] [place] [address] 8 Performin g Lab: [place] [facility] [address] [place] [address] 8 [facility] CBC HEMOGLOBIN [MASS/VOLUME] IN BLOOD 14.4 g/dL 13.1 - 16.8 04/11 Specimen Type: BLOOD No comment entered. Ordering Provider: DYAN JOAQUIN Report Released Date/Time : Dec 12, 2023 10:00 AM Reporting Lab: [place] [facility] [address] [place] [address] 8 Performin g Lab: [place] [facility] [address] [place] [address] 8 [facility] CBC HEMATOCRIT [VOLUME FRACTION] OF BLOOD 42.5 38.2 - 48.4 04/11 Specimen Type: BLOOD No comment entered. Ordering Provider: DYAN JOAQUIN Report Released Date/Time : Dec 12, 2023 10:00 AM Reporting Lab: [place] [facility] [address] [place] [address] 8 Performin g Lab: [place] [facility] [address] [place] [address] 8 [facility] CBC MCV [ENTITIC VOLUME] BY AUTOMATED COUNT 90.4 fL 80.0 - 100.0 04/11 Specimen Type: BLOOD No comment entered. Ordering Provider: DYAN JOAQUIN Report Released Date/Time : Dec 12, 2023 10:00 AM Reporting Lab: [place] [facility] [address] [place] [address] 8 Performin g Lab: [place] [facility] [address] [place] [address] 8 [facility] CBC MCH [ENTITIC MASS] BY AUTOMATED COUNT 30.6 pg 27.0 - 34.0 04/11 Specimen Type: BLOOD No comment entered. Ordering Provider: DYAN JOAQUIN Report Released Date/Time : Dec 12, 2023 10:00 AM Reporting Lab: [place] [facility] [address] [place] [address] 8 Performin g Lab: [place] [facility] [address] [place] [address] 8 [facility] CBC MCHC [MASS/VOLUME] BY AUTOMATED COUNT 33.9 g/dL 33.0 - 36.0 04/11 Specimen Type: BLOOD No comment entered. Ordering Provider: DYAN JOAQUIN Report Released Date/Time : Dec 12, 2023 10:00 AM Reporting Lab: [place] [facility] [address] [place] [address] 8 Performin g Lab: [place] [facility] [address] [place] [address] 8 [facility] CBC PLATELETS [#/VOLUME] IN BLOOD BY AUTOMATED COUNT 173 10*3/u L 150 - 400 04/11 Specimen Type: BLOOD No comment entered. Ordering Provider: DYAN JOAQUIN Report Released Date/Time : Dec 12, 2023 10:00 AM Reporting Lab: [place] [facility] [address] [place] [address] 8 Performin g Lab: [place] [facility] [address] [place] [address] 8 [facility] CBC PLATELET MEAN VOLUME [ENTITIC VOLUME] IN BLOOD BY AUTOMATED COUNT 9.1 fL 7.5 - 11.2 04/11 Specimen Type: BLOOD No comment entered. Ordering Provider: DYAN JOAQUIN Report Released Date/Time : Dec 12, 2023 10:00 AM Reporting Lab: [place] [facility] [address] [place] [address] 8 Performin g Lab: [place] [facility] [address] [place] [address] 8 [facility] CBC ERYTHROCYTE DISTRIBUTION WIDTH [RATIO] BY AUTOMATED COUNT 12.1 11.8 - 15.1 04/11 Specimen Type: BLOOD No comment entered. Ordering Provider: DYAN JOAQUIN Report Released Date/Time : Dec 12, 2023 10:00 AM Reporting Lab: [place] [facility] [address] [place] [address] 8 Performin g Lab: [place] [facility] [address] [place] [address] 8 [facility] CBC LYMPHOCYTES/1 00 LEUKOCYTES IN BLOOD BY AUTOMATED COUNT 29.0 04/11 Specimen Type: BLOOD No comment entered. Ordering Provider: DYAN JOAQUIN Report Released Date/Time : Dec 12, 2023 10:00 AM Reporting Lab: [place] [facility] [address] [place] [address] 8 Performin g Lab: [place] [facility] [address] [place] [address] 8 [facility] CBC MONOCYTES/100 LEUKOCYTES IN BLOOD BY AUTOMATED COUNT 10.6 04/11 Specimen Type: BLOOD No comment entered. Ordering Provider: DYAN JOAQUIN Report Released Date/Time : Dec 12, 2023 10:00 AM Reporting Lab: [place] [facility] [address] [place] [address] 8 Performin g Lab: [place] [facility] [address] [place] [address] 8 [facility] CBC NEUTROPHILS/1 00 LEUKOCYTES IN BLOOD BY AUTOMATED COUNT 54.2 04/11 Specimen Type: BLOOD No comment entered. Ordering Provider: DYAN JOAQUIN Report Released Date/Time : Dec 12, 2023 10:00 AM Reporting Lab: [place] [facility] [address] [place] [address] 8 Performin g Lab: [place] [facility] [address] [place] [address] 8 [facility] CBC EOSINOPHILS/1 00 LEUKOCYTES IN BLOOD BY AUTOMATED COUNT 4.8 04/11 Specimen Type: BLOOD No comment entered. Ordering Provider: DYAN JOAQUIN Report Released Date/Time : Dec 12, 2023 10:00 AM Reporting Lab: [place] [facility] [address] [place] [address] 8 Performin g Lab: [place] [facility] [address] [place] [address] 8 [facility] CBC BASOPHILS/100 LEUKOCYTES IN BLOOD BY AUTOMATED COUNT 1.2 04/11 Specimen Type: BLOOD No comment entered. Ordering Provider: DYAN JOAQUIN Report Released Date/Time : Dec 12, 2023 10:00 AM Reporting Lab: [place] [facility] [address] [place] [address] 8 Performin g Lab: [place] [facility] [address] [place] [address] 8 [facility] CBC LYMPHOCYTES [#/VOLUME] IN BLOOD BY AUTOMATED COUNT 1.26 10*3/u L 0.77 - 4.50 04/11 Specimen Type: BLOOD No comment entered. Ordering Provider: DYAN JOAQUIN Report Released Date/Time : Dec 12, 2023 10:00 AM Reporting Lab: [place] [facility] [address] [place] [address] 8 Performin g Lab: [place] [facility] [address] [place] [address] 8 [facility] CBC MONOCYTES [#/VOLUME] IN BLOOD BY AUTOMATED COUNT 0.46 10*3/u L 0.19 - 0.8 04/11 Specimen Type: BLOOD No comment entered. Ordering Provider: DYAN JOAQUIN Report Released Date/Time : Dec 12, 2023 10:00 AM Reporting Lab: [place] [facility] [address] [place] [address] 8 Performin g Lab: [place] [facility] [address] [place] [address] 8 [facility] CBC NEUTROPHILS [#/VOLUME] IN BLOOD BY AUTOMATED COUNT 2.35 10*3/u L 2.10 - 8.00 04/11 Specimen Type: BLOOD No comment entered. Ordering Provider: DYAN JOAQUIN Report Released Date/Time : Dec 12, 2023 10:00 AM Reporting Lab: [place] [facility] [address] [place] [address] 8 Performin g Lab: [place] [facility] [address] [place] [address] 8 [facility] CBC EOSINOPHILS [#/VOLUME] IN BLOOD BY AUTOMATED COUNT 0.21 10*3/u L 0.00 - 0.60 04/11 Specimen Type: BLOOD No comment entered. Ordering Provider: DYAN JOAQUIN Report Released Date/Time : Dec 12, 2023 10:00 AM Reporting Lab: [place] [facility] [address] [place] [address] 8 Performin g Lab: [place] [facility] [address] [place] [address] 8 [facility] CBC BASOPHILS [#/VOLUME] IN BLOOD BY AUTOMATED COUNT 0.05 10*3/u L 0.00 - 0.20 04/11 Specimen Type: BLOOD No comment entered. Ordering Provider: DYAN JOAQUIN Report Released Date/Time : Dec 12, 2023 10:00 AM Reporting Lab: [place] [facility] [address] [place] [address] 8 Performin g Lab: [place] [facility] [address] [place] [address] 8 [facility] CBC IMMATURE GRANULOCYTES/ 100 LEUKOCYTES IN BLOOD BY AUTOMATED COUNT 0.2 04/11 Specimen Type: BLOOD No comment entered. Ordering Provider: DYAN JOAQUIN Report Released Date/Time : Dec 12, 2023 10:00 AM Reporting Lab: [place] [facility] [address] [place] [address] 8 Performin g Lab: [place] [facility] [address] [place] [address] 8 [facility] CBC IMMATURE GRANULOCYTES [#/VOLUME] IN BLOOD BY AUTOMATED COUNT 0.01 10*3/u L 0.00 - 0.05 04/11 Specimen Type: BLOOD No comment entered. Ordering Provider: DYAN JOAQUIN Report Released Date/Time : Dec 12, 2023 10:00 AM Reporting Lab: [place] [facility] [address] [place] [address] 8 Performin g Lab: [place] [facility] [address] [place] [address] 8 [facility] COMPREHENSI VE METABOLIC PANEL CREATININE [MASS/VOLUME] IN SERUM OR PLASMA 1.14 mg/dL 0.7 - 1.3 04/11 Specimen Type: PLASMA No comment entered. Ordering Provider: DYAN JAOQUIN Report Released Date/Time : Dec 12, 2023 10:00 AM Reporting Lab: [place] [facility] [address] [place] [address] 8 Performin g Lab: [place] [facility] [address] [place] [address] 8 [facility] COMPREHENSI VE METABOLIC PANEL UREA NITROGEN [MASS/VOLUME] IN SERUM OR PLASMA 22 mg/dL 9 - 25 04/11 Specimen Type: PLASMA No comment entered. Ordering Provider: DYAN JOAQUIN Report Released Date/Time : Dec 12, 2023 10:00 AM Reporting Lab: [place] [facility] [address] [place] [address] 8 Performin g Lab: [place] [facility] [address] [place] [address] 8 [facility] COMPREHENSI VE METABOLIC PANEL GLUCOSE [MASS/VOLUME] IN SERUM OR PLASMA 108 mg/dL 72 - 99 04/11 H Specimen Type: PLASMA No comment entered. Ordering Provider: DYAN JOAQUIN Report Released Date/Time : Dec 12, 2023 10:00 AM Reporting Lab: [place] [facility] [address] [place] [address] 8 Performin g Lab: [place] [facility] [address] [place] [address] 8 [place] [facility] COMPREHENSI VE METABOLIC PANEL SODIUM [MOLES/VOLUME ] IN SERUM OR PLASMA 138 meq/L 136 - 145 04/11 Specimen Type: PLASMA No comment entered. Ordering Provider: DYAN JOAQUIN Report Released Date/Time : Dec 12, 2023 10:00 AM Reporting Lab: [place] [facility] [address] [place] [address] 8 Performin g Lab: [place] [facility] [address] [place] [address] 8 [facility] COMPREHENSI VE METABOLIC PANEL POTASSIUM [MOLES/VOLUME ] IN SERUM OR PLASMA 4.6 meq/L 3.5 - 5 04/11 Specimen Type: PLASMA No comment entered. Ordering Provider: DYAN JOAQUIN Report Released Date/Time : Dec 12, 2023 10:00 AM Reporting Lab: [place] [facility] [address] [place] [address] 8 Performin g Lab: [place] [facility] [address] [place] [address] 8 [facility] COMPREHENSI VE METABOLIC PANEL CHLORIDE [MOLES/VOLUME ] IN SERUM OR PLASMA 108 meq/L 98 - 107 04/11 H Specimen Type: PLASMA No comment entered. Ordering Provider: DYAN JOAQUIN Report Released Date/Time : Dec 12, 2023 10:00 AM Reporting Lab: [place] [facility] [address] [place] [address] 8 Performin g Lab: [place] [facility] [address] [place] [address] 8 [place] [facility] COMPREHENSI VE METABOLIC PANEL CARBON DIOXIDE, TOTAL [MOLES/VOLUME ] IN SERUM OR PLASMA 23 meq/L 22 - 31 04/11 Specimen Type: PLASMA No comment entered. Ordering Provider: DYAN JOAQUIN Report Released Date/Time : Dec 12, 2023 10:00 AM Reporting Lab: [place] [facility] [address] [place] [address] 8 Performin g Lab: [place] [facility] [address] [place] [address] 8 [facility] COMPREHENSI VE METABOLIC PANEL CALCIUM [MASS/VOLUME] IN SERUM OR PLASMA 8.7 mg/dL 8.4 - 10.4 04/11 Specimen Type: PLASMA No comment entered. Ordering Provider: DYAN JOAQUIN Report Released Date/Time : Dec 12, 2023 10:00 AM Reporting Lab: [place] [facility] [address] [place] [address] 8 Performin g Lab: [place] [facility] [address] [place] [address] 8 [facility] COMPREHENSI VE METABOLIC PANEL PROTEIN [MASS/VOLUME] IN SERUM OR PLASMA 6.5 g/dL 6 - 8.6 04/11 Specimen Type: PLASMA No comment entered. Ordering Provider: DYAN JOAQUIN Report Released Date/Time : Dec 12, 2023 10:00 AM Reporting Lab: [place] [facility] [address] [place] [address] 8 Performin g Lab: [place] [facility] [address] [place] [address] 8 [facility] COMPREHENSI VE METABOLIC PANEL ALBUMIN [MASS/VOLUME] IN SERUM OR PLASMA 3.9 g/dL 3.4 - 5 04/11 Specimen Type: PLASMA No comment entered. Ordering Provider: DYAN JOAQUIN Report Released Date/Time : Dec 12, 2023 10:00 AM Reporting Lab: [place] [facility] [address] [place] [address] 8 Performin g Lab: [place] [facility] [address] [place] [address] 8 [facility] COMPREHENSI VE METABOLIC PANEL BILIRUBIN.TOT AL [MASS/VOLUME] IN SERUM OR PLASMA 0.8 mg/dL 0.2 - 1.2 04/11 Specimen Type: PLASMA No comment entered. Ordering Provider: DYAN JOAQUIN Report Released Date/Time : Dec 12, 2023 10:00 AM Reporting Lab: [place] [facility] [address] [place] [address] 8 [facility]formin g Lab: [place] [facility] [address] [place] [address] 8 [facility] COMPREHENSI VE METABOLIC PANEL ALKALINE PHOSPHATASE [ENZYMATIC ACTIVITY/VOLU ME] IN SERUM OR PLASMA 69 U/L 40 - 150 04/11 Specimen Type: PLASMA No comment entered. Ordering Provider: DYAN JOAQUIN Report Released Date/Time : Dec 12, 2023 10:00 AM Reporting Lab: [place] [facility] [address] [place] [address] 8 Performin g Lab: [place] [facility] [address] [place] [address] [facility] COMPREHENSI VE METABOLIC PANEL ASPARTATE AMINOTRANSFER ASE [ENZYMATIC ACTIVITY/VOLU ME] IN SERUM OR PLASMA 30 U/L 5 - 34 04/11 Specimen Type: PLASMA No comment entered. Ordering Provider: DYAN JOAQUIN Report Released Date/Time : Dec 12, 2023 10:00 AM Reporting Lab: [place] [facility] [address] [place] [address] Performin g Lab: [place] [facility] [address] [place] [address] [facility] COMPREHENSI VE METABOLIC PANEL ALANINE AMINOTRANSFER ASE [ENZYMATIC ACTIVITY/VOLU ME] IN SERUM OR PLASMA 28 U/L 8 - 40 04/11 Specimen Type: PLASMA No comment entered. Ordering Provider: DYAN JOAQUIN Report Released Date/Time : Dec 12, 2023 10:00 AM Reporting Lab: [place] [facility] [address] [place] [address] Performin g Lab: [place] [facility] [address] [place] [address] [facility] COMPREHENSI VE METABOLIC PANEL GLOMERULAR FILTRATION RATE/1.73 SQ M.PREDICTED [VOLUME RATE/AREA] IN SERUM, PLASMA OR BLOOD BY CREATININE-BA SED FORMULA (CKD-EPI 2020) 67 04/11 Specimen Type: PLASMA No comment entered. Ordering Provider: DYAN JOAQUIN Report Released Date/Time : Dec 12, 2023 10:00 AM Reporting Lab: [place] [facility] [address] [place] [address] Performin g Lab: [place] [facility] [address] [place] [address] [place] [facility] TSH (MA-PB) THYROTROPIN [UNITS/VOLUME ] IN SERUM OR PLASMA 3.602 u[IU]/ mL 0.47 - 5 04/11 Specimen Type: SERUM No comment entered. Ordering Provider: DYAN JOAQUIN Report Released Date/Time : Dec 12, 2023 10:00 AM Reporting Lab: [place] [facility] [address] [place] [address] Performin g Lab: [place] [facility] [address] [place] [address] [place] [facility] Vital Signs Combined list of inpatient and outpatient Vital Signs from Department of Defense and Veterans Affairs, ranging from 12 months to all on record, depending upon the facility. Vital Sign Value Date Comments Source SYSTOLIC BLOOD PRESSURE 122 04/22/2025 09:10:00 [facility] DIASTOLIC BLOOD PRESSURE 77 04/22/2025 09:10:00 [facility] PULSE OXIMETRY 95 % 04/22/2025 09:10:00 [facility] WEIGHT 218.8 04/22/2025 09:10:00 [facility] BMI 32 kg/m2 04/22/2025 09:10:00 [facility] PAIN 0 04/22/2025 09:10:00 [place] [facility] TEMPERATURE 98.0 04/22/2025 09:10:00 [facility] PULSE 71 04/22/2025 09:10:00 [facility] [facility] RESPIRATION 18 04/22/2025 09:10:00 [facility] SYSTOLIC BLOOD PRESSURE 119 09/30/2024 10:05:54 [place] [facility] DIASTOLIC BLOOD PRESSURE 77 09/30/2024 10:05:54 [facility] PULSE OXIMETRY 95 09/30/2024 10:05:[address] [facility] [place] [facility] WEIGHT 219 09/30/2024 10:05:54 [facility] BMI 32 kg/m2 09/30/2024 10:05:54 [facility] PAIN 0 09/30/2024 10:05:54 [facility] HEIGHT 69 09/30/2024 10:05:54 [facility] PULSE 73 09/30/2024 10:05:54 [facility] RESPIRATION 18 09/30/2024 10:05:54 [facility] PULSE OXIMETRY 96 06/19/2024 14:50:00 [facility] PULSE 86 06/19/2024 14:50:00 [facility] RESPIRATION 19 06/19/2024 14:50:00 [facility] Encounters Combined list of: 1) Encounters from Department of Veterans Affairs facilities going backup to the last 18 months, not all [place] inpatient encounters are included; 2) Encounters from the Department of [facility] facilities going backup to 280 months. Location Location Details Encounter Type Encounter Number Reason For Visit Attending Provider ADM Date DC Date Status Disposition Source [facility] Outpatient Encounter [id number] 11/15 [facility] OFFICE O/P EST LOW 20 MIN [id number] Diagnos is: ICD-10- CM K21.9 Gastro- esophag eal reflux disease without esophag itis Ian JOAQUIN 11/16 [facility] Outpatient Encounter [id number] 11/17 [facility] Outpatient Encounter [id number] MOJGAN YOUNG EE L 11/30 [facility] Outpatient Encounter [id number] 12/12 [facility] Outpatient Encounter [id number] 12/13 [facility] Outpatient Encounter [id number] 12/13 [facility] Outpatient Encounter [id number] RA RADHA MARLOW A 01/01 [facility] Outpatient Encounter [id number] 01/08 [facility] Outpatient Encounter [id number] 01/08 [facility] TELEHEALTH FACILITY FEE [id number] Diagnos is: ICD-10- CM Z46.1 Encount er for fitting and adjustm ent of hearing aid ODILON HARTMANN RT P 01/16 [facility] [id number] Diagnos is: ICD-10- CM Z46.1 Encount er for fitting and adjustm ent of hearing aid ODILON HARTMANN RT P 01/16 [facility] Outpatient Encounter [id number] LESLY SPRAGUE 02/04 [facility] Outpatient Encounter [id number] BETHEL DELA CRUZ 02/11 [facility] OFFICE O/P EST MOD 30 MIN [id number] Diagnos is: ICD-10- CM 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 Ian JOAQUIN 04/17 [facility] Outpatient Encounter [id number] 06/06 [facility] Outpatient Encounter [id number] 06/07 [facility] Outpatient Encounter [id number] 06/19 [facility] OFF/OP EST FEBRUARY X REQ PHY/QHP [id number] Diagnos is: ICD-10- CM 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 07/08 [facility] Outpatient Encounter [id number] 07/22 [facility] Outpatient Encounter [id number] 08/07 [facility] OFF/OP EST MAY X REQ PHY/QHP [id number] Diagnos is: ICD-10- CM Z23 Encount er for immuniz ARIAS Carcamo 08/12 [facility] Encounter [id number] 08/28 [facility] Outpatient Encounter [id number] 09/03 [facility] Outpatient Encounter [id number] 09/04 [facility] Outpatient Encounter [id number] 09/24 [facility] Outpatient Encounter [id number] LESLY SPRAGUE L 09/25 [facility] Outpatient Encounter [id number] 09/26 [facility] Outpatient Encounter [id number] 09/27 [facility] TELEHEALTH FACILITY FEE [id number] Diagnos is: ICD-10- CM I25.10 Athscl heart disease of prairie band coronar y artery w/o ang pctNikki Delong 09/30 [facility] [place] [facility] [place] [facility] [place] O/P EST LOW 20 MIN [id number] Diagnos is: ICD-10- CM 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 Outpatient Encounter [id number] 01/02 [facility] Outpatient Encounter [id number] 01/16 [facility] Outpatient Encounter [id number] 01/21 [facility] Outpatient Encounter [id number] 01/24 [facility] En[facility] [id number] 01/27 [facility] Outpatient Encounter [id number] 02/07 [facility] Outpatient Encounter [id number] 03/04 [facility] Outpatient Encounter [id number] 03/12 [facility] Outpatient Encounter [id number] 04/04 [facility] Outpatient Encounter [id number] 04/04 [facility] Outpatient Encounter [id number] ZAHRA LUNA A 04/07 [facility] Outpatient Encounter [id number] 04/07 [facility] Outpatient Encounter [id number] Ian JOAQUIN 04/22 [facility] Outpatient Encounter [id number] LESLY SPRAGUE 04/28 [facility] Social History Combined list of available smoking, tobacco, and other social history from Department of Defense and Veterans Affairs facilities. Social History Type Response Date Comment Sourc e Tobacco smoking status NHIS VA-TOBACCO NEVER USED 04/17/2024 [facility] History of tobacco use VA-TOBACCO NEVER USED 04/26/2023 [facility] History of tobacco use VA-TOBACCO NEVER USED 02/25/2022 [facility] History of tobacco use VA-TOBACCO NEVER USED 07/17/2020 [facility] History of tobacco use LIFETIME NON-USER OF TOBACCO 02/03/2017 [facility] Plan of Care List of future care activities from Department [facility] Affairs facilities. Additional future care activities may be listed in the Assessment and Plan section. Date/Time Care Activity Care Activity Detail Facili ty 04/04/2025 Consult Order [facility] [id number] Cons Operator/Assistant Foreman's Choice [facility] Advance Directives List of completed, amended, or rescinded Advance Directives on record at Department [facility] Affairs facilities. An actual copy of the Directive is not included. Date Advance Directive Provider Source 02/08/2017 [facility] [place] [facility]
--- NOTE | 2025-05-14 11:14 | XRR_ITS ---
PROCEDURE INFORMATION: Exam: XR Chest Exam date and time: 05/14/2025 11:25 AM Age: 74 years old Clinical indication: Other: Weakness TECHNIQUE: Imaging protocol: Radiologic exam of the chest. Views: 1 view. COMPARISON: CR (CHEST, ) 04/26/2025 12:41 PM FINDINGS: Lungs: There is no consolidation. Interstitial markings are indistinct in the central lower lungs. There is subtle bilateral lower lung predominant ground-glass opacity. Pleural spaces: There is no pleural effusion or pneumothorax. Heart/Mediastinum: The cardiomediastinal silhouette is unremarkable given AP technique. Bones/joints: Bones are unremarkable. XR/XR chest 1V portable [id number] IMPRESSION: Suspect mild pulmonary interstitial edema.
--- NOTE | 2025-05-14 11:14 | ECG_ITS ---
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 Measurements Intervals [place] Rate: 70 P: 41 NV: 206 QRS: -54 QRSD: 105 T: 79 QT: 406 QTc: 440 Interpretive Statements SINUS RHYTHM WITH SINUS ARRHYTHMIA PATTERN CONSISTENT WITH PULMONARY DISEASE LEFT ANTERIOR FASCICULAR BLOCK [QRS AXIS <= -45, QR IN I, RS IN II] SEPTAL MYOCARDIAL INFARCTION , OF INDETERMINATE AGE [40+ ms Q WAVE IN V1/V2] Compared to ECG 04/26/2025 12:29:38 No significant changes Electronically Signed On 05-15-2025 09:03:07 CDT by Keith Gill M.D. [email or web address]
[2025-05-14 11:16] VITALS: BP 98/54; PULSE 75; RESP 18; TEMP 36.7; O2SAT 95; BMI 32.1
--- NOTE | 2025-05-14 11:22 | ED_ITS ---
HPI - Syncope 2 General: Chief Complaint: Syncope Stated Complaint: Syncope Time Seen by Provider: 05/14/25 11:13 History of Present Illness: 74-year-old man with history of coronary artery disease status post stents, hypertension,CHF and a history of prostate cancer who presents the emergency room after having had a syncopal episode. Apparently he had been out working in the heat. He came back inside and went to have a bowel movement and could not and then had stood up and went back to have another tried it ended up passing out. He does not remember the event. He says he was on the ground when he woke up. He says he does not remember the event. He still feels somewhat weak. Blood pressure soft on presentation. He is not tachycardic. Related Data Home Medications ?Medication ?Instructions ?Recorded ?Confirmed acetaminophen 325 mg tablet 325 mg PO QID PRN Pain (Sc zaida 04/24/25 05/14/25 (Tylenol) Score 1-3) atorvastatin 80 mg tablet 80 mg PO QPM 05/14/25 latanoprost 0.005 % eye drops 1 drp ophthalmic (eye) Q PM 05/14/25 05/14/25 pantoprazole 40 mg tablet,delayed 40 mg PO QAM 5 05/14/25 release Previous Rx's ?Medication ?Instructions ?Recorded aspirin 81 mg tablet,delayed 81 mg PO DAILY #90 tabs 1 11/18/20 release nitroglycerin 0.4 mg sublingual 0.4 mg sublingual Q5M PRN chest 01/27/22 tablet pain #25 tabs lisinopril 2.5 mg tablet 2.5 mg PO DAILY #90 tabs 03/16 fluticasone propionate 50 1 spray intranasal BID PRN n tab 04/24/25 mcg/actuation nasal congestion #16 grams spray,suspension (Flonase Allergy Relief) methylprednisolone 4 mg tablets in See Rx Instructions PO .COMPLEX 04/26/25 a dose pack (Medrol (Parth)) #21 ea Allergies Allergy/AdvReac Type Severity Reaction Status Date / Time No Known Allergies Allergy Verified 04/24/25 10:34 Review of Systems 2 Narrative: Constitutional symptoms: Negative except as documented in HPI. Skin symptoms: Negative except as documented in HPI. Eye symptoms: Negative except as documented in HPI. ENMT symptoms: Negative except as documented in HPI. Respiratory symptoms: Negative except as documented in HPI. Cardiovascular symptoms: Negative except as documented in HPI. Gastrointestinal symptoms: Negative except as documented in HPI. Genitourinary symptoms: Negative except as documented in HPI. Musculoskeletal symptoms: Negative except as documented in HPI. Neurologic symptoms: Negative except as documented in HPI. Psychiatric symptoms: Negative except as documented in HPI. Endocrine symptoms: Negative except as documented in HPI. PFS ED 2 PFSH: Medical History (Updated 05/14/25 @ 14:13 by Koki Villanueva MD) History of ST elevation myocardial infarction (STEMI) s/p PTCA w/ stent of LAD Coronary artery disease Left anterior fascicular block (LAFB) History of prostate cancer s/p RALP + ADT/radiation; Zoladex x 6 mon; Casodex x 2 week History of skin cancer basal cell carcinoma Heart failure with reduced ejection fraction EF 35% on last echo Surgical History History of cataract extraction with lens replacement History of percutaneous transluminal coronary angioplasty LAD History of robot-assisted laparoscopic radical prostatectomy History of cholecystectomy History of appendectomy Family History Mother CAD (coronary artery disease) Cancer groin Stroke Brother CAD (coronary artery disease) Stroke Sister Cancer skin Social History Smoking and tobacco/nicotine status: never used tobacco/nicotine Alcohol intake: former Year of sobriety/quit date alcohol: 2000 Household members: spouse Marital status: Number of children: 2 service: Yes branch: [employer] Assignments: Inside [facility] ([facility]) Known or Potential Exposure: Other exposure details: asbestos Current occupational status: 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 Skin: Warm, dry. Head: Normocephalic, atraumatic. Neck: Supple, trachea midline. Eye: Extraocular movements are intact. Ears, nose, mouth and throat: mucosa moist. Cardiovascular: Regular, Normal peripheral perfusion. Respiratory: Lungs are clear to auscultation, respirations are non-labored, breath sounds are equal, Symmetrical chest wall expansion. Gastrointestinal: Soft, Nontender, Non distended Musculoskeletal: Normal ROM, no deformity. Neurological: Alert and oriented, No focal neurological deficit observed. Psychiatric: Cooperative, appropriate mood & affect. Course 2 Vital Signs: Vital signs: Vital Signs Temperature 98.1 F 05/14/25 11:16 Pulse Rate 68 05/14/25 14:36 Respiratory Rate 20 H 05/14/25 13:55 Blood Pressure 116/65 05/14/25 14:36 Pulse Oximetry 95 05/14/25 14:36 Oxygen Delivery Me thod Room Air 05/14/25 13:55 MDM - Syncope Medical Decision Making Medical decision making: Differential diagnosis including but not limited to and based on the above HPI, review of systems and physical exam in this patient with syncope: Vasovagal, orthostatics hypotension, cardiac dysrhythmia, myocardial infarction, infection and hypotension, Orders placed to evaluate differential diagnosis based on the above differential, HPI and physical exam EKG: Time 11:17 AM. Rate 70. Normal sinus rhythm, nonspecific ST changes, no ectopy, left anterior fascicular block, This was reviewed and interpreted by myself the ER physician at 11:20 AM Lab Review: Laboratory results were reviewed and interpreted by myself the emergency room physician. No leukocytosis. No anemia. BUN and creatinine are slightly elevated at 17 and 1.5. He does have some baseline chronic kidney disease but his normal creatinine is between 1 and 1.2. Chest x-ray: There are some suspicion for interstitial edema, however I do not believe this patient is in heart failure. He has been hypotensive, he appears dry with no lower extremity swelling. Pressure has responded to fluids. His proBNP is at his baseline when he is normal. It has been much higher in the past. This was reviewed and interpreted by myself the emergency room physician. I also reviewed the radiology report. I reviewed the patient's medical record. 74-year-old man with history of coronary artery disease status post stents, hypertension,CHF and a history of prostate cancer Reexamination: Patient says he feels quite a bit better. Blood pressure has come up. He has not been tachycardic. His says that just prior to him passing out he had taken a hot shower after he been outside. She says he has a history of passing out after having a hot shower. She believes this is likely the culprit along with him not having had enough to drink or been in the heat too much. No increased work of breathing. No altered mental status. Assessment and plan: Syncope Dehydration Acute on chronic renal insufficiency ?Normal saline bolus in the emergency room - Discharged home - Discussed findings and plan with patient. Answered any questions. - All laboratory values were reviewed and interpreted personally by myself, the ER physician - All imaging was reviewed and interpreted personally by myself, the ER physician. - Evaluation and treatment of this problem were appropriate in the emergency setting Lab Data 05/14/25 11:11 05/14/25 11:11 Radiology Impressions Chest X-Ray 05/14/25 11:14 IMPRESSION: Suspect mild pulmonary interstitial edema. Head CT 05/14/25 12:23 IMPRESSION: 1. No acute intracranial hemorrhage or edema. 2. Moderate cerebral and cerebellar atrophy with mild small vessel changes. Laboratory Results WBC 4.95 10^3/uL (3.29-11.43) 05/14/25 11:11 RBC 4.79 10^6/uL (3.85-5.65) 05/14/25 11:11 Hgb 14.40 g/dL (11.27-16.99) 05/14/25 11:11 Hct 42.8 % (37-53) 05/14/25 11:11 MCV 89.4 fl (82-101) 05/14/25 11:11 MCH 30.1 pg (27-33) 05/14/25 11:11 MCHC 33.6 g/dL (30-55) 05/14/25 11:11 RDW 12.0 % (12.1-15.1) L 05/14/25 11:11 Plt Count 161 10^3/cmm (157-399) 05/14/25 11:11 MPV 9.2 fL (7.4-10.4) 05/14/25 11:11 Neut % (Auto) 66.2 % 05/14/25 11:11 Lymph % (Auto) 17.4 % 05/14/25 11:11 Petroleum % (Auto) 8.1 % 05/14/25 11:11 Eos % (Auto) 7.1 % 05/14/25 11:11 Baso % (Auto) 0.8 % 05/14/25 11:11 Neut # (Auto) 3.28 10^3/uL (1.8-7.7) 05/14/25 11:11 Lymph # (Auto) 0.9 10^3/uL (0.8-4.8) 05/14/25 11:11 Petroleum # (Auto) 0.4 10^3/uL (0.2-0.9) 05/14/25 11:11 Eos # (Auto) 0.4 10^3/uL (0.0-0.8) 05/14/25 11:11 Baso # (Auto) 0.0 10^3/uL (0.0-0.1) 05/14/25 11:11 Nucleated RBC % (auto) 0 % 05/14/25 11:11 Nucleated RBCs # 0.0 /100WBC 05/14/25 11:11 Sodium 141 mmol/L (136-145) 05/14/25 11:11 Potassium 4.2 mmol/L (3.5-5.1) 05/14/25 11:11 Chloride 105 mmol/L (98-107) 05/14/25 11:11 Carbon Dioxide 21 mmol/L (22-29) L 05/14/25 11:11 Anion Gap 19.2 (5-19) H 05/14/25 11:11 BUN 17 mg/dL (8-23) 05/14/25 11:11 Creatinine 1.5 mg/dL (0.7-1.2) H 05/14/25 11:11 GFR Calculation Not Reportable 05/14/25 11:11 Glucose 154 mg/dL (65-115) H 05/14/25 11:11 Calculated Osmolality 297 mOsm/kg (285-295) H 05/14/25 11:11 Lactic Acid 2.3 mmol/L (0.5-2.2) H 05/14/25 11:33 Calcium 8.9 mg/dL (8.5-10.5) 05/14/25 11:11 Total Bilirubin 0.7 mg/dL (0.15-1.2) 05/14/25 11:11 AST 23 U/L (0-40) 05/14/25 11:11 ALT 21 U/L (0-41) 05/14/25 11:11 Alkaline Phosphatase 90 U/L (40-130) 05/14/25 11:11 Troponin T Baseline 14 ng/L (0-15) 05/14/25 11:11 Troponin T 120 Minute 16.21 ng/L (0-15) H 05/14/25 13:09 Delta Troponin T 2.21 ABS# (0-10) 05/14/25 13:09 C-Reactive Protein 3.0 mg/L (0.0-4.9) 05/14/25 11:11 NT-Pro-B Natriuret Pep 639 pg/mL (0-450) H 05/14/25 11:11 Total Protein 6.0 g/dL (6.6-8.7) L 05/14/25 11:11 Albumin 3.7 g/dL (3.5-5.2) 05/14/25 11:11 Globulin 2.3 g/dL (1.3-4.6) 05/14/25 11:11 Urine Color Dark yellow (Yellow) A 05/14/25 12:15 Urine Appearance Cloudy (CLEAR) A 05/14/25 12:15 Urine pH 5.5 (5-7) 05/14/25 12:15 Ur Specific Pillager 1.027 (1.005-1.030) 05/14/25 12:15 Urine Protein 1+ (Negative) A 05/14/25 12:15 Urine Glucose (UA) Negative (Normal) 05/14/25 12:15 Urine Ketones Trace (Negative) 05/14/25 12:15 Urine Blood Negative (Negative) 05/14/25 12:15 Urine Nitrate Negative (Negative) 05/14/25 12:15 Urine Bilirubin Negative (Negative) 05/14/25 12:15 Urine Urobilinogen 1.0 mg/dL (Negative) 05/14/25 12:15 Ur Leukocyte Esterase Negative (Negative) 05/14/25 12:15 Urine RBC 3-5 /hpf (0-2) 05/14/25 12:15 Urine WBC 0-5 /hpf (0-5) 05/14/25 12:15 Ur Squamous Epith Cells 0-5 /hpf (0-5) 05/14/25 12:15 Calcium Oxalate Crystal 10-15 /hpf H 05/14/25 12:15 Amorphous Sediment Not Reportable 05/14/25 12:15 Urine Bacteria None seen /hpf (NONE) 05/14/25 12:15 Hyaline Casts 48.40 /lpf 05/14/25 12:15 Fine Granular Casts 0-4 /lpf H 05/14/25 12:15 All radiology interpretation(s) finalized by discharge Discharge Plan Discharge Patient Disposition: Home Clinical Impression: Dehydration, Syncope Condition: Stable Prescriptions: No Action nitroglycerin 0.4 mg tablet, sublingual 0.4 mg sublingual Q5M PRN (Reason: chest pain) Qty: 25 1RF Rx Instructions: do not exceed 3 doses per episode acetaminophen [Tylenol] 325 mg tablet 325 mg PO QID PRN (Reason: Pain (Scale Score 1-3)) fluticasone propionate [Flonase Allergy Relief] 50 mcg/actuation spray,suspension 1 spray intranasal BID PRN (Reason: nasal congestion) Qty: 16 0RF Rx Instructions: administer into each nostril lisinopril 2.5 mg tablet 2.5 mg PO DAILY Qty: 90 3RF aspirin 81 mg Tablet,Delayed Release (Dr/Ec) 81 mg PO DAILY Qty: 90 4RF latanoprost 0.005 % Drops 1 drp ophthalmic (eye) QPM atorvastatin 80 mg Tablet 80 mg PO QPM pantoprazole 40 mg tablet,delayed release (DR/EC) 40 mg PO QAM methylprednisolone [Medrol (Parth)] 4 mg tablets,dose pack See Rx Instructions .ROUTE .COMPLEX Qty: 21 0RF Rx Instructions: orally per package directions Discharge Orders: Discharge ED (Routine); Ordered 05/14/25 Ordered By: Koki Villanueva Referrals: Lakshmi Decker MD [Primary Care Provider, Family Practice] Discharge Diet: Usual diet Discharge Activity: Increase activity as tolerated Patient Instructions: Dehydration (ED), Syncope (ED), Opioid Safety, Pain Management, Patient Portal & Jennifer Instructions Activity Restrictions/Additional Instructions: Thank you for choosing [facility] for your healthcare needs today. You have been screened and evaluated and felt safe for discharge. Health conditions do change or evolve sometimes and as such it is important that you follow up with your Primary Doctor to be re checked, 3-5 days is a general good time frame for follow up. You are always welcome to return to the ED for re assessment if your symptoms are worsening or you have new concerns Print Language: Khmer Coding Level of Care Code ED Snaker D[employer] for Roxie Dacosta
--- OUTSIDE RECORDS SUMMARY | 2025-05-14 11:24 | XMS_ITS | Encounter Summary ---
Author Organization [facility] Address [address] [place] [address] Care Team Providers Care Cell Biologist Name Role Phone Unavailable Primary Care Provider Unavailabl e Encounter Details Date Type Department Care Team (Late st Contact Info) Description 05/11/1998 Outpatient Historical [facility] Ophthalmology 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
--- OUTSIDE RECORDS SUMMARY | 2025-05-14 11:24 | XMS_ITS | Encounter Summary ---
Author Organization [employer] [facility] Address [address] [place] [address] Care Team Providers Care Staple Side Laster Name Role Phone Unavailable Primary Care Provider Unavailabl e Encounter Details Date Type Department Care Team (Latest Contact Info) Description 04/03/2000 Outpatient Historical [place] [address] [place] [address] Other general medical examination for administrative purposes (Primary Dx) Social History Tobacco Use Types Packs/Day Years Used Date Smoking Tobacco: Never Assessed Sex and Gender Information Value Date Recorded Sex Assigned at Not on file 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
--- OUTSIDE RECORDS SUMMARY | 2025-05-14 11:24 | XMS_ITS | Clinical Summary ---
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
--- OUTSIDE RECORDS SUMMARY | 2025-05-14 11:24 | XMS_ITS | Encounter Summary ---
Author Organization [facility] Address [address] [place] [address] Care Team Providers Care Mobile Heavy Equipment Mechanic Name Role Phone Unavailable Primary Care Provider Unavailabl e Encounter Details Date Type Department Care Team (Latest Contact Info) Description 03/09/1998 Outpatient Historical [facility] Ophthalmology [address] [place] 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
--- OUTSIDE RECORDS SUMMARY | 2025-05-14 11:24 | XMS_ITS | Encounter Summary ---
Author Organization [facility] Address [address] [place] [address] Care Team Providers Care Eye Clinic Manager Name Role Phone Unavailable Primary Care Provider Unavailabl e Encounter Details Date Type Department Care Team (Latest Contact Info) Description 06/05/1998 Outpatient Historical [facility] Ophthalmology 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
--- OUTSIDE RECORDS SUMMARY | 2025-05-14 11:24 | XMS_ITS | Patient Health Record ---
Author Organization [facility] [employer] Address [address] [place] [address] Care Team Providers Care Piping Drafter Name Role Phone Lakshmi Smith MD Primary Care Provider SAMY Kaur Unavailable [phone] Donald Jiménez Unavailable Unavailable Samy Frausto Unavailable [phone] Allergies Allergen (clinical drug ingredient) Drug/Non Drug Allergy documented on EMR Reaction Allergy Type Onset Date Status No Known Drug Allergy Unknown Drug Allergy Active Results Component Value Reference Range Notes Urinalysis, Routine Reviewed date:06/25/2024 01:36:25 PM Interpretation: Performing Lab: Notes/Report: Urine-Color yellow Appearance clear Glucose - Bilirubin - Ketones - Specific Hastings 1.025 Occult Blood trace pH 6.0 Urine Protein - Urobilinogen,Semi-Qn - Nitrite, Urine - WBC Esterase - Urinalysis, Routine Reviewed date:07/10/2024 02:53:18 PM Interpretation: Performing Lab: Notes/Report: Urine-Color yellow Appearance clear Glucose - Bilirubin - Ketones - Specific Hastings 1.025 Occult Blood 1+ pH 6.0 Urine Protein - Urobilinogen,Semi-Qn - Nitrite, Urine - WBC Esterase - Urinalysis, Routine Reviewed date:11/19/2024 02:37:32 PM Interpretation: Performing Lab: Notes/Report: Urine-Color yellow Appearance clear Glucose - Bilirubin - Ketones - Specific [place] 1.015 Occult Blood 1+ pH 6.0 Urine [...] by from source eCW:: Influenza (whole), CPT 02637 Inactive Unknown 01/25/2019 Administered Influenza (whole), CPT 50446 Inactive Unknown 07/29/2019 Administered Pneumococcal conjugate PCV 13 Unknown 12/20/2019 Refused Immunization Giv en by from source eCW:: Problems Problem Type SNOMED Code ICD Code Onset Dates Problem Status W/U Status Risk Notes Problem 235874324 Rising PSA follo wing treatment for malignant neoplasm of prostate (R97.21) Active confirmed Problem 810296252 Gastroesophageal reflux disease, unspecified whether esophagitis present (K21.9) Active confirmed Problem 625270806 History of prost ate cancer (Z85.46) Active confirmed Problem History of prostatectomy (Z90.79) Active confirmed Problem 629586300 History of radia tion therapy (Z92.3) Active confirmed Problem Radiation cystitis (94902439) 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 Problem 09170903 Stress incontine nce (N39.3) Active confirmed Problem 374631053 Microscopic hematuria (R31.29) Active confirmed Problem Malignant tumor of prostate (469257738) Prostate cancer (C61) Active confirmed Vital Signs Heart Rate 76 /min 11/19/2024 Height-cm 175.26 cm 11/19/2024 Blood pressure diastolic 82 mm Hg 11/19/2024 Weight-kg 93.89 kg 11/19/2024 Height 69 in 11/19/2024 Blood pressure systolic 134 mm Hg 11/19/2024 Weight 207 lbs 11/19/2024 BMI 30.57 kg/m2 11/19/2024 Encounters Encounter Location Date Provider Diagnosis [email or web address] [address] [place] [address] 06/25/2024 Samy Frausto Microscopic hematuri a R31.29 ; Prostate cancer C61 and Gross hematuria R31.0 [facility], [facility] [address] [place] [address] 07/10/2024 SAMY HILL Gross hematuria R31. 0 ; Prostate cancer C61 ; Microscopic hematuria R31.29 and Radiation cystitis N30.40 [facility], [facility] [address] [place] [address] 11/19/2024 Samy Diannastew Gross hematuria R31. 0 ; Prostate cancer C61 ; Microscopic hematuria R31.29 and Radiation cystitis N30.40 [email or web address], [facility] [address] [place] [address] 06/27/2024 Samy Jett [email or web address], [facility] [address] [place] [address] 2024 SAMY HILL [email or web address], [facility] [address] [place] [address], [place] [address] 09/04/2024 SAMY HILL Prostate cancer C61 Assessments Encounter Date Diagnosis (ICD Code) Assessment Notes Treatment Notes Treatment Clinical Notes Section Notes 06/25/2024 Microscopic hematuria (ICD-10 - R31.29) Previous [...] All questions that were asked, were answered. 07/10/2024 Gross hematuria (ICD-10 - R31.0) Negative [...] than 50% of that time in direct srpk-el-ejrb discussion. 07/10/2024 Prostate cancer (ICD-10 - C61) Negative [...] than 50% of that time in direct anxq-uh-veiv discussion. 09/04/2024 Prostate cancer (ICD-10 - C61) 11/19/2024 Gross hematuria (ICD-10 - R31.0) Previous [...] questions were answered to his satisfaction. 11/19/2024 Prostate cancer (ICD-10 - C61) Previous [...] than 50% of that time in direct fgzc-fd-lptv discussion. 06/25/2024 Prostate cancer (ICD-10 - C61) Previous [...] All questions that were asked, were answered. 07/10/2024 Radiation cystitis (ICD-10 - N30.40) Negative [...] than 50% of that time in direct ejsy-mc-kapg discussion. 11/19/2024 Microscopic hematuria (ICD-10 - R31.29) [...] Test Name Order Date PSA, total (cpt 90166) 10/10/2023 PSA Diagnostic--63738 01/04/2021 Testosterone Total 04068 01/04/2021 TESTOSTERONE, TOTAL, MALES (ADULT), IA ( 873) 10/10/2023 Testosterone Total 09/04/2024 Testosterone Total 11/19/2024 PSA-Diagnostic 11/19/2024 Future Test Test Name Order Date PSA Diagnostic--69906 04/22/2020 PSA Diagnostic--56467 12/21/2020 PSA Diagnostic--10431 05/11/2021 PSA Diagnostic--68190 04/13/2022 Testosterone Total 65399 04/13/2022 PSA Diagnostic--83168 04/03/2023 Testosterone Total 35823 04/03/2023 Next Appt Details Provider Name:Samy Frausto, 11/19/2025 01:00:00 PM, [address] [place], [address], Insurance Providers Payer Name Payer Address Payer Phone Subscriber Number Group Number Insured Name Patient Relationship to Insured Coverage Start Date Coverage End Date [employer] [address] [place], [place] [id number] [phone] [id number] Reinier Dc Self - patient is the insured Medical (General) History Medical History History ICD Code Malignant melanoma elevated prostate specific antigen Prostate Cancer GERD Myocardial Infarction (09/14/2021) hypertention glaucoma Surgical History Surgery Date(Month/Year) appendectomy cholecystectomy eye surgery skin grafting on nose prostatectomy Cardiac stent placement 09/14/2021 Hospitalization History Reason Date(Month/Year) see surgery list Myocardial infarction
--- OUTSIDE RECORDS SUMMARY | 2025-05-14 11:24 | XMS_ITS | Patient Health Record ---
Author Organization [facility] Address [address] [place] [address] Care Team Providers Care Wrestling Coach Name Role Phone Lakshmi Donovan MD Primary Care Provider Unav Gavin Velazquez Unavailable [phone] [place] J [place] Unavailable Unavailable Allergies Allergen (clinical drug ingredient) Drug/Non Drug Allergy documented on EMR Reaction Allergy Type Onset Date Status No Known Drug Allergy Unknown Drug Allergy Active Reason For Referral No Information Medications Medication SIG (Take, Route, Frequency, Duration) Notes Start Date End Date Status Clopidogrel Bisulfate 75 MG Tablet 1 tablet Orally Once a day Active Multi For Him - Tablet as directed Orally liquid Active Atorvastatin Calcium 80 MG Tablet 1 tablet Orally Once a day Active Aspirin 81 MG Tablet Delayed Release 1 tablet Orally Once a day Active Latanoprost 0.005 % Solution 1 drop into affected eye in the evening Ophthalmic Once a day Active Sucralfate 1 GM Tablet 1 tablet on an em pty stomach Orally four times daily Active Pantoprazole Sodium 40 MG Tablet Delayed Release 1 tablet Orally twice a day Active Famotidine 20 MG Tablet 1 tablet at bedt melvin as needed Orally Twice a day Active Lisinopril 2.5 MG Tablet 1 tablet Orally Once a day Active Immunizations Vaccine Route Administration Date Status Comme nts Influenza (split), seasonal, intradermal, preservative free Unknown 12/20/2019 Refused Influenza (whole), CPT 20128 Inactive Unknown 01/25/2019 Administered Influenza (whole), CPT 18443 Inactive Unknown 07/29/2019 Administered Pneumococcal conjugate PCV 13 Unknown 12/20/2019 Refuse d Social History Tobacco Use: Social History Observation Description Date Details (start date - stop date) Never Smoker NA - NA Social History Depression Screening Social Info Question Answer Notes PHQ-9 Little interest or pleasure in doing thin gs Not at all Feeling down, depressed, or [...] all Total Score 3 Interpretation Minimal Depression Drugs/Alcohol: Social Info Question Answer Notes Alcohol Screen (Audit-C) Did you have a drink containing alcohol in the past year? No Points 0 Interpretation Negative Tobacco Use: Social Info Question Answer Notes xTobacco Use/Smoking Are you a nonsmoker Additional Details Category Social Info Options Details zzMigrated Social History Migrated Social History Smoking Status:Never smoked tobacco (finding) Problems Problem Type SNOMED Code ICD Code Onset Dates Problem Status W/U Status Risk Notes Problem Raised prostate specific antigen (111392147) Rising PSA following treatment for malignant neoplasm of prostate (R97.21) Active confirmed Problem Microscopic hematuria (537078109) Microscopic hematuria (R31.29) Active confirmed Problem History of prostatectomy (Z90.79) Active confirmed Problem SI - Stress incontinence (52220450) Stress incontinence (N39.3) Active confirmed Problem History of malignant neoplasm of prostate (967264151) History of prostate cancer (Z85.46) Active confirmed Problem History of radiation therapy (329506694) History of radiation therapy (Z92.3) Active confirmed Problem Gastroesophageal reflux disease (952964175) Gastroesophageal reflux disease, unspecified whether esophagitis present (K21.9) Active confirmed Plan Of Treatment Pending Test Test Name Order Date PSA Diagnostic--47833 01/04/2021 Testosterone Total 65550 01/04/2021 Insurance Providers Payer Name Payer Address Payer Phone Subscriber Number Group Number Insured Name Patient Relationship to Insured Coverage Start Date Coverage End Date [employer] [address] [place] [phone] [id number] Reinier Dc Self - patient is the insured Medical (General) History Medical History History ICD Code Malignant melanoma elevated prostate specific antigen Prostate Cancer GERD Myocardial Infarction (09/14/2021) hypertention glaucoma Surgical History Surgery Date(Month/Year) Cardiac stent placement 09/14/2021 prostatectomy skin grafting on nose eye surgery cholecystectomy appendectomy Hospitalization History Reason Date(Month/Year) see surgery list Myocardial infarction
--- OUTSIDE RECORDS SUMMARY | 2025-05-14 11:24 | XMS_ITS | Clinical Summary ---
Author Organization [facility] Address [address] 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
[2025-05-14 11:31] LABS: Hematocrit 42.8 % (37-53); Hemoglobin 14.40 g/dL (11.27-16.99); Mean Corpuscular HGB Conc 33.6 g/dL (30-55); Mean Corpuscular Hemoglobin 30.1 pg (27-33); Mean Corpuscular Volume 89.4 fl (82-101); Nucleated Red Blood Cells % 0 %; Platelet Count 161 10^3/cmm (157-399); Red Blood Count 4.79 10^6/uL (3.85-5.65); White Blood Count 4.95 10^3/uL (3.29-11.43)
[2025-05-14 11:48] LABS: Troponin(5th) Baseline 14 ng/L (0-15)
[2025-05-14 12:00] LABS: Lactic Sepsis W/Reflex 2.3 mmol/L (0.5-2.2)
[2025-05-14 12:06] LABS: Alanine Aminotransferase 21 U/L (0-41); Albumin Level 3.7 g/dL (3.5-5.2); Alkaline Phosphatase 90 U/L (40-130); Anion Gap 19.2 (5-19); Aspartate Amino Transferase 23 U/L (0-40); Blood Urea Nitrogen 17 mg/dL (8-23); Calcium 8.9 mg/dL (8.5-10.5); Carbon Dioxide 21 mmol/L (22-29); Chloride 105 mmol/L (98-107); Creatinine Clr Calc Pharmacy 49.3357; Globulin 2.3 g/dL (1.3-4.6); Glucose 154 mg/dL (65-115); NT Pro B Type Natriuretic Pept 639 pg/mL (0-450); Osmolality Calculated 297 mOsm/kg (285-295); Potassium 4.2 mmol/L (3.5-5.1); Sodium 141 mmol/L (136-145); Total Protein 6.0 g/dL (6.6-8.7)
[2025-05-14 12:20] VITALS: BP 108/61; PULSE 70; O2SAT 98
--- NOTE | 2025-05-14 12:23 | CT_ITS ---
WS: [id number] CT HEAD NONCONTRAST HISTORY: Syncope TECHNIQUE: Contiguous axial imaging performed through the brain. Bone and soft tissue windows. Sagittal and coronal reformats reviewed. All CT scans at [facility] use at least one of these dose optimization techniques: automated exposure control; mA and/or kV adjustment per patient size (includes targeted exams where dose is matched to clinical indication); or iterative reconstruction. DLP: 1252.18 mGy.cm COMPARISON: None available. No acute intracranial hemorrhage, midline shift or mass effect. Moderate cerebral and cerebellar atrophy with mild small vessel changes. No prior infarct. Ventricles: Normal size with no hydrocephalus. No inferior displacement of the cerebellar tonsils. Paranasal sinuses: As visualized are clear. Mastoid air cells: Well pneumatized. Calvarium and scalp: Skull is intact with no soft tissue edema or swelling. CT/CT head wo con* 75623 IMPRESSION: 1. No acute intracranial hemorrhage or edema. 2. Moderate cerebral and cerebellar atrophy with mild small vessel changes.
[2025-05-14 12:28] LABS: Glucose Urine UA Negative (Normal); Nitrate Urine Negative (Negative); Specific Gravity, Urine 1.027 (1.005-1.030)
[2025-05-14 12:30] VITALS: BP 103/54; PULSE 67; O2SAT 93
--- NOTE | 2025-05-14 12:47 | PC.PHAR ---
[facility] 05/14/25 12:45pm
[2025-05-14 13:11] LABS: UA Slide Review UA Slide Review Perf
--- NOTE | 2025-05-14 13:18 | ECG_ITS ---
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 Measurements Intervals [place] Rate: 62 P: 54 VA: 209 QRS: -54 QRSD: 99 T: 88 QT: 434 QTc: 443 Interpretive Statements SINUS RHYTHM PATTERN CONSISTENT WITH PULMONARY DISEASE LEFT ANTERIOR FASCICULAR BLOCK [QRS AXIS <= -45, QR IN I, RS IN II] SEPTAL MYOCARDIAL INFARCTION , OF INDETERMINATE AGE [40+ ms Q WAVE IN V1/V2] Compared to ECG 05/14/2025 11:17:56 Sinus arrhythmia no longer present Myocardial infarct finding still present Electronically Signed On 05-15-2025 09:11:24 CDT by Keith Gill M.D. [email or web address]
[2025-05-14 13:26] LABS: Reflex Lactate Order REFLEX LACTIC ORDERD
[2025-05-14 13:36] LABS: Troponin 5 2HR 16.21 ng/L (0-15); Troponin 5 2HR Delta 2.21 ABS# (0-10)
[2025-05-14 13:55] VITALS: BP 110/63; PULSE 63; RESP 20; O2SAT 96
[2025-05-14 14:36] VITALS: BP 116/65; PULSE 68; O2SAT 95
== END 2025-05-14 14:38 | disposition home or self-care (01) ==
PROVIDERS: Emergency Provider Emergency Medicine; PCP Family Medicine
DX: E86.0 Dehydration (principal); R55 Syncope and collapse; Z79.82 Long term (current) use of aspirin; I25.10 Atherosclerotic heart disease of native coronary artery without angina pectoris; Z85.46 Personal history of malignant neoplasm of prostate; Z85.828 Personal history of other malignant neoplasm of skin; I50.20 Unspecified systolic (congestive) heart failure
CPT/HCPCS: 36415; 70450; 71045; 80053; 81001; 83605; 83880; 84484; 85025; 86140; 87040; 93005; 96360; 99285; J7030

== ENCOUNTER 2025-05-26 11:12 | Emergency (ER) | payer OTHER, SELFPAY ==
--- OUTSIDE RECORDS SUMMARY | 2025-05-26 06:17 | XMS_ITS | Continuity of Care Document ---
Author Name [facility] Organization [facility] Care Team Providers Care Noise Tester Name Role Phone [facility] Unavailable Unavailable Problems Combined list of problems from Department of Defense and Veterans Affairs facilities. It does not include entries that were removed or entered in error. Problem Status Onset Date Problem Type Date of Resolution Comments Source Basal cell carcinoma of skin Active Condition [place] [facility] CAD - Coronary Artery Disease ([facility] [id number]) Active Condition Sep 21, 2021 Entered By: DYAN JOAQUIN Comment: stent placement 08/2021 Dr. Johnathan MELGAR [facility] CHF - Congestive Heart Failure ([facility] [id number]) Active Condition March 14, 2022 Entered By: DYAN JOAQUIN Comment: systolic; EF 40% echo 2021 Entered By: DYAN JOAQUIN Comment: echo 02/14/22 EF 35% [place] [facility] Diverticulosis of sigmoid colon Active Condition May 11, 2023 Entered By: DYAN JOAQUIN Comment: minimal on colonoscopy 03/2023 [place] [facility] GERD - Gastro-Esophageal Reflux Disease ([facility] [id number]) Active Condition May 11, 2023 Entered By: DYAN JOAQUIN Comment: med HH on EGD 03/2023 [place] [facility] Glaucoma Active Condition [place] [facility] Hematuria Active Condition March 20 Entered By: DYAN JOAQUIN Comment: Per cardiology note 12/13/23 on Plavix [place] [facility] HLD - Hyperlipidemia Active Condition [place] [facility] Hypertension Active Condition [place] [facility] Obstructive Sleep Apnea of Adult (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 Nov 01, 2024 Entered By: DYAN JOAQUIN Comment: several sites [place] [facility] Urinary incontinence Active Condition Dec 02, 2020 Entered By: DYAN JOAQUIN Comment: secondary from prostate surgery [place] [facility] Vitamin D deficiency Active Condition [place] [facility] Diagnosis: ICD-10-CM I25.10 Athscl heart disease of [place] coronary artery w/o ang pctrs Active Diagnosis [facility] Diagnosis: ICD-10-CM Z23 Encounter for immunization Active Diagnosis [facility] Diagnosis: ICD-10-CM Z71.89 Other specified counseling Active Diagnosis [facility] Diagnosis: ICD-10-CM Z46.1 Encounter for fitting and adjustment of hearing aid Active Diagnosis [place] [facility] Medications Combined list of outpatient medications [...] 6 HOURS NEEDED ORAL ACTIVE ASAF FONTAINE R 2018 [facility] ASPIRIN 81MG TAB,EC TAKE ONE TABLET BY MOUTH ONCE A DAY ORAL ACTIVE DYAN JOAQUIN 2021 [facility] ATORVASTATI N CA 40MG TAB TAKE TWO TABLETS BY MOUTH AT BEDTIME ORAL 01/02/2025 [id number] Thaddeus CHANCE USSAIN 2023 180 [place] [facility] ATORVASTATI N CA 80MG TAB TAKE ONE TABLET BY MOUTH ONCE A DAY AT BEDTIME ORAL ACTIVE 03/19/2026 [id number] VINCENT RODGERS MMARafael F 2024 90 [place] [facility] CLOPIDOGREL BISULFATE 75MG TAB TAKE ONE TABLET BY MOUTH ONCE A DAY ORAL 12/05/2024 [id number] 4 Thaddeus CHANCE USSAIN 2023 90 [place] [facility] FAMOTIDINE 20MG TAB TAKE ONE TABLET BY MOUTH TWICE A DAY FOR GASTROES OPHAGEAL REFLUX DISEASE ORAL DISCONT INUED BY PROVIDE R 11/28/2025 [id number] [facility] DYAN 2024 180 [employer] LATANOPROST 0.005% SOLN,OPH INSTILL 1 DROP IN BOTH EYES EVERY EVENING FOR GLAUCOMA . KEEP REFRIGER ATED UNTIL READY TO USE, THEN STORE AT ROOM TEMPERAT URE FOR MAXIMUM OF 42 DAYS. OPHTHA LMIC ACTIVE 01/03/2026 [id number] 5 JEMAL, DYAN 2024 7.5 [employer] LATANOPROST 0.005% SOLN,OPH INSTILL 1 DROP IN BOTH EYES EVERY EVENING FOR GLAUCOMA . KEEP REFRIGER ATED UNTIL READY TO USE, THEN STORE AT ROOM TEMPERAT URE FOR MAXIMUM OF 42 DAYS. OPHA IC DISCONT INUED 09/11/2024 [id number] [facility] 2022 7.5 [facility] LISINOPRIL 2.5MG TAB TAKE ONE TABLET BY MOUTH ONCE A DAY ORAL ACTIVE 11/28/2025 [id number] CHANCE,H USSAIN 2024 90 [place] [facility] LISINOPRIL 2.5MG TAB TAKE ONE TABLET BY MOUTH ONCE A DAY ORAL DISCONT INUED 12/05/2024 [id number] CHANCE,H USSAIN 2023 90 [place] [facility] MULTIVITAMI N/MINERALS ANTIOXIDANT CAP/TAB TAKE 1 CAP/TAB BY MOUTH ONCE A DAY ORAL ACTIVE ASAF FONTAINE R 2018 [place] [facility] PANTOPRAZOL E NA 40MG TAB,EC TAKE ONE TABLET BY MOUTH EVERY MORNING BEFORE A MEAL FOR GASTROES OPHAGEAL REFLUX DISEASE TAKE 30 MINUTES BEFORE MEAL(S) ORAL ACTIVE 03/05/2026 [id number] 5 JEMAL DYAN 2024 90 [employer] PANTOPRAZOL E NA 40MG TAB,EC TAKE ONE TABLET BY MOUTH EVERY MORNING BEFORE A MEAL FOR GASTROES OPHAGEAL REFLUX DISEASE TAKE 30 MINUTES BEFORE MEAL(S) ORAL DISCONT INUED 02/12/2025 [id number] JEMALDILIPMY 2023 90 [facility] Immunizations Combined list of available immunizations from the Department of Defense and Veterans Affairs facilities. Immunization Series Date Given Administered By Site Reaction Lot Number CVX Code Drug Cell Geneticist Status Comments Source INFLUENZA, HIGH-DOSE, TRIVALENT, PF 2023 JASON CHEN RIGHT DELTO ID [id number] 135 complet ed [facility] ZOSTER RECOMBINANT 2 2022 JABARI HOLLIS LEFT DELTO ID [id number] 187 complet ed [facility] COVID-19 (MODERNA), MRNA, LNP-S, PF, 50 MCG/0.5 ML (AGES 12+ YEARS) 1 2022 ENEIDA PRIDE D LEFT DELTO ID [id number] 312 complet ed [facility] INFLUENZA, HIGH-DOSE, QUADRIVALENT 2022 ADARSH NEELY RIGHT DELTO ID [id number] 197 complet ed [facility] ZOSTER RECOMBINANT 1 2022 JASON CHEN LEFT DELTO ID [id number] 187 complet ed [facility] PNEUMOCOCCAL CONJUGATE PCV20, POLYSACCHARID E [id number] CONJUGATE, ADJUVANT, PF 2021 TA ARAGON RIGHT DELTO ID [id number] 216 complet ed [facility] COVID-19 (MODERNA), MRNA, LNP-S, BIVALENT BOOSTER, PF, 50 MCG/0.5 ML OR 25MCG/0.25 ML DOSE 1 2021 229 complet ed MOD; [id number]; 3 [facility] INFLUENZA VACCINE, QUADRIVALENT, ADJUVANTED 2021 205 complet ed [facility] COVID-19 (MODERNA), MRNA, LNP-S, PF, 100 MCG/0.5ML DOSE OR 50 MCG/0.25ML DOSE 3 2021 207 complet ed HISTORICA L INFORMATI ON - FROM OTHER PROVIDER, [facility] INFLUENZA, INJECTABLE, QUADRIVALENT, PRESERVATIVE FREE 2020 150 complet ed [facility] PNEUMOCOCCAL POLYSACCHARID E [id number] 2020 33 complet ed [facility] COVID-19 (MODERNA), MRNA, LNP-S, PF, 100 MCG/0.5ML DOSE OR 50 MCG/0.25ML DOSE 2 2020 207 complet ed HISTORICA L INFORMATI ON - FROM OTHER PROVIDER, [facility] COVID-19 (MODERNA), MRNA, LNP-S, PF, 100 MCG/0.5ML DOSE OR 50 MCG/0.25ML DOSE 2 2020 207 complet ed HISTORICA L INFORMATI ON - FROM OTHER REGISTRY, [facility] COVID-19 (MODERNA), MRNA, LNP-S, PF, 100 MCG/0.5ML DOSE OR 50 MCG/0.25ML DOSE 1 2020 207 complet ed [facility] INFLUENZA, INJECTABLE, QUADRIVALENT, PRESERVATIVE FREE 2019 150 complet ed [facility] Results Combined list of recent [...] 2024 10:37 AM Reporting Lab: [place] [facility] [address] [place] [address] Performin g Lab: [place] [facility] [address] [place] [address] [facility] CHOLESTEROL PANEL (PB) CHOLESTEROL [MASS/VOLUME] IN SERUM OR PLASMA 106 mg/dL 0 - 200 04/07 Specimen Type: PLASMA No comment entered. Ordering Provider: DYAN JOAQUIN Report Released Date/Time : Apr 17, 2024 10:37 AM Reporting Lab: [place] [facility] [address] [place] [address] Performin g Lab: [place] [facility] [address] [place] [address] [facility] CHOLESTEROL PANEL (PB) TRIGLYCERIDE [MASS/VOLUME] IN SERUM OR PLASMA 59 mg/dL 0 - 150 04/07 Specimen Type: PLASMA No comment entered. Ordering Provider: DYAN JOAQUIN Report Released Date/Time : Apr 17, 2024 10:37 AM Reporting Lab: [place] [facility] [address] [place] [address] Performin g Lab: [place] [facility] [address] [place] [address] [facility] CHOLESTEROL PANEL (PB) CHOLESTEROL IN LDL [MASS/VOLUME] IN SERUM OR PLASMA BY CALCULATION 52.7 mg/dL 04/07 Specimen Type: PLASMA No comment entered. Ordering Provider: DYAN JOAQUIN Report Released Date/Time : Apr 17, 2024 10:37 AM Reporting Lab: [place] [facility] [address] [place] [address] Performin g Lab: [place] [facility] [address] [place] [address] [facility] CHOLESTEROL PANEL (PB) CHOLESTEROL IN HDL [MASS/VOLUME] IN SERUM OR PLASMA 41.5 mg/dL 40 04/07 H Specimen Type: PLASMA No comment entered. Ordering Provider: DYAN JOAQUIN Report Released Date/Time : Apr 17, 2024 10:37 AM Reporting Lab: [place] [facility] [address] [place] [address] Performin g Lab: [place] [facility] [address] [place] [address] [facility] CHOLESTEROL PANEL (PB) CHOLESTEROL IN HDL/CHOLESTER OL.TOTAL [MASS RATIO] IN SERUM OR PLASMA 39.2 25 04/07 Specimen Type: PLASMA No comment entered. Ordering Provider: DYAN JOAQUIN Report Released Date/Time : Apr 17, 2024 10:37 AM Reporting Lab: [place] [facility] [address] [place] [address] Performin g Lab: [place] [facility] [address] [place] [address] [facility] TSH (MA-PB) THYROTROPIN [UNITS/VOLUME ] IN SERUM OR PLASMA 4.431 u[IU]/ mL 0.47 - 5 04/07 Specimen Type: SERUM No comment entered. Ordering Provider: DYAN JOAQUIN Report Released Date/Time : Apr 17, 2024 10:37 AM Reporting Lab: [place] [facility] [address] [place] [address] Performin g Lab: [place] [facility] [address] [place] [address] 8 [facility] COMPREHENSI VE METABOLIC PANEL CREATININE [MASS/VOLUME] IN SERUM OR PLASMA 1.26 mg/dL 0.7 - 1.3 04/07 Specimen Type: PLASMA No comment entered. Ordering Provider: DYAN JOAQUIN Report Released Date/Time : Apr 17, 2024 10:37 AM Reporting Lab: [place] [facility] [address] [place] [address] Performin g Lab: [place] [facility] [address] [place] [address] [facility] COMPREHENSI VE METABOLIC PANEL UREA NITROGEN [MASS/VOLUME] IN SERUM OR PLASMA 17 mg/dL 9 - 25 04/07 Specimen Type: PLASMA No comment entered. Ordering Provider: DYAN JOAQUIN Report Released Date/Time : Apr 17, 2024 10:37 AM Reporting Lab: [place] [facility] [address] [place] [address] Performin g Lab: [place] [facility] [address] [place] [address] 8 [facility] COMPREHENSI VE METABOLIC PANEL GLUCOSE [MASS/VOLUME] IN SERUM OR PLASMA 111 mg/dL 72 - 99 04/07 H Specimen Type: PLASMA No comment entered. Ordering Provider: DYAN JOAQUIN Report Released Date/Time : Apr 17, 2024 10:37 AM Reporting Lab: [place] [facility] [address] [place] [address] Performin g Lab: [place] [facility] [address] [place] [address] [place] COMPREHENSI VE METABOLIC PANEL SODIUM [MOLES/VOLUME ] IN SERUM OR PLASMA 143 meq/L 136 - 145 04/07 Specimen Type: PLASMA No comment entered. Ordering Provider: DYAN JOAQUIN Report Released Date/Time : Apr 17, 2024 10:37 AM Reporting Lab: [place] [facility] [address] [place] [address] Performin g Lab: [place] [facility] [address] [place] [address] 8 [place] [facility] COMPREHENSI VE METABOLIC PANEL POTASSIUM [MOLES/VOLUME ] IN SERUM OR PLASMA 4.4 meq/L 3.5 - 5 04/07 Specimen Type: PLASMA No comment entered. Ordering Provider: DYAN JOAQUIN Report Released Date/Time : Apr 17, 2024 10:37 AM Reporting Lab: [place] [facility] [address] [place] [address] Performin g Lab: [place] [facility] [address] [place] [address] 8 [facility] COMPREHENSI VE METABOLIC PANEL CHLORIDE [MOLES/VOLUME ] IN SERUM OR PLASMA 108 meq/L 98 - 107 04/07 H Specimen Type: PLASMA No comment entered. Ordering Provider: DYAN JOAQUIN Report Released Date/Time : Apr 17, 2024 10:37 AM Reporting Lab: [place] [facility] [address] [place] [address] Performin g Lab: [place] [facility] [address] [place] [address] [place] [facility] COMPREHENSI VE METABOLIC PANEL CARBON DIOXIDE, TOTAL [MOLES/VOLUME ] IN SERUM OR PLASMA 29 meq/L 22 - 31 04/07 Specimen Type: PLASMA No comment entered. Ordering Provider: DYAN JOAQUIN Report Released Date/Time : Apr 17, 2024 10:37 AM Reporting Lab: [place] [facility] [address] [place] [address] Performin g Lab: [place] [facility] [address] [place] [address] [facility] COMPREHENSI VE METABOLIC PANEL CALCIUM [MASS/VOLUME] IN SERUM OR PLASMA 8.9 mg/dL 8.4 - 10.4 04/07 Specimen Type: PLASMA No comment entered. Ordering Provider: DYAN JOAQUIN Report Released Date/Time : Apr 17, 2024 10:37 AM Reporting Lab: [place] [facility] [address] [place] [address] Performin g Lab: [place] [facility] [address] [place] [address] [facility] COMPREHENSI VE METABOLIC PANEL PROTEIN [MASS/VOLUME] IN SERUM OR PLASMA 6.5 g/dL 6 - 8.6 04/07 Specimen Type: PLASMA No comment entered. Ordering Provider: DYAN JOAQUIN Report Released Date/Time : Apr 17, 2024 10:37 AM Reporting Lab: [place] [facility] [address] [place] [address] Performin g Lab: [place] [facility] [address] [place] [address] [facility] COMPREHENSI VE METABOLIC PANEL ALBUMIN [MASS/VOLUME] IN SERUM OR PLASMA 3.9 g/dL 3.4 - 5 04/07 Specimen Type: PLASMA No comment entered. Ordering Provider: DYAN JOAQUIN Report Released Date/Time : Apr 17, 2024 10:37 AM Reporting Lab: [place] [facility] [address] [place] [address] Performin g Lab: [place] [facility] [address] [place] [address] [facility] COMPREHENSI VE METABOLIC PANEL BILIRUBIN.TOT AL [MASS/VOLUME] IN SERUM OR PLASMA 0.8 mg/dL 0.2 - 1.2 04/07 Specimen Type: PLASMA No comment entered. Ordering Provider: DYAN JOAQUIN Report Released Date/Time : Apr 17, 2024 10:37 AM Reporting Lab: [place] [facility] [address] [place] [address] Performin g Lab: [place] [facility] [address] [place] [address] [facility] COMPREHENSI VE METABOLIC PANEL ALKALINE PHOSPHATASE [ENZYMATIC ACTIVITY/VOLU ME] IN SERUM OR PLASMA 80 U/L 40 - 150 04/07 Specimen Type: PLASMA No comment entered. Ordering Provider: DYAN JOAQUIN Report Released Date/Time : Apr 17, 2024 10:37 AM Reporting Lab: [place] [facility] [address] [place] [address] Performin g Lab: [place] [facility] [address] [place] [address] [facility] COMPREHENSI VE METABOLIC PANEL ASPARTATE AMINOTRANSFER ASE [ENZYMATIC ACTIVITY/VOLU ME] IN SERUM OR PLASMA 30 U/L 5 - 34 04/07 Specimen Type: PLASMA No comment entered. Ordering Provider: DYAN JOAQUIN Report Released Date/Time : Apr 17, 2024 10:37 AM Reporting Lab: [place] [facility] [address] [place] [address] Performin g Lab: [place] [facility] [address] [place] [address] [facility] COMPREHENSI VE METABOLIC PANEL ALANINE AMINOTRANSFER ASE [ENZYMATIC ACTIVITY/VOLU ME] IN SERUM OR PLASMA 30 U/L 8 - 40 04/07 Specimen Type: PLASMA No comment entered. Ordering Provider: DYAN JOAQUIN Report Released Date/Time : Apr 17, 2024 10:37 AM Reporting Lab: [place] [facility] [address] [place] [address] Performin g Lab: [place] [facility] [address] [place] [address] [facility] COMPREHENSI VE METABOLIC PANEL GLOMERULAR FILTRATION RATE/1.73 SQ M.PREDICTED [VOLUME RATE/AREA] IN SERUM, PLASMA OR BLOOD BY CREATININE-BA SED FORMULA (CKD-EPI 2020) 59 04/07 Specimen Type: PLASMA No comment entered. Ordering Provider: DYAN JOAQUIN Report Released Date/Time : Apr 17, 2024 10:37 AM Reporting Lab: [place] [facility] [address] [place] [address] Performin g Lab: [place] [facility] [address] [place] [address] [facility] PROST. SPECIFIC AG.(PB-STL) PROSTATE SPECIFIC AG [MASS/VOLUME] IN SERUM OR PLASMA <0.10n g/mL 0 - 4 04/07 L Specimen Type: SERUM No comment entered. Ordering Provider: DYAN JOAQUIN Report Released Date/Time : Apr 17, 2024 10:37 AM Reporting Lab: [place] [facility] [address] [place] [address] Performin g Lab: [place] [facility] [address] [place] [address] [facility] CBC LEUKOCYTES [#/VOLUME] IN BLOOD BY AUTOMATED COUNT 5.3 10*3/u L 3.6 - 11.2 04/07 Specimen Type: BLOOD No comment entered. Ordering Provider: DYAN JOAQUIN Report Released Date/Time : Apr 17, 2024 10:37 AM Reporting Lab: [place] [facility] [address] [place] [address] Performin g Lab: [place] [facility] [address] [place] [address] [facility] CBC ERYTHROCYTES [#/VOLUME] IN BLOOD BY AUTOMATED COUNT 5.15 10*6/u L 4.10 - 5.70 04/07 Specimen Type: BLOOD No comment entered. Ordering Provider: DYAN JOAQUIN Report Released Date/Time : Apr 17, 2024 10:37 AM Reporting Lab: [place] [facility] [address] [place] [address] Performin g Lab: [place] [facility] [address] [place] [address] [facility] CBC HEMOGLOBIN [MASS/VOLUME] IN BLOOD 15.5 g/dL 13.1 - 16.8 04/07 Specimen Type: BLOOD No comment entered. Ordering Provider: DYAN JOAQUIN Report Released Date/Time : Apr 17, 2024 10:37 AM Reporting Lab: [place] [facility] [address] [place] [address] Performin g Lab: [place] [facility] [address] [place] [address] [facility] CBC HEMATOCRIT [VOLUME FRACTION] OF BLOOD 46.5 38.2 - 48.4 04/07 Specimen Type: BLOOD No comment entered. Ordering Provider: DYAN JOAQUIN Report Released Date/Time : Apr 17, 2024 10:37 AM Reporting Lab: [place] [facility] [address] [place] [address] Performin g Lab: [place] [facility] [address] [place] [address] [facility] CBC MCV [ENTITIC VOLUME] BY AUTOMATED COUNT 90.3 fL 80.0 - 100.0 04/07 Specimen Type: BLOOD No comment entered. Ordering Provider: DYAN JOAQUIN Report Released Date/Time : Apr 17, 2024 10:37 AM Reporting Lab: [place] [facility] [address] [place] [address] Performin g Lab: [place] [facility] [address] [place] [address] [facility] CBC MCH [ENTITIC MASS] BY AUTOMATED COUNT 30.1 pg 27.0 - 34.0 04/07 Specimen Type: BLOOD No comment entered. Ordering Provider: DYAN JOAQUIN Report Released Date/Time : Apr 17, 2024 10:37 AM Reporting Lab: [place] [facility] [address] [place] [address] Performin g Lab: [place] [facility] [address] [place] [address] [facility] CBC MCHC [MASS/VOLUME] BY AUTOMATED COUNT 33.3 g/dL 33.0 - 36.0 04/07 Specimen Type: BLOOD No comment entered. Ordering Provider: DYAN JOAQUIN Report Released Date/Time : Apr 17, 2024 10:37 AM Reporting Lab: [place] [facility] [address] [place] [address] Performin g Lab: [place] [facility] [address] [place] [address] [facility] CBC PLATELETS [#/VOLUME] IN BLOOD BY AUTOMATED COUNT 172 10*3/u L 150 - 400 04/07 Specimen Type: BLOOD No comment entered. Ordering Provider: DYAN JOAQUIN Report Released Date/Time : Apr 17, 2024 10:37 AM Reporting Lab: [place] [facility] [address] [place] [address] Performin g Lab[facility] [place] [facility] [address] [place] [address] [facility] CBC PLATELET MEAN VOLUME [ENTITIC VOLUME] IN BLOOD BY AUTOMATED COUNT 9.1 fL 7.5 - 11.2 04/07 Specimen Type: BLOOD No comment entered. Ordering Provider: DYAN JOAQUIN Report Released Date/Time : Apr 17, 2024 10:37 AM Reporting Lab: [place] [facility] [address] [place] [address] Performin g Lab[place] [facility] [address] [place] [address] [facility] CBC ERYTHROCYTE DISTRIBUTION WIDTH [RATIO] BY AUTOMATED COUNT 12.2 11.8 - 15.1 04/07 Specimen Type: BLOOD No comment entered. Ordering Provider: DYAN JOAQUIN Report Released Date/Time : Apr 17, 2024 10:37 AM Reporting Lab: [place] [facility] [address] [place] [address] Performin g Lab: [place] [facility] [address] [place] [address] [facility] CBC LYMPHOCYTES/1 00 LEUKOCYTES IN BLOOD BY AUTOMATED COUNT 27.0 04/07 Specimen Type: BLOOD No comment entered. Ordering Provider: DYAN JOAQUIN Report Released Date/Time : Apr 17, 2024 10:37 AM Reporting Lab: [place] [facility] [address] [place] [address] Performin g Lab: [place] [facility] [address] [place] [address] [facility] CBC MONOCYTES/100 LEUKOCYTES IN BLOOD BY AUTOMATED COUNT 9.4 04/07 Specimen Type: BLOOD No comment entered. Ordering Provider: DYAN JOAQUIN Report Released Date/Time : Apr 17, 2024 10:37 AM Reporting Lab: [place] [facility] [address] [place] [address] Performin g Lab: [place] [facility] [address] [place] [address] [facility] CBC NEUTROPHILS/1 00 LEUKOCYTES IN BLOOD BY AUTOMATED COUNT 55.8 04/07 Specimen Type: BLOOD No comment entered. Ordering Provider: DYAN JOAQUIN Report Released Date/Time : Apr 17, 2024 10:37 AM Reporting Lab: [place] [facility] [address] [place] [address] 8 Performin g Lab: [place] [facility] [address] [place] [address] [facility] CBC EOSINOPHILS/1 00 LEUKOCYTES IN BLOOD BY AUTOMATED COUNT 6.8 04/07 Specimen Type: BLOOD No comment entered. Ordering Provider: DYAN JOAQUIN Report Released Date/Time : Apr 17, 2024 10:37 AM Reporting Lab: [place] [facility] [address] [place] [address] 8 Performin g Lab: [place] [facility] [address] [place] [address] 8 [facility] CBC BASOPHILS/100 LEUKOCYTES IN BLOOD BY AUTOMATED COUNT 0.8 04/07 Specimen Type: BLOOD No comment entered. Ordering Provider: DYAN JOAQUIN Report Released Date/Time : Apr 17, 2024 10:37 AM Reporting Lab: [place] [facility] [address] [place] [address] 8 Performin g Lab: [place] [facility] [address] [place] [address] 8 [facility] CBC LYMPHOCYTES [#/VOLUME] IN BLOOD BY AUTOMATED COUNT 1.43 10*3/u L 0.77 - 4.50 04/07 Specimen Type: BLOOD No comment entered. Ordering Provider: DYAN JOAQUIN Report Released Date/Time : Apr 17, 2024 10:37 AM Reporting Lab: [place] [facility] [address] [place] [address] 8 Performin g Lab: [place] [facility] [address] [place] [address] 8 [facility] CBC MONOCYTES [#/VOLUME] IN BLOOD BY AUTOMATED COUNT 0.50 10*3/u L 0.19 - 0.8 04/07 Specimen Type: BLOOD No comment entered. Ordering Provider: DYAN JOAQUIN Report Released Date/Time : Apr 17, 2024 10:37 AM Reporting Lab: [place] [facility] [address] [place] [address] 8 Performin g Lab: [place] [facility] [address] [place] [address] 8 [facility] CBC NEUTROPHILS [#/VOLUME] IN BLOOD BY AUTOMATED COUNT 2.96 10*3/u L 2.10 - 8.00 04/07 Specimen Type: BLOOD No comment entered. Ordering Provider: DYAN JOAQUIN Report Released Date/Time : Apr 17, 2024 10:37 AM Reporting Lab: [place] [facility] [address] [place] [address] 8 Performin g Lab: [place] [facility] [address] [place] [address] 8 [facility] CBC EOSINOPHILS [#/VOLUME] IN BLOOD BY AUTOMATED COUNT 0.36 10*3/u L 0.00 - 0.60 04/07 Specimen Type: BLOOD No comment entered. Ordering Provider: DYAN JOAQUIN Report Released Date/Time : Apr 17, 2024 10:37 AM Reporting Lab: [place] [facility] [address] [place] [address] 8 Performin g Lab: [place] [facility] [address] [place] [address] 8 [facility] CBC BASOPHILS [#/VOLUME] IN BLOOD BY AUTOMATED COUNT 0.04 10*3/u L 0.00 - 0.20 04/07 Specimen Type: BLOOD No comment entered. Ordering Provider: DYAN JOAQUIN Report Released Date/Time : Apr 17, 2024 10:37 AM Reporting Lab: [place] [facility] [address] [place] [address] 8 Performin g Lab: [place] [facility] [address] [place] [address] [facility] CBC IMMATURE GRANULOCYTES/ 100 LEUKOCYTES IN BLOOD BY AUTOMATED COUNT 0.2 04/07 Specimen Type: BLOOD No comment entered. Ordering Provider: DYAN JOAQUIN Report Released Date/Time : Apr 17, 2024 10:37 AM Reporting Lab: [place] [facility] [address] [place] [address] 8 Performin g Lab: [place] [facility] [address] [place] [address] 8 [facility] CBC IMMATURE GRANULOCYTES [#/VOLUME] IN BLOOD BY AUTOMATED COUNT 0.01 10*3/u L 0.00 - 0.05 04/07 Specimen Type: BLOOD No comment entered. Ordering Provider: DYAN JOAQUIN Report Released Date/Time : Apr 17, 2024 10:37 AM Reporting Lab: [place] [facility] [address] [place] [address] 8 Performin g Lab: [place] [facility] [address] [place] [address] 8 [facility] HGA1C HEMOGLOBIN A1C/HEMOGLOBI N.TOTAL IN BLOOD 5.7 4.0 - 6.0 04/11 Specimen Type: BLOOD No comment entered. Ordering Provider: YDAN JOAQUIN Report Released Date/Time : Dec 12, 2023 10:00 AM Reporting Lab: [place] [facility] [address] [place] [address] Performin g Lab: [place] [facility] [address] [place] [address] 8 [facility] CHOLESTEROL PANEL (PB) CHOLESTEROL [MASS/VOLUME] IN SERUM OR PLASMA 105 mg/dL 0 - 200 04/11 Specimen Type: PLASMA No comment entered. Ordering Provider: DYAN JOAQUIN Report Released Date/Time : Dec 12, 2023 10:00 AM Reporting Lab: [place] [facility] [address] [place] [address] 8 Performin g Lab: [place] [facility] [address] [place] [address] 8 [facility] CHOLESTEROL PANEL (PB) TRIGLYCERIDE [MASS/VOLUME] IN SERUM OR PLASMA 34 mg/dL 0 - 150 04/11 Specimen Type: PLASMA No comment entered. Ordering Provider: DYAN JOAQUIN Report Released Date/Time : Dec 12, 2023 10:00 AM Reporting Lab: [place] [facility] [address] [place] [address] 8 Performin g Lab: [place] [facility] [address] [place] [address] 8 [facility] CHOLESTEROL PANEL (PB) CHOLESTEROL IN LDL [MASS/VOLUME] IN SERUM OR PLASMA BY CALCULATION 56.2 mg/dL 04/11 Specimen Type: PLASMA No comment entered. Ordering Provider: DYAN JOAQUIN Report Released Date/Time : Dec 12, 2023 10:00 AM Reporting Lab: [place] [facility] [address] [place] [address] 8 Performin g Lab: [place] [facility] [address] [place] [address] 8 [facility] CHOLESTEROL PANEL (PB) CHOLESTEROL IN HDL [MASS/VOLUME] IN SERUM OR PLASMA 42.0 mg/dL 40 04/11 H Specimen Type: PLASMA No comment entered. Ordering Provider: DYAN JOAQUIN Report Released Date/Time : Dec 12, 2023 10:00 AM Reporting Lab: [place] [facility] [address] [place] [address] 8 Performin g Lab: [place] [facility] [address] [place] [address] 8 [facility] CHOLESTEROL PANEL (PB) CHOLESTEROL IN HDL/CHOLESTER OL.TOTAL [MASS RATIO] IN SERUM OR PLASMA 40.0 25 04/11 Specimen Type: PLASMA No comment entered. Ordering Provider: DYAN JOAQUIN Report Released Date/Time : Dec 12, 2023 10:00 AM Reporting Lab: [place] [facility] [address] [place] [address] 8 Performin g Lab: [place] [facility] [address] [place] [address] [facility] TSH (MA-PB) THYROTROPIN [UNITS/VOLUME ] IN SERUM OR PLASMA 3.602 u[IU]/ mL 0.47 - 5 04/11 Specimen Type: SERUM No comment entered. Ordering Provider: DYAN JOAQUIN Report Released Date/Time : Dec 12, 2023 10:00 AM Reporting Lab: [place] [facility] [address] [place] [address] 8 Performin g Lab: [place] [facility] [address] [place] [address] 8 [facility] COMPREHENSI VE METABOLIC PANEL CREATININE [MASS/VOLUME] IN SERUM OR PLASMA 1.14 mg/dL 0.7 - 1.3 04/11 Specimen Type: PLASMA No comment entered. Ordering Provider: DYAN JOAQUIN Report Released Date/Time : Dec 12, 2023 10:00 AM Reporting Lab: [place] [facility] [address] [place] [address] 8 Performin g Lab: [place] [facility] [address] [place] [address] 8 [facility] COMPREHENSI VE METABOLIC PANEL UREA NITROGEN [MASS/VOLUME] IN SERUM OR PLASMA 22 mg/dL 9 - 25 04/11 Specimen Type: PLASMA No comment entered. Ordering Provider: DYAN JOAQUIN Report Released Date/Time : Dec 12, 2023 10:00 AM Reporting Lab: [place] [facility] [address] [place] [address] 8 Performin g Lab: [place] [facility] [address] [place] [address] 8 [facility] COMPREHENSI VE METABOLIC PANEL GLUCOSE [MASS/VOLUME] IN SERUM OR PLASMA 108 mg/dL 72 - 99 04/11 H Specimen Type: PLASMA No comment entered. Ordering Provider: DYAN JOAQUIN Report Released Date/Time : Dec 12, 2023 10:00 AM Reporting Lab: [place] [facility] [address] [place] [address] 8 Performin g Lab: [place] [facility] [address] [place] [address] 8 [place] [facility] COMPREHENSI VE METABOLIC PANEL SODIUM [MOLES/VOLUME ] IN SERUM OR PLASMA 138 meq/L 136 - 145 04/11 Specimen Type: PLASMA No comment entered. Ordering Provider: DYAN JOAQIUN Report Released Date/Time : Dec 12, 2023 10:00 AM Reporting Lab: [place] [facility] [address] [place] [address] 8 Performin g Lab: [place] [facility] [address] [place] [address] 8 [place] [facility] COMPREHENSI VE METABOLIC PANEL POTASSIUM [MOLES/VOLUME ] IN SERUM OR PLASMA 4.6 meq/L 3.5 - 5 04/11 Specimen Type: PLASMA No comment entered. Ordering Provider: DYAN JOAQUIN Report Released Date/Time : Dec 12, 2023 10:00 AM Reporting Lab: [place] [facility] [address] [place] [address] Performin g Lab: [place] [facility] [address] [place] [address] 8 [place] [facility] COMPREHENSI VE METABOLIC PANEL CHLORIDE [MOLES/VOLUME ] IN SERUM OR PLASMA 108 meq/L 98 - 107 04/11 H Specimen Type: PLASMA No comment entered. Ordering Provider: DYAN JOAQUIN Report Released Date/Time : Dec 12, 2023 10:00 AM Reporting Lab: [place] [facility] [address] [place] [address] 8 Performin g Lab: [place] [facility] [address] [place] [address] 8 [place] [facility] COMPREHENSI VE METABOLIC PANEL CARBON DIOXIDE, TOTAL [MOLES/VOLUME ] IN SERUM OR PLASMA 23 meq/L 22 - 31 04/11 Specimen Type: PLASMA No comment entered. Ordering Provider: DYAN JOAQUIN Report Released Date/Time : Dec 12, 2023 10:00 AM Reporting Lab: [place] [facility] [address] [place] [address] 8 Performin g Lab: [place] [facility] [address] [place] [address] 8 [place] [facility] COMPREHENSI VE METABOLIC PANEL CALCIUM [MASS/VOLUME] IN SERUM OR PLASMA 8.7 mg/dL 8.4 - 10.4 04/11 Specimen Type: PLASMA No comment entered. Ordering Provider: DYAN JOAQUIN Report Released Date/Time : Dec 12, 2023 10:00 AM Reporting Lab: [place] [facility] [address] [place] [address] 8 Performin g Lab: [place] [facility] [address] [place] [address] 8 [facility] COMPREHENSI VE METABOLIC PANEL PROTEIN [MASS/VOLUME] IN SERUM OR PLASMA 6.5 g/dL 6 - 8.6 04/11 Specimen Type: PLASMA No comment entered. Ordering Provider: DYAN JOAQUIN Report Released Date/Time : Dec 12, 2023 10:00 AM Reporting Lab: [place] [facility] [address] [place] [address] 8 Performin g Lab: [place] [facility] [address] [place] [address] 8 [facility] COMPREHENSI VE METABOLIC PANEL ALBUMIN [MASS/VOLUME] IN SERUM OR PLASMA 3.9 g/dL 3.4 - 5 04/11 Specimen Type: PLASMA No comment entered. Ordering Provider: DYAN JOAQUIN Report Released Date/Time : Dec 12, 2023 10:00 AM Reporting Lab: [place] [facility] [address] [place] [address] Performin g Lab: [place] [facility] [address] [place] [address] 8 [facility] COMPREHENSI VE METABOLIC PANEL BILIRUBIN.TOT AL [MASS/VOLUME] IN SERUM OR PLASMA 0.8 mg/dL 0.2 - 1.2 04/11 Specimen Type: PLASMA No comment entered. Ordering Provider: DYAN JOAQUIN Report Released Date/Time : Dec 12, 2023 10:00 AM Reporting Lab: [place] [facility] [address] [place] [address] 8 Performin g Lab: [place] [facility] [address] [place] [address] 8 [facility] COMPREHENSI VE METABOLIC PANEL ALKALINE PHOSPHATASE [ENZYMATIC ACTIVITY/VOLU ME] IN SERUM OR PLASMA 69 U/L 40 - 150 04/11 Specimen Type: PLASMA No comment entered. Ordering Provider: DYAN JOAQUIN Report Released Date/Time : Dec 12, 2023 10:00 AM Reporting Lab: [place] [facility] [address] [place] [address] 8 Performin g Lab: [place] [facility] [address] [place] [address] 8 [facility] COMPREHENSI VE METABOLIC PANEL ASPARTATE AMINOTRANSFER ASE [ENZYMATIC ACTIVITY/VOLU ME] IN SERUM OR PLASMA 30 U/L 5 - 34 04/11 Specimen Type: PLASMA No comment entered. Ordering Provider: DYAN JOAQUIN Report Released Date/Time : Dec 12, 2023 10:00 AM Reporting Lab: [place] [facility] [address] [place] [address] 8 Performin g Lab: [place] [facility] [address] [place] [address] 8 [facility] COMPREHENSI VE METABOLIC PANEL ALANINE AMINOTRANSFER ASE [ENZYMATIC ACTIVITY/VOLU ME] IN SERUM OR PLASMA 28 U/L 8 - 40 04/11 Specimen Type: PLASMA No comment entered. Ordering Provider: DYAN JOAQUIN Report Released Date/Time : Dec 12, 2023 10:00 AM Reporting Lab: [place] [facility] [address] [place] [address] Performin g Lab: [place] [facility] [address] [place] [address] [facility] COMPREHENSI VE METABOLIC PANEL GLOMERULAR FILTRATION RATE/1.73 SQ M.PREDICTED [VOLUME RATE/AREA] IN SERUM, PLASMA OR BLOOD BY CREATININE-BA SED FORMULA (CKD-EPI 2020) 67 04/11 Specimen Type: PLASMA No comment entered. Ordering Provider: DYAN JOAQUIN Report Released Date/Time : Dec 12, 2023 10:00 AM Reporting Lab: [place] [facility] [address] [place] [address] 8 Performin g Lab[place] [facility] [address] [place] [address] 8 [place] [facility] Vital Signs Combined list of inpatient and outpatient Vital Signs from Department of Defense and Veterans Affairs, ranging from 12 months to all on record, depending upon the facility. Vital Sign Value Date Comments Source SYSTOLIC BLOOD PRESSURE 122 04/22/2025 09:10:00 [place] [facility] DIASTOLIC BLOOD PRESSURE 77 04/22/2025 09:10:00 [place] [facility] PULSE OXIMETRY 95 % 04/22/2025 09:10:00 [facility] WEIGHT 218.8 04/22/2025 09:10:00 [place] [facility] BMI 32 kg/m2 04/22/2025 09:10:00 [place] [facility] PAIN 0 04/22/2025 09:10:00 [place] [facility] TEMPERATURE 98.0 04/22/2025 09:10:00 [place] [facility] PULSE 71 04/22/2025 09:10:00 [place] [facility] RESPIRATION 18 04/22/2025 09:10:00 [place] [facility] SYSTOLIC BLOOD PRESSURE 119 09/30/2024 10:05:54 [place] [facility] DIASTOLIC BLOOD PRESSURE 77 09/30/2024 10:05:54 [place] [facility] PULSE OXIMETRY 95 09/30/2024 10:05:54 [facility] WEIGHT 219 09/30/2024 10:05:54 [place] [facility] BMI 32 kg/m2 09/30/2024 10:05:54 [place] [facility] PAIN 0 09/30/2024 10:05:54 [place] [facility] HEIGHT 69 09/30/2024 10:05:54 [place] [facility] PULSE 73 09/30/2024 10:05:54 [facility] RESPIRATION 18 09/30/2024 10:05:54 [facility] PULSE OXIMETRY 96 06/19/2024 14:50:00 [facility] PULSE 86 06/19/2024 14:50:00 [facility] RESPIRATION 19 06/19/2024 14:50:00 [facility] Encounters Combined list of: 1) Encounters from Department of [facility] facilities going backup to the last 18 months, not all DC inpatient encounters are included; 2) Encounters from the Department of [facility] facilities going backup to 280 months. Location Location Details Encounter Type Encounter Number Reason For Visit Attending Provider ADM Date DC Date Status Disposition Source [facility] Outpatient Encounter [id number] MOJGAN YOUNG 11/[address] [place] [facility] Outpatient Encounter [id number] [facility] Out[facility] Encounter [id number] 12/13 [facility] Outpatient Encounter [id number] 12/13 [facility] Outpatient Encounter [id number] RA RADHA MARLOW 01/01 [facility] Outpatient Encounter [id number] 01/08 [facility] Out[facility] Encounter [id number] 01/08 [facility] TELEHEALTH FACILITY FEE [id number] Diagnos is: ICD-10- CM Z46.1 Encount er for fitting and adjustm ent of hearing aid ODILON HARTMANN RT P 01/16 [facility] [place] [facility] CONFORMITY EVALUATION [id number] Diagnos is: ICD-10- CM Z46.1 Encount er for fitting and adjustm ent of hearing aid ODILON HARTMANN RT P 01/16 [place] [facility] Outpatient Encounter [id number] LESLY SPRAGUE 02/04 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 Ian JOAQUIN 04/17 [facility] Outpatient Encounter [id number] 06/06 [facility] Outpatient Encounter [id number] 06/07 [facility] Outpatient Encounter [id number] 06/19 [facility] OFF/OP EST MAY X REQ PHY/QHP [id number] Diagnos is: ICD-10- CM Z71.89 Other specifi ed admitting counselor ARIAS Bullock 06/19 [facility] [place] [facility] Outpatient Encounter [id number] 06/20 [place] [facility] Encounter [id number] ANDREW AUGUST Ina 06/21 [facility] Outpatient Encounter [id number] 06/21 [facility] Outpatient Encounter [id number] LESLY SPRAGUE 06/24 [facility] Outpatient Encounter [id number] 06/25 [facility] Outpatient Encounter [id number] 07/08 [facility] Outpatient Encounter [id number] 07/22 [facility] Outpatient Encounter [id number] 08/07 [facility] OFF/OP EST FEBRUARY X REQ PHY/QHP [id number] Diagnos is: ICD-10- CM Z23 Encount er for immuniz ARIAS Carcamo 08/12 [facility] [place] [facility] Outpatient Encounter [id number] 08/28 [place] [facility] Outpatient Encounter [id number] 09/03 [facility] Outpatient Encounter [id number] 09/04 [facility] Outpatient Encounter [id number] 09/24 [facility] Outpatient Encounter [id number] DARCIELESLY L 09/25 [facility] Outpatient Encounter [id number] 09/26 [facility] Outpatient Encounter [id number] 09/27 [facility] TELEHEALTH FACILITY FEE [id number] Diagnos is: ICD-10- CM I25.10 [facility] 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 Kline 09/30 [facility] OFFICE O/P EST LOW 20 MIN [id number] Diagnos is: ICD-10- CM I25.10 [facility] 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 Kline 09/30 [facility] Outpatient Encounter [id number] 11/06 [facility] Encounter [id number] 11/27 [facility] Outpatient Encounter [id number] 12/17 [facility] Outpatient Encounter [id number] 01/02 [facility] Outpatient Encounter [id number] 01/16 [facility] Outpatient Encounter [id number] 01/21 [facility] Outpatient Encounter [id number] 01/24 [facility] Outpatient [facility]counter [id number] 01/27 [facility] Outpatient Encounter [id number] 02/07 [facility] Encounter [id number] 03/04 [facility] Outpatient Encounter [id number] 03/12 [facility] En[facility] [id number] 04/04 [facility] Outpatient [facility]counter [id number] 04/04 [facility] Encounter [id number] ZAHRA LUNA 04/07 [facility] Out[facility] Encounter [id number] 04/07 [facility] Outpatient Encounter [id number] Ian JOAQUIN 04/22 [facility] Outpatient Encounter [id number] LESLY SPRAGUE RIL L 04/28 [facility] Outpatient Encounter [id number] LESLY SPRAGUE RIL L 05/15 [facility] Social History Combined list of available smoking, tobacco, and other social history from [facility] of Defense and [facility] facilities. Social History Type Response Date Comment [facility] e Tobacco smoking status NHIS VA-TOBACCO NEVER USED 04/17/2024 [facility] History of tobacco use VA-TOBACCO NEVER USED [facility] of tobacco use VA-TOBACCO NEVER USED [facility]20[facility] History of tobacco use DC-TOBACCO NEVER USED 07/17/2020 [facility] History of tobacco use LIFETIME NON-USER OF TOBACCO 02/03/2017 [facility] Advance Directives List of completed, amended, or rescinded Advance Directives on record at Department of Veterans Affairs facilities. An actual copy of the Directive is not included. Date Advance Directive Provider Source 02/08/2017 [facility]
--- OUTSIDE RECORDS SUMMARY | 2025-05-26 11:19 | XMS_ITS | Encounter Summary ---
Author Organization [facility] Address [address] [place] [address] Care Team Providers Care Wine Manager Name Role Phone Unavailable Primary Care Provider Unavailabl e Encounter Details Date Type Department Care Team (Late st Contact Info) Description 05/11/1998 Outpatient Historical [facility] Ophthalmology 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
--- OUTSIDE RECORDS SUMMARY | 2025-05-26 11:19 | XMS_ITS | Patient Health Record ---
Author Organization [facility] Address [address] [place] [address] Care Team Providers Care Infrastructure Administrator Name Role Phone Lakshmi Donovan MD Primary Care Provider Unav Gavin Velazquez Unavailable [phone] Francisco J FOLEYEast [place] Unavailable Unavailable Allergies Allergen (clinical drug ingredient) [...] free Unknown 12/20/2019 Refused Influenza (whole), CPT 40221 Inactive Unknown 01/25/2019 Administered Influenza (whole), CPT 42917 Inactive Unknown 07/29/2019 Administered Pneumococcal conjugate PCV [...] Risk Notes Problem Raised prostate specific antigen (183542339) Rising PSA following treatment for malignant neoplasm of prostate (R97.21) Active confirmed Problem Microscopic hematuria (273886999) Microscopic hematuria (R31.29) Active confirmed Problem History of prostatectomy (Z90.79) Active confirmed Problem SI - Stress incontinence (39998652) Stress incontinence (N39.3) Active confirmed Problem History of malignant neoplasm of prostate (976060032) History of prostate cancer (Z85.46) Active confirmed Problem History of radiation therapy (200968386) History of radiation therapy (Z92.3) Active confirmed Problem Gastroesophageal reflux disease (379959099) Gastroesophageal reflux disease, unspecified whether esophagitis present (K21.9) Active confirmed Plan Of Treatment Pending Test Test Name Order Date PSA Diagnostic--10188 01/04/2021 Testosterone Total 49792 01/04/2021 Insurance Providers Payer Name Payer Address Payer Phone Subscriber Number Group Number Insured Name Patient Relationship to Insured Coverage Start Date Coverage End Date [employer] [address] [place] [phone] [id number] Reinier Dc Self - patient is the insured Medical (General) History Medical History History ICD Code Malignant melanoma elevated prostate specific antigen Prostate Cancer GERD Myocardial Infarction (09/14/2021) hypertention glaucoma Surgical History Surgery Date(Month/Year) appendectomy cholecystectomy eye surgery skin grafting on nose prostatectomy Cardiac stent placement 09/14/2021 Hospitalization History Reason Date(Month/Year) see surgery list Myocardial infarction
--- OUTSIDE RECORDS SUMMARY | 2025-05-26 11:19 | XMS_ITS | Clinical Summary ---
Author Organization [facility] Address [address] 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
--- OUTSIDE RECORDS SUMMARY | 2025-05-26 11:19 | XMS_ITS | Encounter Summary ---
Author Organization [facility] Address [address] [place] [address] Care Team Providers Care Golf Cart Assembler Name Role Phone Unavailable Primary Care Provider Unavailabl e Encounter Details Date Type Department Care Team (Latest Contact Info) Description 03/09/1998 Outpatient Historical [facility] Ophthalmology 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
--- OUTSIDE RECORDS SUMMARY | 2025-05-26 11:19 | XMS_ITS | Clinical Summary ---
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 [address] [place] [id number]
--- OUTSIDE RECORDS SUMMARY | 2025-05-26 11:19 | XMS_ITS | Encounter Summary ---
Author Organization [facility] Address [address] [place] [address] Care Team Providers Care Assistant Shift Supervisor Name Role Phone Unavailable Primary Care Provider Unavailabl e Encounter Details Date Type Department Care Team (Latest Contact Info) Description 06/05/1998 Outpatient Historical [facility] Ophthalmology 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
--- OUTSIDE RECORDS SUMMARY | 2025-05-26 11:19 | XMS_ITS | Patient Health Record ---
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 Name Role Phone Lakshmi Smith MD Primary Care Provider SAMY Kaur Unavailable [phone] JessyDonald Unavailable Unavailable Samy Frausto Unavailable [phone] Allergies Allergen (clinical drug ingredient) Drug/Non Drug Allergy documented on EMR Reaction Allergy Type Onset Date Status No Known Drug Allergy Unknown Drug Allergy Active Results Component Value Reference Range Notes Urinalysis, Routine Reviewed date:06/25/2024 01:36:25 PM Interpretation: Performing Lab: Notes/Report: Urine-Color yellow Appearance clear Glucose - Bilirubin - Ketones - Specific [place] 1.025 Occult Blood trace pH 6.0 Urine Protein - Urobilinogen,Semi-Qn - Nitrite, Urine - WBC Esterase - PSA-Diagnostic Reviewed date:11/07/2024 12:56:12 PM Interpretation: Performing Lab: Notes/Report: Urinalysis, Routine Reviewed date:11/19/2024 02:37:32 PM Interpretation: Performing Lab: Notes/Report: Urine-Color yellow Appearance clear Glucose - Bilirubin - Ketones - Specific [place] 1.015 Occult Blood 1+ pH 6.0 Urine Protein - Urobilinogen,Semi-Qn - Nitrite, Urine - WBC Esterase - Urinalysis, Routine Reviewed date:07/10/2024 02:53:18 PM Interpretation: Performing Lab: Notes/Report: Urine-Color yellow Appearance clear Glucose - Bilirubin - Ketones - Specific [place] 1.025 Occult Blood 1+ pH 6.0 Urine Protein - Urobilinogen,Semi-Qn - Nitrite, Urine - WBC Esterase - Reason For Referral No Information Medications Medication [...] by from source eCW:: Influenza (whole), CPT 43099 Inactive Unknown 01/25/2019 Administered Influenza (whole), CPT 90985 Inactive Unknown 07/29/2019 Administered Pneumococcal conjugate PCV 13 Unknown 12/20/2019 Refused Immunization Giv en by from source eCW:: Problems Problem Type SNOMED Code ICD Code Onset Dates Problem Status W/U Status Risk Notes Problem Raised prostate specific antigen (590396863) Rising PSA following treatment for malignant neoplasm of prostate (R97.21) Active confirmed Problem Gastroesophageal reflux disease (420077880) Gastroesophageal reflux disease, unspecified whether esophagitis present (K21.9) Active confirmed Problem History of malignant neoplasm of prostate (465771566) History of prostate cancer (Z85.46) Active confirmed Problem History of prostatectomy (Z90.79) Active confirmed Problem History of radiation therapy (665040414) History of radiation therapy (Z92.3) Active confirmed Problem Radiation cystitis (87426938) 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 Problem SI - Stress incontinence (32465337) Stress incontinence (N39.3) Active confirmed Problem Microscopic hematuria (076757326) Microscopic hematuria (R31.29) Active confirmed Problem Malignant tumor of prostate (455241011) Prostate cancer (C61) Active confirmed Vital Signs Heart Rate 76 /min 11/19/2024 Blood pressure diastolic 82 mm Hg 11/19/2024 Height-cm 175.26 cm 11/19/2024 Weight-kg 93.89 kg 11/19/2024 Height 69 in 11/19/2024 Blood pressure systolic 134 mm Hg 11/19/2024 Weight 207 lbs 11/19/2024 BMI 30.57 kg/m2 11/19/2024 Encounters Encounter Location Date Provider Diagnosis [facility] [place], [facility] [address] [place] [address] 06/25/2024 Samy Frausto Microscopic hematuri a R31.29 ; Prostate cancer C61 and Gross hematuria R31.0 [facility], [facility] [address] [place] [address] 07/10/2024 SAMY HILL Gross hematuria R31. 0 ; Prostate cancer C61 ; Microscopic hematuria R31.29 and Radiation cystitis N30.40 [facility] [place], [facility] [address] [place] [address] 11/19/2024 Samy Frausto Gross hematuria R31. 0 ; Prostate cancer C61 ; Microscopic hematuria R31.29 and Radiation cystitis N30.40 [facility], [facility] [address] [place] [address] 06/27/2024 Samy Frausto [facility] [place], [facility] [address] [place] [address] 2024 SAMY HILL [facility] [place], [facility] [address] [place] [address] 09/04/2024 SAMY SERGIO Prostate cancer C61 Assessments Encounter Date Diagnosis [...] than 50% of that time in direct homz-ae-pnpe discussion. 07/10/2024 Prostate cancer (ICD-10 - C61) [...] than 50% of that time in direct dhjr-ac-fvit discussion. 11/19/2024 Gross hematuria (ICD-10 - R31.0) [...] satisfaction. 09/04/2024 Prostate cancer (ICD-10 - C61) 11/19/2024 Prostate cancer (ICD-10 - C61) Previous [...] than 50% of that time in direct rqnl-mf-abbf discussion. 06/25/2024 Prostate cancer (ICD-10 - C61) [...] than 50% of that time in direct mldp-uy-bkwe discussion. 11/19/2024 Microscopic hematuria (ICD-10 - R31.29) [...] Test Name Order Date PSA, total (cpt 33575) 10/10/2023 PSA Diagnostic--05970 01/04/2021 Testosterone Total 72217 01/04/2021 TESTOSTERONE, TOTAL, MALES (ADULT), [place] ( 873) 10/10/2023 Testosterone Total 09/04/2024 Testosterone Total 11/19/2024 PSA-Diagnostic 11/19/2024 Future Test Test Name Order Date PSA Diagnostic--90400 04/22/2020 PSA Diagnostic--85227 12/21/2020 PSA Diagnostic--34918 05/11/2021 PSA Diagnostic--88766 04/13/2022 Testosterone Total 26399 04/13/2022 PSA Diagnostic--08773 04/03/2023 Testosterone Total 36984 04/03/2023 Next Appt Details Provider Name:Samy Frausto, 11/19/2025 01:00:00 PM, [address] [place], [phone], Insurance Providers Payer Name Payer Address Payer Phone Subscriber Number Group Number Insured Name Patient Relationship to Insured Coverage Start Date Coverage End Date VAC[employer]UM [address] [place] [id number] Reinier Dc Self - patient is the insured Medical (General) History Medical History History ICD Code Malignant melanoma elevated prostate specific antigen Prostate Cancer GERD Myocardial Infarction (09/14/2021) hypertention glaucoma Surgical History Surgery Date(Month/Year) appendectomy cholecystectomy eye surgery skin grafting on nose prostatectomy Cardiac stent placement 09/14/2021 Hospitalization History Reason Date(Month/Year) see surgery list Myocardial infarction
--- OUTSIDE RECORDS SUMMARY | 2025-05-26 11:19 | XMS_ITS | Encounter Summary ---
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 Name Role Phone Unavailable Primary Care Provider Unavailabl e Encounter Details Date Type Department Care Team (Latest Contact Info) Description 04/03/2000 Outpatient Historical [place] [address] [place] [address] Other general medical examination for administrative purposes (Primary Dx) Social History Tobacco Use Types Packs/Day Years Used Date Smoking Tobacco: Never Assessed Sex and Gender Information Value Date Recorded Sex Assigned at Not on file 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
[2025-05-26 11:34] VITALS: BP 95/52; PULSE 55; RESP 18; TEMP 36.6; O2SAT 94; BMI 32.0
--- NOTE | 2025-05-26 11:45 | ED_ITS ---
HPI - Abdominal Pain 2 General: Chief Complaint: Abdominal Pain Stated Complaint: abd pain, bowel movement trouble, low bp Time Seen by Provider: 05/26/25 11:40 Source: patient Mode of arrival: ambulatory Limitations: no limitations History of Present Illness: 74-year-old male states that he has been having abdominal pain since morning. States he had some slight constipation as well. He states that he strained a bowel movement this morning and has been having diffuse cramping pain he rates an 8 out of 10. Associated Symptoms: Denies chills, diarrhea, fever(s), nausea and vomiting Related Data Home Medications ?Medication ?Instructions ?Recorded ?Confirmed acetaminophen 325 mg tablet 325 mg PO QID PRN Pain (Sc zaida 04/24/25 05/14/25 (Tylenol) Score 1-3) atorvastatin 80 mg tablet 80 mg PO QPM 05/14/25 latanoprost 0.005 % eye drops 1 drp ophthalmic (eye) Q PM 05/14/25 05/14/25 pantoprazole 40 mg tablet,delayed 40 mg PO QAM 5 05/14/25 release Previous Rx's ?Medication ?Instructions ?Recorded aspirin 81 mg tablet,delayed 81 mg PO DAILY #90 tabs 1 11/18/20 release nitroglycerin 0.4 mg sublingual 0.4 mg sublingual Q5M PRN chest 01/27/22 tablet pain #25 tabs lisinopril 2.5 mg tablet 2.5 mg PO DAILY #90 tabs 03/16 fluticasone propionate 50 1 spray intranasal BID PRN n tab 04/24/25 mcg/actuation nasal congestion #16 grams spray,suspension (Flonase Allergy Relief) methylprednisolone 4 mg tablets in See Rx Instructions PO .COMPLEX 04/26/25 a dose pack (Medrol (Parth)) #21 ea dicyclomine 20 mg tablet 20 mg PO BID PRN abdominal p ain 05/26/25 #20 tabs ondansetron 4 mg disintegrating 4 mg PO Q6H PRN nausea and 05/26/25 tablet vomiting #14 tabs Allergies Allergy/AdvReac Type Severity Reaction Status Date / Time No Known Allergies Allergy Verified 04/24/25 10:34 Review of Systems 2 Const: Denies: fever(s), chills, body aches or change in appetite ENMT: Denies: throat pain or dental pain Card: Denies: chest pain Resp: Denies: dyspnea GI: Reports: abdominal pain; Denies: nausea, vomiting or diarrhea Musc: Denies: neck pain or back pain Skin/Breast: Denies: rash Neuro: Denies: headache(s) PFSH ED 2 PFSH: Medical History History of ST elevation myocardial infarction (STEMI) s/p PTCA w/ stent of LAD Coronary artery disease Left anterior fascicular block (LAFB) History of prostate cancer s/p RALP + ADT/radiation; Zoladex x 6 mon; Casodex x 2 week History of skin cancer basal cell carcinoma Heart failure with reduced ejection fraction EF 35% on last echo Surgical History History of cataract extraction with lens replacement History of percutaneous transluminal coronary angioplasty LAD History of robot-assisted laparoscopic radical prostatectomy History of cholecystectomy History of appendectomy Family History Mother CAD (coronary artery disease) Cancer groin Stroke Brother CAD (coronary artery disease) Stroke Sister Cancer skin Social History Smoking and tobacco/nicotine status: never used tobacco/nicotine Alcohol intake: former Year of sobriety/quit date alcohol: 1999 Household members: spouse Marital status: Number of children: 2 service: Yes branch: [employer] Assignments: Inside [facility] ([facility]) Known or Potential Exposure: Other exposure details: asbestos Current occupational status: retired 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 Lizzie/Worship: [employer] Physical Exam 2 Const: COMMON NORMALS: no acute distress, patient oriented x3 and healthy appearing HENMT: COMMON NORMALS: normocephalic and atraumatic HEAD & SCALP: n ormocephalic and atraumatic Eye: COMMON NORMALS: conjunctivae normal CONJUNCTIVA: Yes conjunctivae normal Neck/C-Spine: COMMON NORMALS: full ROM and supple Chest: COMMONS NORMALS: normal inspection of the chest Resp: COMMON NORMALS: normal respiratory effort, No retractions, No use of accessory muscles and clear to auscultation bilaterally AUSCULTATION: clear to auscultation bilaterally Cardio: COMMON NORMALS: regular rate, regular rhythm and No murmurs present (Cardio) RATE: regular rate RHYTHM: regular rhythm GI: COMMON NORMALS: Normal to inspection, nondistended, normoactive bowel sounds present, Soft to palpation and no masses PALPATION: Yes Soft to palpation Extremity: COMMON NORMALS: normal to inspection and full ROM Neuro: COMMON NORMALS: patient oriented x3, moves all extremities and no focal motor deficits Psych: COMMON NORMALS: mental status grossly normal, Normal thought process present and cooperative THOUGHT PROCESS: Normal thought process present Skin: COMMON NORMALS: no rashes or lesions noted and no wounds GENERAL SKIN EXAM: no rashes or lesions noted Course 2 Vital Signs: Vital signs: Vital Signs Temperature 97.8 F 05/26/25 11:34 Pulse Rate 84 05/26/25 13:00 Respiratory Rate 18 05/26/25 11:34 Blood Pressure 121/56 05/26/25 13:00 Pulse Oximetry 94 05/26/25 13:00 Oxygen Delivery Me thod Room Air 05/26/25 13:00 MDM - Abdominal Pain Medical Decision Making Patient presents for abdominal pain has been crampy in nature he does feel improved here his CT scan and blood work showed no acute abnormality no signs of infection will prescribe him Zofran and Bentyl he is to follow-up with his PCP and return if worsening. Medical Records I reviewed the patient's medical records. Lab Data I reviewed the patient's lab results. 05/26/25 11:51 05/26/25 11:51 Labs/Radiology: Radiology Impressions Abdomen/Pelvis CT 05/26/25 11:45 IMPRESSION: 1. No free air or GI tract obstruction. No ascites. 2. Prior appendectomy. 3. LEFT inguinal hernia containing fat only extends into the scrotum. 4. Diffuse mild bladder wall thickening and intramural fat. These changes can be seen with under distention, history of urinary tract infection and stones. 5. No renal obstruction. 6. Prior cholecystectomy. Laboratory Results WBC 5.31 10^3/uL (3.29-11.43) 05/26/25 11:51 RBC 5.02 10^6/uL (3.85-5.65) 05/26/25 11:51 Hgb 15.40 g/dL (11.27-16.99) 05/26/25 11:51 Hct 45.5 % (37-53) 05/26/25 11:51 MCV 90.6 fl (82-101) 05/26/25 11:51 MCH 30.7 pg (27-33) 05/26/25 11:51 MCHC 33.8 g/dL (30-55) 05/26/25 11:51 RDW 12.5 % (12.1-15.1) 05/26/25 11:51 Plt Count 179 10^3/cmm (157-399) 05/26/25 11:51 MPV 8.6 fL (7.4-10.4) 05/26/25 11:51 Neut % (Auto) 61.9 % 05/26/25 11:51 Lymph % (Auto) 20.3 % 05/26/25 11:51 Larue % (Auto) 10.2 % 05/26/25 11:51 Eos % (Auto) 6.4 % 05/26/25 11:51 Baso % (Auto) 0.8 % 05/26/25 11:51 Neut # (Auto) 3.29 10^3/uL (1.8-7.7) 05/26/25 11:51 Lymph # (Auto) 1.1 10^3/uL (0.8-4.8) 05/26/25 11:51 Larue # (Auto) 0.5 10^3/uL (0.2-0.9) 05/26/25 11:51 Eos # (Auto) 0.3 10^3/uL (0.0-0.8) 05/26/25 11:51 Baso # (Auto) 0.0 10^3/uL (0.0-0.1) 05/26/25 11:51 Nucleated RBC % (auto) 0 % 05/26/25 11:51 Nucleated RBCs # 0.0 /100WBC 05/26/25 11:51 Sodium 143 mmol/L (136-145) 05/26/25 11:51 Potassium 4.9 mmol/L (3.5-5.1) 05/26/25 11:51 Chloride 108 mmol/L (98-107) H 05/26/25 11:51 Carbon Dioxide 26 mmol/L (22-29) 05/26/25 11:51 Anion Gap 13.9 (5-19) 05/26/25 11:51 BUN 18 mg/dL (8-23) 05/26/25 11:51 Creatinine 1.5 mg/dL (0.7-1.2) H 05/26/25 11:51 GFR Calculation Not Reportable 05/26/25 11:51 Glucose 120 mg/dL (65-115) H 05/26/25 11:51 Calculated Osmolality 299 mOsm/kg (285-295) H 05/26/25 11:51 Calcium 9.0 mg/dL (8.5-10.5) 05/26/25 11:51 Total Bilirubin 0.6 mg/dL (0.15-1.2) 05/26/25 11:51 AST 28 U/L (0-40) 05/26/25 11:51 ALT 27 U/L (0-41) 05/26/25 11:51 Alkaline Phosphatase 96 U/L (40-130) 05/26/25 11:51 Total Protein 6.9 g/dL (6.6-8.7) 05/26/25 11:51 Albumin 3.9 g/dL (3.5-5.2) 05/26/25 11:51 Globulin 3.0 g/dL (1.3-4.6) 05/26/25 11:51 Lipase 33 U/L (13-60) 05/26/25 11:51 Urine Color Yellow (Yellow) 05/26/25 13:10 Urine Appearance Clear (CLEAR) 05/26/25 13:10 Urine pH 7.0 (5-7) 05/26/25 13:10 Ur Specific [place] 1.056 (1.005-1.030) H 05/26/25 13:10 Urine Protein Negative (Negative) 05/26/25 13:10 Urine Glucose (UA) Negative (Normal) 05/26/25 13:10 Urine Ketones Negative (Negative) 05/26/25 13:10 Urine Blood Negative (Negative) 05/26/25 13:10 Urine Nitrate Negative (Negative) 05/26/25 13:10 Urine Bilirubin Negative (Negative) 05/26/25 13:10 Urine Urobilinogen 1.0 mg/dL (Negative) 05/26/25 13:10 Ur Leukocyte Esterase Negative (Negative) 05/26/25 13:10 Urine RBC 0-2 /hpf (0-2) 05/26/25 13:10 Urine WBC 0-5 /hpf (0-5) 05/26/25 13:10 Ur Squamous Epith Cells 0-5 /hpf (0-5) 05/26/25 13:10 Amorphous Sediment Not Reportable 05/26/25 13:10 Urine Bacteria None seen /hpf (NONE) 05/26/25 13:10 Hyaline Casts 0.40 /lpf 05/26/25 13:10 All radiology interpretation(s) finalized by discharge EKG Data EKG 1: I personally reviewed and interpreted this EKG as follows: EKG interpretation date: 05/26/25 EKG interpretation time: 12:00 Interpretation: nsr hr [address] elevation qrs 98 qtc 432 Discharge Plan Discharge Patient Disposition: Home Clinical Impression: Abdominal pain Condition: Stable Prescriptions: New ondansetron 4 mg tablet,disintegrating 4 mg PO Q6H PRN (Reason: nausea and vomiting) Qty: 14 0RF dicyclomine 20 mg tablet 20 mg PO BID PRN (Reason: abdominal pain) Qty: 20 0RF No Action nitroglycerin 0.4 mg tablet, sublingual 0.4 mg sublingual Q5M PRN (Reason: chest pain) Qty: 25 1RF Rx Instructions: do not exceed 3 doses per episode acetaminophen [Tylenol] 325 mg tablet 325 mg PO QID PRN (Reason: Pain (Scale Score 1-3)) fluticasone propionate [Flonase Allergy Relief] 50 mcg/actuation spray,suspension 1 spray intranasal BID PRN (Reason: nasal congestion) Qty: 16 0RF Rx Instructions: administer into each nostril lisinopril 2.5 mg tablet 2.5 mg PO DAILY Qty: 90 3RF aspirin 81 mg Tablet,Delayed Release (Dr/Ec) 81 mg PO DAILY Qty: 90 4RF latanoprost 0.005 % Drops 1 drp ophthalmic (eye) QPM atorvastatin 80 mg Tablet 80 mg PO QPM pantoprazole 40 mg tablet,delayed release (DR/EC) 40 mg PO QAM methylprednisolone [Medrol (Parth)] 4 mg tablets,dose pack See Rx Instructions .ROUTE .COMPLEX Qty: 21 0RF Rx Instructions: orally per package directions Discharge Orders: Discharge ED (Routine); Ordered 05/26/25 Ordered By: Abhishek Castro Referrals: Lakshmi Decker MD [Primary Care Provider, Family Practice] Discharge Diet: Advance as tolerated Discharge Activity: Resume usual activity Patient Instructions: Abdominal Pain (ED) Print Language: Greek Coding Level of Care Code ED Incident Response Manager for Roxie Dacosta
--- NOTE | 2025-05-26 11:45 | CT_ITS ---
WS: [id number] CT ABDOMEN AND PELVIS WITH CONTRAST HISTORY: abd pain TECHNIQUE: Imaging performed of the abdomen and pelvis with IV contrast. Single phase imaging of the abdomen. Coronal and sagittal reformats are submitted. All CT scans at [facility] use at least one of these dose optimization techniques: automated exposure control; mA and/or kV adjustment per patient size (includes targeted exams where dose is matched to clinical indication); or iterative reconstruction. IV CONTRAST: Omnipaque 350; 100 mL IV. Oral contrast: No DLP: 987.33 mGy.cm COMPARISON: 06/24/2024 Lower thorax: Granulomata at the lung bases. Heart is normal size. No hiatal hernia. Liver/biliary system: Normal size liver. LEFT lobe hepatic cyst 6 mm. No intrahepatic biliary dilatation. Gallbladder: Status post cholecystectomy. Pancreas: Normal size pancreas and pancreatic duct. No adjacent inflammation. Spleen: Normal size spleen with several granulomata. Adrenal glands: Normal. Right kidney: No obstruction. Normal size. Tiny cortical cyst lower pole. Left kidney: No obstruction and normal size. LEFT renal cyst with the largest measuring 15 mm. Aorta: Mild atherosclerosis with no aneurysm. Lymphadenopathy: None. Free fluid: None. GI tract: Nondistended stomach. No small bowel obstruction. Prior appendectomy. No obstruction of the colon. There is mild diffuse constipation. No colitis. Abdominal wall: Small fat-containing umbilical hernia. Pelvis: Patent LEFT inguinal canal contains fat only. Urinary bladder is only slightly distended. There is intramural bladder wall fat and mild bladder wall thickening. Bones: Mild increase in lumbar lordosis. CT/CT abdomen pelvis w con* [id number] IMPRESSION: 1. No free air or GI tract obstruction. No ascites. 2. Prior appendectomy. 3. LEFT inguinal hernia containing fat only extends into the scrotum. 4. Diffuse mild bladder wall thickening and intramural fat. These changes can be seen with under distention, history of urinary tract infection and stones. 5. No renal obstruction. 6. Prior cholecystectomy.
[2025-05-26] MEDS: ondansetron 2 mg/ML SDV 2 mL 4 MG IVP (11:58)
--- NOTE | 2025-05-26 12:00 | ECG_ITS ---
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1950 Requested By: Abhishek Castro Order Number: [id number] Reading MD: ALINE RODGERS Measurements Intervals [place] Rate: 65 P: 104 TX: 222 QRS: -52 QRSD: 98 T: 103 QT: 421 QTc: 439 Interpretive Statements SINUS RHYTHM WITH FIRST DEGREE AV BLOCK WITH OCCASIONAL SUPRAVENTRICULAR PREMATURE COMPLEXES PATTERN CONSISTENT WITH PULMONARY DISEASE LEFT ANTERIOR FASCICULAR BLOCK [QRS AXIS <= -45, QR IN I, RS IN II] SEPTAL MYOCARDIAL INFARCTION , OF INDETERMINATE AGE [40+ ms Q WAVE IN V1/V2] MODERATE T-WAVE ABNORMALITY, CONSIDER LATERAL ISCHEMIA [-0.1+ mV T-WAVE IN I/aVL/V5/V6] Compared to ECG 05/14/2025 13:18:46 First degree AV block now present T-wave abnormality now present Possible ischemia now present Myocardial infarct finding still present Electronically Signed On 05-26-2025 13:53:37 CDT by ALINE RODGERS [email or web address]
[2025-05-26 12:02] LABS: Hematocrit 45.5 % (37-53); Hemoglobin 15.40 g/dL (11.27-16.99); Mean Corpuscular HGB Conc 33.8 g/dL (30-55); Mean Corpuscular Hemoglobin 30.7 pg (27-33); Mean Corpuscular Volume 90.6 fl (82-101); Nucleated Red Blood Cells % 0 %; Platelet Count 179 10^3/cmm (157-399); Red Blood Count 5.02 10^6/uL (3.85-5.65); White Blood Count 5.31 10^3/uL (3.29-11.43)
[2025-05-26 12:22] LABS: Alanine Aminotransferase 27 U/L (0-41); Albumin Level 3.9 g/dL (3.5-5.2); Alkaline Phosphatase 96 U/L (40-130); Anion Gap 13.9 (5-19); Aspartate Amino Transferase 28 U/L (0-40); Blood Urea Nitrogen 18 mg/dL (8-23); Calcium 9.0 mg/dL (8.5-10.5); Carbon Dioxide 26 mmol/L (22-29); Chloride 108 mmol/L (98-107); Creatinine Clr Calc Pharmacy 49.2267; Globulin 3.0 g/dL (1.3-4.6); Glucose 120 mg/dL (65-115); Lipase 33 U/L (13-60); Osmolality Calculated 299 mOsm/kg (285-295); Potassium 4.9 mmol/L (3.5-5.1); Sodium 143 mmol/L (136-145); Total Protein 6.9 g/dL (6.6-8.7)
[2025-05-26] MEDS: iohexol 350 mg/mL 500 mL Btl (per mL) IV (12:34)
[2025-05-26 13:00] VITALS: BP 121/56; PULSE 84; O2SAT 94
[2025-05-26 13:31] LABS: Glucose Urine UA Negative (Normal); Nitrate Urine Negative (Negative)
[2025-05-26 13:36] LABS: Add Urine Microscopic? YES
[2025-05-26 13:39] LABS: Specific Gravity, Urine 1.056 (1.005-1.030)
[2025-05-26 13:57] VITALS: BP 113/70; PULSE 70; O2SAT 95
== END 2025-05-26 13:58 | disposition home or self-care (01) ==
PROVIDERS: Emergency Provider Emergency Medicine; PCP Family Medicine
DX: R10.9 Unspecified abdominal pain (principal); Z79.82 Long term (current) use of aspirin; I10 Essential (primary) hypertension; I50.20 Unspecified systolic (congestive) heart failure; Z85.828 Personal history of other malignant neoplasm of skin; Z85.46 Personal history of malignant neoplasm of prostate; I25.10 Atherosclerotic heart disease of native coronary artery without angina pectoris
CPT/HCPCS: 36415; 74177; 80053; 81001; 83690; 85025; 93005; 96361; 96374; 99285; J2405; J7030

== ENCOUNTER 2025-08-04 11:17 | Emergency (ER) | payer OTHER, SELFPAY ==
[2025-08-04 11:32] VITALS: BP 119/80; PULSE 74; RESP 17; TEMP 36.5; O2SAT 95; BMI 31.4
--- NOTE | 2025-08-04 11:35 | ED_ITS ---
HPI - Male Genitourinary 2 General: Chief complaint: Urogenital-Male Stated complaint: Blood in stool Time Seen by Provider: 08/04/25 11:30 Source: patient and family Mode of arrival: ambulatory Limitations: no limitations History of Present Illness: Patient is a nice 75-year-old male who presents to ED today along with his significant other for complaint of hematuria. Patient states he noticed gross hematuria when urinating this morning after he awoke. He did have a small amount of difficulty going but believes this was secondary to a clot as he was eventually able to go and noticed a clot in his urine. Patient since has urinated one additional time that was also grossly hematuric. Patient states he is not really having any discomfort. No back pain. No vomiting. He has no history of hematuria. No known history of bladder cancer. He is not on anticoagulation. He does have a urologist, Dr. Howard. Patient states he has had history on his prostate previously. MD Complaint: other (hematuria) Onset (ago): hour(s) Relieving factors: none Exacerbating factors: none Associated symptoms: Reports no associated symptoms and hematuria; Deny dysuria or vomiting Related Data Home Medications ?Medication ?Instructions ?Recorded ?Confirmed acetaminophen 325 mg tablet 325 mg PO QID PRN Pain (Sc zaida 04/24/25 07/22/25 (Tylenol) Score 1-3) atorvastatin 80 mg tablet 80 mg PO QPM 05/14/25 latanoprost 0.005 % eye drops 1 drp ophthalmic (eye) Q PM 05/14/25 07/22/25 pantoprazole 40 mg tablet,delayed 40 mg PO QAM 5 07/22/25 release Previous Rx's ?Medication ?Instructions ?Recorded aspirin 81 mg tablet,delayed 81 mg PO DAILY #90 tabs 1 11/18/20 release nitroglycerin 0.4 mg sublingual 0.4 mg sublingual Q5M PRN chest 01/27/22 tablet pain #25 tabs lisinopril 2.5 mg tablet 2.5 mg PO DAILY #90 tabs 03/16 dicyclomine 10 mg capsule 10 mg PO TID #30 caps ondansetron 4 mg disintegrating 4 mg PO Q6H PRN nausea and 07/22/25 tablet vomiting #14 tabs Allergies Allergy/AdvReac Type Severity Reaction Status Date / Time No Known Allergies Allergy Verified 07/22/25 17:14 Review of Systems 2 Const: Denies: fever(s), chills, body aches, fatigue or malaise Card: Denies: chest pain Resp: Denies: dyspnea GI: Denies: abdominal pain, vomiting, change in bowel habits, rectal pain, hematochezia or melena : Reports: difficulty urinating (had a little difficulty this AM but was eventually able to go) and hematuria; Denies: flank pain or dysuria Musc: Denies: back pain Skin/Breast: Denies: rash Neuro: Denies: headache(s) or dizziness PFSH ED 2 PFSH: Medical History History of ST elevation myocardial infarction (STEMI) s/p PTCA w/ stent of LAD Coronary artery disease Left anterior fascicular block (LAFB) History of prostate cancer s/p RALP + ADT/radiation; Zoladex x 6 mon; Casodex x 2 week History of skin cancer basal cell carcinoma Heart failure with reduced ejection fraction EF 35% on last echo Surgical History History of cataract extraction with lens replacement History of percutaneous transluminal coronary angioplasty LAD History of robot-assisted laparoscopic radical prostatectomy History of cholecystectomy History of appendectomy Family History Mother CAD (coronary artery disease) Cancer groin Stroke Brother CAD (coronary artery disease) Stroke Sister Cancer skin Social History Smoking and tobacco/nicotine status: never used tobacco/nicotine Alcohol intake: former Year of sobriety/quit date alcohol: 1999 Household members: spouse Marital status: Number of children: 2 service: Yes branch: [employer] Assignments: Inside [facility] ([facility]) Known or Potential Exposure: Other exposure details: asbestos Current occupational status: retired 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 Lizzie/Zoroastrianism: Sikh Physical Exam 2 Const: COMMON NORMALS: no acute distress, average body habitus, patient oriented x3, no limitations, healthy appearing, alert and well nourished G ENERAL APPEARANCE: cooperative ORIENTATION/CONSCIOUSNESS: Yes awake, Yes oriented to person, Yes oriented to place and Yes oriented to time Resp: COMMON NORMALS: normal respiratory effort and clear to auscultation bilaterally AUSCULTATION: clear to auscultation bilaterally Cardio: COMMON NORMALS: regular rate and regular rhythm RATE: regular rate RHYTHM: regular rhythm GI: COMMON NORMALS: Normal to inspection, nondistended, normoactive bowel sounds present, Soft to palpation, No hepatosplenomegaly present and no masses INSPECTION: Yes normal to inspection AUSCULTATION: Yes normoactive bowel sounds PALPATION: Yes Soft to palpation, Yes Tenderness to palpation present (GI) (mild suprapubic), No Guarding due to palpation present (GI), No Rigid due to palpation and Yes No hepatosplenomegaly present : COMMON NORMALS: Yes no CVA tenderness BLADDER/KIDNEY EXAM: Yes no CVA tenderness Back/Pelvis: COMMON NORMALS: no CVA tenderness Neuro: COMMON NORMALS: patient oriented x3 SENSORIUM/ORIENTATION: Yes alert, Yes oriented to person, Yes oriented to place and Yes oriented to time Course 2 Vital Signs: Vital signs: Vital Signs Temperature 97.7 F 08/04/25 11:32 Pulse Rate 74 08/04/25 11:32 Respiratory Rate 17 08/04/25 11:32 Blood Pressure 119/80 08/04/25 11:32 Pulse Oximetry 95 08/04/25 11:32 Oxygen Delivery Me thod Room Air 08/04/25 11:32 MDM - Male Medical Decision Making Patient is in a 75-year-old male here for gross hematuria beginning this morning. He is not complaining of much discomfort. No flank pain. No fevers. No vomiting. Vital signs are stable. His blood work overall is unremarkable. He has a normal white count. Chemistry functions are normal. His UA is grossly hematuric without evidence for infection. CBI was initiated and bladder was irrigated until clear. Patient does follow-up with Dr. Howard, urology. Ultimately he will require cystoscopy for further evaluation. We were able to contact Dr. Howard's office and schedule him an appointment for next Monday. They request that we leave catheter in place until that time. Return ED precautions discussed. CT scan was felt not to be necessary at this time. Differential Diagnosis Likely urinary tract infection, urethritis and acute retention of urine Medical Records I reviewed the patient's medical records. Lab Data I reviewed the patient's lab results. 08/04/25 12:13 08/04/25 12:13 Laboratory Results WBC 4.60 10^3/uL (3.29-11.43) 08/04/25 12:13 RBC 4.71 10^6/uL (3.85-5.65) 08/04/25 12:13 Hgb 14.20 g/dL (11.27-16.99) 08/04/25 12:13 Hct 42.2 % (37-53) 08/04/25 12:13 MCV 89.6 fl (82-101) 08/04/25 12:13 MCH 30.1 pg (27-33) 08/04/25 12:13 MCHC 33.6 g/dL (30-55) 08/04/25 12:13 RDW 12.3 % (12.1-15.1) 08/04/25 12:13 Plt Count 168 10^3/cmm (157-399) 08/04/25 12:13 MPV 8.6 fL (7.4-10.4) 08/04/25 12:13 Neut % (Auto) 59.6 % 08/04/25 12:13 Lymph % (Auto) 22.8 % 08/04/25 12:13 Turner % (Auto) 9.8 % 08/04/25 12:13 Eos % (Auto) 6.5 % 08/04/25 12:13 Baso % (Auto) 1.1 % 08/04/25 12:13 Neut # (Auto) 2.74 10^3/uL (1.8-7.7) 08/04/25 12:13 Lymph # (Auto) 1.1 10^3/uL (0.8-4.8) 08/04/25 12:13 Turner # (Auto) 0.5 10^3/uL (0.2-0.9) 08/04/25 12:13 Eos # (Auto) 0.3 10^3/uL (0.0-0.8) 08/04/25 12:13 Baso # (Auto) 0.1 10^3/uL (0.0-0.1) 08/04/25 12:13 Nucleated RBC % (auto) 0 % 08/04/25 12:13 Nucleated RBCs # 0.0 /100WBC 08/04/25 12:13 PT 13.60 SECONDS (12.1-14.9) 08/04/25 12:13 INR 0.97 (0.8-1.2) 08/04/25 12:13 APTT 28.6 SECONDS (23.9-36.7) 08/04/25 12:13 Sodium 136 mmol/L (136-145) 08/04/25 12:13 Potassium 4.4 mmol/L (3.5-5.1) 08/04/25 12:13 Chloride 102 mmol/L (98-107) 08/04/25 12:13 Carbon Dioxide 24 mmol/L (22-29) 08/04/25 12:13 Anion Gap 14.4 (5-19) 08/04/25 12:13 BUN 15 mg/dL (8-23) 08/04/25 12:13 Creatinine 1.0 mg/dL (0.7-1.2) 08/04/25 12:13 GFR Calculation Not Reportable 08/04/25 12:13 Glucose 107 mg/dL (65-115) 08/04/25 12:13 Calculated Osmolality 283 mOsm/kg (285-295) L 08/04/25 12:13 Calcium 8.5 mg/dL (8.5-10.5) 08/04/25 12:13 Total Bilirubin 0.8 mg/dL (0.15-1.2) 08/04/25 12:13 AST 28 U/L (0-40) 08/04/25 12:13 ALT 34 U/L (0-41) 08/04/25 12:13 Alkaline Phosphatase 77 U/L (40-130) 08/04/25 12:13 Total Protein 6.1 g/dL (6.6-8.7) L 08/04/25 12:13 Albumin 3.7 g/dL (3.5-5.2) 08/04/25 12:13 Globulin 2.4 g/dL (1.3-4.6) 08/04/25 12:13 Urine Color Red (Yellow) A 08/04/25 11:34 Urine Appearance Cloudy (CLEAR) A 08/04/25 11:34 Urine pH (5-7) 10/13/25 11:34 Ur Specific Steger Not Reportable 08/04/25 11:34 Urine Protein Not Reportable 08/04/25 11:34 Urine Glucose (UA) Not Reportable 08/04/25 11:34 Urine Ketones Not Reportable 08/04/25 11:34 Urine Blood Not Reportable 08/04/25 11:34 Urine Nitrate Not Reportable 08/04/25 11:34 Urine Bilirubin Not Reportable 08/04/25 11:34 Urine Urobilinogen Not Reportable 08/04/25 11:34 Ur Leukocyte Esterase Not Reportable 08/04/25 11:34 Urine RBC Too numerous to cnt /hpf (0-2) H 08/04/25 11:34 Urine WBC 0-4 /hpf (0-5) H 08/04/25 11:34 Ur Squamous Epith Cells None /hpf (0-5) 08/04/25 11:34 Amorphous Sediment Not Reportable 08/04/25 11:34 Urine Bacteria None /hpf (NONE) 08/04/25 11:34 Urine Mucus Trace /hpf 08/04/25 11:34 No radiology studies performed this visit Discharge Plan Discharge Patient Disposition: Home Clinical Impression: Gross hematuria Condition: Stable Prescriptions: No Action nitroglycerin 0.4 mg tablet, sublingual 0.4 mg sublingual Q5M PRN (Reason: chest pain) Qty: 25 1RF Rx Instructions: do not exceed 3 doses per episode acetaminophen [Tylenol] 325 mg tablet 325 mg PO QID PRN (Reason: Pain (Scale Score 1-3)) dicyclomine 10 mg capsule 10 mg PO TID Qty: 30 0RF ondansetron 4 mg tablet,disintegrating 4 mg PO Q6H PRN (Reason: nausea and vomiting) Qty: 14 0RF lisinopril 2.5 mg tablet 2.5 mg PO DAILY Qty: 90 3RF aspirin 81 mg Tablet,Delayed Release (Dr/Ec) 81 mg PO DAILY Qty: 90 4RF latanoprost 0.005 % Drops 1 drp ophthalmic (eye) QPM atorvastatin 80 mg Tablet 80 mg PO QPM pantoprazole 40 mg tablet,delayed release (DR/EC) 40 mg PO QAM Discharge Orders: Discharge ED (Routine); Ordered 08/04/25 Ordered By: Cyn Bah Referrals: Lakshmi Decker MD [Primary Care Provider, Family Practice] Patient Instructions: Hematuria (ED), Patient Portal & Jennifer Instructions Activity Restrictions/Additional Instructions: We were able to contact your urologist, Dr. Howard. They scheduled you for an appointment for next August 11 at 9:40 AM. They did request that you leave your Cobb catheter in place until this appointment. You need to return to the emergency department for onset of severe abdominal pain or flank/back pain, fevers, repetitive episodes of vomiting, generally feeling worse or unwell, or your Cobb catheter not draining appropriately. Print Language: Ukrainian Coding Level of Care Code ED Chart Changer for Roxie Dacosta
[2025-08-04 11:54] LABS: Add Urine Microscopic? YES
--- OUTSIDE RECORDS SUMMARY | 2025-08-04 11:58 | XMS_ITS | Clinical Summary ---
Author [facility] Address [address] 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
--- OUTSIDE RECORDS SUMMARY | 2025-08-04 11:58 | XMS_ITS | Encounter Summary ---
Author Organization [employer] [facility] Address [address] [place] [address] Care Team Providers Care Operations Team Leader Name Role Phone Unavailable Primary Care Provider Unavailabl e Encounter Details Date Type Department Care Team (Latest Contact Info) Description 04/03/2000 Outpatient Historical [place] [address] [place] [address] Other general medical examination for administrative purposes (Primary Dx) Social History Tobacco Use Types Packs/Day Years Used Date Smoking Tobacco: Never Assessed Sex and Gender Information Value Date Recorded Sex Assigned at Not on file 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
--- OUTSIDE RECORDS SUMMARY | 2025-08-04 11:58 | XMS_ITS | Encounter Summary ---
Author Organization [facility] Address [address] [place] [address] Care Team Providers Care Paper Cup Machine Tender Name Role Phone Unavailable Primary Care Provider Unavailabl e Encounter Details Date Type Department Care Team (Latest Contact Info) Description 03/09/1998 Outpatient Historical [facility] 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
--- OUTSIDE RECORDS SUMMARY | 2025-08-04 11:58 | XMS_ITS | Encounter Summary ---
Author Organization [facility] Address [address] [place] [address] Care Team Providers Care Educational Program Assistant Name Role Phone Unavailable Primary Care Provider Unavailabl e Encounter Details Date Type Department Care Team (Late st Contact Info) Description 05/11/1998 Outpatient Historical [facility] Ophthalmology 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
--- OUTSIDE RECORDS SUMMARY | 2025-08-04 11:58 | XMS_ITS | Clinical Summary ---
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
--- OUTSIDE RECORDS SUMMARY | 2025-08-04 11:58 | XMS_ITS | Encounter Summary ---
Author Organization [facility] Address [address] [place] [address] Care Team Providers Care Fitness Floor Attendant Name Role Phone Unavailable Primary Care Provider Unavailabl e Encounter Details Date Type Department Care Team (Latest Contact Info) Description 06/05/1998 Outpatient Historical [facility] Op[facility] 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
[2025-08-04 12:22] LABS: Hematocrit 42.2 % (37-53); Hemoglobin 14.20 g/dL (11.27-16.99); Mean Corpuscular HGB Conc 33.6 g/dL (30-55); Mean Corpuscular Hemoglobin 30.1 pg (27-33); Mean Corpuscular Volume 89.6 fl (82-101); Nucleated Red Blood Cells % 0 %; Platelet Count 168 10^3/cmm (157-399); Red Blood Count 4.71 10^6/uL (3.85-5.65); White Blood Count 4.60 10^3/uL (3.29-11.43)
[2025-08-04 12:34] LABS: INR 0.97 (0.8-1.2); Prothrombin Time 13.60 SECONDS (12.1-14.9)
[2025-08-04 12:35] LABS: Partial Thromboplastin Time 28.6 SECONDS (23.9-36.7)
[2025-08-04 12:41] LABS: Alanine Aminotransferase 34 U/L (0-41); Albumin Level 3.7 g/dL (3.5-5.2); Alkaline Phosphatase 77 U/L (40-130); Anion Gap 14.4 (5-19); Aspartate Amino Transferase 28 U/L (0-40); Blood Urea Nitrogen 15 mg/dL (8-23); Calcium 8.5 mg/dL (8.5-10.5); Carbon Dioxide 24 mmol/L (22-29); Chloride 102 mmol/L (98-107); Creatinine Clr Calc Pharmacy 72.0587; Globulin 2.4 g/dL (1.3-4.6); Glucose 107 mg/dL (65-115); Osmolality Calculated 283 mOsm/kg (285-295); Potassium 4.4 mmol/L (3.5-5.1); Sodium 136 mmol/L (136-145); Total Protein 6.1 g/dL (6.6-8.7)
--- NOTE | 2025-08-06 10:50 | DCPLANNER ---
Urology referral sent to [facility]
== END 2025-08-04 13:39 | disposition home or self-care (01) ==
PROVIDERS: Emergency Provider Physician Assistant; PCP Family Medicine
DX: R31.0 Gross hematuria (principal)
CPT/HCPCS: 36415; 80053; 81001; 85025; 85610; 85730; 87086; 99283

== ENCOUNTER → 2025-09-19 10:31 | Outpatient (BNVA) | payer MEDICARE, SELFPAY | PROVIDERS: PCP Family Medicine; Visit Provider Emergency Medicine | DX: J02.9 Acute pharyngitis, unspecified (principal) | CPT/HCPCS: 87071; 87880 ==